=== PATIENT | female | born 1980 | race Caucasian/White ===

== ENCOUNTER → 2018-12-03 | Outpatient (CLI) | payer MEDICARE, MEDICAID ==
[~2018-12-03] MED LIST: ALPR1TAB2 PO; CLCX200C PO; CRS350T PO; DIAZ10TA PO; FERR-57 PO; GLYB5TAB6 PO; HYDR-2890 PO; HYDR50TA76 PO; LURA40TA PO; MORP60CA17 PO; ONDA-42 PO; OXYC-12 PO; OXYC60TA9 PO; PREN1TAB64 PO; PRX20T PO; ZLP10T PO
--- NOTE | 2018-12-03 10:34 | Diagnostic Imaging Report ---
INDICATION: Palpable lump in the right breast. Patient also complains of bilateral nipple discharge. Patient reports discharge is clear to white. TECHNIQUE: 2D and 3D bilateral diagnostic mammography was performed with CAD. COMPARISON: No prior studies are available for comparison. FINDINGS: Scattered fibroglandular densities are identified bilaterally. There is a nodular density in the upper outer right breast approximately 7 cm from the nipple. This may represent an intraparenchymal lymph node. No other masses or malignant appearing microcalcifications are seen. The retroareolar regions are unremarkable. The axillae are unremarkable. IMPRESSION: No mammographic abnormality at the area of palpable abnormality. Even so, directed sonographic interrogation of this region is recommended. Ultrasound evaluation of the upper outer right breast at the area of nodular density is recommended. In addition, ultrasound evaluation of the retroareolar regions bilaterally will be performed due to nipple discharge. ACR BI-RADS Category 0: Incomplete. (Needs additional imaging evaluation). Result letter will be mailed to the patient. Note: At least 10% of breast cancer is not imaged by mammography. Dictated by: Dictated on workstation # [id number]
--- NOTE | 2018-12-03 10:58 | Diagnostic Imaging Report ---
INDICATION: Palpable lump in the right breast. Patient also complains of bilateral nipple discharge. COMPARISON: Correlation is made to the diagnostic mammogram from earlier this same day. FINDINGS: Sonographic interrogation of the retroareolar regions was performed bilaterally. No retroareolar abnormality is identified within either breast. In addition, the area of palpable abnormality was evaluated in the right breast corresponding to the 9 o'clock location 2 cm from the nipple. No sonographic abnormality is seen. Evaluation was also performed of the upper outer right breast 6 cm from the nipple. There is a hypoechoic nodule with an echogenic center at the 9:30 location 6 cm from the nipple measuring 9 mm x 5 mm x 9 mm. This most likely represents a lymph node. This does correspond to the nodule noted mammographically. No suspicious finding is detected. IMPRESSION: No suspicious sonographic abnormality is identified. ACR BI-RADS Category 2: Benign findings. Dictated by: Dictated on workstation # [id number]
== END ==
LOC: RAD 07:44
PROVIDERS: ATTEND Registered Nurse
DX: N63.11 Unspecified lump in the right breast, upper outer quadrant (principal); N64.52 Nipple discharge
CPT/HCPCS: 76642; 77066

== ENCOUNTER 2019-01-05 12:00 | Emergency (ER) | payer MEDICARE, MEDICAID ==
[~2019-01-05] VITALS: Ht 167.6 cm; Wt 99.8 kg
--- NOTE | 2019-01-05 12:59 | ED Lower Extremity ---
General Chief Complaint: Lower Extremity Stated Complaint: R LEG PAIN Source: patient Exam Limitations: no limitations History of Present Illness Date Seen by Provider: Jan 05, 2019 Time Seen by Provider: 12:57 Initial Comments To ER with reports of right lateral leg pain. This began on , 01/01/19 when she fell she twisted her ankle falling onto her right side striking the right lateral aspect of the lower leg. Pain has not improved since onset. No tingling paresthesias or numbness to the foot. She has been able to bear weight. Onset: last week Severity: moderate Pain/Injury Location: right leg Method of Injury: fell Modifying Factors: Worse With Movement Allergies and Home Medications Allergies Coded Allergies: Penicillins (Verified Allergy, 08/05/11) Home Medications Alprazolam 1 Mg Tablet, 1 MG PO TID, (Reported) Carisoprodol 350 Mg Tablet, 1 TAB PO TID, (Reported) Celecoxib 200 Mg Capsule, 200 MG PO TID, (Reported) Diazepam 10 Mg Tablet, 10 MG PO BID, (Reported) Hydrocodone Bit/Acetaminophen 1 Each Tablet, 1 EACH PO PRN, (Reported) Hydrocodone Bit/Acetaminophen 1 Tab Tab, 1 EACH PO Q4-6HR PRN for PAIN-MODERATE Prescribed by: FAIBAN SALAZAR on 01/05/19 1342 Lurasidone Hcl 40 Mg Tablet, 40 MG PO HS, (Reported) Morphine Sulfate 60 Mg Cap.sr.pel, 60 MG PO BID, (Reported) Oxycodone Hcl 60 Mg Tab.sr.12h, 60 MG PO BID, (Reported) Zolpidem Tartrate 10 Mg Tab, 10 MG PO HS, (Reported) Patient Home Medication List Home Medication List Reviewed: Yes Review of Systems Constitutional: see HPI EENTM: see HPI Respiratory: no symptoms reported Cardiovascular: no symptoms reported Genitourinary: no symptoms reported Musculoskeletal: see HPI Skin: no symptoms reported Psychiatric/Neurological: No Symptoms Reported Past Bocconu-Swfwus-Hptjlf Hx Patient Social History Recent Foreign Travel: No Contact w/Someone Who Travel: No Immunizations Up To Date Date of Influenza Vaccine: Apr 19, 2013 Past Medical History Reproductive Disorders: No Kidney Infection Chronic Back Pain Anxiety, Suicide Attempts, Bipolar, Personality Disorder, Depression Physical Exam Vital Signs Vital Signs - First Documented 01/05/19 12:40 Temp 98.9 Pulse 116 Resp 18 B/P (MAP) 132/96 (108) Pulse Ox 98 O2 Delivery Room Air Capillary Refill : Height, Weight, BMI Height: 5'7" Weight: 200lbs. oz. 90.595026kj; BMI Method: General Appearance: WD/WN, no apparent distress HEENT: PERRL/EOMI, normal ENT inspection Respiratory: no respiratory distress, no accessory muscle use Hips: bilateral hip non-tender, bilateral hip normal inspection, bilateral hip normal range of motion Legs: bilateral leg non-tender, bilateral leg normal inspection, bilateral leg normal range of motion Knees: bilateral knee non-tender, bilateral knee normal inspection, bilateral knee normal range of motion Ankles: right ankle pain, right ankle soft tissue tenderness, right ankle swelling, right ankle other (dorsalis pedis pulse +2 normal appearance to the leg, all compartments are soft. Tenderness to palpation over the fibular head but no ecchymosis swelling or deformity.) Feet: bilateral foot non-tender, bilateral foot normal inspection, bilateral foot normal range of motion Neurologic/Psychiatric: alert, normal mood/affect, oriented x 3 Skin: normal color, warm/dry Progress/Results/Core Measures Results/Orders My Orders Orders - FABIAN SALAZAR APRN Tibia/Fibula, Right, 2 Views (01/05/19 12:56) Vital Signs/I&O 01/05/19 12:40 Temp 98.9 Pulse 116 Resp 18 B/P (MAP) 132/96 (108) Pulse Ox 98 O2 Delivery Room Air Departure Communication (Admissions) Normal sensation of the foot, normal dorsiflexion and plantar flexion of the foot. Impression Primary Impression: Right fibular fracture Qualified Codes: S82.831A - Other fracture of upper and lower end of right fibula, initial encounter for closed fracture Disposition: 01 HOME, SELF-CARE Condition: Stable Departure-Patient Inst. Decision time for Depature: 13:39 Referrals: MAYCOL MARIN (PCP) Primary Care Physician AMOS MARES MD,MERCEDEZ POLANCO,ORION KELLY,SHIRLEY HERNANDEZ,MAYCOL Zamora MD Patient Instructions: Fibula Fracture (DC) Add. Discharge Instructions: All discharge instructions reviewed with patient and/or family. Voiced understanding. Scripts Hydrocodone Bit/Acetaminophen (Hydrocodone/Acetaminophen 5/325mg Tablet) 1 Tab Tab 1 EACH PO Q4-6HR PRN for PAIN-MODERATE MDD 10 for 3 Days, #20 TAB Prov: FABIAN SALAZAR APRN 01/05/19 FABIAN SALAZAR APRN Jan 05, 2019 12:59
--- NOTE | 2019-01-05 13:33 | Diagnostic Imaging Report ---
INDICATION: Fall with injury to the right leg. TIME OF EXAM: 01:11 p.m. EXAMINATION: Multiple views of right tibia and fibula were obtained. FINDINGS: The lateral view does appear to demonstrate some cortical interruption involving the proximal fibula near the neck. A longitudinally oriented lucency is also present which extends to the proximal surface. No displacement or angulation is seen. Remaining fibula is intact. The tibia appears to be intact. Alignment at the knee and ankle is normal. IMPRESSION: There are findings suggestive of a nondisplaced fracture of the proximal fibula near the neck and head. Clinical correlation to pain at this location is recommended. Remainder of the study is unremarkable. Dictated by: Dictated on workstation # [id number]
[2019-01-05] MEDS ORDERED: ACHD5005 PO (13:42)
[2019-01-05] MEDS ORDERED: HYDROcodone/APAP 5 MG/325 MG (LORTAB) TAB PO ONE (14:00)
[2019-01-05 14:18] VITALS: BP 132/96
== END 2019-01-05 14:20 | disposition home or self-care (01) ==
LOC: EDUNIT# 12:00 → ER 12:01
DX: S82.831A Other fracture of upper and lower end of right fibula, initial encounter for closed fracture (principal); F41.9 Anxiety disorder, unspecified; F31.9 Bipolar disorder, unspecified; F60.9 Personality disorder, unspecified; Z91.5 Personal history of self-harm; W01.10XA Fall on same level from slipping, tripping and stumbling with subsequent striking against unspecified object, initial encounter
CPT/HCPCS: 73590

== ENCOUNTER 2020-09-29 15:45 | Emergency (ER) | payer MEDICARE, MEDICAID ==
[~2020-09-29] VITALS: Ht 167 cm; Wt 86.0 kg
[~2020-09-29 15:45] MED LIST changes: +ACHD5005 PO
[2020-09-29] MEDS ORDERED: morphine INJ 10 MG/ML 1ML (SYR OR VIAL) IV STA (16:01)
[2020-09-29] MEDS ORDERED: FAMOTIDINE 20MG/2ML IV (PEPCID) IV STA (16:12)
--- NOTE | 2020-09-29 16:12 | ED Chest Pain ---
General Chief Complaint: Chest Pain Stated Complaint: CP/SOB Source: patient Exam Limitations: no limitations (ANTHONY SCHRADER) History of Present Illness Date Seen by Provider: September 29, 2020 Time Seen by Provider: 15:50 Initial Comments Patient presents ER by private conveyance with chief complaint of 1-1/2 weeks of sharp 8 out of 10 substernal midline chest pain. She has no history of coronary disease. She has no significant familial history of coronary disease. She does not smoke drink or use drugs. She has tried ibuprofen 800 mg every 6 hours with no relief of pain. She went to [place] [facility] and had 2 different troponins and labs that revealed no significant disease burden. She was given Toradol which did not help. She was given Norflex which did not help and was sent home to take ibuprofen. She is on medications for her mood Effexor. She has a history of gastric sleeve 2 years ago and 14 months ago she had a gastric bypass secondary to severe gastritis/reflux. No recent surgeries. No recent trauma. Pain is worse when she pushes on her chest or takes deep breaths. She has no cough shortness of breath fever chills nausea. She had some vomiting yesterday with a tremendous amount of pain. Pain is not worse with lying flat or sitting up. (ANTHONY SCHRADER) Allergies and Home Medications Allergies Coded Allergies: Penicillins (Verified Allergy, Unknown, 09/29/20) Home Medications Alprazolam 1 Mg Tablet, 1 MG PO TID, (Reported) Carisoprodol 350 Mg Tablet, 1 TAB PO TID, (Reported) Celecoxib 200 Mg Capsule, 200 MG PO TID, (Reported) Diazepam 10 Mg Tablet, 10 MG PO BID, (Reported) Hydrocodone Bit/Acetaminophen 1 Each Tablet, 1 EACH PO PRN, (Reported) Hydrocodone Bit/Acetaminophen 1 Tab Tab, 1 EACH PO Q4-6HR PRN for PAIN-MODERATE Prescribed by: FABIAN SALAZAR on 01/05/19 1342 Lurasidone Hcl 40 Mg Tablet, 40 MG PO HS, (Reported) Morphine Sulfate 60 Mg Cap.sr.pel, 60 MG PO BID, (Reported) Oxycodone Hcl 60 Mg Tab.sr.12h, 60 MG PO BID, (Reported) Zolpidem Tartrate 10 Mg Tab, 10 MG PO HS, (Reported) Patient Home Medication List Home Medication List Reviewed: Yes (ANTHONY SCHRADER) Review of Systems Review of Systems Constitutional: No chills, No diaphoresis EENTM: No Blurred Vision, No Double Vision Respiratory: Denies Cough, Denies Orthopnea Cardiovascular: See HPI, Chest Pain; Denies Lightheadedness Gastrointestinal: Denies Abdominal Pain, Denies Constipated, Denies Diarrhea Genitourinary: Denies Burning, Denies Discharge Musculoskeletal: No back pain, No joint pain (ANTHONY SCHRADER) All Other Systems Reviewed Negative Unless Noted: Yes (ANTHONY SCHRADER) Past Sizhtbv-Szpqoz-Cdngoy Hx Patient Social History Alcohol Use: Denies Use Smoking Status: Never a Smoker 2nd Hand Smoke Exposure: No Recent Hopitalizations: Yes ( X4) (ANTHONY SCHRADER) Immunizations Up To Date Date of Influenza Vaccine: Apr 19, 2013 (ANTHONY SCHRADER) Past Medical History Surgeries: Yes (D&C) Abdominal Respiratory: No Cardiac: No Neurological: No Reproductive Disorders: No Genitourinary: Yes Kidney Infection Gastrointestinal: No Musculoskeletal: Yes (BACK SX) Chronic Back Pain Endocrine: No Psychosocial: Yes (AGORAPHOBIA) Anxiety, Suicide Attempts, Bipolar, Personality Disorder, Depression Integumentary: No Blood Disorders: No (ANTHONY SCHRADER) Physical Exam Vital Signs Vital Signs - First Documented 09/29/20 16:02 Temp 36.4 Pulse 95 Resp 18 B/P (MAP) 144/108 (120) Pulse Ox 100 O2 Delivery Room Air (FABIAN SALAZAR APRN) Vital Signs Capillary Refill : (ANTHONY SCHRADER) Height, Weight, BMI Height: 5'6.00" Weight: 220lbs. oz. 99.734453gr; BMI Method:Stated General Appearance: Anxious (Tearful), Moderate Distress HEENT: PERRL/EOMI, Pharynx Normal, Moist Mucous Membranes Neck: Full Range of Motion, Normal Inspection, Non Tender Respiratory: No Chest Non Tender (Chest pain exquisitely reproducible to palpation of the sternum); Lungs Clear, Normal Breath Sounds, No Accessory Muscle Use, No Respiratory Distress Cardiovascular: Regular Rate, Rhythm, No Edema, Normal Peripheral Pulses Gastrointestinal: Normal Bowel Sounds, No Organomegaly, No Pulsatile Mass, Non Tender, Soft Extremity: Normal Capillary Refill, Normal Inspection, No Pedal Edema Neurologic/Psychiatric: Alert, Oriented x3 Skin: Normal Color, Warm/Dry (ANTHONY SCHRADER) Progress/Results/Core Measures Results/Orders Lab Results Laboratory Tests Test 09/29/20 16:01 Range/Units White Blood Count 8.4 4.3-11.0 10^3/uL Red Blood Count 4.31 3.80-5.11 10^6/uL Hemoglobin 12.2 11.5-16.0 g/dL Hematocrit 38 35-52 % Mean Corpuscular Volume 87 80-99 fL Mean Corpuscular Hemoglobin 28 25-34 pg Mean Corpuscular Hemoglobin Concent 32 32-36 g/dL Red Cell Distribution Width 12.9 10.0-14.5 % Platelet Count 328 130-400 10^3/uL Mean Platelet Volume 10.7 9.0-12.2 fL Immature Granulocyte % (Auto) 0 % Neutrophils (%) (Auto) 65 42-75 % Lymphocytes (%) (Auto) 29 12-44 % Monocytes (%) (Auto) 5 0-12 % Eosinophils (%) (Auto) 1 0-10 % Basophils (%) (Auto) 0 0-10 % Neutrophils # (Auto) 5.4 1.8-7.8 10^3/uL Lymphocytes # (Auto) 2.4 1.0-4.0 10^3/uL Monocytes # (Auto) 0.4 0.0-1.0 10^3/uL Eosinophils # (Auto) 0.1 0.0-0.3 10^3/uL Basophils # (Auto) 0.0 0.0-0.1 10^3/uL Immature Granulocyte # (Auto) 0.0 0.0-0.1 10^3/uL Prothrombin Time 13.4 12.2-14.7 SEC INR Comment 1.0 0.8-1.4 Activated Partial Thromboplast Time 27 24-35 SEC D-Dimer < 0.27 0.00-0.49 UG/ML Sodium Level 141 135-145 MMOL/L Potassium Level 3.2 L 3.6-5.0 MMOL/L Chloride Level 104 98-107 MMOL/L Carbon Dioxide Level 21 21-32 MMOL/L Anion Gap 16 H 5-14 MMOL/L Blood Urea Nitrogen 6 L 7-18 MG/DL Creatinine 1.03 0.60-1.30 MG/DL Estimat Glomerular Filtration Rate 60 BUN/Creatinine Ratio 6 Glucose Level 122 H 70-105 MG/DL Calcium Level 8.9 8.5-10.1 MG/DL Corrected Calcium 9.0 8.5-10.1 MG/DL Magnesium Level 2.1 1.6-2.4 MG/DL Total Bilirubin 0.3 0.1-1.0 MG/DL Aspartate Amino Transf (AST/SGOT) 20 5-34 U/L Alanine Aminotransferase (ALT/SGPT) 16 0-55 U/L Alkaline Phosphatase 88 40-136 U/L Total Creatine Kinase 92 29-168 U/L Myoglobin 26.6 10.0-92.0 NG/ML Troponin I < 0.028 <0.028 NG/ML Total Protein 7.4 6.4-8.2 GM/DL Albumin 3.9 3.2-4.5 GM/DL (FABIAN SALAZAR APRN) My Orders Orders - FABIAN SALAZAR APRN Iohexol Injection (Omnipaque 350 Mg/Ml 1 (09/29/20 19:00) Received Contrast (Hold Metformin- Contr (09/29/20 19:00) Ns (Ivpb) (Sodium Chloride 0.9% Ivpb Bag (09/29/20 19:00) Diatrizoate Meglum/Sodium 37% (Gastrogra (09/29/20 19:00) (FABIAN SALAZAR APRN) Medications Given in ED Current Medications Medications Dose Ordered Sig/Jerardo Route Start Time Stop Time Status Last Admin Dose Admin Al Hydrox/Mg Hydrox/Simethicone 30 ml ONCE ONCE PO 09/29/20 16:15 09/29/20 16:16 DC 09/29/20 16:41 30 ML Aspirin 324 mg ONCE ONCE PO 09/29/20 16:15 09/29/20 16:16 DC 09/29/20 16:19 324 MG Diatrizoate Meglum/ Diatrizoate Sod 120 ml ONCE ONCE PO 09/29/20 19:00 09/29/20 19:01 DC 09/29/20 18:53 50 ML Iohexol 100 ml ONCE ONCE IV 09/29/20 19:00 09/29/20 19:01 DC 09/29/20 18:53 100 ML Lidocaine HCl 15 ml ONCE ONCE PO 09/29/20 16:15 09/29/20 16:16 DC 09/29/20 16:41 15 ML Nitroglycerin 0.4 mg NEEDED PRN SL 09/29/20 16:15 09/29/20 16:19 0.4 MG Sodium Chloride 100 ml ONCE ONCE IV 09/29/20 19:00 09/29/20 19:01 DC 09/29/20 18:53 80 ML (FABIAN SALAZAR APRN) Vital Signs/I&O 09/29/20 09/29/20 09/29/20 09/29/20 16:02 16:10 16:41 17:26 Temp 36.4 36.4 36.4 Pulse 95 Resp 18 B/P (MAP) 144/108 (120) Pulse Ox 100 O2 Delivery Room Air Room Air (FABIAN SALAZAR APRN) Progress Progress Note : Time: 16:14 Progress Note Differential includes esophageal spasm/GERD/gastritis/ulcer, myocarditis/pericarditis, much less likely coronary, pneumonia, bronchospasm or PE. With her recent work-up and delta troponin coronary seems less likely as she has few risk factors. She is not on control and rules out with a Wells PE score and PERC rule. Her vitals are aseptic and she has no cough, fever or other signs of pneumonia. Her lungs sound clear without bronchospasm. She has normal heart tones and no evidence of tension pneumothorax or cardiac tamponade on examination. We will start with a dose of nitroglycerin which may help if she is having an esophageal spasm followed by GI cocktail of her symptoms or not completely resolved. If this does not work then we can use morphine to get her pain under control continue our work-up with labs and x-ray. (ANTHONY SCHRADER) Initial ECG Impression Date: September 29, 2020 Initial ECG Impression Time: 15:52 Initial ECG Rate: 81 Initial ECG Rhythm: Normal Sinus Initial ECG Intervals: QT (474) Initial ECG Impression: Normal Initial ECG Comparisson: No Previous ECG Available Comment Normal sinus rhythm without clinically relevant ST elevation or depression. (ANTHONY SCHRADER) Diagnostic Imaging Diagonstic Imaging: Xray Plain Films/CT/US/NM/MRI: chest Comments NAME: AUGIE CODY Foreign MED REC#: [id number] PT STATUS: REG ER : 1980 PHYSICIAN: ANTHONY SCHRADER MD ADMIT DATE: 09/29/20/ER Signed Date of Exam:09/29/20 CHEST 1 VIEW, AP/PA ONLY EXAMINATION: Chest 1 view HISTORY: Chest pain COMPARISON: None available. FINDINGS: The lungs are clear without edema or pneumonia. No pleural effusion or pneumothorax. Heart size is normal. IMPRESSION: 1. Clear lungs. Dictated by: Dictated on workstation # [id number] Dict: 09/29/208 Trans: 09/29/201627 [facility] [id number] Interpreted by: MERCEDEZ DILL MD Electronically signed by: MERCEDEZ DILL MD 09/29/208 Reviewed: Reviewed by Me (ANTHONY SCHRADER) Consults : Consulting Physician: DONNELL CARDOSO DO Consults Notes Discussed the case and differential and he suggested a CT with oral contrast to rule out obstruction. He would then put the patient on Carafate, Protonix, appropriate pain medicines and avoid NSAIDs. Follow-up with the surgeon. (ANTHONY SCHRADER) Departure Communication (Admissions) NAME: AUGIE CODY MED REC#: [id number] PT STATUS: REG ER : 1980 PHYSICIAN: ANTHONY SCHRADER MD ADMIT DATE: 09/29/20/ER Draft Date of Exam:09/29/20 CT CHEST/ABDOMEN/PELVIS W PROCEDURE: CT chest, abdomen, and pelvis with contrast. TECHNIQUE: Multiple contiguous axial images were obtained through the chest, abdomen, and pelvis after the administration of intravenous contrast. Auto Exposure Controls were utilized during the CT exam to meet ALARA standards for radiation dose reduction. INDICATION: Chest pain, shortness of breath for 2 weeks, gastric sleeve, lumbar surgery. COMPARISON STUDY: CT lumbar spine from 2013. FINDINGS: CT scan of the chest demonstrates no pulmonary emboli, aortic dissection or aneurysm. There are no pleural or pericardial effusions. Heart size is normal. No abnormal adenopathy is present. The lungs are clear. Oral contrast was also given. Esophagus is mildly distended with some contrast in the esophagus probably due to reflux. No hiatal hernia is present. The stomach is fairly decompressed. The liver, gallbladder, spleen, pancreas, adrenal glands and kidneys are normal. Appendix is not definitely identified. There is no evidence of appendicitis. IUD is present within the uterus. No inflammatory changes present. Adnexal structures appear normal. Urinary bladder is unremarkable but is nearly decompressed. Moderate amount of stool seen throughout the colon, questionable constipation. Small bowel loops are normal. There is no ascites, free air or abnormal adenopathy. Postoperative changes present to the spine. No evidence of hardware loosening is present. IMPRESSION: 1. There is contrast in the esophagus with mild distention of the esophagus. This probably due to reflux. Stomach is nearly decompressed. 2. IUD in the uterus appears unremarkable. 3. Large amount stool seen throughout: Possible constipation. Dictated on workstation # [id number] Dict: 09/29/20 1855 Trans: 09/29/201901 [facility] [id number] Interpreted by: SHEKHAR RAMOS MD Electronically signed by: (FABIAN SALAZAR APRN) Impression Primary Impression: Chest pain Additional Impression: GERD (gastroesophageal reflux disease) Disposition: 01 HOME, SELF-CARE Condition: Stable Departure-Patient Inst. Decision time for Depature: 19:06 (FABIAN SALAZAR APRN) Referrals: [facility] Primary Care Physician MAYCOL MARIN (Family) Primary Care Physician Patient Instructions: Acid Reflux and Gastroesophageal Reflux Disease in Adults Add. Discharge Instructions: 1. Call your surgeon for follow-up. Take the acid reducers and pain medication as directed. Clear liquids for 3 days. Scripts Sucralfate (Carafate) 1 Gm/10 Ml Oral.susp 1 GM PO MARYAM, #400 ML Prov: FABIAN SALAZAR APRN 09/29/20 Pantoprazole Sodium (Protonix) 40 Mg Sharri.dr 40 MG PO DAILY for 30 Days, #30 TAB Prov: FABIAN SALAZAR APRN 09/29/20 ANTHONY SCHRADER September 29, 2020 16:12 FABIAN SALAZAR APRN September 29, 2020 19:08
[2020-09-29 16:15] LABS: BASOPHILS % (AUTO) 0 % (0-10); EOSINOPHILS # (AUTO) 0.1 10^3/uL (0.0-0.3); EOSINOPHILS % (AUTO) 1 % (0-10); HEMATOCRIT 38 % (35-52); HEMOGLOBIN 12.2 g/dL (11.5-16.0); LYMPHOCYTES # (AUTO) 2.4 10^3/uL (1.0-4.0); LYMPHOCYTES % (AUTO) 29 % (12-44); MEAN CORPUSCULAR HEMOGLOBIN 28 pg (25-34); MEAN CORPUSCULAR HGB CONC 32 g/dL (32-36); MEAN CORPUSCULAR VOLUME 87 fL (80-99); MEAN PLATELET VOLUME 10.7 fL (9.0-12.2); MONOCYTES # (AUTO) 0.4 10^3/uL (0.0-1.0); MONOCYTES % (AUTO) 5 % (0-12); NEUTROPHILS # (AUTO) 5.4 10^3/uL (1.8-7.8); NEUTROPHILS % (AUTO) 65 % (42-75); PLATELET COUNT 328 10^3/uL (130-400); WHITE BLOOD COUNT 8.4 10^3/uL (4.3-11.0)
[2020-09-29] MEDS ORDERED: ANTACID SUSP 30 ML UDC (MYLANTA) PO ONE (16:15)
[2020-09-29] MEDS ORDERED: NITROGLYCERIN 0.4 MG SL TABS BTL 25'S SL PRN (16:15)
[2020-09-29] MEDS ORDERED: LIDOCAINE 2% VISCOUS 15 ML UDC PO ONE (16:15)
[2020-09-29] MEDS ORDERED: ASPIRIN 81 MG CHEW (CHILDREN'S ASA) PO ONE (16:15)
--- NOTE | 2020-09-29 16:29 | Diagnostic Imaging Report ---
EXAMINATION: Chest 1 view HISTORY: Chest pain COMPARISON: None available. FINDINGS: The lungs are clear without edema or pneumonia. No pleural effusion or pneumothorax. Heart size is normal. IMPRESSION: 1. Clear lungs. Dictated by: Dictated on workstation # [id number]
[2020-09-29 16:30] LABS: ALBUMIN 3.9 GM/DL (3.2-4.5); POTASSIUM 3.2 MMOL/L (3.6-5.0)
[2020-09-29 16:31] LABS: CALCIUM 8.9 MG/DL (8.5-10.1)
[2020-09-29 16:33] LABS: TOTAL PROTEIN 7.4 GM/DL (6.4-8.2)
[2020-09-29 16:34] LABS: BILIRUBIN,TOTAL 0.3 MG/DL (0.1-1.0)
[2020-09-29 16:36] LABS: CREATININE SERUM 1.03 MG/DL (0.60-1.30)
[2020-09-29 16:39] LABS: MAGNESIUM 2.1 MG/DL (1.6-2.4); PROTHROMBIN TIME PATIENT 13.4 SEC (12.2-14.7)
[2020-09-29] MEDS ORDERED: morphine INJ 10 MG/ML 1ML (SYR OR VIAL) IVP STA (17:11)
[2020-09-29] MEDS ORDERED: IOHEXOL 350 MG/ML 100 ML (OMNIPAQUE 350) VIAL IV ONE (19:00)
[2020-09-29] MEDS ORDERED: NS 100 ML (IVPB) BAG IV ONE (19:00)
[2020-09-29] MEDS ORDERED: HOLD METFORMIN - RECEIVED CONTRAST 20 ML VIAL IV SCH (19:00)
[2020-09-29] MEDS ORDERED: DIATRIZOATE MEGLUM/SODIUM 37% 120 ML (GASTROGRAFIN) PO ONE (19:00)
--- NOTE | 2020-09-29 19:03 | Diagnostic Imaging Report ---
PROCEDURE: CT chest, abdomen, and pelvis with contrast. TECHNIQUE: Multiple contiguous axial images were obtained through the chest, abdomen, and pelvis after the administration of intravenous contrast. Auto Exposure Controls were utilized during the CT exam to meet ALARA standards for radiation dose reduction. INDICATION: Chest pain, shortness of breath for 2 weeks, gastric sleeve, lumbar surgery. COMPARISON STUDY: CT lumbar spine from 2013. FINDINGS: CT scan of the chest demonstrates no pulmonary emboli, aortic dissection or aneurysm. There are no pleural or pericardial effusions. Heart size is normal. No abnormal adenopathy is present. The lungs are clear. Oral contrast was also given. Esophagus is mildly distended with some contrast in the esophagus probably due to reflux. No hiatal hernia is present. The stomach is fairly decompressed. The liver, gallbladder, spleen, pancreas, adrenal glands and kidneys are normal. Appendix is not definitely identified. There is no evidence of appendicitis. IUD is present within the uterus. No inflammatory changes present. Adnexal structures appear normal. Urinary bladder is unremarkable but is nearly decompressed. Moderate amount of stool seen throughout the colon, questionable constipation. Small bowel loops are normal. There is no ascites, free air or abnormal adenopathy. Postoperative changes present to the spine. No evidence of hardware loosening is present. IMPRESSION: 1. There is contrast in the esophagus with mild distention of the esophagus. This probably due to reflux. Stomach is nearly decompressed. 2. IUD in the uterus appears unremarkable. 3. Large amount stool seen throughout: Possible constipation. Dictated by: Dictated on workstation # [id number]
[2020-09-29] MEDS ORDERED: SUCR1ORA5 PO (19:17)
[2020-09-29] MEDS ORDERED: PANT40SU PO (19:17)
[2020-09-29 19:33] VITALS: BP 136/89
[2020-09-30] MEDS ORDERED: SUCR1ORA5 PO (15:06)
[2020-09-30] MEDS ORDERED: PANT40SU PO (15:06)
== END 2020-09-29 19:25 | disposition home or self-care (01) ==
LOC: EDUNIT# 15:45 → ER 15:47
DX: K21.9 Gastro-esophageal reflux disease without esophagitis (principal); G89.29 Other chronic pain; M54.9 Dorsalgia, unspecified; F41.9 Anxiety disorder, unspecified; F31.9 Bipolar disorder, unspecified; F60.9 Personality disorder, unspecified; Z88.0 Allergy status to penicillin; Z79.891 Long term (current) use of opiate analgesic; Z79.899 Other long term (current) drug therapy
CPT/HCPCS: 36415; 71045; 71260; 74177; 80053; 82550; 83735; 83874; 84484; 85025; 85379; 85610; 85730; 93005

== ENCOUNTER 2021-03-19 13:15 | Emergency (ER) | payer MEDICARE, MEDICAID ==
[~2021-03-19] VITALS: Ht 167 cm; Wt 72.5 kg
[~2021-03-19 13:15] MED LIST changes: +PANT40SU PO; +SUCR1ORA5 PO
--- NOTE | 2021-03-19 13:45 | ED General ---
General Chief Complaint: Chest Wall Stated Complaint: FALL/R SIDE RIB PAIN Nursing Triage Note: PT AMBULATORY TO ED C/O RIGHT RIBCAGE PAIN, TENDER ON PALPATION. PT SO IN ROOM ALSO REPORTS PT HAS HAD CONFUSION FOR A FEW WEEKS. PT HAS HX OF SCHIZOPHRENIA, BIPOLAR, AND CHRONIC BACK PAIN. Source of Information: Patient Exam Limitations: No Limitations History of Present Illness Date Seen by Provider: Mar 19, 2021 Time Seen by Provider: 13:42 Initial Comments To ER with reports of right anterior lower rib pain tender to palpation. She is also had a cough. states her lungs sound like she is gurgling at night. He also reports that she is confused for about 2 days. For example she was asking for all the pillows to be on her side of the bed last night when they were already on her side of the bed. No fevers no chills. She is on a fentanyl patch for chronic back pain. She does not recall any fall or injury. Timing/Duration: 1-2 Days Severity: Moderate Associated Systoms: Other Allergies and Home Medications Allergies Coded Allergies: Penicillins (Verified Allergy, Unknown, 09/29/20) Patient Home Medication List Home Medication List Reviewed: Yes Alprazolam (Xanax) 1 Mg Tablet, 1 MG PO TID, (Reported) Entered as Reported by: SENG HO on 08/15/13 1234 Carisoprodol (Soma) 350 Mg Tablet, 1 TAB PO TID, (Reported) Entered as Reported by: SENG HO on 08/15/13 1234 Cefdinir (Cefdinir) 300 Mg Capsule, 300 MG PO BID Prescribed by: FABIAN SALAZAR on 03/19/21 1545 Celecoxib (Celebrex) 200 Mg Capsule, 200 MG PO TID, (Reported) Entered as Reported by: SENG HO on 08/15/13 1234 Diazepam (Valium 10 Mg Tab) 10 Mg Tablet, 10 MG PO BID, (Reported) Entered as Reported by: SENG HO on 08/15/13 1234 Hydrocodone Bit/Acetaminophen (Hydrocodon-Acetaminophn 10-325) 1 Each Tablet, 1 EACH PO PRN, (Reported) Entered as Reported by: SENG HO on 08/15/13 1234 Hydrocodone Bit/Acetaminophen (Lortab 5 Mg Tablet) 1 Tab Tab, 1 EACH PO Q4-6HR PRN for PAIN-MODERATE Prescribed by: FABIAN SALAZAR on 01/05/19 1342 Lurasidone Hcl (Latuda) 40 Mg Tablet, 40 MG PO HS, (Reported) Entered as Reported by: ESNG HO on 08/15/13 1234 Morphine Sulfate (Monica) 60 Mg Cap.sr.pel, 60 MG PO BID, (Reported) Entered as Reported by: SENG HO on 08/15/13 1234 Oxycodone Hcl (Oxycontin) 60 Mg Tab.sr.12h, 60 MG PO BID, (Reported) Entered as Reported by: SENG HO on 08/15/13 1234 Pantoprazole Sodium (Protonix) 40 Mg Granpkt.dr, 40 MG PO DAILY Prescribed by: ANTHONY SCHRADER on 09/30/20 1506 Sucralfate (Carafate) 1 Gm/10 Ml Oral.susp, 1 GM PO QIDACHS Prescribed by: ANTHONY SCHRADER on 09/30/20 1506 Zolpidem Tartrate (Ambien 10 Mg) 10 Mg Tab, 10 MG PO HS, (Reported) Entered as Reported by: LORI JAMA on 08/05/11 0249 Review of Systems Review of Systems Constitutional: see HPI EENTM: see HPI Respiratory: see HPI Cardiovascular: no symptoms reported Genitourinary: no symptoms reported Musculoskeletal: no symptoms reported Skin: no symptoms reported Psychiatric/Neurological: No Symptoms Reported Past Sucdbxw-Nnajva-Ipunsk Hx Patient Social History Tobacco Use?: Yes Substance use?: No Alcohol Use?: No Past Medical History Surgery/Hospitalization HX: SCHIZOPHRENIA, BIPOLAR, CHRONIC PAIN, INSOMNIA Surgeries: Yes (D&C) Abdominal Respiratory: No Cardiac: No Neurological: No Reproductive Disorders: No Genitourinary: Yes Kidney Infection Gastrointestinal: No Musculoskeletal: Yes (BACK SX) Chronic Back Pain Endocrine: No Psychosocial: Yes (AGORAPHOBIA) Anxiety, Suicide Attempts, Bipolar, Personality Disorder, Depression Integumentary: No Blood Disorders: No Physical Exam Vital Signs Vital Signs - First Documented 03/19/21 13:27 Temp 36.5 Pulse 98 Resp 16 B/P (MAP) 122/75 (91) Pulse Ox 100 O2 Delivery Room Air Capillary Refill : Less Than 3 Seconds Height, Weight, BMI Height: 5'6.00" Weight: 220lbs. oz. 99.911832yh; 25.00 BMI Method:Stated General Appearance: No Apparent Distress, WD/WN, Thin, Other (flat affect) Neck: Full Range of Motion, Normal Inspection Respiratory: No Accessory Muscle Use, No Respiratory Distress Cardiovascular: Regular Rate, Rhythm, Normal Peripheral Pulses Gastrointestinal: Normal Bowel Sounds, Non Tender, Soft Extremity: Normal Capillary Refill, Normal Inspection Neurologic/Psychiatric: Alert, Oriented x3 Skin: Normal Color, Warm/Dry Comments The right upper abdomen is nontender to palpation beneath the rib cage. However overlying the ribs is tender to palpation. There is no rash to suggest herpes zoster Progress/Results/Core Measures Suspected Sepsis SIRS Temperature: Pulse: 98 Respiratory Rate: 16 Laboratory Tests 03/19/21 13:37: White Blood Count 8.4 Blood Pressure 122 /75 Mean: 91 Laboratory Tests 03/19/21 13:37: Creatinine 0.75, INR Comment 1.1, Platelet Count 316, Total Bilirubin 0.3 Results/Orders Lab Results Laboratory Tests Test 03/19/21 13:37 03/19/21 15:15 Range/Units White Blood Count 8.4 4.3-11.0 10^3/uL Red Blood Count 3.38 L 3.80-5.11 10^6/uL Hemoglobin 9.7 L 11.5-16.0 g/dL Hematocrit 30 L 35-52 % Mean Corpuscular Volume 89 80-99 fL Mean Corpuscular Hemoglobin 29 25-34 pg Mean Corpuscular Hemoglobin Concent 32 32-36 g/dL Red Cell Distribution Width 13.6 10.0-14.5 % Platelet Count 316 130-400 10^3/uL Mean Platelet Volume 10.9 9.0-12.2 fL Immature Granulocyte % (Auto) 0 % Neutrophils (%) (Auto) 67 42-75 % Lymphocytes (%) (Auto) 24 12-44 % Monocytes (%) (Auto) 9 0-12 % Eosinophils (%) (Auto) 0 0-10 % Basophils (%) (Auto) 0 0-10 % Neutrophils # (Auto) 5.6 1.8-7.8 10^3/uL Lymphocytes # (Auto) 2.0 1.0-4.0 10^3/uL Monocytes # (Auto) 0.7 0.0-1.0 10^3/uL Eosinophils # (Auto) 0.0 0.0-0.3 10^3/uL Basophils # (Auto) 0.0 0.0-0.1 10^3/uL Immature Granulocyte # (Auto) 0.0 0.0-0.1 10^3/uL Prothrombin Time 14.2 12.2-14.7 SEC INR Comment 1.1 0.8-1.4 Sodium Level 139 135-145 MMOL/L Potassium Level 3.6 3.6-5.0 MMOL/L Chloride Level 100 98-107 MMOL/L Carbon Dioxide Level 27 21-32 MMOL/L Anion Gap 12 5-14 MMOL/L Blood Urea Nitrogen 9 7-18 MG/DL Creatinine 0.75 0.60-1.30 MG/DL Estimat Glomerular Filtration Rate 86 BUN/Creatinine Ratio 12 Glucose Level 90 70-105 MG/DL Calcium Level 8.8 8.5-10.1 MG/DL Corrected Calcium 9.1 8.5-10.1 MG/DL Total Bilirubin 0.3 0.1-1.0 MG/DL Aspartate Amino Transf (AST/SGOT) 15 5-34 U/L Alanine Aminotransferase (ALT/SGPT) 14 0-55 U/L Alkaline Phosphatase 50 40-136 U/L Ammonia 15 11-32 UMOL/L B-Type Natriuretic Peptide < 10.0 <100.0 PG/ML Total Protein 6.9 6.4-8.2 GM/DL Albumin 3.6 3.2-4.5 GM/DL Procalcitonin 0.02 <0.10 NG/ML Serum Test, Qualitative NEGATIVE NEGATIVE Serum Alcohol < 10 <10 MG/DL Urine Color YELLOW Urine Clarity SL CLOUDY Urine pH 7.5 5-9 Urine Specific [place] 1.010 L 1.016-1.022 Urine Protein NEGATIVE NEGATIVE Urine Glucose (UA) NEGATIVE NEGATIVE Urine Ketones NEGATIVE NEGATIVE Urine Nitrite NEGATIVE NEGATIVE Urine Bilirubin NEGATIVE NEGATIVE Urine Urobilinogen 1.0 < = 1.0 MG/DL Urine Leukocyte Esterase 2+ H NEGATIVE Urine RBC (Auto) NEGATIVE NEGATIVE Urine RBC 0-2 /HPF Urine WBC 25-50 H /HPF Urine Squamous Epithelial Cells 10-25 H /HPF Urine Renal Epithelial Cells 0-2 /HPF Urine Crystals NONE /LPF Urine Calcium Oxalate Crystals FEW H /LPF Urine Bacteria MODERATE H /HPF Urine Casts NONE /LPF Urine Mucus NEGATIVE /LPF Urine Culture Indicated YES Urine Opiates Screen NEGATIVE NEGATIVE Urine Oxycodone Screen NEGATIVE NEGATIVE Urine Methadone Screen NEGATIVE NEGATIVE Urine Propoxyphene Screen NEGATIVE NEGATIVE Urine Barbiturates Screen NEGATIVE NEGATIVE Ur Tricyclic Antidepressants Screen POSITIVE H NEGATIVE Urine Phencyclidine Screen NEGATIVE NEGATIVE Urine Amphetamines Screen POSITIVE H NEGATIVE Urine Methamphetamines Screen NEGATIVE NEGATIVE Urine Benzodiazepines Screen NEGATIVE NEGATIVE Urine Cocaine Screen NEGATIVE NEGATIVE Urine Cannabinoids Screen NEGATIVE NEGATIVE My Orders Orders - FABIAN SALAZAR APRN Cbc With Automated Diff (03/19/21 13:40) Comprehensive Metabolic Panel (03/19/21 13:40) Protime With Inr (03/19/21 13:40) Ua Culture If Indicated (03/19/21 13:40) Drug Screen Stat (Urine) (03/19/21 13:40) Hcg,Qualitative Serum (03/19/21 13:40) Ed Iv/Invasive Line Start (03/19/21 13:40) Ct Head Wo (03/19/21 13:40) Ribs/Unilateral With Chest (03/19/21 13:40) BNP (03/19/21 13:40) Procalcitonin (Pct) (03/19/21 13:40) Ammonia (03/19/21 13:40) Alcohol (03/19/21 13:40) Fentanyl Patch (Duragesic Patch) (03/19/21 15:00) Ibuprofen Tablet (Motrin Tablet) (03/19/21 15:00) Urine Culture (03/19/21 15:15) Cefdinir Capsule (Omnicef Capsule) (03/19/21 15:45) Medications Given in ED Vital Signs/I&O 03/19/21 03/19/21 13:27 15:50 Temp 36.5 Pulse 98 86 Resp 16 16 B/P (MAP) 122/75 (91) 122/75 Pulse Ox 100 98 O2 Delivery Room Air Room Air Capillary Refill : Less Than 3 Seconds Blood Pressure Mean: 91 Departure Impression Primary Impression: Rib pain Additional Impressions: History of delirium Urinary tract infection Disposition: 01 HOME, SELF-CARE Condition: Stable Departure-Patient Inst. Decision time for Depature: 14:44 Referrals: [facility] (PCP) Primary Care Physician MARIN,MAYCOL R CFNP (Family) Primary Care Physician Patient Instructions: NO INSTRUCTIONS GIVEN Add. Discharge Instructions: 1. Continue with the fentanyl patch. The new one was replaced today. Return to ER for any concerns. Follow-up with your doctor this week for recheck. Be sure to take a deep breath several times per day in order to fully expand the lungs so that you do not develop a pneumonia. You can add ibuprofen to your pain medication regimen. Take the antibiotic as directed for the bladder infection. All discharge instructions reviewed with patient and/or family. Voiced unde rstanding. Scripts Cefdinir (Cefdinir) 300 Mg Capsule 300 MG PO BID, #10 CAP Prov: FABIAN SALAZAR APRN 03/19/21 FABIAN SALAZAR APRN Mar 19, 2021 13:45
[2021-03-19 13:47] LABS: BASOPHILS % (AUTO) 0 % (0-10); EOSINOPHILS % (AUTO) 0 % (0-10); HEMATOCRIT 30 % (35-52); HEMOGLOBIN 9.7 g/dL (11.5-16.0); LYMPHOCYTES % (AUTO) 24 % (12-44); MEAN CORPUSCULAR HEMOGLOBIN 29 pg (25-34); MEAN CORPUSCULAR HGB CONC 32 g/dL (32-36); MEAN CORPUSCULAR VOLUME 89 fL (80-99); MEAN PLATELET VOLUME 10.9 fL (9.0-12.2); MONOCYTES # (AUTO) 0.7 10^3/uL (0.0-1.0); MONOCYTES % (AUTO) 9 % (0-12); NEUTROPHILS # (AUTO) 5.6 10^3/uL (1.8-7.8); NEUTROPHILS % (AUTO) 67 % (42-75); PLATELET COUNT 316 10^3/uL (130-400); WHITE BLOOD COUNT 8.4 10^3/uL (4.3-11.0)
[2021-03-19 13:57] LABS: INR 1.1 (0.8-1.4); PROTHROMBIN TIME PATIENT 14.2 SEC (12.2-14.7)
[2021-03-19 13:58] LABS: ALBUMIN 3.6 GM/DL (3.2-4.5); CHLORIDE 100 MMOL/L (98-107); POTASSIUM 3.6 MMOL/L (3.6-5.0); SODIUM 139 MMOL/L (135-145)
[2021-03-19 13:59] LABS: AMMONIA 15 UMOL/L (11-32); CALCIUM 8.8 MG/DL (8.5-10.1)
[2021-03-19 14:00] LABS: GLUCOSE 90 MG/DL (70-105); TOTAL PROTEIN 6.9 GM/DL (6.4-8.2)
[2021-03-19 14:01] LABS: CARBON DIOXIDE 27 MMOL/L (21-32)
[2021-03-19 14:02] LABS: BILIRUBIN,TOTAL 0.3 MG/DL (0.1-1.0)
[2021-03-19 14:04] LABS: ALKALINE PHOSPHATASE 50 U/L (40-136); CREATININE SERUM 0.75 MG/DL (0.60-1.30); GFR ESTIMATED 86
[2021-03-19 14:05] LABS: BUN/CREATININE RATIO 12
[2021-03-19 14:07] LABS: ALANINE AMINOTRANSFERASE 14 U/L (0-55)
--- NOTE | 2021-03-19 14:30 | Diagnostic Imaging Report ---
Clinical Indication: Patient with history of schizophrenia and bipolar. Patient has been confused for a few weeks. Exam: Axial CT scan of the brain without IV contrast with coronal and sagittal reformatted images. Auto Exposure Controls were utilized during the CT exam to meet ALARA standards for radiation dose reduction. Comparison: None. Findings: There is no evidence of acute cerebral infarct, intracranial hemorrhage, or gross mass effect. The brain parenchymal volume appears appropriate for patient's age. There is normal barnes-white matter distinction. There is no significant midline shift or herniation. There is no evidence of hydrocephalus. The basal cisterns are unremarkable. The skull, extracranial soft tissue, and orbits are unremarkable. The paranasal sinuses are unremarkable. Temporal bones show no significant abnormality. Impression: Unremarkable CT scan of the brain for age. Dictated by: Dictated on workstation # [id number]
--- NOTE | 2021-03-19 14:33 | Diagnostic Imaging Report ---
CLINICAL INDICATIONS: Patient with right rib cage pain. Tender on palpation. Patient fell 3 days ago. EXAMS: Chest x-ray AP and lateral views. X-ray right rib series. COMPARISONS: Chest x-ray dated 09/29/2020. FINDINGS: LUNGS/ PLEURA: Lungs are clear. There is no pneumothorax. There is no pleural effusion. MEDIASTINUM: Unremarkable. PULMONARY VASCULATURE: Unremarkable. HEART: Unremarkable. BONES/ EXTRATHORACIC SOFT TISSUE: Unremarkable. RIB SERIES: There are slightly displaced fractures involving the anterior aspect of the right T6 and T7 ribs. IMPRESSION: 1: There are slightly displaced fractures involving the anterior aspects of the right T6 and T7 ribs 2: Otherwise, there is no radiographic evidence of acute cardiopulmonary process. Dictated by: Dictated on workstation # [id number]
[2021-03-19] MEDS ORDERED: IBUPROFEN 800 MG (MOTRIN) TAB PO ONE (15:00)
[2021-03-19] MEDS ORDERED: fentaNYL PATCH 50 MCG (DURAGESIC) TD SCH (15:00)
[2021-03-19 15:32] LABS: AMPHETAMINE SCREEN, URINE POSITIVE (NEGATIVE); BARBITURATE SCREEN URINE NEGATIVE (NEGATIVE); BENZODIAZEPINES SCREEN URINE NEGATIVE (NEGATIVE); BILIRUBIN,URINE NEGATIVE (NEGATIVE); CANNABINOID SCREEN, URINE NEGATIVE (NEGATIVE); CLARITY,URINE SL CLOUDY; COCAINE SCREEN URINE NEGATIVE (NEGATIVE); COLOR,URINE YELLOW; GLUCOSE, URINE (UA) NEGATIVE (NEGATIVE); KETONES,URINE NEGATIVE (NEGATIVE); LEUKOCYTE ESTERASE ,URINE 2+ (NEGATIVE); METHADONE STAT NEGATIVE (NEGATIVE); METHAMPHETAMINE SCREEN URINE S NEGATIVE (NEGATIVE); NITRITE,URINE NEGATIVE (NEGATIVE); OPIATE SCREEN URINE NEGATIVE (NEGATIVE); OXYCODONE STAT NEGATIVE (NEGATIVE); PH,URINE 7.5 (5-9); PROPOXYPHENE STAT NEGATIVE (NEGATIVE); PROTEIN,URINE NEGATIVE (NEGATIVE); TRICYCLIC ANTIDEPRESSANTS SCRE POSITIVE (NEGATIVE)
[2021-03-19 15:40] LABS: BACTERIA,URINE MODERATE /HPF; CALCIUM OXALATE CRYSTALS,UR FEW /LPF; RBC,URINE 0-2 /HPF; RENAL EPITHELIAL CELLS,URINE 0-2 /HPF; WBC,URINE 25-50 /HPF
[2021-03-19] MEDS ORDERED: CEFD300C3 PO (15:45)
[2021-03-19] MEDS ORDERED: CEFDINIR 300 MG (OMNICEF) CAP PO ONE (15:45)
[2021-03-19 15:50] VITALS: BP 122/75
== END 2021-03-19 15:50 | disposition home or self-care (01) ==
LOC: EDUNIT# 13:15 → ER 13:18
DX: R07.81 Pleurodynia (principal); N39.0 Urinary tract infection, site not specified; F41.9 Anxiety disorder, unspecified; F31.9 Bipolar disorder, unspecified; G89.29 Other chronic pain; M54.9 Dorsalgia, unspecified; Z79.899 Other long term (current) drug therapy; Z79.891 Long term (current) use of opiate analgesic
CPT/HCPCS: 70450; 71101; 80053; 80306; 81000; 82140; 83880; 84145; 84703; 85025; 85610; 87088; 99283; G0480; 36415; 80320

== ENCOUNTER 2021-06-08 13:29 | Observation (INO) | payer MEDICARE, MEDICAID ==
[~2021-06-08] VITALS: Ht 167.7 cm; Wt 65.9 kg
[~2021-06-08 13:29] MED LIST changes: +CEFD300C3 PO
--- NOTE | 2021-06-08 15:06 | ED General ---
General Chief Complaint: Abdominal/GI Problems Stated Complaint: N/V,WEAKNESS Nursing Triage Note: PT AMBULATORY TO ED C/O RIGHT RIBCAGE PAIN, TENDER ON PALPATION. PT SO IN ROOM ALSO REPORTS PT HAS HAD CONFUSION FOR A FEW WEEKS. PT HAS HX OF SCHIZOPHRENIA, BIPOLAR, AND CHRONIC BACK PAIN. Source of Information: Patient, EMS Exam Limitations: No Limitations (FABIAN SALAZAR APRN) History of Present Illness Date Seen by Provider: Jun 08, 2021 Time Seen by Provider: 15:02 Initial Comments to ER by EMS from [facility] from her home with reports of intermittent abdominal cramping for 1 week general malaise. She developed a cough and sore throat today. She had chills but no measured fever. She is unvaccinated against COVID. Her son who lives with her is COVID-positive. She has not eaten anything in about a week, no diarrhea. She has not had any urine output in about a week she states. She did have some water this morning. She typically wears a fentanyl patch for chronic back pain but has not had one on since yesterday because she has felt so poorly. Timing/Duration: 1 Week Severity: Moderate Associated Systoms: Nausea/Vomiting, Weakness (FABIAN SALAZAR APRN) Allergies and Home Medications Allergies Coded Allergies: Penicillins (Verified Allergy, Unknown, 09/29/20) Patient Home Medication List Home Medication List Reviewed: Yes (FABIAN SALAZAR APRN) Amitriptyline HCl (Amitriptyline HCl) 100 Mg Tablet, 200 MG PO HS, (Reported) Entered as Reported by: ANGE SMITH on 06/09/211314 Last Action: Converted Cefdinir (Cefdinir) 300 Mg Capsule, 300 MG PO BID Prescribed by: ESA VILLATORO on 06/10/21 1300 Clonazepam (Clonazepam) 1 Mg Tablet, 1 MG PO BID PRN for PANIC ATTACKS, (Reported) Entered as Reported by: ANGE SMITH on 06/09/211314 Last Action: Continued Dextroamphetamine/Amphetamine (Dextroamp-Amphet ER 20 mg Cap) 20 Mg Cap.er.24h, 20 MG PO DAILY, (Reported) Entered as Reported by: ANGE SMITH on 06/09/211314 Last Action: Converted Divalproex Sodium (Divalproex Sodium ER) 500 Mg Tab.er.24h, 500 MG PO HS, (Reported) Entered as Reported by: ANGE SMITH on 06/09/211314 Last Action: Continued Divalproex Sodium (Divalproex Sodium ER) 250 Mg Tab.er.24h, 250 MG PO HS, (Repo rted) Entered as Reported by: ANGE SMITH on 06/09/211314 Last Action: Continued Fentanyl (Fentanyl Patch 50 MCG) 1 Each Patch.td72, 50 MCG TD Q72H, (Reported) Entered as Reported by: ANGE SMITH on 06/09/211314 Last Action: Edited Ibuprofen (Ibuprofen) 800 Mg Tablet, 800 MG PO Q8H, (Reported) Entered as Reported by: ANGE SMITH on 06/09/211314 Last Action: Continued Lamotrigine (Lamotrigine) 25 Mg Tablet, 50 MG PO DAILY, (Reported) Entered as Reported by: ANGE SMITH on 06/09/211314 Last Action: Continued Metronidazole (Metronidazole) 500 Mg Tablet, 500 MG PO TID Prescribed by: ESA VILLATORO on 06/10/21 1300 Ondansetron (Ondansetron Odt) 4 Mg Tab.rapdis, 4 MG PO Q8H PRN for NAUSEA/VOMITING-1ST LINE, (Reported) Entered as Reported by: ANGE SMITH on 06/09/211314 Last Action: Continued Pantoprazole Sodium (Protonix) 40 Mg Tablet.dr, 40 MG PO DAILY Prescribed by: ESA VILLATORO on 06/10/21 1300 Potassium Chloride (Potassium Chloride) 10 Meq Tab.er.prt, 10 MEQ PO BID Prescribed by: ESA VILLATORO on 06/10/21 1300 Pregabalin (Pregabalin) 75 Mg Capsule, 150 MG PO DAILY, (Reported) Entered as Reported by: ANGE SMITH on 06/09/211314 Last Action: Continued Risperidone (Risperidone) 2 Mg Tablet, 4 MG PO DAILY, (Reported) Entered as Reported by: ANGE SMITH on 06/09/211314 Last Action: Continued Suvorexant (Belsomra) 20 Mg Tablet, 20 MG PO HS PRN for SLEEP, (Reported) Entered as Reported by: ANGE SMITH on 1/21/22 1315 Last Action: Converted Tizanidine HCl (Tizanidine HCl) 4 Mg Tablet, 8 MG PO QID, (Reported) Entered as Reported by: ANGE SMITH on 06/09/21 131 Last Action: Continued Zolpidem Tartrate (Zolpidem Tartrate ER) 12.5 Mg Tab.mphase, 12.5 MG PO HS, (Reported) Entered as Reported by: ANGE SMITH on 06/09/21 1315 Last Action: Converted Discontinued Medications Alprazolam (Xanax) 1 Mg Tablet, 1 MG PO TID, (Reported) Discontinued Reason: No Longer Taking Entered as Reported by: SENG HO on 08/15/13 1234 Last Action: Discontinued Carisoprodol (Soma) 350 Mg Tablet, 1 TAB PO TID, (Reported) Discontinued Reason: No Longer Taking Entered as Reported by: SENG HO on 08/15/13 1234 Last Action: Discontinued Cefdinir (Cefdinir) 300 Mg Capsule, 300 MG PO BID Discontinued Reason: No Longer Taking Prescribed by: FABIAN SALAZAR on 03/19/21 8585 Last Action: Discontinued Celecoxib (Celebrex) 200 Mg Capsule, 200 MG PO TID, (Reported) Discontinued Reason: No Longer Taking Entered as Reported by: SENG HO on 08/15/13 1234 Last Action: Discontinued Diazepam (Valium 10 Mg Tab) 10 Mg Tablet, 10 MG PO BID, (Reported) Discontinued Reason: No Longer Taking Entered as Reported by: SENG HO on 08/15/13 1234 Last Action: Discontinued Hydrocodone Bit/Acetaminophen (Hydrocodon-Acetaminophn 10-325) 1 Each Tablet, 1 EACH PO PRN, (Reported) Discontinued Reason: No Longer Taking Entered as Reported by: SENG HO on 08/15/13 1234 Last Action: Discontinued Hydrocodone Bit/Acetaminophen (Lortab 5 Mg Tablet) 1 Tab Tab, 1 EACH PO Q4-6HR PRN for PAIN-MODERATE Discontinued Reason: No Longer Taking Prescribed by: FABIAN SALAZAR on 01/05/19 1342 Last Action: Discontinued Lurasidone Hcl (Latuda) 40 Mg Tablet, 40 MG PO HS, (Reported) Discontinued Reason: No Longer Taking Entered as Reported by: SENG HO on 08/15/13 1234 Last Action: Discontinued Morphine Sulfate (Monica) 60 Mg Cap.sr.pel, 60 MG PO BID, (Reported) Discontinued Reason: No Longer Taking Entered as Reported by: SENG HO on 08/15/13 1234 Last Action: Discontinued Oxycodone Hcl (Oxycontin) 60 Mg Tab.sr.12h, 60 MG PO BID, (Reported) Discontinued Reason: No Longer Taking Entered as Reported by: SENG HO on 08/15/13 1234 Last Action: Discontinued Pantoprazole Sodium (Protonix) 40 Mg Granpkt.dr, 40 MG PO DAILY Discontinued Reason: No Longer Taking Prescribed by: ANTHONY SCHRADER on 09/30/20 1506 Last Action: Discontinued Sucralfate (Carafate) 1 Gm/10 Ml Oral.susp, 1 GM PO QIDACHS Discontinued Reason: No Longer Taking Prescribed by: ANTHONY SCHRADER on 09/30/20 1506 Last Action: Discontinued Zolpidem Tartrate (Ambien 10 Mg) 10 Mg Tab, 10 MG PO HS, (Reported) Discontinued Reason: No Longer Taking Entered as Reported by: LORI JAMA on 08/05/11 0249 Last Action: Discontinued Review of Systems Review of Systems Constitutional: see HPI, malaise, weakness EENTM: see HPI Respiratory: no symptoms reported Cardiovascular: no symptoms reported Genitourinary: no symptoms reported Musculoskeletal: no symptoms reported Skin: no symptoms reported Psychiatric/Neurological: No Symptoms Reported Hematologic/Lymphatic: No Symptoms Reported (FABIAN SALAZAR APRN) Past Oaarrdx-Liuvui-Baigvn Hx Past Medical History Surgery/Hospitalization HX: SCHIZOPHRENIA, BIPOLAR, CHRONIC PAIN, INSOMNIA Surgeries: Yes (D&C) Abdominal Respiratory: No Cardiac: No Neurological: No Reproductive Disorders: No Genitourinary: Yes Kidney Infection Gastrointestinal: No Musculoskeletal: Yes (BACK SX) Chronic Back Pain Endocrine: No Psychosocial: Yes (AGORAPHOBIA) Anxiety, Suicide Attempts, Bipolar, Personality Disorder, Depression Integumentary: No Blood Disorders: No (FABIAN SALAZAR APRN) Physical Exam Vital Signs Vital Signs - First Documented 06/08/21 14:40 Temp 36.0 Pulse 110 Resp 18 B/P (MAP) 88/53 Pulse Ox 99 O2 Delivery Room Air (FEI JEFFERY MD) Vital Signs Capillary Refill : (FABIAN SALAZAR APRN) Height, Weight, BMI Height: 5'6.00" Weight: 220lbs. oz. 99.326488ih; 25.00 BMI Method:Stated General Appearance: WD/WN, Thin, Other (Thin, frail. Cool extremities with delayed capillary refill. Blood pressure initially 88/50 then 70/25. Heart rate 110. Oxygen 99% on room air. I started a 20-gauge in the right external jugular vein and a 20-gauge in the right antecubital fossa and initiated 2 L crystalloid bolus. She states that she has no abdominal pain at all right now but she occasionally has it and it is very intense.) HEENT: PERRL/EOMI, TMs Normal, Other (Pupils are about 6 mm in diameter consis tent with opiate withdrawal than opiate use. Though she is having no diarrhea that she reports. Currently she has no abdominal cramping or pain.) Neck: Full Range of Motion, Normal Inspection Respiratory: No Accessory Muscle Use, No Respiratory Distress Gastrointestinal: Non Tender, Soft Extremity: Normal Capillary Refill, Normal Inspection Neurologic/Psychiatric: Alert, Oriented x3 Skin: Normal Color, Warm/Dry (FABIAN SALAZAR APRN) Focused Exam Lactate Level 06/08/21 14:57: Lactic Acid Level 1.32 (FEI JEFFERY MD) Lactic Acid Level Laboratory Tests Test 06/08/21 14:57 Lactic Acid Level 1.32 MMOL/L (0.50-2.00) (FEI JEFFERY MD) Progress/Results/Core Measures Suspected Sepsis SIRS Temperature: Pulse: 86 Respiratory Rate: 16 Laboratory Tests 06/08/21 14:48: White Blood Count 13.1H Blood Pressure 122 /75 Mean: 06/08/21 14:57: Lactic Acid Level 1.32 Laboratory Tests 06/08/21 14:48: Creatinine 3.44H, INR Comment 1.2, Platelet Count 450H, Total Bilirubin 0.3 (FABIAN SALAZAR APRN) Results/Orders Lab Results Laboratory Tests Test 06/08/21 07:00 06/08/21 14:48 06/08/21 14:57 06/08/21 18:09 Range/Units Urine Color YELLOW Urine Clarity CLEAR Urine pH 6.0 5-9 Urine Specific [place] >=1.030 1.016-1.022 Urine Protein TRACE H NEGATIVE Urine Glucose (UA) NEGATIVE NEGATIVE Urine Ketones NEGATIVE NEGATIVE Urine Nitrite NEGATIVE NEGATIVE Urine Bilirubin NEGATIVE NEGATIVE Urine Urobilinogen 0.2 < = 1.0 MG/DL Urine Leukocyte Esterase NEGATIVE NEGATIVE Urine RBC (Auto) NEGATIVE NEGATIVE Urine RBC 0-2 /HPF Urine WBC 2-5 /HPF Urine Squamous Epithelial Cells 2-5 /HPF Urine Renal Epithelial Cells RARE /HPF Urine Crystals NONE /LPF Urine Bacteria FEW H /HPF Urine Casts PRESENT /LPF Urine Hyaline Casts 5-10 H /LPF Urine Granular Casts 0-2 H /LPF Urine Mucus SMALL H /LPF Urine Culture Indicated NO Urine Opiates Screen POSITIVE H NEGATIVE Urine Oxycodone Screen NEGATIVE NEGATIVE Urine Methadone Screen NEGATIVE NEGATIVE Urine Propoxyphene Screen NEGATIVE NEGATIVE Urine Barbiturates Screen NEGATIVE NEGATIVE Ur Tricyclic Antidepressants Screen POSITIVE H NEGATIVE Urine Phencyclidine Screen NEGATIVE NEGATIVE Urine Amphetamines Screen POSITIVE H NEGATIVE Urine Methamphetamines Screen NEGATIVE NEGATIVE Urine Benzodiazepines Screen NEGATIVE NEGATIVE Urine Cocaine Screen NEGATIVE NEGATIVE Urine Cannabinoids Screen NEGATIVE NEGATIVE White Blood Count 13.1 H 4.3-11.0 10^3/uL Red Blood Count 4.54 3.80-5.11 10^6/uL Hemoglobin 13.1 11.5-16.0 g/dL Hematocrit 40 35-52 % Mean Corpuscular Volume 87 80-99 fL Mean Corpuscular Hemoglobin 29 25-34 pg Mean Corpuscular Hemoglobin Concent 33 32-36 g/dL Red Cell Distribution Width 12.8 10.0-14.5 % Platelet Count 450 H 130-400 10^3/uL Mean Platelet Volume 11.7 9.0-12.2 fL Immature Granulocyte % (Auto) 2 % Neutrophils (%) (Auto) 78 H 42-75 % Lymphocytes (%) (Auto) 7 L 12-44 % Monocytes (%) (Auto) 12 0-12 % Eosinophils (%) (Auto) 0 0-10 % Basophils (%) (Auto) 0 0-10 % Neutrophils # (Auto) 10.2 H 1.8-7.8 X 10^3 Lymphocytes # (Auto) 1.0 1.0-4.0 X 10^3 Monocytes # (Auto) 1.6 H 0.0-1.0 X 10^3 Eosinophils # (Auto) 0.0 0.0-0.3 10^3/uL Basophils # (Auto) 0.0 0.0-0.1 10^3/uL Immature Granulocyte # (Auto) 0.3 H 0.0-0.1 10^3/uL Neutrophils % (Manual) 68 % Lymphocytes % (Manual) 6 % Monocytes % (Manual) 10 % Band Neutrophils 16 % Blood Morphology Comment NORMAL Prothrombin Time 15.8 H 12.2-14.7 SEC INR Comment 1.2 0.8-1.4 Activated Partial Thromboplast Time 42 H 24-35 SEC Sodium Level 128 L 130 L 135-145 MMOL/L Potassium Level 3.6 3.0 L 3.6-5.0 MMOL/L Chloride Level 93 L 100 98-107 MMOL/L Carbon Dioxide Level 15 L 17 L 21-32 MMOL/L Anion Gap 20 H 13 5-14 MMOL/L Blood Urea Nitrogen 44 H 38 H 7-18 MG/DL Creatinine 3.44 H 2.14 H 0.60-1.30 MG/DL Estimat Glomerular Filtration Rate 17 29 BUN/Creatinine Ratio 13 18 Glucose Level 132 H 91 70-105 MG/DL Calcium Level 9.7 8.1 L 8.5-10.1 MG/DL Corrected Calcium 9.3 8.5-10.1 MG/DL Total Bilirubin 0.3 0.1-1.0 MG/DL Aspartate Amino Transf (AST/SGOT) 16 5-34 U/L Alanine Aminotransferase (ALT/SGPT) 13 0-55 U/L Alkaline Phosphatase 66 40-136 U/L C-Reactive Protein High Sensitivity 15.14 H 0.00-0.50 MG/DL Total Protein 9.5 H 6.4-8.2 GM/DL Albumin 4.5 3.2-4.5 GM/DL Procalcitonin 1.05 H <0.10 NG/ML Serum Test, Qualitative NEGATIVE NEGATIVE SARS-CoV-2 RNA (RT-PCR) Detected H Not Detecte Lactic Acid Level 1.32 0.50-2.00 MMOL/L (FEI JEFFERY MD) Micro Results Microbiology 06/08/21 Blood Culture - Preliminary, Resulted No growth 06/08/21 Blood Culture - Preliminary, Resulted No growth (FEI JEFFERY MD) Vital Signs/I&O 06/08/21 14:40 Temp 36.0 Pulse 110 Resp 18 B/P (MAP) 88/53 Pulse Ox 99 O2 Delivery Room Air (FEI JEFFERY MD) Vital Signs/I&O Capillary Refill : (FABIAN SALAZAR APRN) Departure Communication (Admissions) 180-spoke with Dr. Bonilla, nasogastric tube has been placed. Spoke with Dr. Villatoro as long as her kidney function is improving as her creatinine rises quite alarming then we will proceed with admission. However if it has failed to improve on repeat basic metabolic then she will need transferred for nephrology services. Given that she was still hypotensive on arrival I would suspect this is strictly related to volume depletion but we will recheck a basic metabolic at this time and x-ray for nasogastric tube placement. (FABIAN SALAZAR APRN) Impression Primary Impression: CHAY (acute kidney injury) Additional Impressions: Hypovolemic shock COVID-19 Small bowel obstruction Disposition: ADMITTED INPATIENT Condition: Stable Admissions Decision to Admit Reason: Admit from ER (General) Decision to Admit/Date: Jun 08, 2021 Time/Decision to Admit Time: 15:46 (FABIAN SALAZAR APRN) Departure-Patient Inst. Referrals: [facility] (PCP) Primary Care Physician MAYCOL MARIN (Family) Primary Care Physician Scripts Potassium Chloride (Potassium Chloride) 10 Meq Tab.er.prt 10 MEQ PO BID, #10 EA Prov: ESA VILLATORO DO 06/10/21 Cefdinir (Cefdinir) 300 Mg Capsule 300 MG PO BID, #10 CAP Prov: ESA VILLATORO DO 06/10/21 Metronidazole (Metronidazole) 500 Mg Tablet 500 MG PO TID, #15 TAB Prov: ESA VILLATORO DO 06/10/21 Pantoprazole Sodium (Protonix) 40 Mg Tablet.dr 40 MG PO DAILY, #30 TAB Prov: ESA VILLATORO DO 06/10/21 ATTENDING PHYSICIAN NOTE: I was physically present as attending physician in the emergency department during the care of this patient, but I was not directly involved in the decision making or delivery of care for this patient. (FEI JEFFERY MD) FABIAN SALAZAR APRN Jun 08, 2021 15:06 FEI JEFFERY MD Jun 11, 2021 06:47
[2021-06-08 15:14] LABS: BASOPHILS % (AUTO) 0 % (0-10); EOSINOPHILS % (AUTO) 0 % (0-10); HEMATOCRIT 40 % (35-52); HEMOGLOBIN 13.1 g/dL (11.5-16.0); LYMPHOCYTES % (AUTO) 7 % (12-44); MEAN CORPUSCULAR HEMOGLOBIN 29 pg (25-34); MEAN CORPUSCULAR HGB CONC 33 g/dL (32-36); MEAN CORPUSCULAR VOLUME 87 fL (80-99); MEAN PLATELET VOLUME 11.7 fL (9.0-12.2); MONOCYTES # (AUTO) 1.6 X 10^3 (0.0-1.0); MONOCYTES % (AUTO) 12 % (0-12); NEUTROPHILS # (AUTO) 10.2 X 10^3 (1.8-7.8); NEUTROPHILS % (AUTO) 78 % (42-75); PLATELET COUNT 450 10^3/uL (130-400); WHITE BLOOD COUNT 13.1 10^3/uL (4.3-11.0)
[2021-06-08] MEDS ORDERED: NS IV 1000 ML 1,000 ML IV SCH (15:15)
[2021-06-08] MEDS ORDERED: LACTATED RINGERS 1,000 ML IV SCH ×2 (15:15→19:00)
[2021-06-08 15:20] LABS: ALBUMIN 4.5 GM/DL (3.2-4.5); POTASSIUM 3.6 MMOL/L (3.6-5.0)
[2021-06-08 15:21] LABS: CALCIUM 9.7 MG/DL (8.5-10.1)
[2021-06-08 15:23] LABS: TOTAL PROTEIN 9.5 GM/DL (6.4-8.2)
[2021-06-08 15:25] LABS: BILIRUBIN,TOTAL 0.3 MG/DL (0.1-1.0); INR 1.2 (0.8-1.4); PROTHROMBIN TIME PATIENT 15.8 SEC (12.2-14.7)
[2021-06-08 15:26] LABS: CREATININE SERUM 3.44 MG/DL (0.60-1.30)
[2021-06-08 16:34] LABS: BAND NEUTROPHILS 16 %; LYMPHOCYTES % (MANUAL) 6 %; MONOCYTES % (MANUAL) 10 %; NEUTROPHILS % (MANUAL) 68 %; RBC MORPH NORMAL
[2021-06-08] MEDS ORDERED: HURRICAINE EXT TUBE (BENZOCAINE) ONE (17:19)
--- NOTE | 2021-06-08 17:32 | Diagnostic Imaging Report ---
EXAMINATION: Chest radiograph, portable AP view. DATE: 06/08/2021 5:16 PM INDICATION: 40-year-old female, sepsis. COMPARISON: September 29, 2020. FINDINGS: Heart size and mediastinal contours are unremarkable. There is no identified pneumothorax. There is no large pleural effusion. There is no identified focal airspace consolidation. There are abnormally dilated gas-filled segments of small bowel. IMPRESSION: 1. No identified acute cardiopulmonary abnormality. 2. Abnormally dilated gas-filled segments of small bowel concerning for small bowel obstruction. Dictated by: Dictated on workstation # [id number]
--- NOTE | 2021-06-08 17:33 | Diagnostic Imaging Report ---
PROCEDURE: CT abdomen and pelvis without contrast. TECHNIQUE: Multiple contiguous axial images were obtained through the abdomen and pelvis without the use of intravenous contrast. Auto Exposure Controls were utilized during the CT exam to meet ALARA standards for radiation dose reduction. DATE: June 08, 2021. COMPARISON: CT chest, abdomen and pelvis September 29, 2020. INDICATION: 40-year-old female, nausea, vomiting, abdominal pain. FINDINGS: There are limitations for evaluation of the abdominal organs, neoplastic processes, abscess, and limited evaluation of the vasculature relating to the lack of intravenous contrast. The visualized portions of the lung bases are clear. The heart is not enlarged. There is no pericardial effusion. The liver is unremarkable in size and contour. The gallbladder is not well seen. There is no intrahepatic or extrahepatic bile duct dilation. The main pancreatic duct is not grossly dilated. Limited noncontrast assessment of the pancreatic parenchyma is unremarkable. The spleen is normal in size. The adrenal glands are unremarkable. 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 The urinary collecting systems are not distended. Unremarkable limited noncontrast assessment of the renal parenchyma. The urinary bladder is unremarkable in appearance. There is an intrauterine contraceptive device in the midline uterus. The appendix is unremarkable. There are abnormally dilated fluid-filled segments of small bowel measuring up to approximately 4.7 cm in diameter. The patient is status post gastric bypass. There are collapsed segments of distal small bowel. There is no free intraperitoneal air. There is no drainable fluid collection. There is no free pelvic fluid. There is no identified abnormally enlarged lymph node in the abdomen or pelvis meeting CT size criteria for adenopathy. There are postoperative changes of the lumbar spine. IMPRESSION: CT abdomen and pelvis: 1. Abnormally dilated segments of small bowel concerning for small bowel obstruction. Dictated by: Dictated on workstation # [id number]
[2021-06-08] MEDS ORDERED: fentaNYL INJ 100 MCG/2 ML AMP IVP ONE (18:00)
--- NOTE | 2021-06-08 18:29 | Diagnostic Imaging Report ---
EXAMINATION: Chest radiograph, portable AP view. DATE: 06/08/2021 6:17 PM INDICATION: 40-year-old female, nasogastric tube placement. COMPARISON: June 08, 2021 at 1713 hours. FINDINGS: The nasogastric tube is in the stomach. Heart size and mediastinal contours are unchanged. There is no identified pneumothorax. There is no large pleural effusion. There is no identified focal airspace consolidation. IMPRESSION: 1. The nasogastric tube is in the stomach. 2. No identified acute cardiopulmonary abnormality. Dictated by: Dictated on workstation # [id number]
[2021-06-08] MEDS ORDERED: metroNIDAZOLE 500MG/100ML IVPB 100 ML IV ONE (18:30)
[2021-06-08] MEDS ORDERED: cefTRIAXone 1 GM PRE-MIX 50 ML IV ONE (18:30)
[2021-06-08 18:32] LABS: CALCIUM 8.1 MG/DL (8.5-10.1)
[2021-06-08 18:36] LABS: CREATININE SERUM 2.14 MG/DL (0.60-1.30)
[2021-06-08 20:00] VITALS: BP 110/73
[2021-06-08] MEDS ORDERED: ZIPRASIDONE 20 MG INJ (GEODON) VIAL IM PRN (20:00)
[2021-06-08] MEDS ORDERED: ONDANSETRON 4 MG/2 ML (SDV) Z0FRAN IV PRN (20:00)
[2021-06-08] MEDS ORDERED: ACETAMINOPHEN 325 MG TABLET PO PRN (20:00)
[2021-06-08] MEDS ORDERED: LORazepam INJ 2 MG/ML (ATIVAN) VIAL IVP PRN (20:00)
[2021-06-08] MEDS ORDERED: WATER (STERILE) FOR INJ 10 ML BTL INJ SCH (20:00)
[2021-06-08] MEDS ORDERED: NALOXONE 0.4 MG/ML 1 ML (NARCAN) VIAL IV PRN (20:00)
[2021-06-08] MEDS ORDERED: diphenhydrAMINE 50 MG/ML INJ (BENADRYL) IVP PRN (20:00)
[2021-06-08 20:39] VITALS: BP 88/53
[2021-06-08] MEDS ORDERED: RT-ALBUTEROL HFA 8.5 GM INHALER IH PRN (20:45)
[2021-06-08] MEDS: NS IV 1000 ML 1,000 ML IV SCH (23:09)
[2021-06-09] VITALS (8 sets, daily range): BP systolic 87–106; BP diastolic 55–71
[2021-06-09] MEDS: HYDROmorphone 2 MG/ML VIAL (DILAUDID) IVP PRN ×2 (01:48→16:21)
[2021-06-09 05:57] LABS: BASOPHILS % (AUTO) 0 % (0-10); EOSINOPHILS % (AUTO) 0 % (0-10); HEMATOCRIT 32 % (35-52); HEMOGLOBIN 10.6 g/dL (11.5-16.0); LYMPHOCYTES # (AUTO) 1.9 10^3/uL (1.0-4.0); LYMPHOCYTES % (AUTO) 20 % (12-44); MEAN CORPUSCULAR HEMOGLOBIN 29 pg (25-34); MEAN CORPUSCULAR HGB CONC 33 g/dL (32-36); MEAN CORPUSCULAR VOLUME 86 fL (80-99); MEAN PLATELET VOLUME 11.2 fL (9.0-12.2); MONOCYTES # (AUTO) 1.6 10^3/uL (0.0-1.0); MONOCYTES % (AUTO) 17 % (0-12); NEUTROPHILS # (AUTO) 6.2 10^3/uL (1.8-7.8); NEUTROPHILS % (AUTO) 63 % (42-75); PLATELET COUNT 307 10^3/uL (130-400); WHITE BLOOD COUNT 9.8 10^3/uL (4.3-11.0)
[2021-06-09 06:23] LABS: ALBUMIN 3.4 GM/DL (3.2-4.5); BILIRUBIN,TOTAL 0.2 MG/DL (0.1-1.0); CALCIUM 8.4 MG/DL (8.5-10.1); CREATININE SERUM 1.07 MG/DL (0.60-1.30); POTASSIUM 3.1 MMOL/L (3.6-5.0); TOTAL PROTEIN 6.8 GM/DL (6.4-8.2)
--- NOTE | 2021-06-09 06:48 | History & Physical-Hospitalist ---
History of Present Illness HPI/Chief Complaint Chief Complaint: Shortness of Breath and Abdominal Pain HPI: This is a 40yoWF who presents with abdominal pain and acute kidney injury with a Creatine of 3.3. She wasn't able to eat or drink anything for about a week. She was found to have evidence of a small bowel obstruction so Dr. Bonilla was consulted and will order a small bowel follow-through. IV fluids completely reversed the acute kidney injury. Source: patient Exam Limitations: no limitations Date Seen 06/09/21 Time Seen by a Provider: 10:30 Attending Physician Chari Francisco DO [facility] Referring [facility] Date of Admission Jun 08, 2021 at 18:45 Home Medications & Allergies Home Medications Reviewed patient Home Medication Reconciliation performed by pharmacy medication reconciliations termite technician and/or nursing. Patients Allergies have been reviewed. Allergies Allergies Coded Allergies Penicillins (Verified Allergy, Unknown, 09/29/20) Past Cojhnft-Udczny-Hkhtcl Hx Patient Social History Marrital Status: single Employed/Student: unemployed Smoking Status: Former Smoker Use of E-Cig and/or Vaping dev: Yes Substance use?: No Alcohol Use?: No Immunizations Up To Date Date of Influenza Vaccine: Apr 19, 2013 Tetanus Booster (TDap): Unknown Hepatitis A: Yes Hepatitis B: Yes Current Status Advance Directives: No Communicates: Verbally Primary Language: Mexican Preferred Spoken Language: Mexican Is interpretation needed?: No Implanted or Applied Medical D: None Past Medical History Surgeries: Abdominal Kidney Infection Chronic Back Pain Anxiety, Suicide Attempts, Bipolar, Personality Disorder, Depression Blood Disorders: No Review of Systems Constitutional: see HPI, malaise, weakness EENTM: no symptoms reported Respiratory: no symptoms reported Cardiovascular: no symptoms reported Gastrointestinal: abdominal pain, nausea, vomiting Musculoskeletal: no symptoms reported Skin: no symptoms reported Psychiatric/Neurological: No Symptoms Reported All Other Systems Reviewed Negative Unless Noted: Yes Physical Exam Physical Exam Vital Signs Vital Signs - First Documented 06/08/21 06/08/21 14:40 20:39 Temp 36.0 Pulse 110 Resp 18 B/P (MAP) 88/53 Pulse Ox 99 O2 Delivery Room Air FiO2 21 Capillary Refill : Height, Weight, BMI Height: 5'6.00" Weight: 220lbs. oz. 99.860765gn; 25.00 BMI Method:Estimated General Appearance: Anxious, Chronically ill, Mild Distress, Thin Eyes: Right Eye Normal Inspection, Right Eye PERRL HEENT: PERRL/EOMI, Normal ENT Inspection, Pharynx Normal, Moist Mucous Membra olga Neck: Full Range of Motion, Normal Inspection, Non Tender Respiratory: Chest Non Tender, Lungs Clear, Normal Breath Sounds, No Accessory Muscle Use, No Respiratory Distress Cardiovascular: Regular Rate, Rhythm, No Edema, No Gallop, No JVD, No Murmur, Normal Peripheral Pulses Gastrointestinal: Normal Bowel Sounds, No Organomegaly, No Pulsatile Mass Back: Normal Inspection, No CVA Tenderness, No Vertebral Tenderness Extremity: Normal Capillary Refill, Normal Inspection, Normal Range of Motion, Non Tender, No Calf Tenderness, No Pedal Edema Neurologic/Psychiatric: Alert, Oriented x3, No Motor/Sensory Deficits, Normal Mood/Affect Skin: Normal Color, Warm/Dry Lymphatic: No Adenopathy Results Results/Procedures Labs Laboratory Tests 06/08/21 14:48 06/08/21 18:09 06/09/21 05:37 Patient resulted labs reviewed. Assessment/Plan Admission Diagnosis Assessment: Small bowel obstruction Chronic mental illness Acute kidney injury now resolved with IV fluids Profound dehydration Plan: Appreciate Dr. Bonilla IV fluids Small bowel follow-through Admission Status: Inpatient Order (span 2 midnights) Reason for Inpatient Admission: Acute kidney injury with SBO Diagnosis/Problems Diagnosis/Problems (1) Small bowel obstruction Status: Acute (2) CHAY (acute kidney injury) Status: Acute (3) COVID-19 Status: Acute (4) Hypovolemic shock Status: Acute CHARI FRANCISCO DO Jun 09, 2021 06:48
[2021-06-09] MEDS: NS IV 1000 ML 1,000 ML IV SCH ×4 (07:04→21:55)
[2021-06-09] MEDS: POTASSIUM CL 10MEQ/50ML IVPB 50 ML IV SCH ×3 (07:35→09:59)
[2021-06-09] MEDS: metroNIDAZOLE 500MG/100ML IVPB 100 ML IV SCH ×2 (09:54→21:55)
[2021-06-09] MEDS: PANTOPRAZOLE 40 MG (PROTONIX) VIAL IV SCH (09:54)
[2021-06-09] MEDS: cefTRIAXone 1 GM PRE-MIX 50 ML IV SCH (09:54)
--- NOTE | 2021-06-09 10:05 | Consultation - Surgery ---
HECTOR WILCOX 06/09/21 1005: History of Present Illness History of Present Illness Patient Consulted On(swapnil/time) 06/09/21 09:47 Date Seen by Provider: Jun 09, 2021 Time Seen by Provider: 09:47 History of Present Illness Gabby Guevara is a 40 yo COVID-19 positive female with a history of chronic low back pain, kidney infection, schizophrenia, bipolar, agoraphobia, and D&C procedure, who presented via [facility] to ER for evaluation and management of abdominal cramping and malaise for the past week, during which she had not eaten. Surgical consultation was requested d/t evidence of SBO. NGT was placed last night, and produced 200 ml of contents;however, patient removed NGT and refused to have it put back in place due to pain and discomfort. Swapna denies any BM, nausea, or vomiting. Abdomen is slightly firm, but non-distended. No rebound or gaurding is present. Chest XR demonstrated abnormal dilated and gas-filled segments of small bowel, which was also reflected in CT chest/abd/pelvis. Presently on heparin, metro, and rocephin. Patient has frustrated demeanor regarding NPO status and stated she is "very hungry and thirsty". Allergies and Home Medications Allergies Coded Allergies: Penicillins (Verified Allergy, Unknown, 09/29/20) Patient Home Medication List Amitriptyline HCl (Amitriptyline HCl) 100 Mg Tablet, 200 MG PO HS, (Reported) Entered as Reported by: ANGE SMITH on 06/09/211314 Last Action: Reviewed Clonazepam (Clonazepam) 1 Mg Tablet, 1 MG PO BID PRN for PANIC ATTACKS, (Reported) Entered as Reported by: ANGE SMITH on 06/09/211314 Last Action: Reviewed Dextroamphetamine/Amphetamine (Dextroamp-Amphet ER 20 mg Cap) 20 Mg Cap.er.24h, 20 MG PO DAILY, (Reported) Entered as Reported by: ANGE SMITH on 06/09/211314 Last Action: Reviewed Divalproex Sodium (Divalproex Sodium ER) 500 Mg Tab.er.24h, 500 MG PO HS, (Reported) Entered as Reported by: ANGE SMITH on 06/09/211314 Last Action: Reviewed Divalproex Sodium (Divalproex Sodium ER) 250 Mg Tab.er.24h, 250 MG PO HS, (Reported) Entered as Reported by: ANGE SMITH on 06/09/211314 Last Action: Reviewed Fentanyl (Fentanyl Patch 50 MCG) 1 Each Patch.td72, 50 MCG TD Q72H, (Reported) Entered as Reported by: ANGE SMITH on 06/09/211314 Last Action: Edited Ibuprofen (Ibuprofen) 800 Mg Tablet, 800 MG PO Q8H, (Reported) Entered as Reported by: ANGE SMITH on 06/09/211314 Last Action: Reviewed Lamotrigine (Lamotrigine) 25 Mg Tablet, 50 MG PO DAILY, (Reported) Entered as Reported by: ANGE SMITH on 06/09/211314 Last Action: Reviewed Ondansetron (Ondansetron Odt) 4 Mg Tab.rapdis, 4 MG PO Q8H PRN for NAUSEA/VOMITING-1ST LINE, (Reported) Entered as Reported by: ANGE SMITH on 06/09/211314 Last Action: Reviewed Pregabalin (Pregabalin) 75 Mg Capsule, 150 MG PO DAILY, (Reported) Entered as Reported by: ANGE SMITH on 06/09/211314 Last Action: Reviewed Risperidone (Risperidone) 2 Mg Tablet, 4 MG PO DAILY, (Reported) Entered as Reported by: ANGE SMITH on 06/09/211314 Last Action: Reviewed Suvorexant (Belsomra) 20 Mg Tablet, 20 MG PO HS PRN for SLEEP, (Reported) Entered as Reported by: ANGE SMITH on 06/09/211314 Last Action: Reviewed Tizanidine HCl (Tizanidine HCl) 4 Mg Tablet, 8 MG PO QID, (Reported) Entered as Reported by: ANGE SMITH on 06/09/211314 Last Action: Reviewed Zolpidem Tartrate (Zolpidem Tartrate ER) 12.5 Mg Tab.mphase, 12.5 MG PO HS, (Reported) Entered as Reported by: ANGE SMITH on 06/09/211314 Last Action: Reviewed Discontinued Medications Alprazolam (Xanax) 1 Mg Tablet, 1 MG PO TID, (Reported) Discontinued Reason: No Longer Taking Entered as Reported by: SENG HO on 08/15/13 1234 Last Action: Discontinued Carisoprodol (Soma) 350 Mg Tablet, 1 TAB PO TID, (Reported) Discontinued Reason: No Longer Taking Entered as Reported by: SENG HO on 08/15/13 123 Last Action: Discontinued Cefdinir (Cefdinir) 300 Mg Capsule, 300 MG PO BID Discontinued Reason: No Longer Taking Prescribed by: FABIAN SALAZAR on 03/19/21 1545 Last Action: Discontinued Celecoxib (Celebrex) 200 Mg Capsule, 200 MG PO TID, (Reported) Discontinued Reason: No Longer Taking Entered as Reported by: SENG HO on 08/15/13 123 Last Action: Discontinued Diazepam (Valium 10 Mg Tab) 10 Mg Tablet, 10 MG PO BID, (Reported) Discontinued Reason: No Longer Taking Entered as Reported by: SENG HO on 08/15/131233 Last Action: Discontinued Hydrocodone Bit/Acetaminophen (Hydrocodon-Acetaminophn 10-325) 1 Each Tablet, 1 EACH PO PRN, (Reported) Discontinued Reason: No Longer Taking Entered as Reported by: SENG HO on 08/15/131233 Last Action: Discontinued Hydrocodone Bit/Acetaminophen (Lortab 5 Mg Tablet) 1 Tab Tab, 1 EACH PO Q4-6HR PRN for PAIN-MODERATE Discontinued Reason: No Longer Taking Prescribed by: FABIAN SALAZAR on 01/05/19 1342 Last Action: Discontinued Lurasidone Hcl (Latuda) 40 Mg Tablet, 40 MG PO HS, (Reported) Discontinued Reason: No Longer Taking Entered as Reported by: SENG HO on 08/15/13 1234 Last Action: Discontinued Morphine Sulfate (Monica) 60 Mg Cap.sr.pel, 60 MG PO BID, (Reported) Discontinued Reason: No Longer Taking Entered as Reported by: SENG HO on 08/15/13 123 Last Action: Discontinued Oxycodone Hcl (Oxycontin) 60 Mg Tab.sr.12h, 60 MG PO BID, (Reported) Discontinued Reason: No Longer Taking Entered as Reported by: SENG HO on 08/15/13 1234 Last Action: Discontinued Pantoprazole Sodium (Protonix) 40 Mg Granpkt.dr, 40 MG PO DAILY Discontinued Reason: No Longer Taking Prescribed by: ANTHONY SCHRADER on 09/30/20 1506 Last Action: Discontinued Sucralfate (Carafate) 1 Gm/10 Ml Oral.susp, 1 GM PO QIDACHS Discontinued Reason: No Longer Taking Prescribed by: ANTHONY SCHRADER on 09/30/20 1506 Last Action: Discontinued Zolpidem Tartrate (Ambien 10 Mg) 10 Mg Tab, 10 MG PO HS, (Reported) Discontinued Reason: No Longer Taking Entered as Reported by: LORI JAMA on 08/05/11 0249 Last Action: Discontinued Past Vkgphmh-[id number]-Mshjre Hx Patient Social History 2nd Hand Smoke Exposure: No Recent Hopitalizations: Yes ( X4) Alcohol Use?: No Have you traveled recently?: No Immunizations Up To Date Date of Influenza Vaccine: Apr 19, 2013 Surgeries History of Surgeries: Yes (D&C) Surgeries: Abdominal Respiratory History of Respiratory Disorde: No Cardiovascular History of Cardiac Disorders: No Neurological History of Neurological Disord: No Reproductive System Hx Reproductive Disorders: No Genitourinary History of Genitourinary Disor: Yes Genitourinary Disorders: Kidney Infection Gastrointestinal History of Gastrointestinal Di: No Musculoskeletal History of Musculoskeletal Dis: Yes (BACK SX) Musculoskeletal Disorders: Chronic Back Pain Endocrine History of Endocrine Disorders: No Psychosocial History of Psychiatric Problem: Yes (AGORAPHOBIA) Behavioral Health Disorders: Anxiety, Suicide Attempts, Bipolar, Personality Disorder, Depression Integumentary History of Skin or Integumenta: No Blood Transfusions History of Blood Disorders: No Review of Systems-General Constitutional: malaise; No weakness EENTM: No double vision, No eye pain Respiratory: No cough, No phlegm, No short of breath Cardiovascular: No chest pain, No edema Gastrointestinal: abdominal pain, nausea, vomiting Genitourinary: decreased output (Per patient--states she urinated this AM) : No Musculoskeletal: back pain (Low back, chronic); No joint pain Skin: No change in color, No change in hair/nails Psychiatric/Neurological: See HPI, Anxiety Physical Exam-General Problems Physical Exam Vital Signs Vital Signs - First Documented 06/08/21 06/08/21 14:40 20:39 Temp 36.0 Pulse 110 Resp 18 B/P (MAP) 88/53 Pulse Ox 99 O2 Delivery Room Air FiO2 21 Capillary Refill : General Appearance: WD/WN, no apparent distress Eyes: Bilateral Eye Normal Inspection, Bilateral Eye PERRL, Bilateral Eye EOMI HEENT: PERRL/EOMI, normal ENT inspection Neck: non-tender, supple Respiratory: lungs clear, normal breath sounds, no respiratory distress, no accessory muscle use Cardiovascular: no edema, no gallop, tachycardia Peripheral Pulses: 2+ Radial Pulses (R) Gastrointestinal: non tender, abnormal bowel sounds (mildly hypoactive); No guarding, No rebound, No tenderness Rectal: deferred Neurologic/Psychiatric: no motor/sensory deficits, alert, oriented x 3, other (Slightly agitated) Skin: normal color, warm/dry Data Review Labs Laboratory Tests 06/08/21 14:48: White Blood Count 13.1H, Red Blood Count 4.54, Hemoglobin 13.1, Hematocrit 40, Mean Corpuscular Volume 87, Mean Corpuscular Hemoglobin 29, Mean Corpuscular Hemoglobin Concent 33, Red Cell Distribution Width 12.8, Platelet Count 450H, Mean Platelet Volume 11.7, Immature Granulocyte % (Auto) 2, Neutrophils (%) (Auto) 78H, Lymphocytes (%) (Auto) 7L, Monocytes (%) (Auto) 12, Eosinophils (%) (Auto) 0, Basophils (%) (Auto) 0, Neutrophils # (Auto) 10.2H, Lymphocytes # (Auto) 1.0, Monocytes # (Auto) 1.6H, Eosinophils # (Auto) 0.0, Basophils # (Auto ) 0.0, Immature Granulocyte # (Auto) 0.3H, Neutrophils % (Manual) 68, Lymphocytes % (Manual) 6, Monocytes % (Manual) 10, Band Neutrophils 16, Blood Morphology Comment NORMAL, Prothrombin Time 15.8H, INR Comment 1.2, Activated Partial Thromboplast Time 42H, Sodium Level 128L, Potassium Level 3.6, Chloride Level 93L, Carbon Dioxide Level 15L, Anion Gap 20H, Blood Urea Nitrogen 44H, Creatinine 3.44H, Estimat Glomerular Filtration Rate 17, BUN/Creatinine Ratio 13, Glucose Level 132H, Calcium Level 9.7, Corrected Calcium 9.3, Total Bilirubin 0.3, Aspartate Amino Transf (AST/SGOT) 16, Alanine Aminotransferase (ALT/SGPT) 13, Alkaline Phosphatase 66, C-Reactive Protein High Sensitivity 15.14H, Total Protein 9.5H, Albumin 4.5, Procalcitonin 1.05H, Serum Test, Qualitative NEGATIVE, SARS-CoV-2 RNA (RT-PCR) DetectedH 06/08/21 14:57: Lactic Acid Level 1.32 06/08/21 18:09: Sodium Level 130L, Potassium Level 3.0L, Chloride Level 100, Carbon Dioxide Level 17L, Anion Gap 13, Blood Urea Nitrogen 38H, Creatinine 2.14H, Estimat Glomerular Filtration Rate 29, BUN/Creatinine Ratio 18, Glucose Level 91, Calcium Level 8.1L 06/09/21 05:37: White Blood Count 9.8, Red Blood Count 3.71L, Hemoglobin 10.6L, Hematocrit 32L, Mean Corpuscular Volume 86, Mean Corpuscular Hemoglobin 29, Mean Corpuscular Hemoglobin Concent 33, Red Cell Distribution Width 12.2, Platelet Count 307, Mean Platelet Volume 11.2, Immature Granulocyte % (Auto) 1, Neutrophils (%) (Auto) 63, Lymphocytes (%) (Auto) 20, Monocytes (%) (Auto) 17H, Eosinophils (%) (Auto) 0, Basophils (%) (Auto) 0, Neutrophils # (Auto) 6.2, Lymphocytes # (Auto) 1.9, Monocytes # (Auto) 1.6H, Eosinophils # (Auto) 0.0, Basophils # (Auto) 0.0, Immature Granulocyte # (Auto) 0.1, Sodium Level 133L, Potassium Level 3.1L, Chloride Level 102, Carbon Dioxide Level 18L, Anion Gap 13, Blood Urea Nitrogen 34H, Creatinine 1.07, Estimat Glomerular Filtration Rate 67, BUN/Creatinine Ratio 32, Glucose Level 84, Calcium Level 8.4L, Corrected Calcium 8.9, Total Bilirubin 0.2, Aspartate Amino Transf (AST/SGOT) 15, Alanine Aminotransferase (ALT/SGPT) 13, Alkaline Phosphatase 50, Total Protein 6.8, Albumin 3.4 Assessment/Plan Assessment/Plan Assessment/Plan 1. COVID-19 2. SBO 3. Hypovalemia 4. CHAY NPO Patient refuses NGT d/t discomfort Consider small bowel follow-thru Continue SCD, abx, dvt prophylaxis, fluid replacement, and e-lyte supplementation DANIEL CARDOSO DO 06/09/21 1600: History of Present Illness History of Present Illness History of Present Illness Because requested for small bowel obstruction. Patient is a 40-year-old female who presents with about 1 week of nausea vomiting not feeling well. She has had abdominal cramping pain. Patient states nothing made it better nothing seemed to make it worse. 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 This was approximately 2 years ago. Patient's lost about 120 pounds total she thinks. Patient having more sore throat and COVID symptoms which she was positive for. She currently is not having any abdominal pain. She is passing flatus. She had a CT scan that had some dilated loops of small bowel concerning for small bowel obstruction. Patient currently NPO. Allergies and Home Medications Allergies Coded Allergies: Penicillins (Verified Allergy, Unknown, 09/29/20) Patient Home Medication List Home Medication List Reviewed: Yes Amitriptyline HCl (Amitriptyline HCl) 100 Mg Tablet, 200 MG PO HS, (Reported) Entered as Reported by: ANGE SMITH on 06/09/211314 Last Action: Reviewed Clonazepam (Clonazepam) 1 Mg Tablet, 1 MG PO BID PRN for PANIC ATTACKS, (Reported) Entered as Reported by: ANGE SMITH on 06/09/211314 Last Action: Reviewed Dextroamphetamine/Amphetamine (Dextroamp-Amphet ER 20 mg Cap) 20 Mg Cap.er.24h, 20 MG PO DAILY, (Reported) Entered as Reported by: ANGE SMITH on 06/09/211314 Last Action: Reviewed Divalproex Sodium (Divalproex Sodium ER) 500 Mg Tab.er.24h, 500 MG PO HS, (Reported) Entered as Reported by: ANGE SMITH on 06/09/211314 Last Action: Reviewed Divalproex Sodium (Divalproex Sodium ER) 250 Mg Tab.er.24h, 250 MG PO HS, (Reported) Entered as Reported by: ANGE SMITH on 06/09/211314 Last Action: Reviewed Fentanyl (Fentanyl Patch 50 MCG) 1 Each Patch.td72, 50 MCG TD Q72H, (Reported) Entered as Reported by: ANGE SMITH on 06/09/211314 Last Action: Edited Ibuprofen (Ibuprofen) 800 Mg Tablet, 800 MG PO Q8H, (Reported) Entered as Reported by: ANGE SMITH on 06/09/211314 Last Action: Reviewed Lamotrigine (Lamotrigine) 25 Mg Tablet, 50 MG PO DAILY, (Reported) Entered as Reported by: ANGE SMITH on 06/09/211314 Last Action: Reviewed Ondansetron (Ondansetron Odt) 4 Mg Tab.rapdis, 4 MG PO Q8H PRN for NAUSEA/VOMI TING-1ST LINE, (Reported) Entered as Reported by: ANGE SMITH on 06/09/211314 Last Action: Reviewed Pregabalin (Pregabalin) 75 Mg Capsule, 150 MG PO DAILY, (Reported) Entered as Reported by: ANGE SMITH on 06/09/211314 Last Action: Reviewed Risperidone (Risperidone) 2 Mg Tablet, 4 MG PO DAILY, (Reported) Entered as Reported by: ANGE SMITH on 06/09/211314 Last Action: Reviewed Suvorexant (Belsomra) 20 Mg Tablet, 20 MG PO HS PRN for SLEEP, (Reported) Entered as Reported by: ANGE SMITH on 06/09/211314 Last Action: Reviewed Tizanidine HCl (Tizanidine HCl) 4 Mg Tablet, 8 MG PO QID, (Reported) Entered as Reported by: ANGE SMITH on 06/09/211314 Last Action: Reviewed Zolpidem Tartrate (Zolpidem Tartrate ER) 12.5 Mg Tab.mphase, 12.5 MG PO HS, (Reported) Entered as Reported by: ANGE SMITH on 06/09/211314 Last Action: Reviewed Discontinued Medications Alprazolam (Xanax) 1 Mg Tablet, 1 MG PO TID, (Reported) Discontinued Reason: No Longer Taking Entered as Reported by: SENG HO on 08/15/13 1234 Last Action: Discontinued Carisoprodol (Soma) 350 Mg Tablet, 1 TAB PO TID, (Reported) Discontinued Reason: No Longer Taking Entered as Reported by: SENG HO on 08/15/13 1234 Last Action: Discontinued Cefdinir (Cefdinir) 300 Mg Capsule, 300 MG PO BID Discontinued Reason: No Longer Taking Prescribed by: FABIAN SALAZAR on 03/19/21 1545 Last Action: Discontinued Celecoxib (Celebrex) 200 Mg Capsule, 200 MG PO TID, (Reported) Discontinued Reason: No Longer Taking Entered as Reported by: SENG HO on 08/15/13 1234 Last Action: Discontinued Diazepam (Valium 10 Mg Tab) 10 Mg Tablet, 10 MG PO BID, (Reported) Discontinued Reason: No Longer Taking Entered as Reported by: SENG HO on 08/15/13 1234 Last Action: Discontinued Hydrocodone Bit/Acetaminophen (Hydrocodon-Acetaminophn 10-325) 1 Each Tablet, 1 EACH PO PRN, (Reported) Discontinued Reason: No Longer Taking Entered as Reported by: SENG HO on 08/15/13 1234 Last Action: Discontinued Hydrocodone Bit/Acetaminophen (Lortab 5 Mg Tablet) 1 Tab Tab, 1 EACH PO Q4-6HR PRN for PAIN-MODERATE Discontinued Reason: No Longer Taking Prescribed by: FABIAN SALAZAR on 01/05/19 1342 Last Action: Discontinued Lurasidone Hcl (Latuda) 40 Mg Tablet, 40 MG PO HS, (Reported) Discontinued Reason: No Longer Taking Entered as Reported by: SENG HO on 08/15/13 1234 Last Action: Discontinued Morphine Sulfate (Monica) 60 Mg Cap.sr.pel, 60 MG PO BID, (Reported) Discontinued Reason: No Longer Taking Entered as Reported by: SENG HO on 08/15/13 1234 Last Action: Discontinued Oxycodone Hcl (Oxycontin) 60 Mg Tab.sr.12h, 60 MG PO BID, (Reported) Discontinued Reason: No Longer Taking Entered as Reported by: SENG HO on 08/15/13 1234 Last Action: Discontinued Pantoprazole Sodium (Protonix) 40 Mg Granpkt.dr, 40 MG PO DAILY Discontinued Reason: No Longer Taking Prescribed by: ANTHONY SCHRADER on 09/30/20 1506 Last Action: Discontinued Sucralfate (Carafate) 1 Gm/10 Ml Oral.susp, 1 GM PO QIDACHS Discontinued Reason: No Longer Taking Prescribed by: ANTHONY SCHRADER on 09/30/20 1506 Last Action: Discontinued Zolpidem Tartrate (Ambien 10 Mg) 10 Mg Tab, 10 MG PO HS, (Reported) Discontinued Reason: No Longer Taking Entered as Reported by: LORI JAMA on 08/05/11 0249 Last Action: Discontinued Past Empfozl-[id number]-[id number] Hx Reviewed Nursing Assessment Reviewed/Agree w Nursing PMH: Yes Family Medical History Significant Family History: No Pertinent Family Hx Review of Systems-General Constitutional: malaise; No weakness EENTM: throat pain; No double vision, No eye pain Respiratory: No cough, No phlegm, No short of breath Cardiovascular: No chest pain, No edema Gastrointestinal: abdominal pain, nausea, vomiting Genitourinary: decreased output (Per patient--states she urinated this AM) Musculoskeletal: back pain (Low back, chronic); No joint pain Skin: No change in color, No change in hair/nails Psychiatric/Neurological: Anxiety; Denies Depressed, Denies Emotional Problems All Other Systems Reviewed Negative Unless Noted: Yes (Negative excepted noted.) Physical Exam-General Problems Physical Exam General Appearance: no apparent distress, thin HEENT: PERRL/EOMI, normal ENT inspection Neck: non-tender, supple Respiratory: lungs clear, no respiratory distress, no accessory muscle use Gastrointestinal: non tender, soft Rectal: deferred Back: normal inspection, no vertebral tenderness Extremities: non-tender, normal inspection Neurologic/Psychiatric: no motor/sensory deficits, alert, oriented x 3 Skin: normal color (excess from wt loss), warm/dry Lymphatic: no adenopathy Assessment/Plan Assessment/Plan Assessment/Plan Covid + Partial SBO History of gastric bypass N/V resolved Had ng tube patient pulled nad refused to place again Having flatus Will get small bowel follow through to make sure resolved NPO Iv hydration Supervisory-Addendum Brief Verification & Attestation Participated in pt care: history, MDM, physical Personally performed: exam, history, MDM, supervision of care Care discussed with: Medical Student Procedures: n/a Results interpretation: Verified all documentation Verification and Attestation of Medical Student E/M Service A medical student performed and documented this service in my presence. I reviewed and verified all information documented by the medical student and made modifications to such information, when appropriate. I personally performed the physical exam and medical decision making. Daniel Cardoso, Jun 09, 2021,16:01 HECTOR WILCOX Jun 09, 2021 10:05 DANIEL CARDOSO DO Jun 09, 2021 16:00
[2021-06-09] MEDS ORDERED: PREG75CA75 PO (13:15)
[2021-06-09] MEDS ORDERED: TIZA-186 PO (13:15)
[2021-06-09] MEDS ORDERED: DIVA250T12 PO (13:15)
[2021-06-09] MEDS ORDERED: LAMO25TA8 PO (13:15)
[2021-06-09] MEDS ORDERED: DEXT20CA4 PO (13:15)
[2021-06-09] MEDS ORDERED: RISP2TAB84 PO (13:15)
[2021-06-09] MEDS ORDERED: CLON1TAB13 PO (13:15)
[2021-06-09] MEDS ORDERED: FENT1PAT9 TD (13:15)
[2021-06-09] MEDS ORDERED: NF-ZOL12.5 PO (13:15)
[2021-06-09] MEDS ORDERED: DIVA500T15 PO (13:15)
[2021-06-09] MEDS ORDERED: ONDA4TAB11 PO (13:15)
[2021-06-09] MEDS ORDERED: IBUP-1780 PO (13:15)
[2021-06-09] MEDS ORDERED: AMIT100T2 PO (13:15)
[2021-06-09] MEDS ORDERED: SUVO20TA2 PO (13:15)
[2021-06-09 14:08] LABS: BILIRUBIN,URINE NEGATIVE (NEGATIVE); CLARITY,URINE CLEAR; COLOR,URINE YELLOW; GLUCOSE, URINE (UA) NEGATIVE (NEGATIVE); KETONES,URINE NEGATIVE (NEGATIVE); LEUKOCYTE ESTERASE ,URINE NEGATIVE (NEGATIVE); NITRITE,URINE NEGATIVE (NEGATIVE); PROTEIN,URINE TRACE (NEGATIVE)
[2021-06-09 14:18] LABS: BACTERIA,URINE FEW /HPF; GRANULAR CASTS,URINE 0-2 /LPF; RBC,URINE 0-2 /HPF; RENAL EPITHELIAL CELLS,URINE RARE /HPF
[2021-06-09 14:20] LABS: AMPHETAMINE SCREEN, URINE POSITIVE (NEGATIVE); BARBITURATE SCREEN URINE NEGATIVE (NEGATIVE); BENZODIAZEPINES SCREEN URINE NEGATIVE (NEGATIVE); CANNABINOID SCREEN, URINE NEGATIVE (NEGATIVE); COCAINE SCREEN URINE NEGATIVE (NEGATIVE); METHADONE STAT NEGATIVE (NEGATIVE); METHAMPHETAMINE SCREEN URINE S NEGATIVE (NEGATIVE); OPIATE SCREEN URINE POSITIVE (NEGATIVE); OXYCODONE STAT NEGATIVE (NEGATIVE); PROPOXYPHENE STAT NEGATIVE (NEGATIVE); TRICYCLIC ANTIDEPRESSANTS SCRE POSITIVE (NEGATIVE)
[2021-06-09] MEDS ORDERED: DIATRIZOATE MEGLUM/SODIUM 37% 120 ML (GASTROGRAFIN) PO ONE (15:00)
--- NOTE | 2021-06-09 18:49 | Diagnostic Imaging Report ---
INDICATION: Bowel distention. EXAMINATION: Patient received 120 mL water-soluble Gastrografin and serial radiographs performed in varying obliquities. FINDINGS: Contrast reaches the colon within one hour. Subsequent film showed further colonic advancement. There is dilatation of the proximal small bowel with transition in the right hemiabdomen. This transition was persistent throughout the study with images performed after 3 hours. IMPRESSION: Findings suggest proximal to mid partial small bowel obstruction, no extravasation. Dictated by: Dictated on workstation # [id number]
[2021-06-10 04:50] VITALS: BP 91/54
[2021-06-10 06:39] LABS: BASOPHILS % (AUTO) 0 % (0-10); EOSINOPHILS % (AUTO) 0 % (0-10); HEMATOCRIT 27 % (35-52); LYMPHOCYTES # (AUTO) 1.6 10^3/uL (1.0-4.0); LYMPHOCYTES % (AUTO) 30 % (12-44); MEAN CORPUSCULAR HEMOGLOBIN 28 pg (25-34); MEAN CORPUSCULAR HGB CONC 32 g/dL (32-36); MEAN CORPUSCULAR VOLUME 88 fL (80-99); MONOCYTES # (AUTO) 0.9 10^3/uL (0.0-1.0); MONOCYTES % (AUTO) 18 % (0-12); NEUTROPHILS # (AUTO) 2.6 10^3/uL (1.8-7.8); NEUTROPHILS % (AUTO) 50 % (42-75); PLATELET COUNT 251 10^3/uL (130-400); WHITE BLOOD COUNT 5.2 10^3/uL (4.3-11.0)
--- NOTE | 2021-06-10 06:53 | Progress Note - Hospitalist ---
Subjective HPI/CC On Admission Date Seen by Provider: Jun 10, 2021 Chief Complaint: Shortness of Breath and Abdominal Pain HPI: This is a 40yoWF who presents with abdominal pain and acute kidney injury with a Creatine of 3.3. She wasn't able to eat or drink anything for about a week. She was found to have evidence of a small bowel obstruction so Dr. Bonilla was consulted and will order a small bowel follow-through. IV fluids completely reversed the acute kidney injury. Focused Exam Lactate Level 06/08/21 14:57: Lactic Acid Level 1.32 Objective Exam Vital Signs Vital Signs Date Time Temp Pulse Resp B/P (MAP) Pulse Ox O2 Delivery O2 Flow Rate FiO2 06/10/21 11:43 36.0 81 18 106/69 (81) 99 Room Air 06/08/21 20:39 21 Capillary Refill : Results/Procedures Lab Laboratory Tests 06/10/21 06:24 Patient resulted labs reviewed. Diagnosis/Problems Diagnosis/Problems (1) Small bowel obstruction Status: Acute (2) CHAY (acute kidney injury) Status: Acute (3) COVID-19 Status: Acute (4) Hypovolemic shock Status: Acute ESA VILLATORO DO Jun 10, 2021 06:53
[2021-06-10 06:54] LABS: ALBUMIN 2.9 GM/DL (3.2-4.5); POTASSIUM 2.9 MMOL/L (3.6-5.0)
[2021-06-10 06:56] LABS: CALCIUM 7.9 MG/DL (8.5-10.1)
[2021-06-10 06:57] LABS: HEMOGLOBIN 8.6 g/dL (11.5-16.0); TOTAL PROTEIN 5.7 GM/DL (6.4-8.2)
[2021-06-10 06:59] LABS: BILIRUBIN,TOTAL 0.2 MG/DL (0.1-1.0)
[2021-06-10 07:00] LABS: CREATININE SERUM 0.69 MG/DL (0.60-1.30)
[2021-06-10 07:58] VITALS: BP 110/67
[2021-06-10] MEDS: NS IV 1000 ML 1,000 ML IV SCH ×2 (08:29→12:19)
[2021-06-10] MEDS: metroNIDAZOLE 500MG/100ML IVPB 100 ML IV SCH (08:30)
[2021-06-10] MEDS: PANTOPRAZOLE 40 MG (PROTONIX) VIAL IV SCH (08:32)
[2021-06-10] MEDS: cefTRIAXone 1 GM PRE-MIX 50 ML IV SCH (08:32)
[2021-06-10] MEDS: POTASSIUM CL 10MEQ/50ML IVPB 50 ML IV SCH ×3 (10:37→12:18)
--- NOTE | 2021-06-10 11:29 | Progress Note ---
Subjective Date Seen by a Provider: Jun 10, 2021 Time Seen by a Provider: 10:50 Subjective/Events-last exam Patient seen with Dr. Prado. Patient reports doing well. Reports having several bowel movements. Tolerating clear liquid. No nausea or vomiting. Focused Exam Lactate Level 06/08/21 14:57: Lactic Acid Level 1.32 Objective Exam Vital Signs Date Time Temp Pulse Resp B/P (MAP) Pulse Ox O2 Delivery O2 Flow Rate FiO2 06/10/21 07:58 36.2 81 18 110/67 (81) 99 Room Air 06/10/21 04:50 37.2 80 18 91/54 (66) 98 Room Air 06/09/21 23:53 37.0 83 20 104/69 (81) 100 Room Air 06/09/21 20:48 36.5 91 18 89/57 (68) 98 Room Air 06/09/21 20:44 96 Room Air 06/09/21 15:57 36.8 89 18 96/57 (70) 98 Room Air 06/09/21 11:59 36.7 87 18 98/61 (73) 100 Room Air I & O 06/10/21 07:00 Intake Total 575 ml Output Total 740 ml Balance -165 ml Capillary Refill : General Appearance: No Apparent Distress, WD/WN Neck: Normal Inspection, Supple Respiratory: No Accessory Muscle Use, No Respiratory Distress Cardiovascular: Regular Rate, Rhythm, No Edema Gastrointestinal: normal bowel sounds, non tender, soft Extremity: Normal Inspection, Normal Range of Motion Neurologic/Psychiatric: Alert, Oriented x3 Skin: Normal Color, Warm/Dry Results Lab Laboratory Tests 06/10/21 06:24: White Blood Count 5.2, Red Blood Count 3.04L, Hemoglobin 8.6L, Hematocrit 27L, Mean Corpuscular Volume 88, Mean Corpuscular Hemoglobin 28, Mean Corpuscular Hemoglobin Concent 32, Red Cell Distribution Width 12.7, Platelet Count 251, Mean Platelet Volume 11.0, Immature Granulocyte % (Auto) 2, Neutrophils (%) (Auto) 50, Lymphocytes (%) (Auto) 30, Monocytes (%) (Auto) 18H, Eosinophils (%) (Auto) 0, Basophils (%) (Auto) 0, Neutrophils # (Auto) 2.6, Lymphocytes # (Auto) 1.6, Monocytes # (Auto) 0.9, Eosinophils # (Auto) 0.0, Basophils # (Auto) 0.0, Immature Granulocyte # (Auto) 0.1, Sodium Level 132L, Potassium Level 2.9L, Chloride Level 102, Carbon Dioxide Level 18L, Anion Gap 12, Blood Urea Nitrogen 24H, Creatinine 0.69, Estimat Glomerular Filtration Rate 112, BUN/Creatinine Ratio 35, Glucose Level 65L, Calcium Level 7.9L, Corrected Calcium 8.8, Total Bilirubin 0.2, Aspartate Amino Transf (AST/SGOT) 14, Alanine Aminotransferase (ALT/SGPT) 8, Alkaline Phosphatase 39L, Total Protein 5.7L, Albumin 2.9L Microbiology 06/08/21 Blood Culture - Preliminary, Resulted No growth Assessment/Plan Assessment/Plan Assess & Plan/Chief Complaint Covid + Partial SBO History of gastric bypass N/V resolved Having BMs Small Bowel follow through yesterday showed proximal to mid partial small bowel obstruction, no extravasation Tolerating clear liquids - will advance as tolerated. RENZO [employer] Jun 10, 2021 11:29
[2021-06-10 11:43] VITALS: BP 106/69
[2021-06-10] MEDS ORDERED: KCL 20 MEQ TAB (K-DUR) PO ONE (12:45)
[2021-06-10] MEDS ORDERED: IBUPROFEN 800 MG (MOTRIN) TAB PO SCH (13:00)
[2021-06-10] MEDS ORDERED: ONDANSETRON 4 MG (ZOFRAN) ORAL DISSOLVE TAB PO PRN (13:00)
[2021-06-10] MEDS ORDERED: CEFD300C3 PO (13:00)
[2021-06-10] MEDS ORDERED: METR-145 PO (13:00)
[2021-06-10] MEDS ORDERED: clonazePAM 1 MG (KlonoPIN) TAB PO PRN (13:00)
[2021-06-10] MEDS ORDERED: PANT40TA2 PO (13:00)
[2021-06-10] MEDS ORDERED: SUVOREXANT 20 MG PO PRN (13:00)
[2021-06-10] MEDS ORDERED: POTA10TA37 PO (13:00)
--- NOTE | 2021-06-10 13:01 | Discharge Summary ---
Discharge Summary Hospital Course Was the Problem List Reviewed?: Yes Problems/Dx: (1) Small bowel obstruction Status: Acute (2) CHAY (acute kidney injury) Status: Acute (3) COVID-19 Status: Acute (4) Hypovolemic shock Status: Acute Hospital Course Date of Admission: Jun 08, 2021 at 18:45 Admission Diagnosis : Family Physician/Provider: Rajiv Bryant Date of Discharge: 06/10/21 Discharge Diagnosis: Small bowel obstruction, COVID-19 Hospital Course: Patient had a brief hospital course after admitted for small bowel obstruction and COVID-19. No hypoxia noted. General surgery evaluated her with a small bowel follow-through and obstruction resolved. Mental health medication was restarted and she was discharged. Labs and Pending Lab Test: Laboratory Tests 06/10/21 06:24: White Blood Count 5.2, Red Blood Count 3.04L, Hemoglobin 8.6L, Hematocrit 27L, Mean Corpuscular Volume 88, Mean Corpuscular Hemoglobin 28, Mean Corpuscular Hemoglobin Concent 32, Red Cell Distribution Width 12.7, Platelet Count 251, Me an Platelet Volume 11.0, Immature Granulocyte % (Auto) 2, Neutrophils (%) (Auto) 50, Lymphocytes (%) (Auto) 30, Monocytes (%) (Auto) 18H, Eosinophils (%) (Auto) 0, Basophils (%) (Auto) 0, Neutrophils # (Auto) 2.6, Lymphocytes # (Auto) 1.6, Monocytes # (Auto) 0.9, Eosinophils # (Auto) 0.0, Basophils # (Auto) 0.0, Immature Granulocyte # (Auto) 0.1, Sodium Level 132L, Potassium Level 2.9L, Chloride Level 102, Carbon Dioxide Level 18L, Anion Gap 12, Blood Urea Nitrogen 24H, Creatinine 0.69, Estimat Glomerular Filtration Rate 112, BUN/Creatinine Ratio 35, Glucose Level 65L, Calcium Level 7.9L, Corrected Calcium 8.8, Total Bilirubin 0.2, Aspartate Amino Transf (AST/SGOT) 14, Alanine Aminotransferase (ALT/SGPT) 8, Alkaline Phosphatase 39L, Total Protein 5.7L, Albumin 2.9L Microbiology 06/08/21 Blood Culture - Preliminary, Resulted No growth Home Meds Active Potassium Chloride 10 Meq Tab.er.prt 10 Meq PO BID Cefdinir 300 Mg Capsule 300 Mg PO BID Metronidazole 500 Mg Tablet 500 Mg PO TID Protonix (Pantoprazole Sodium) 40 Mg Tablet.dr 40 Mg PO DAILY Reported Tizanidine HCl 4 Mg Tablet 8 Mg PO QID TAKES 2 (4MG) TABS Divalproex Sodium ER (Divalproex Sodium) 250 Mg Tab.er.24h 250 Mg PO HS TAKES 500MG +250MG TOGETHER TO EQUAL 750MG Amitriptyline HCl 100 Mg Tablet 200 Mg PO HS TAKES 2 (100MG) TABS Risperidone 2 Mg Tablet 4 Mg PO DAILY TAKES 2 (2MG) TABS Lamotrigine 25 Mg Tablet 50 Mg PO DAILY TAKES 2 (25MG) TABS Ibuprofen 800 Mg Tablet 800 Mg PO Q8H Belsomra (Suvorexant) 20 Mg Tablet 20 Mg PO HS PRN Zolpidem Tartrate ER (Zolpidem Tartrate) 12.5 Mg Tab.mphase 12.5 Mg PO HS Dextroamp-Amphet ER 20 mg Cap (Dextroamphetamine/Amphetamine) 20 Mg Cap.er.24h 20 Mg PO DAILY Clonazepam 1 Mg Tablet 1 Mg PO BID PRN Pregabalin 75 Mg Capsule 150 Mg PO DAILY TAKES 2 (75MG) CAPS Divalproex Sodium ER (Divalproex Sodium) 500 Mg Tab.er.24h 500 Mg PO HS TAKES 500MG +250MG TOGETHER TO EQUAL 750MG Fentanyl Patch 50 MCG (Fentanyl) 1 Each Patch.td72 50 Mcg TD Q72H DOES NOT CURRENTLY HAVE A PATCH APPLIED, LAST PATCH WAS REMOVED 06-06-2021 Ondansetron Odt (Ondansetron) 4 Mg Tab.rapdis 4 Mg PO Q8H PRN Assessment/Pt Instructions PCP in 1 week Discharge Planning: <30 minutes discharge planning Discharge Instructions Discharge Diet: No Restrictions Discharge Physical Examination Vital Signs Vital Signs Date Time Temp Pulse Resp B/P (MAP) Pulse Ox O2 Delivery O2 Flow Rate FiO2 06/10/21 11:43 36.0 81 18 106/69 (81) 99 Room Air 06/08/21 20:39 21 General Appearance: No Apparent Distress, WD/WN Allergies: Coded Allergies: Penicillins (Verified Allergy, Unknown, 09/29/20) Discharge Summary Date of Admission Jun 08, 2021 at 18:45 Date of Discharge Discharge Date: Jun 10, 2021 Admission Diagnosis Assessment: Small bowel obstruction Chronic mental illness Acute kidney injury now resolved with IV fluids Profound dehydration Plan: Appreciate Dr. Bonilla IV fluids Small bowel follow-through Discharge Diagnosis (1) Small bowel obstruction Status: Acute (2) CHAY (acute kidney injury) Status: Acute (3) COVID-19 Status: Acute (4) Hypovolemic shock Status: Acute ESA VILLATORO DO Jun 10, 2021 13:01
[2021-06-10 18:48] VITALS: BP 106/69
[2021-06-10] MEDS ORDERED: DIVALPROEX EXT RELEASE 500 MG (DEPAKOTE ER) TAB PO SCH (21:00)
[2021-06-10] MEDS ORDERED: AMITRIPTYLINE 50 MG (ELAVIL) TAB PO SCH (21:00)
[2021-06-10] MEDS ORDERED: DIVALPROEX EXT RELEASE 250 MG (DEPAKOTE ER) TAB PO SCH (21:00)
[2021-06-10] MEDS ORDERED: ZOLPIDEM 5 MG (AMBIEN) TAB PO SCH (21:00)
[2021-06-11] MEDS ORDERED: risperiDONE 2 MG (RisperDAL) TAB PO SCH (09:00)
[2021-06-11] MEDS ORDERED: AMPHETAMINE PO SCH (09:00)
[2021-06-11] MEDS ORDERED: DEXTROAMPHETAMINE PO SCH (09:00)
[2021-06-11] MEDS ORDERED: lamoTRIgine 25 MG (LaMICtal) TAB PO SCH (09:00)
[2021-06-11] MEDS ORDERED: [UNRECOGNIZED DRUG - OTHER] PO SCH (09:00)
[2021-06-11] MEDS ORDERED: PREGABALIN 75 MG (LYRICA) CAP PO SCH (09:00)
== END 2021-06-10 12:58 | disposition home or self-care (01) ==
LOC: EDUNIT# 13:29 → ER 13:31 → UNDOADMIN 18:45 → 4TH 18:45 → UNDODISOB 06-10 12:58 → UNDODISIN 06-10 18:49
PROVIDERS: ADMIT Internal Medicine; ATTEND Internal Medicine
DX: U07.1 COVID-19 (principal); R57.1 Hypovolemic shock; N17.9 Acute kidney failure, unspecified; K56.600 Partial intestinal obstruction, unspecified as to cause; E86.0 Dehydration; Z98.84 Bariatric surgery status; F20.9 Schizophrenia, unspecified; F31.9 Bipolar disorder, unspecified; F41.9 Anxiety disorder, unspecified; F60.9 Personality disorder, unspecified; F40.00 Agoraphobia, unspecified; Z87.891 Personal history of nicotine dependence; Z88.0 Allergy status to penicillin
CPT/HCPCS: 71045; 74176; 74250; 80048; 80053 ×3; 80306; 81000; 83605; 84145; 84703; 85007; 85025 ×2; 85027; 85610; 85730; 86141; 87040; 87636; 96361; 96374; 96375; 99284; G0378; 36415

== ENCOUNTER 2021-06-14 12:56 | Inpatient (IN) | payer MEDICARE, MEDICAID ==
[~2021-06-14] VITALS: Ht 167.7 cm; Wt 78.1 kg
[~2021-06-14 12:56] MED LIST changes: +AMIT100T2 PO; +CLON1TAB13 PO; +DEXT20CA4 PO; +DIVA250T12 PO; +DIVA500T15 PO; +FENT1PAT9 TD; +IBUP-1780 PO; +LAMO25TA8 PO; +METR-145 PO; +NF-ZOL12.5 PO; +ONDA4TAB11 PO; +PANT40TA2 PO; +POTA10TA37 PO; +PREG75CA75 PO; +RISP2TAB84 PO; +SUVO20TA2 PO; +TIZA-186 PO
[2021-06-14] MEDS ORDERED: NOREPINEPHRINE 8 MG/250 ML 250 ML IV ONE (13:39)
[2021-06-14] MEDS ORDERED: NOREPINEPHRINE 8 MG/250 ML 250 ML IV SCH (14:00)
--- NOTE | 2021-06-14 14:04 | ED General ---
General Chief Complaint: Altered Mental Status Stated Complaint: COVID Source of Information: Patient Exam Limitations: No Limitations History of Present Illness Date Seen by Provider: Jun 14, 2021 Time Seen by Provider: 14:03 Initial Comments To ER by [facility] EMS from [facility] emergency room where she presented with altered mental status and undifferentiated shock. She was just released from here on the following acute kidney injury, hypovolemic shock, small bowel obstruction Covid positive. It was thought this morning that she might have overdosed though that cannot be confirmed. She has a prescription for fentanyl patch for chronic pain, clonazepam, sleeping medication and several other sedating medications. She was given Narcan with some temporary improvement in mentation, she was also given Romazicon without change in mentation. She was given 1 L of IV fluids and then dopamine was started at 10 mcg/kg/min through peripheral IV in the right antecubital fossa. She was then transported here for further evaluation. EMS on a second liter of crystalloids in route to the hospital. On arrival here with dopamine going her pressure is 78 over 50s.' HISTORY PER (Wally Fan): He tried to get her to go to the hospital last night because of ongoing puking. He states that since discharge on 05/21 she has been drinking water constantly but she has also been vomiting constantly. She has not had a bowel movement since discharge. She has not mentioned any abdominal pain this time though just prior to her last admission she did complain of a lot of abdominal pain. She was unresponsive this morning with a pale face and cold hands prior to him calling the ambulance. Timing/Duration: 1-2 Days Severity: Moderate Associated Systoms: Nausea/Vomiting Allergies and Home Medications Allergies Coded Allergies: Penicillins (Verified Allergy, Unknown, 09/29/20) Patient Home Medication List Home Medication List Reviewed: Yes Amitriptyline HCl (Amitriptyline HCl) 100 Mg Tablet, 200 MG PO HS, (Reported) Entered as Reported by: ANGE SMITH on 06/09/21 1315 Cefdinir (Cefdinir) 300 Mg Capsule, 300 MG PO BID Prescribed by: ESA VILLATORO on 06/10/21 1300 Clonazepam (Clonazepam) 1 Mg Tablet, 1 MG PO BID PRN for PANIC ATTACKS, (Reported) Entered as Reported by: ANGE SMITH on 06/09/21 1315 Dextroamphetamine/Amphetamine (Dextroamp-Amphet ER 20 mg Cap) 20 Mg Cap.er.24h, 20 MG PO DAILY, (Reported) Entered as Reported by: ANGE SMITH on 06/09/21 131 Divalproex Sodium (Divalproex Sodium ER) 500 Mg Tab.er.24h, 500 MG PO HS, (Reported) Entered as Reported by: ANGE SMITH on 06/09/21 131 Divalproex Sodium (Divalproex Sodium ER) 250 Mg Tab.er.24h, 250 MG PO HS, (Reported) Entered as Reported by: ANGE SMITH on 06/09/21 1315 Fentanyl (Fentanyl Patch 50 MCG) 1 Each Patch.td72, 50 MCG TD Q72H, (Reported) Entered as Reported by: ANGE SMITH on 06/09/21 131 Ibuprofen (Ibuprofen) 800 Mg Tablet, 800 MG PO Q8H, (Reported) Entered as Reported by: ANGE SMITH on 06/09/21 131 Lamotrigine (Lamotrigine) 25 Mg Tablet, 50 MG PO DAILY, (Reported) Entered as Reported by: ANGE SMITH on 06/09/21 131 Metronidazole (Metronidazole) 500 Mg Tablet, 500 MG PO TID Prescribed by: ESA VILLATORO on 06/10/21 1300 Ondansetron (Ondansetron Odt) 4 Mg Tab.rapdis, 4 MG PO Q8H PRN for NAUSEA/VOMITING-1ST LINE, (Reported) Entered as Reported by: ANGE SMITH on 06/09/21 131 Pantoprazole Sodium (Protonix) 40 Mg Tablet.dr, 40 MG PO DAILY Prescribed by: ESA VILLATORO on 06/10/21 1300 Potassium Chloride (Potassium Chloride) 10 Meq Tab.er.prt, 10 MEQ PO BID Prescribed by: ESA VILLATORO on 06/10/21 1300 Pregabalin (Pregabalin) 75 Mg Capsule, 150 MG PO DAILY, (Reported) Entered as Reported by: ANGE SMITH on 06/09/21 1315 Risperidone (Risperidone) 2 Mg Tablet, 4 MG PO DAILY, (Reported) Entered as Reported by: ANGE SMITH on 06/09/21 1315 Suvorexant (Belsomra) 20 Mg Tablet, 20 MG PO HS PRN for SLEEP, (Reported) Entered as Reported by: ANGE SMITH on 06/09/21 1315 Tizanidine HCl (Tizanidine HCl) 4 Mg Tablet, 8 MG PO QID, (Reported) Entered as Reported by: ANGE SMITH on 06/09/21 1315 Zolpidem Tartrate (Zolpidem Tartrate ER) 12.5 Mg Tab.mphase, 12.5 MG PO HS, (Reported) Entered as Reported by: ANGE SMITH on 06/09/21 1315 Discontinued Medications Alprazolam (Xanax) 1 Mg Tablet, 1 MG PO TID, (Reported) Discontinued Reason: No Longer Taking Entered as Reported by: SENG HO on 08/15/13 1234 Carisoprodol (Soma) 350 Mg Tablet, 1 TAB PO TID, (Reported) Discontinued Reason: No Longer Taking Entered as Reported by: SENG HO on 08/15/13 1234 Cefdinir (Cefdinir) 300 Mg Capsule, 300 MG PO BID Discontinued Reason: No Longer Taking Prescribed by: FABIAN SALAZAR on 03/19/21 1545 Celecoxib (Celebrex) 200 Mg Capsule, 200 MG PO TID, (Reported) Discontinued Reason: No Longer Taking Entered as Reported by: SENG HO on 08/15/13 1234 Diazepam (Valium 10 Mg Tab) 10 Mg Tablet, 10 MG PO BID, (Reported) Discontinued Reason: No Longer Taking Entered as Reported by: SENG HO on 08/15/13 1234 Hydrocodone Bit/Acetaminophen (Hydrocodon-Acetaminophn 10-325) 1 Each Tablet, 1 EACH PO PRN, (Reported) Discontinued Reason: No Longer Taking Entered as Reported by: SENG HO on 08/15/13 1234 Hydrocodone Bit/Acetaminophen (Lortab 5 Mg Tablet) 1 Tab Tab, 1 EACH PO Q4-6HR PRN for PAIN-MODERATE Discontinued Reason: No Longer Taking Prescribed by: FABIAN SALAZAR on 01/05/19 1342 Lurasidone Hcl (Latuda) 40 Mg Tablet, 40 MG PO HS, (Reported) Discontinued Reason: No Longer Taking Entered as Reported by: SENG HO on 08/15/13 1234 Morphine Sulfate (Monica) 60 Mg Cap.sr.pel, 60 MG PO BID, (Reported) Discontinued Reason: No Longer Taking Entered as Reported by: SENG HO on 08/15/13 1234 Oxycodone Hcl (Oxycontin) 60 Mg Tab.sr.12h, 60 MG PO BID, (Reported) Discontinued Reason: No Longer Taking Entered as Reported by: SENG HO on 08/15/13 1234 Pantoprazole Sodium (Protonix) 40 Mg Granpkt.dr, 40 MG PO DAILY Discontinued Reason: No Longer Taking Prescribed by: ANTHONY SCHRADER on 09/30/20 1506 Sucralfate (Carafate) 1 Gm/10 Ml Oral.susp, 1 GM PO QIDACHS Discontinued Reason: No Longer Taking Prescribed by: ANTHONY SCHRADER on 09/30/20 1506 Zolpidem Tartrate (Ambien 10 Mg) 10 Mg Tab, 10 MG PO HS, (Reported) Discontinued Reason: No Longer Taking Entered as Reported by: LORI JAMA on 08/05/11 0249 Review of Systems Review of Systems Constitutional: see HPI, other (Unable to obtain) EENTM: see HPI Past Ijiksml-Cizlrv-Vhqrrv Hx Past Medical History Surgery/Hospitalization HX: SCHIZOPHRENIA, BIPOLAR, CHRONIC PAIN, INSOMNIA Surgeries: Yes (D&C) Abdominal Respiratory: No Cardiac: No Neurological: No Reproductive Disorders: No Genitourinary: Yes Kidney Infection Gastrointestinal: No Musculoskeletal: Yes (BACK SX) Chronic Back Pain Endocrine: No Psychosocial: Yes (AGORAPHOBIA) Anxiety, Suicide Attempts, Bipolar, Personality Disorder, Depression Integumentary: No Blood Disorders: No Family Medical History No Pertinent Family Hx Physical Exam Vital Signs Vital Signs - First Documented 06/14/21 06/14/21 13:57 14:51 Pulse 100 Resp 16 B/P (MAP) 78/51 (60) Pulse Ox 98 O2 Delivery Nasal Cannula O2 Flow Rate 6.00 Capillary Refill : Height, Weight, BMI Height: 5'6.00" Weight: 220lbs. oz. 99.656434in; 23.43 BMI Method:Estimated General Appearance: Thin, Other (Lethargic. Fingerstick glucose on arrival 134. On the GCS she gets 3 points for eye movement, 4 points for verbal response, 5 points for motor for a total GCS of 12. As mentioned she is hypotensive on arrival.) Eyes: Bilateral Eye Normal Inspection, Bilateral Eye PERRL, Bilateral Eye EOMI Neck: Full Range of Motion, Normal Inspection Respiratory: No Accessory Muscle Use, No Respiratory Distress Cardiovascular: Regular Rate, Rhythm, Normal Peripheral Pulses Gastrointestinal: Normal Bowel Sounds, Non Tender, Soft; No Distended Extremity: Normal Capillary Refill, Normal Inspection Neurologic/Psychiatric: Alert, Oriented x3 Skin: Normal Color, Warm/Dry Focused Exam Lactate Level 06/14/21 14:25: Lactic Acid Level 2.76*H Lactic Acid Level Laboratory Tests Test 06/14/21 14:25 Lactic Acid Level 2.76 MMOL/L (0.50-2.00) *H Procedures/Interventions Lumen: triple Central Line Procedure: betadine prep, sterile drapes applied, sterile dressing applied Position: internal jugular (R) Anesthesia: local Volume Anesthetic (ccs): 5 Complications: none Post Position: sutured, good blood return, position confirmed w/ CXR Progress/Results/Core Measures Suspected Sepsis SIRS Temperature: Pulse: Respiratory Rate: Laboratory Tests 06/14/21 14:33: White Blood Count 12.3H Blood Pressure / Mean: 06/14/21 14:25: Lactic Acid Level 2.76*H Laboratory Tests 06/14/21 13:56: Creatinine 2.37H 06/14/21 14:33: INR Comment 1.2, Platelet Count 254 Results/Orders Lab Results Laboratory Tests Test 06/14/21 13:35 06/14/21 13:56 06/14/21 14:10 06/14/21 14:25 Range/Units Glucometer 134 H 70-110 MG/DL Sodium Level 134 L 135-145 MMOL/L Potassium Level 2.3 *L 3.6-5.0 MMOL/L Chloride Level 110 H 98-107 MMOL/L Carbon Dioxide Level 13 L 21-32 MMOL/L Anion Gap 11 5-14 MMOL/L Blood Urea Nitrogen 16 7-18 MG/DL Creatinine 2.37 H 0.60-1.30 MG/DL Estimat Glomerular Filtration Rate 26 BUN/Creatinine Ratio 7 Glucose Level 131 H 70-105 MG/DL Calcium Level 7.8 L 8.5-10.1 MG/DL Magnesium Level 1.7 1.6-2.4 MG/DL Procalcitonin 1.13 H <0.10 NG/ML Urine Color LJ H Urine Clarity CLEAR Urine pH 5.5 5-9 Urine Specific [place] 1.025 H 1.016-1.022 Urine Protein 2+ H NEGATIVE Urine Glucose (UA) NEGATIVE NEGATIVE Urine Ketones 1+ H NEGATIVE Urine Nitrite POSITIVE H NEGATIVE Urine Bilirubin 2+ H NEGATIVE Urine Urobilinogen 0.2 < = 1.0 MG/DL Urine Leukocyte Esterase NEGATIVE NEGATIVE Urine RBC (Auto) TRACE-I H NEGATIVE Urine RBC 0-2 /HPF Urine WBC 2-5 /HPF Urine Crystals PRESENT H /LPF Urine Calcium Oxalate Crystals FEW H /LPF Urine Amorphous Sediment FEW ELIANA URATES H /LPF Urine Bacteria FEW H /HPF Urine Casts PRESENT /LPF Urine Hyaline Casts 10-25 H /LPF Urine Mucus NEGATIVE /LPF Urine Culture Indicated YES Urine Opiates Screen NEGATIVE NEGATIVE Urine Oxycodone Screen POSITIVE H NEGATIVE Urine Methadone Screen NEGATIVE NEGATIVE Urine Propoxyphene Screen NEGATIVE NEGATIVE Urine Barbiturates Screen NEGATIVE NEGATIVE Ur Tricyclic Antidepressants Screen POSITIVE H NEGATIVE Urine Phencyclidine Screen NEGATIVE NEGATIVE Urine Amphetamines Screen NEGATIVE NEGATIVE Urine Methamphetamines Screen NEGATIVE NEGATIVE Urine Benzodiazepines Screen POSITIVE H NEGATIVE Urine Cocaine Screen NEGATIVE NEGATIVE Urine Cannabinoids Screen NEGATIVE NEGATIVE Lactic Acid Level 2.76 *H 0.50-2.00 MMOL/L Test 06/14/21 14:33 06/14/21 14:40 Range/Units White Blood Count 12.3 H 4.3-11.0 10^3/uL Red Blood Count 3.82 3.80-5.11 10^6/uL Hemoglobin 10.9 #L 11.5-16.0 g/dL Hematocrit 34 L 35-52 % Mean Corpuscular Volume 90 80-99 fL Mean Corpuscular Hemoglobin 29 25-34 pg Mean Corpuscular Hemoglobin Concent 32 32-36 g/dL Red Cell Distribution Width 13.1 10.0-14.5 % Platelet Count 254 130-400 10^3/uL Mean Platelet Volume 10.7 9.0-12.2 fL Immature Granulocyte % (Auto) 2 % Neutrophils (%) (Auto) 87 H 42-75 % Lymphocytes (%) (Auto) 6 L 12-44 % Monocytes (%) (Auto) 5 0-12 % Eosinophils (%) (Auto) 0 0-10 % Basophils (%) (Auto) 0 0-10 % Neutrophils # (Auto) 9.7 H 1.8-7.8 10^3/uL Lymphocytes # (Auto) 0.6 L 1.0-4.0 10^3/uL Monocytes # (Auto) 0.6 0.0-1.0 10^3/uL Eosinophils # (Auto) 0.0 0.0-0.3 10^3/uL Basophils # (Auto) 0.0 0.0-0.1 10^3/uL Immature Granulocyte # (Auto) 0.2 H 0.0-0.1 10^3/uL Neutrophils % (Manual) 85 % Lymphocytes % (Manual) 6 % Monocytes % (Manual) 6 % Band Neutrophils 3 % Blood Morphology Comment NORMAL Prothrombin Time 16.1 H 12.2-14.7 SEC INR Comment 1.2 0.8-1.4 Blood Gas Puncture Site R WRIST Blood Gas Patient Temperature 36.4 Arterial Blood pH 7.28 *L 7.37-7.43 Arterial Blood Partial Pressure CO2 26 L 35-45 MMHG Arterial Blood Partial Pressure O2 127 H 79-93 MMHG Arterial Blood HCO3 12 *L 23-27 MMOL/L Arterial Blood Total CO2 12.5 L 21.0-31.0 MMOL/L Arterial Blood Oxygen Saturation 99 94-100 % Arterial Blood Base Excess -13.8 L -2.5-2.5 MMOL/L Ry Test NA Blood Gas Ventilator Setting NO Blood Gas Inspired Oxygen NA My Orders Orders - FABIAN SALAZAR [employer] Norepinephrine 8 Mg/250 Ml (Norepinephri (06/14/21 13:39) Norepinephrine 8 Mg/250 Ml (Norepinephri (06/14/21 14:00) Basic Metabolic Panel (06/14/21 13:49) Chest 1 View, Ap/Pa Only (06/14/21 13:49) Catheter(Urinary) Insert & Ass 03,15 (06/14/21 13:49) Urinalysis (06/14/21 13:49) Drug Screen Stat (Urine) (06/14/21 13:49) Lactated Ringers (Lr 1000 Ml Iv Solution (06/14/21 14:15) Blood Culture (06/14/21 14:09) Lactic Acid Analyzer (06/14/21 14:09) Procalcitonin (Pct) (06/14/21 14:09) Abdomen/Kub 1view (06/14/21 14:09) Magnesium (06/14/21 14:24) Potassium Cl 10meq/50ml Ivpb (Kcl 10 Meq (06/14/21 14:30) Arterial Blood Gas (06/14/21 14:24) Cbc With Automated Diff (06/14/21 14:27) Protime With Inr (06/14/21 14:27) Manual Differential (06/14/21 14:33) Ct Abdomen/Pelvis Wo (06/14/21 14:47) Cefepime Injection (Maxipime Injection) (06/14/21 16:00) Metronidazole 500mg/100ml Ivpb (Flagyl 5 (06/14/21 16:00) Ed Admission (Communication) (06/14/21 16:19) Medications Given in ED Current Medications Medications Dose Ordered Sig/Jerardo Route Start Time Stop Time Status Last Admin Dose Admin Metronidazole 100 ml @ 100 mls/hr ONCE ONCE IV 06/14/21 16:00 06/14/21 16:59 DC 06/14/21 16:27 100 MLS/HR Potassium Chloride 50 ml @ 50 mls/hr ONCE ONCE IV 06/14/21 14:30 06/14/21 15:29 DC 06/14/21 15:01 50 MLS/HR Vital Signs/I&O 06/14/21 06/14/21 06/14/21 06/14/21 13:57 14:13 14:51 15:21 Pulse 100 100 83 Resp 16 16 B/P (MAP) 78/51 (60) 78/51 114/82 Pulse Ox 98 O2 Delivery Nasal Cannula Nasal Cannula Nasal Cannula O2 Flow Rate 6.00 6.00 Capillary Refill : Departure Communication (Admissions) NAME: AUGIE CODY [facility] REC#: [id number] PT STATUS: REG ER : 1980 PHYSICIAN: FABIAN SALAZAR APRN ADMIT DATE: 06/14/21/ER Draft Date of Exam:06/14/21 CT ABDOMEN/PELVIS WO PROCEDURE: CT abdomen and pelvis without contrast. TECHNIQUE: Multiple contiguous axial images were obtained through the abdomen and pelvis without the use of intravenous contrast. Auto Exposure Controls were utilized during the CT exam to meet ALARA standards for radiation dose reduction. INDICATION: Abdominal pain and sepsis. COMPARISON: Correlation is made with recent CT from 06/08/2021. Imaging through the lung bases demonstrates patchy airspace infiltrates in the right middle lobe and right lower lobe consistent with pneumonia. Postoperative changes from gastric bypass surgery are again noted. There continue to be dilated and fluid-filled small bowel loops. A small bowel loop in the right abdomen measures up to 5.6 cm in transverse diameter. There are some normal caliber distal small bowel loops and features remain consistent with small bowel obstruction. There is contrast that has reached the colon from a recent small bowel study, therefore no complete obstruction was visible at that time. There is no free air. There is no free fluid or fluid collection identified. Uterus again contains an IUD. The pancreas, liver, gallbladder, spleen, adrenal glands and kidneys appear stable. Aorta is nonaneurysmal. Bladder contains a Gagnon catheter. Bony structures show postop changes of posterior instrumented fusion of L4-S1. IMPRESSION: 1. Features remain suggestive of a small bowel obstruction. No free air or abscess formation is seen. 2. Airspace infiltrates have developed in the right middle lobe and right lower lobe consistent with pneumonia. Dictated on workstation # [id number] Dict: 06/14/21 1550 Trans: 06/14/21 1557 [facility] [id number] Interpreted by: MARGARETTE ALCALA MD Electronically signed by: Family Brown NAME: AUGIE CODY MED REC#: [id number] PT STATUS: REG ER : 1980 PHYSICIAN: FABIAN SALAZAR [employer] ADMIT DATE: 06/14/21/ER Draft Date of Exam:06/14/21 ABDOMEN/KUB 1VIEW INDICATION: Abdominal pain, small bowel obstruction COMPARISON: 06/09/2021 FINDINGS: Single view the abdomen demonstrates mild to moderately distended loops of small bowel primarily in the upper abdomen. There is some residual contrast within the colon. Postoperative changes seen involving lumbar spine. There is an IUD in the uterus. IMPRESSION: Dilated loops of small bowel similar to the prior examination. Dictated on workstation # [id number] Dict: 06/14/21 1433 Trans: 06/14/21 1437 [facility] [id number] Interpreted by: BAIRON STEVENS Electronically signed by: NAME: AUGIE CODY MED REC#: [id number] PT STATUS: REG ER : 1980 PHYSICIAN: FABIAN SALAZAR APRN ADMIT DATE: 06/14/21/ER Signed Date of Exam:06/14/21 CHEST 1 VIEW, AP/PA ONLY INDICATION: 40-year-old female, sepsis. TECHNIQUE: Single-view chest at 02:25 p.m. CORRELATION STUDY: 06/08/2021. FINDINGS: Gastric tube is present with tip at the fundal aspect of the stomach. Right IJ central line has been placed with tip over the SVC. Heart size and mediastinum are generally stable. Asymmetric opacity has developed within the right lung, particularly in the mid and inferior aspect, with the left lung remaining relatively clear and is slightly hyperinflated. No pneumothorax or significant effusion. There are prominent gas-filled loops of bowel noted in the upper abdomen, nonspecific on this study. IMPRESSION: 1. Placement of right IJ central line without evidence for pneumothorax. 2. Development of asymmetric pulmonary opacities within the right lung with slight right lung volume loss, could be reflective of asymmetric edema versus infiltrate or potential aspiration. Follow-up imaging is recommended. Dictated by: Dictated on workstation # [id number] Dict: 06/14/21 1431 Trans: 06/14/21 1439 [id number] [id number] Interpreted by: JUDI MARTE DO Electronically signed by: JUDI MARTE DO 06/14/21 1439 1408-while in Trendelenburg position her right internal jugular on ultrasound at the bedside is very collapsible. I have ordered 1/3 L of crystalloid as a bolus. We will stop the dopamine and transition to Levophed at 0.1 mics per kilo per minute. She is maintaining her own airway. 1620-Levophed drip at 0.1 tino per kilo per minute after a total of 3.5 L of crystalloids has a blood pressure 117/88 heart rate 79 oxygen 97% on room air respiratory rate is 10-12. GCS remains 12. She is arousable to loud verbal stimuli. Spoke with Dr. Villatoro, will admit and consult surgery. I notified Dr. Prado of consult. She has a nasogastric tube in place that was placed by [facility] emergency room. Will use cefepime and Flagyl to cover both pulmonary a nd GI pathogens. Looks like she still has oral contrast in the rectum on CT from her small bowel follow-through last week. Impression Primary Impression: Hypovolemic shock Additional Impressions: COVID-19 SBO (small bowel obstruction) Pneumonia Disposition: ADMITTED INPATIENT Condition: Stable Admissions Decision to Admit Reason: Admit from ER (General) Decision to Admit/Date: Jun 14, 2021 Time/Decision to Admit Time: 16:22 Departure-Patient Inst. Referrals: [place] [facility] (PCP) Primary Care Physician MAYCOL MARIN (Family) Primary Care Physician FABIAN SALAZAR APRN Jun 14, 2021 14:04
[2021-06-14 14:12] LABS: CALCIUM 7.8 MG/DL (8.5-10.1)
[2021-06-14 14:16] LABS: CREATININE SERUM 2.37 MG/DL (0.60-1.30)
[2021-06-14] MEDS: LACTATED RINGERS 1,000 ML IV SCH ×2 (14:21→16:11)
[2021-06-14 14:24] LABS: POTASSIUM 2.3 MMOL/L (3.6-5.0)
[2021-06-14] MEDS ORDERED: POTASSIUM CL 10MEQ/50ML IVPB 50 ML IV ONE (14:30)
[2021-06-14 14:36] LABS: AMPHETAMINE SCREEN, URINE NEGATIVE (NEGATIVE); BENZODIAZEPINES SCREEN URINE POSITIVE (NEGATIVE); CANNABINOID SCREEN, URINE NEGATIVE (NEGATIVE); COCAINE SCREEN URINE NEGATIVE (NEGATIVE); METHAMPHETAMINE SCREEN URINE S NEGATIVE (NEGATIVE); OPIATE SCREEN URINE NEGATIVE (NEGATIVE)
[2021-06-14 14:37] LABS: BARBITURATE SCREEN URINE NEGATIVE (NEGATIVE); METHADONE STAT NEGATIVE (NEGATIVE); OXYCODONE STAT POSITIVE (NEGATIVE); PROPOXYPHENE STAT NEGATIVE (NEGATIVE); TRICYCLIC ANTIDEPRESSANTS SCRE POSITIVE (NEGATIVE)
--- NOTE | 2021-06-14 14:37 | Diagnostic Imaging Report ---
INDICATION: Abdominal pain, small bowel obstruction COMPARISON: 06/09/2021 FINDINGS: Single view the abdomen demonstrates mild to moderately distended loops of small bowel primarily in the upper abdomen. There is some residual contrast within the colon. Postoperative changes seen involving lumbar spine. There is an IUD in the uterus. IMPRESSION: Dilated loops of small bowel similar to the prior examination. Dictated by: Dictated on workstation # [id number]
--- NOTE | 2021-06-14 14:37 | Diagnostic Imaging Report ---
INDICATION: 40-year-old female, sepsis. TECHNIQUE: Single-view chest at 02:25 p.m. CORRELATION STUDY: 06/08/2021. FINDINGS: Gastric tube is present with tip at the fundal aspect of the stomach. Right IJ central line has been placed with tip over the SVC. Heart size and mediastinum are generally stable. Asymmetric opacity has developed within the right lung, particularly in the mid and inferior aspect, with the left lung remaining relatively clear and is slightly hyperinflated. No pneumothorax or significant effusion. There are prominent gas-filled loops of bowel noted in the upper abdomen, nonspecific on this study. IMPRESSION: 1. Placement of right IJ central line without evidence for pneumothorax. 2. Development of asymmetric pulmonary opacities within the right lung with slight right lung volume loss, could be reflective of asymmetric edema versus infiltrate or potential aspiration. Follow-up imaging is recommended. Dictated by: Dictated on workstation # [id number]
[2021-06-14 14:40] LABS: BASOPHILS % (AUTO) 0 % (0-10); EOSINOPHILS % (AUTO) 0 % (0-10); LYMPHOCYTES # (AUTO) 0.6 10^3/uL (1.0-4.0); LYMPHOCYTES % (AUTO) 6 % (12-44); MEAN CORPUSCULAR HGB CONC 32 g/dL (32-36); MEAN CORPUSCULAR VOLUME 90 fL (80-99); MEAN PLATELET VOLUME 10.7 fL (9.0-12.2); MONOCYTES # (AUTO) 0.6 10^3/uL (0.0-1.0); MONOCYTES % (AUTO) 5 % (0-12); NEUTROPHILS # (AUTO) 9.7 10^3/uL (1.8-7.8); NEUTROPHILS % (AUTO) 87 % (42-75)
[2021-06-14 14:41] LABS: WHITE BLOOD COUNT 12.3 10^3/uL (4.3-11.0)
[2021-06-14 14:42] LABS: HEMOGLOBIN 10.9 g/dL (11.5-16.0); MEAN CORPUSCULAR HEMOGLOBIN 29 pg (25-34)
[2021-06-14 14:43] LABS: HEMATOCRIT 34 % (35-52); PLATELET COUNT 254 10^3/uL (130-400)
[2021-06-14 14:49] LABS: ABG BASE EXCESS -13.8 MMOL/L (-2.5-2.5); ABG OXYGEN SATURATION 99 % (94-100); ABG PCO2 26 MMHG (35-45); ABG PO2 127 MMHG (79-93); ABG TCO2 12.5 MMOL/L (21.0-31.0)
[2021-06-14 14:52] LABS: ABG PH 7.28 (7.37-7.43)
[2021-06-14 14:53] LABS: PATIENT TEMP 36.4; VENTILATOR NO
[2021-06-14 15:08] LABS: INR 1.2 (0.8-1.4); PROTHROMBIN TIME PATIENT 16.1 SEC (12.2-14.7)
[2021-06-14 15:11] LABS: BAND NEUTROPHILS 3 %; LYMPHOCYTES % (MANUAL) 6 %; MONOCYTES % (MANUAL) 6 %; NEUTROPHILS % (MANUAL) 85 %; RBC MORPH NORMAL
--- NOTE | 2021-06-14 15:58 | Diagnostic Imaging Report ---
PROCEDURE: CT abdomen and pelvis without contrast. TECHNIQUE: Multiple contiguous axial images were obtained through the abdomen and pelvis without the use of intravenous contrast. Auto Exposure Controls were utilized during the CT exam to meet ALARA standards for radiation dose reduction. INDICATION: Abdominal pain and sepsis. COMPARISON: Correlation is made with recent CT from 06/08/2021. Imaging through the lung bases demonstrates patchy airspace infiltrates in the right middle lobe and right lower lobe consistent with pneumonia. Postoperative changes from gastric bypass surgery are again noted. There continue to be dilated and fluid-filled small bowel loops. A small bowel loop in the right abdomen measures up to 5.6 cm in transverse diameter. There are some normal caliber distal small bowel loops and features remain consistent with small bowel obstruction. There is contrast that has reached the colon from a recent small bowel study, therefore no complete obstruction was visible at that time. There is no free air. There is no free fluid or fluid collection identified. Uterus again contains an IUD. The pancreas, liver, gallbladder, spleen, adrenal glands and kidneys appear stable. Aorta is nonaneurysmal. Bladder contains a Gagnon catheter. Bony structures show postop changes of posterior instrumented fusion of L4-S1. IMPRESSION: 1. Features remain suggestive of a small bowel obstruction. No free air or abscess formation is seen. 2. Airspace infiltrates have developed in the right middle lobe and right lower lobe consistent with pneumonia. Dictated by: Dictated on workstation # [id number]
[2021-06-14] MEDS ORDERED: metroNIDAZOLE 500MG/100ML IVPB 100 ML IV ONE (16:00)
[2021-06-14] MEDS ORDERED: CEFEPIME INJECTION 500 MG in NS (IVPB) 50 ML IV SCH (16:00)
[2021-06-14 16:08] LABS: CLARITY,URINE CLEAR; COLOR,URINE AMBER; GLUCOSE, URINE (UA) NEGATIVE (NEGATIVE); KETONES,URINE 1+ (NEGATIVE); LEUKOCYTE ESTERASE ,URINE NEGATIVE (NEGATIVE); NITRITE,URINE POSITIVE (NEGATIVE); PH,URINE 5.5 (5-9); PROTEIN,URINE 2+ (NEGATIVE)
[2021-06-14 16:23] LABS: BILIRUBIN,URINE 2+ (NEGATIVE)
[2021-06-14 16:28] LABS: RBC,URINE 0-2 /HPF
[2021-06-14 16:29] LABS: BACTERIA,URINE FEW /HPF
[2021-06-14 16:30] LABS: AMORPHOUS SEDIMENT,UR FEW AMOR URATES /LPF; CALCIUM OXALATE CRYSTALS,UR FEW /LPF
[2021-06-14] MEDS ORDERED: CEFEPIME INJECTION 1,000 MG in NS (IVPB) 50 ML IV ONE (17:00)
[2021-06-14] MEDS ORDERED: ONDANSETRON 4 MG/2 ML (SDV) Z0FRAN IVP PRN (17:15)
[2021-06-14] MEDS ORDERED: PROMETHAZINE INJ 25 MG/ML (PHENERGAN) AMP IVP PRN (17:15)
[2021-06-14] MEDS ORDERED: NALOXONE 0.4 MG/ML 1 ML (NARCAN) VIAL IV PRN (17:30)
[2021-06-14] MEDS ORDERED: ACETAMINOPHEN 650 MG SUPP (TYLENOL) PR PRN (17:30)
[2021-06-14] MEDS ORDERED: diphenhydrAMINE 50 MG/ML INJ (BENADRYL) IVP PRN (17:30)
[2021-06-14] MEDS ORDERED: NS IV 1000 ML 1,000 ML ONE (17:30)
[2021-06-14] MEDS ORDERED: ENOXAPARIN 40 MG/0.4 ML (LOVENOX) SYR SC SCH (17:30)
[2021-06-14] MEDS: NOREPINEPHRINE 8 MG/250 ML 250 ML IV SCH ×2 (17:38→19:58)
[2021-06-14] MEDS: NS IV 1000 ML 1,000 ML IV SCH (17:39)
[2021-06-14] MEDS ORDERED: ENOXAPARIN 30 MG/0.3 ML (LOVENOX) SYR SC SCH (18:00)
--- NOTE | 2021-06-14 18:04 | CONSULTATION REPORT ---
DATE OF SERVICE: ATTENDING DIGESTER: [facility]. ADMITTING PHYSICIAN: Dr. Francisco. HISTORY OF PRESENT ILLNESS: The patient is a 40-year-old female who we have seen recently. She presented to [facility] emergency room and was brought by EMS with altered mental status as well as some form of undifferentiated shock. She was admitted here just recently and she was found to have acute kidney injury as well as hypovolemic shock and small-bowel obstruction as well as COVID positivity. She was managed conservatively and she did improve. She underwent a Gastrografin small bowel follow through, which went through and she was able to have significant bowel movements and was able to tolerate the diet. She did have a prescription for fentanyl patch as well as clonazepam and due to her altered mentation, she was given Narcan with some temporary relief. Romazicon was also given. She was also given 3.5 liters of crystalloid and her blood pressure improved. Her reports that she did develop nausea and vomiting last night. No hematemesis, no coffee ground emesis. PAST MEDICAL HISTORY: Schizophrenia, bipolar disorder, insomnia, degenerative joint disease, previous suicidal attempts, depression, chronic kidney failure. PAST SURGICAL HISTORY: Dilatation and curettage, lumbar open reduction and internal fixation. ALLERGIES: PENICILLIN. MEDICATIONS: Amitriptyline 100 mg daily, cefdinir 300 mg b.i.d., clonazepam 1 mg b.i.d. p.r.n., dextroamphetamine 20 mg daily, divalproex 750 mg daily, fentanyl patch 50 mcg q.72 hours, lamotrigine 25 mg daily, metronidazole 500 mg t.i.d., Zofran p.r.n., Protonix 40 mg daily, potassium 10 mEq b.i.d., pregabalin 75 mg daily, risperidone 2 mg daily, suvorexant 20 mg daily, tizanidine 4 mg q.i.d., zolpidem 12.5 mg each day at bedtime, alprazolam 1 mg t.i.d., carisoprodol 1 mg t.i.d., cefdinir 300 mg t.i.d., celecoxib 200 mg t.i.d., diazepam 10 mg b.i.d., hydrocodone p.r.n., lurasidone 40 mg daily, morphine 60 mg b.i.d., oxycodone mg b.i.d., Protonix 40 mg daily, Carafate p.r.n. SOCIAL HISTORY: Positive smoke, negative alcohol. FAMILY HISTORY: Noncontributory. VITAL SIGNS: Blood pressure 115/83, pulse 80, respirations 18, pulse ox 98% on 6 liters nasal cannula. REVIEW OF SYSTEMS: A well-nourished female, currently somewhat obtunded due to a shock-like symptoms; however, I did respond to fluid challenge. She has become more responsive. No shortness of breath or difficulty breathing. No chest pain, palpitations, diaphoresis. She did have nausea and vomiting last night. No hematemesis, no coffee ground emesis. It is unsure when she had her last bowel movement; however, she did last admission. No red blood per rectum, no dark tarry stools. No fever, chills, no recent inadvertent weight loss. All other review of systems negative. PHYSICAL EXAMINATION: CHEST: Distant breath sounds and scattered wheezes bilaterally. HEART: Regular, no murmurs. EXTREMITIES: No lower extremity edema, negative Homans sign. HEENT: No scleral icterus. NECK: No cervical lymphadenopathy. ABDOMEN: Soft, slightly distended, mild discomfort on deep palpation. No peritoneal signs. No hernias. SKIN: Warm, dry. LABORATORY DATA: WBC 12.3, hemoglobin 10.9, hematocrit 34, platelets 254. BUN 16, creatinine 2.37, lactic acid 2.76. Urinalysis positive for nitrite and bacteria. ASSESSMENT AND PLAN: A 40-year-old female with shock, likely secondary to hypovolemic shock. A CT scan of the abdomen was performed, which did show dilated loops of small bowel consistent with either a partial or full small-bowel obstruction. We will continue with resuscitation for now and continue to monitor her physical examination as well as laboratory work. This is her second admission for similar type of symptoms and she may need a diagnostic laparoscopy as well as possible lysis of adhesions. Job ID: [id number] DocumentID: [id number] Dictated Date: 06/14/2021 17:06:04 Steel Die Press Set Up Operator Date: 06/14/2021 18:04:07 Dictated By: KHURRAM LEON MD
--- NOTE | 2021-06-14 18:04 | Tele-ICU Consult ---
History of Present Illness History of Present Illness Date Seen by Provider: Jun 14, 2021 Time Seen by Provider: 18:03 Date of Admission Allergies and Home Medications Allergies Coded Allergies: Penicillins (Verified Allergy, Unknown, 09/29/20) Home Medications Amitriptyline HCl 100 Mg Tablet, 200 MG PO HS, (Reported) TAKES 2 (100MG) TABS Cefdinir 300 Mg Capsule, 300 MG PO BID Prescribed by: ESA VILLATORO on 06/10/21 1300 Clonazepam 1 Mg Tablet, 1 MG PO BID PRN for PANIC ATTACKS, (Reported) Dextroamphetamine/Amphetamine 20 Mg Cap.er.24h, 20 MG PO DAILY, (Reported) Divalproex Sodium 500 Mg Tab.er.24h, 500 MG PO HS, (Reported) TAKES 500MG +250MG TOGETHER TO EQUAL 750MG Divalproex Sodium 250 Mg Tab.er.24h, 250 MG PO HS, (Reported) TAKES 500MG +250MG TOGETHER TO EQUAL 750MG Fentanyl 1 Each Patch.td72, 50 MCG TD Q72H, (Reported) DOES NOT CURRENTLY HAVE A PATCH APPLIED, LAST PATCH WAS REMOVED 06-06-2021 Ibuprofen 800 Mg Tablet, 800 MG PO Q8H, (Reported) Lamotrigine 25 Mg Tablet, 50 MG PO DAILY, (Reported) TAKES 2 (25MG) TABS Metronidazole 500 Mg Tablet, 500 MG PO TID Prescribed by: ESA VILLATORO on 06/10/21 1300 Ondansetron 4 Mg Tab.rapdis, 4 MG PO Q8H PRN for NAUSEA/VOMITING-1ST LINE, (Reported) Pantoprazole Sodium 40 Mg Tablet.dr, 40 MG PO DAILY Prescribed by: ESA VILLATORO on 06/10/21 1300 Potassium Chloride 10 Meq Tab.er.prt, 10 MEQ PO BID Prescribed by: ESA VILLATORO on 06/10/21 1300 Pregabalin 75 Mg Capsule, 150 MG PO DAILY, (Reported) TAKES 2 (75MG) CAPS Risperidone 2 Mg Tablet, 4 MG PO DAILY, (Reported) TAKES 2 (2MG) TABS Suvorexant 20 Mg Tablet, 20 MG PO HS PRN for SLEEP, (Reported) Tizanidine HCl 4 Mg Tablet, 8 MG PO QID, (Reported) TAKES 2 (4MG) TABS Zolpidem Tartrate 12.5 Mg Tab.mphase, 12.5 MG PO HS, (Reported) Past Medical/Social/Family Hx Immunizations Up To Date Influenza Vaccine Up-to-Date: No; Not Current Tetanus Booster (TDap): Unknown Hepatitis A: Yes Hepatitis B: Yes TB Skin Test: None Current Status status: No Advance Directives: No Communicates: Verbally Primary Language: Argentine Preferred Spoken Language: Argentine Is interpretation needed?: No Review of Systems Constitutional: see HPI Focused Exam Lactate Level 06/14/21 14:25: Lactic Acid Level 2.76*H 06/14/21 17:04: Lactic Acid Level 0.84 Height, Weight, BMI Height: 5'6.00" Weight: 220lbs. oz. 99.771408kc; 23.43 BMI Method:Estimated Lactic Acid Level Laboratory Tests Test 06/14/21 14:25 06/14/21 17:04 Lactic Acid Level 2.76 MMOL/L (0.50-2.00) *H 0.84 MMOL/L (0.50-2.00) Exam Exam Patient acknowledged, consented, and participated in this virtual visit which was conducted using real time audio/video Vital Signs Date Time Temp Pulse Resp B/P (MAP) Pulse Ox O2 Delivery O2 Flow Rate FiO2 06/14/21 18:01 82 22 98 Nasal Cannula 06/14/21 17:38 87 115/83 06/14/21 17:36 87 06/14/21 17:15 Nasal Cannula 06/14/21 16:40 80 18 115/83 98 Nasal Cannula 6.00 06/14/21 15:21 83 16 114/82 Nasal Cannula 6.00 06/14/21 14:51 Nasal Cannula 6.00 06/14/21 14:13 100 78/51 06/14/21 13:57 100 16 78/51 (60) 98 Nasal Cannula Height & Weight Height: 5'6.00" Weight: 220lbs. oz. 99.966675hl; 23.43 BMI Method:Estimated General Appearance: No Apparent Distress, Thin, Other (Lethargic. Fingerstick glucose on arrival 134. On the GCS she gets 3 points for eye movement, 4 points for verbal response, 5 points for motor for a total GCS of 12. As mentioned she is hypotensive on arrival.) Neck: Full Range of Motion, Normal Inspection Respiratory: No Accessory Muscle Use, No Respiratory Distress Cardiovascular: Regular Rate, Rhythm, Normal Peripheral Pulses Capillary Refill: Less Than 3 Seconds Extremity: Normal Capillary Refill, Normal Inspection Neurologic/Psychiatric: Alert, Oriented x3 Skin: Normal Color, Warm/Dry Results Lab Laboratory Tests 06/14/21 13:56 06/14/21 14:33 Assessment/Plan Assessment/Plan (Tele-ICU Physician , consultation) Available chart/ vitals / labs / Images reviewed H&P is from ER notes Patient's information available about PMH, Shx, Fhx allergy reviewed in EMR. ROS as per chart and RN report Now in ICU, hemodynamically stable , on 2l o2 , levo 0.1 Video assessment done using teleICU camera, rest of exam as per RN Discussed with RN. Consultants: sx Hospital course: 06/10 - d/c from hospital after SBO and CHAY tx, COVID + 06/14- readmitted N/V ->SCO , AMS , CHAY A/P Shock - hypovolumic /distribution - received 3L NS , on LEVO 0,1 SBO - presented 06/08 - followd bySx with conservative management - d/c 06/10-> cont N/V - readmitted 06/14 , CT done ,Sx consulted - NG in place -06/14- Flagyl and Cefepime RLL +RML PNA- - avx started on 06/14- Flagyl and Cefepime CHAY - dehydration -? NSAIDs - cont IVF , no hydro on CT Met acidodis - CHAY with lactate - follow Recent dx of COVID 06/08 - was not on steroids or RMDSV Encephalopathy, most likely TME - [facility] [employer] [facility] was on prescription for fentanyl patch for chronic pain, clonazepam, sleeping medication and other sedating medications- mild improvement with narcan in field - arowsable now , follow commands , lethargic Lines : 06/14 (Central Line Necessity Reviewed) Gagnon: + O/26 Nutrition: Analgesia: Anxiety/ delirium VTE Prophylaxis: tico 40 Stress Ulcer Prophylaxis: ppi Glycemic Control: Plans in collaboration with bedside consultants and IM MDs. Discussed with RN to reach out if any questions or concerns A total of 33 minutes of critical care time was devoted to this patient today, required to treat and/or prevent further deterioration of critical care condition ( as above ) EVAN BISHOP MD Jun 14, 2021 18:04
[2021-06-14] MEDS ORDERED: RT-ALBUTEROL HFA 8.5 GM INHALER IH PRN (19:30)
[2021-06-14] MEDS ORDERED: CEFEPIME INJECTION 2,000 MG in NS (IVPB) 50 ML IV SCH (21:00)
[2021-06-14] MEDS: metroNIDAZOLE 500MG/100ML IVPB 100 ML IV SCH (21:42)
[2021-06-15] MEDS: NS IV 1000 ML 1,000 ML IV SCH ×3 (01:15→17:49)
[2021-06-15 04:00] LABS: BASOPHILS % (AUTO) 0 % (0-10); EOSINOPHILS % (AUTO) 0 % (0-10); HEMATOCRIT 30 % (35-52); HEMOGLOBIN 9.7 g/dL (11.5-16.0); LYMPHOCYTES # (AUTO) 2.1 10^3/uL (1.0-4.0); LYMPHOCYTES % (AUTO) 11 % (12-44); MEAN CORPUSCULAR HEMOGLOBIN 29 pg (25-34); MEAN CORPUSCULAR HGB CONC 32 g/dL (32-36); MEAN CORPUSCULAR VOLUME 89 fL (80-99); MEAN PLATELET VOLUME 10.9 fL (9.0-12.2); MONOCYTES # (AUTO) 0.9 10^3/uL (0.0-1.0); MONOCYTES % (AUTO) 5 % (0-12); NEUTROPHILS # (AUTO) 14.9 10^3/uL (1.8-7.8); NEUTROPHILS % (AUTO) 83 % (42-75); PLATELET COUNT 238 10^3/uL (130-400)
[2021-06-15 04:38] LABS: BAND NEUTROPHILS 9 %; BASOPHILS % (MANUAL) 0 %; EOSINOPHILS % (MANUAL) 0 %; LYMPHOCYTES % (MANUAL) 11 %; MONOCYTES % (MANUAL) 6 %; NEUTROPHILS % (MANUAL) 70 %; POIKILOCYTOSIS SLIGHT; REACTIVE LYMPHOCYTES 4 %; ROULEAUX SLIGHT
[2021-06-15 04:57] LABS: ALBUMIN 2.8 GM/DL (3.2-4.5)
[2021-06-15 04:58] LABS: POTASSIUM 3.3 MMOL/L (3.6-5.0)
[2021-06-15 04:59] LABS: CALCIUM 7.7 MG/DL (8.5-10.1)
[2021-06-15 05:00] LABS: TOTAL PROTEIN 5.3 GM/DL (6.4-8.2)
[2021-06-15 05:02] LABS: BILIRUBIN,TOTAL 0.3 MG/DL (0.1-1.0)
[2021-06-15 05:04] LABS: CREATININE SERUM 0.98 MG/DL (0.60-1.30)
[2021-06-15] MEDS: POTASSIUM CL 10MEQ/50ML IVPB 50 ML IV SCH ×4 (05:25→06:39)
[2021-06-15] MEDS: metroNIDAZOLE 500MG/100ML IVPB 100 ML IV SCH ×3 (05:27→21:31)
[2021-06-15] MEDS: CEFEPIME 1,000 MG/NS 50 ML IVPB IV SCH ×4 (05:27→17:49)
[2021-06-15] MEDS: KCL 20 MEQ TAB (K-DUR) PO SCH (05:32)
[2021-06-15] MEDS: MAGNESIUM 1 GM/100 ML IVPB 100 ML IV SCH ×2 (05:32→06:04)
[2021-06-15] MEDS ORDERED: PANTOPRAZOLE 40 MG (PROTONIX) VIAL IV SCH (09:00)
[2021-06-15] MEDS: PANTOPRAZOLE 40 MG (PROTONIX) VIAL IV SCH (09:07)
[2021-06-15] MEDS: ONDANSETRON 4 MG/2 ML (SDV) Z0FRAN IV PRN (09:08)
[2021-06-15] MEDS: HYDROmorphone 2 MG/ML VIAL (DILAUDID) IVP PRN ×4 (09:08→19:53)
--- NOTE | 2021-06-15 10:06 | Tele-ICU Progress Note ---
Subjective Date Seen by a Provider: Jun 15, 2021 Time Seen by a Provider: 10:06 Sepsis Event Evaluation Height, Weight, BMI Height: 5'6.00" Weight: 220lbs. oz. 99.073541sr; 23.43 BMI Method:Estimated Focused Exam Lactate Level 06/14/21 14:25: Lactic Acid Level 2.76*H 06/14/21 17:04: Lactic Acid Level 0.84 Exam Exam Patient acknowledged, consented, and participated in this virtual visit which was conducted using real time audio/video Vital Signs Date Time Temp Pulse Resp B/P (MAP) Pulse Ox O2 Delivery O2 Flow Rate FiO2 06/15/21 09:00 95 23 91/55 94 Room Air 06/15/21 08:00 95 23 79/48 96 Room Air 06/15/21 07:53 36.7 06/15/21 07:50 95 Room Air 06/15/21 07:00 95 06/15/21 07:00 95 19 94/63 89 Room Air 06/15/21 06:00 98 20 96/62 93 Room Air 06/15/21 05:00 95 19 100/63 94 Room Air 06/15/21 04:00 93 16 100/64 94 Room Air 06/15/21 03:40 94 Room Air 06/15/21 03:40 36.7 Room Air 06/15/21 03:00 95 15 100/65 94 Room Air 06/15/21 02:00 94 16 102/64 95 Room Air 06/15/21 01:00 97 28 109/71 94 Room Air 06/15/21 01:00 100 06/15/21 00:00 97 Room Air 06/15/21 00:00 96 28 103/66 94 Room Air 06/15/21 00:00 37.3 Room Air 06/14/21 23:00 93 28 108/72 95 Room Air 06/14/21 22:00 96 26 104/69 96 Room Air 06/14/21 21:00 87 15 107/66 98 Room Air 06/14/21 20:00 86 12 106/68 98 Room Air 06/14/21 19:58 88 110/78 06/14/21 19:45 36.6 88 17 110/78 98 Room Air 06/14/21 19:45 98 Room Air 06/14/21 19:12 82 98 21 06/14/21 19:00 Room Air 06/14/21 19:00 80 06/14/21 18:01 82 22 98 Nasal Cannula 06/14/21 17:38 87 115/83 06/14/21 17:36 87 06/14/21 17:30 100 Room Air 06/14/21 17:15 Nasal Cannula 06/14/21 16:40 80 18 115/83 98 Nasal Cannula 6.00 06/14/21 15:21 83 16 114/82 Nasal Cannula 6.00 06/14/21 14:51 Nasal Cannula 6.00 06/14/21 14:13 100 78/51 06/14/21 13:57 100 16 78/51 (60) 98 Nasal Cannula I & O 06/15/21 07:00 Intake Total 6200 ml Output Total 1015 ml Balance 5185 ml Height & Weight Height: 5'6.00" Weight: 220lbs. oz. 99.370743sa; 23.43 BMI Method:Estimated General Appearance: No Apparent Distress, Thin, Other (Lethargic. Fingerstick glucose on arrival 134. On the GCS she gets 3 points for eye movement, 4 points for verbal response, 5 points for motor for a total GCS of 12. As mentioned she is hypotensive on arrival.) Neck: Full Range of Motion, Normal Inspection Respiratory: No Accessory Muscle Use, No Respiratory Distress Cardiovascular: Regular Rate, Rhythm, Normal Peripheral Pulses Capillary Refill: Less Than 3 Seconds Extremity: Normal Capillary Refill, Normal Inspection Neurologic/Psychiatric: Alert, Oriented x3 Skin: Normal Color, Warm/Dry Results Lab Laboratory Tests 06/14/21 13:56 06/14/21 14:33 06/15/21 03:45 Assessment/Plan Assessment/Plan (Tele-ICU Physician , Progress Note ) Available chart/ vitals / labs / Images reviewed Video assessment done using teleICU camera, rest of exam as per RN Discussed with RN , EXAM PER RN Events overnight : Afebrile FiO2 - I/O = Drips: Pressors: , hemodynamically stable Consultants: sx Hospital course: 06/10 - d/c from hospital after SBO and CHAY tx, COVID + 06/14- readmitted N/V ->SCO , AMS , CHAY 06/15 - Cr improved , LEVO A/P Shock - hypovolumic /distribution - received 5 L crystalloids -still on LEVO 0,03 SBO - presented 06/08 - followd bySx with conservative management - d/c 06/10-> cont N/V - readmitted 06/14 , CT done ,Sx consulted - NG in place -06/14- Flagyl and Cefepime RLL +RML PNA- - avx started on 06/14- Flagyl and Cefepime CAHY - dehydration -? NSAIDs - cont IVF , no hydro on CT - Cr normalised after 5L NS Met acidodis - CHAY with lactate - follow Recent dx of COVID 06/08 - was not on steroids or RMDSV Encephalopathy, most likely TME - [employer] was on prescription for fentanyl patch for chronic pain, clonazepam, sleeping medication and other sedating medications- mild improvement with narcan in field - [id number] , follow commands Lines : 06/14 (Central Line Necessity Reviewed) Gagnon: + O/26 Nutrition: NPO Analgesia: Anxiety/ delirium VTE Prophylaxis: tico 40 Stress Ulcer Prophylaxis: ppi Plans in collaboration with bedside consultants and IM MDs. Discussed with RN to reach out if any questions or concerns A total of 33 minutes of critical care time was devoted to this patient today, required to treat and/or prevent further deterioration of critical care condition ( as above ) EVAN BISHOP MD Jun 15, 2021 10:06
[2021-06-15] MEDS ORDERED: CYANOCOBALAMIN INJ 1000 MCG/ML IM ONE (10:15)
[2021-06-15] MEDS ORDERED: THIAMINE 100 MG/ML 2 ML (VITAMIN B-1) VIAL IV ONE (10:15)
--- NOTE | 2021-06-15 11:50 | History & Physical-Hospitalist ---
MARIO BRAR [facility] 06/15/21 1150: History of Present Illness HPI/Chief Complaint CC: AMS, and Vomiting 40 yo female with recent history of SBO and a naman-en-y bypass 2+ years ago by Dr. Jordan. Patient was discharged on 06/10 as her SBO was relieved with a UGI follow through. Patient presented to the ED yesterday evening for AMS, hypotension, and vomiting. Patient denies having a BM since discharge. Patient received CBC, CMP, ABG, Lactic acid, and Abdominal/Pelvis CT. On presentation, BP was 78/51, ABG was 7.28/26/127/12. Lactic acid was 2.76. WBC at ED presentation was approximately 14475, but is now 51860. Hgb is currently at 9.7 (from 10.9). CT revealed: 1. Features remain suggestive of a small bowel obstruction. No free air or abscess formation is seen. 2. Airspace infiltrates have developed in the right middle lobe and right lower lobe consistent with pneumonia. Patient was admitted to medicine on the ICU for hypotension and con sulted General surgery for SBO. Patient is receiving Cefepime and Flagyl, and a pressor (levophed) for support. Today, Patient is complaining of body pain and abdominal pain that comes and goes. States that the pain is the same as yesterday and continues to feel nauseous. Denies fevers, chills Source: patient Exam Limitations: no limitations Date Seen 06/15/21 Time Seen by a Provider: 07:45 Attending Physician Chari Francisco DO PCP [facility] Referring Physician Date of Admission Jun 14, 2021 at 16:20 Home Medications & Allergies Home Medications Reviewed patient Home Medication Reconciliation performed by pharmacy medication reconciliations chief technician x ray and/or nursing. Patients Allergies have been reviewed. Allergies Allergies Coded Allergies Penicillins (Verified Allergy, Unknown, 09/29/20) Past Xbhuegs-Ipmxvx-Scqxhm Hx Patient Social History Marrital Status: Tobacco Use?: No Substance use?: No Alcohol Use?: No Immunizations Up To Date Date of Influenza Vaccine: Apr 19, 2013 Tetanus Booster (TDap): Unknown Hepatitis A: Yes Hepatitis B: Yes Current Status status: No Advance Directives: No Communicates: Verbally Primary Language: Mohawk Preferred Spoken Language: Mohawk Is interpretation needed?: No Past Medical History Surgeries: Abdominal Kidney Infection Chronic Back Pain Anxiety, Suicide Attempts, Bipolar, Personality Disorder, Depression Blood Disorders: No Family Medical History No Pertinent Family Hx Review of Systems Constitutional: No chills, No fever EENTM: No ear pain, No eye pain Respiratory: cough Cardiovascular: No chest pain, No palpitations Gastrointestinal: abdominal pain, vomiting Psychiatric/Neurological: Anxiety, Depressed Other No history of bruising or bleeding Physical Exam Physical Exam Vital Signs Vital Signs - First Documented 06/14/21 06/14/21 06/14/21 06/14/21 13:57 14:51 19:12 19:45 Temp 36.6 Pulse 100 Resp 16 B/P (MAP) 78/51 (60) Pulse Ox 98 O2 Delivery Nasal Cannula O2 Flow Rate 6.00 FiO2 21 Capillary Refill : Less Than 3 Seconds Height, Weight, BMI Height: 5'6.00" Weight: 220lbs. oz. 99.768558cu; 23.43 BMI Method:Estimated General Appearance: No Apparent Distress, WD/WN HEENT: PERRL/EOMI, Normal ENT Inspection (No gross deformities, NG tube in place) Neck: Supple, Other (Minimal tenderness) Respiratory: Normal Breath Sounds, No Accessory Muscle Use, No Respiratory Distress Cardiovascular: Regular Rate, Rhythm, No Murmur, Normal Peripheral Pulses (2+ radial pulses bilaterally) Gastrointestinal: Distended (Minimally), Tenderness (Most tender in the RUQ) Back: Other (Chronic back pain, s/P lumbar fusion) Extremity: Non Tender (LE bilaterally), No Calf Tenderness Neurologic/Psychiatric: Alert, Oriented x3 Results Results/Procedures Labs Laboratory Tests 06/14/21 13:56 06/14/21 14:33 06/15/21 03:45 Patient resulted labs reviewed. Assessment/Plan Admission Diagnosis Hypovolemic Hypotension Admission Status: Inpatient Order (span 2 midnights) Reason for Inpatient Admission: Hypovolemic Hypotension requiring Vasopressor support Assessment and Plan Hypovolemic hypotension HAP Pneumonia Metabolic Acidosis Hypokalemia Leukocytosis Lactic Acidosis CHAY SBO S/P Naman-En-Y Gastric Bypass History of Anxiety and Depression Plan Has received 5+ liters of fluids Receiving Cefepime and Flagyl Thiamine for S/P gastric bypass Will check a cortisol levles Continue to monitor electrolytes Consult General Surgery Continue pressor support as needed Monitor I&Os CHARI FRANCISCO DO 06/16/21 0520: History of Present Illness HPI/Chief Complaint Chief complaint: Hypertension with SBO History of present illness: This is a 40-year-old white female with history of mental illness and Naman-en-Y bypass by Dr. Jordan at [place] who presented to the ER ER 6 days after admission and discharge for small bowel obstruction with acute kidney injury. Apparently her ports that she did not have a bowel movement since time she came home and has not been eating or drinking anything. She was started on aggressive IV fluid resuscitation along with pressor therapy. Currently she has an NG tube and constantly asking for something to drink. Source: patient Exam Limitations: no limitations Past Lvyfswa-Bweylu-Bvedpa Hx Patient Social History Marrital Status: Employed/Student: unemployed Smoking Status: Former Smoker Past Medical History Surgeries: Abdominal Anxiety, Depression Review of Systems Constitutional: see HPI, malaise, weakness EENTM: no symptoms reported Respiratory: no symptoms reported Cardiovascular: no symptoms reported Gastrointestinal: abdominal pain, loss of appetite, nausea, vomiting Musculoskeletal: no symptoms reported Skin: no symptoms reported Psychiatric/Neurological: Anxiety, Depressed All Other Systems Reviewed Negative Unless Noted: Yes Physical Exam Physical Exam General Appearance: Anxious, Chronically ill, Moderate Distress, Thin Respiratory: Lungs Clear, Normal Breath Sounds Cardiovascular: Regular Rate, Rhythm Gastrointestinal: Distended (Minimally), Tenderness (Most tender in the RUQ) Neurologic/Psychiatric: Alert, Oriented x3 Assessment/Plan Admission Diagnosis Assessment: Hypertension Small bowel obstruction Mental illness Acute kidney injury History of Naman-en-Y bypass Plan: General surgery consult Aggressive IV fluid resuscitation Colitis coverage with antibiotics Admission Status: Inpatient Order (span 2 midnights) Reason for Inpatient Admission: Hypovolemic shock Diagnosis/Problems Diagnosis/Problems (1) Hypovolemic shock Status: Acute (2) Pneumonia Status: Acute (3) COVID-19 Status: Acute (4) SBO (small bowel obstruction) Status: Acute (5) CHAY (acute kidney injury) Status: Acute Supervisory-Addendum Brief Verification & Attestation Participated in pt care: history, MDM, physical Personally performed: exam, history, MDM, supervision of care Care discussed with: Medical Student Procedures: n/a Results interpretation: Verified all documentation Verification and Attestation of Medical Student E/M Service A medical student performed and documented this service in my presence. I reviewed and verified all information documented by the medical student and made modifications to such information, when appropriate. I personally performed the physical exam and medical decision making. Chari Francisco, Jun 16, 2021,05:16 MARIO BRAR Jun 15, 2021 11:50 CHARI FRANCISCO DO Jun 16, 2021 05:20
--- NOTE | 2021-06-15 12:25 | Progress Note ---
Subjective Date Seen by a Provider: Jun 15, 2021 Time Seen by a Provider: 12:00 Subjective/Events-last exam patient clinically slightly improved however still requires vasopressor. has covid pneumonia and UTI. Focused Exam Lactate Level 06/14/21 14:25: Lactic Acid Level 2.76*H 06/14/21 17:04: Lactic Acid Level 0.84 Objective Exam Vital Signs Date Time Temp Pulse Resp B/P (MAP) Pulse Ox O2 Delivery O2 Flow Rate FiO2 06/15/21 11:44 37.1 06/15/21 11:00 93 20 88/65 96 Room Air 06/15/21 10:45 93 31 101/59 95 Room Air 06/15/21 10:30 89 19 103/67 94 Room Air 06/15/21 10:15 103/56 Room Air 06/15/21 10:00 96 20 103/67 93 Room Air 06/15/21 10:00 96 7 99/61 93 Room Air 06/15/21 09:45 94 11 107/56 94 Room Air 06/15/21 09:30 92 13 96/54 94 Room Air 06/15/21 09:15 93 25 91/55 94 Room Air 06/15/21 09:02 38 86/53 93 Room Air 06/15/21 09:00 96 21 82/45 93 Room Air 06/15/21 09:00 95 23 91/55 94 Room Air 06/15/21 08:45 93 105 79/48 94 Room Air 06/15/21 08:30 92 9 97/66 93 Room Air 06/15/21 08:15 92 28 93/55 92 Room Air 06/15/21 08:00 95 31 102/85 95 06/15/21 08:00 95 23 79/48 96 Room Air 06/15/21 07:53 36.7 06/15/21 07:50 95 Room Air 06/15/21 07:45 89 16 94/63 95 Room Air 06/15/21 07:30 91 14 99/61 95 Room Air 06/15/21 07:15 93 15 97/62 95 Room Air 06/15/21 07:00 95 06/15/21 07:00 95 12 100/61 94 Room Air 06/15/21 07:00 95 19 94/63 89 Room Air 06/15/21 06:00 98 20 96/62 93 Room Air 06/15/21 05:00 95 19 100/63 94 Room Air 06/15/21 04:00 93 16 100/64 94 Room Air 06/15/21 03:40 94 Room Air 06/15/21 03:40 36.7 Room Air 06/15/21 03:00 95 15 100/65 94 Room Air 06/15/21 02:00 94 16 102/64 95 Room Air 06/15/21 01:00 97 28 109/71 94 Room Air 06/15/21 01:00 100 06/15/21 00:00 97 Room Air 06/15/21 00:00 96 28 103/66 94 Room Air 06/15/21 00:00 37.3 Room Air 06/14/21 23:00 93 28 108/72 95 Room Air 06/14/21 22:00 96 26 104/69 96 Room Air 06/14/21 21:00 87 15 107/66 98 Room Air 06/14/21 20:00 86 12 106/68 98 Room Air 06/14/21 19:58 88 110/78 06/14/21 19:45 36.6 88 17 110/78 98 Room Air 06/14/21 19:45 98 Room Air 06/14/21 19:12 82 98 21 06/14/21 19:00 Room Air 06/14/21 19:00 80 06/14/21 18:01 82 22 98 Nasal Cannula 06/14/21 17:38 87 115/83 06/14/21 17:36 87 06/14/21 17:30 100 Room Air 06/14/21 17:15 Nasal Cannula 06/14/21 16:40 80 18 115/83 98 Nasal Cannula 6.00 06/14/21 15:21 83 16 114/82 Nasal Cannula 6.00 06/14/21 14:51 Nasal Cannula 6.00 06/14/21 14:13 100 78/51 06/14/21 13:57 100 16 78/51 (60) 98 Nasal Cannula I & O 06/15/21 07:00 Intake Total 6200 ml Output Total 1015 ml Balance 5185 ml Capillary Refill : Less Than 3 Seconds General Appearance: No Apparent Distress HEENT: PERRL/EOMI Neck: Full Range of Motion Respiratory: Decreased Breath Sounds, Wheezing Cardiovascular: Regular Rate, Rhythm Gastrointestinal: soft, tenderness Extremity: Normal Capillary Refill Neurologic/Psychiatric: Alert, Oriented x3 Skin: Normal Color Lymphatic: No Adenopathy Results Lab Laboratory Tests 06/14/21 13:35: Glucometer 134H 06/14/21 13:56: Sodium Level 134L, Potassium Level 2.3*L, Chloride Level 110H, Carbon Dioxide Level 13L, Anion Gap 11, Blood Urea Nitrogen 16, Creatinine 2.37H, Estimat Glomerular Filtration Rate 26, BUN/Creatinine Ratio 7, Glucose Level 131H, Calcium Level 7.8L, Magnesium Level 1.7, Procalcitonin 1.13H 06/14/21 14:10: Urine Color AMBERH, Urine Clarity CLEAR, Urine pH 5.5, Urine Specific [place] 1.025H, Urine Protein 2+H, Urine Glucose (UA) NEGATIVE, Urine Ketones 1+H, Urine Nitrite POSITIVEH, Urine Bilirubin 2+H, Urine Urobilinogen 0.2, Urine Leukocyte Esterase NEGATIVE, Urine RBC (Auto) TRACE-IH, Urine RBC 0-2, Urine WBC 2-5, Urine Crystals PRESENTH, Urine Calcium Oxalate Crystals FEWH, Urine Amorphous Sediment FEW [place] URATESH, Urine Bacteria FEWH, Urine Casts PRESENT, Urine Hyaline Casts 10-25H, Urine Mucus NEGATIVE, Urine Culture Indicated YES, Urine Opiates Screen NEGATIVE, Urine Oxycodone Screen POSITIVEH, Urine Methadone Screen NEGATIVE, Urine Propoxyphene Screen NEGATIVE, Urine Barbiturates Screen NEGATIVE, Ur Tricyclic Antidepressants Screen POSITIVEH, Urine Phencyclidine Screen NEGATIVE, Urine Amphetamines Screen NEGATIVE, Urine Methamphetamines Screen NEGATIVE, Urine Benzodiazepines Screen POSITIVEH, Urine Cocaine Screen NEGATIVE, Urine Cannabinoids Screen NEGATIVE 06/14/21 14:25: Lactic Acid Level 2.76*H 06/14/21 14:33: White Blood Count 12.3H, Red Blood Count 3.82, Hemoglobin 10.9#L, Hematocrit 34L , Mean Corpuscular Volume 90, Mean Corpuscular Hemoglobin 29, Mean Corpuscular Hemoglobin Concent 32, Red Cell Distribution Width 13.1, Platelet Count 254, Mean Platelet Volume 10.7, Immature Granulocyte % (Auto) 2, Neutrophils (%) (Auto) 87H, Lymphocytes (%) (Auto) 6L, Monocytes (%) (Auto) 5, Eosinophils (%) (Auto) 0, Basophils (%) (Auto) 0, Neutrophils # (Auto) 9.7H, Lymphocytes # (Auto) 0.6L, Monocytes # (Auto) 0.6, Eosinophils # (Auto) 0.0, Basophils # (Auto) 0.0, Immature Granulocyte # (Auto) 0.2H, Neutrophils % (Manual) 85, Lymphocytes % (Manual) 6, Monocytes % (Manual) 6, Band Neutrophils 3, Blood Morphology Comment NORMAL, Prothrombin Time 16.1H, INR Comment 1.2 06/14/21 14:40: Blood Gas Puncture Site R WRIST, Blood Gas Patient Temperature 36.4, Arterial Blood pH 7.28*L, Arterial Blood Partial Pressure CO2 26L, Arterial Blood Partial Pressure O2 127H, Arterial Blood HCO3 12*L, Arterial Blood Total CO2 12.5L, Arterial Blood Oxygen Saturation 99, Arterial Blood Base Excess -13.8L, Ry Test NA, Blood Gas Ventilator Setting NO, Blood Gas Inspired Oxygen NA 06/14/21 17:04: Lactic Acid Level 0.84 06/15/21 03:45: White Blood Count 18.0H, Red Blood Count 3.36L, Hemoglobin 9.7L, Hematocrit 30L, Mean Corpuscular Volume 89, Mean Corpuscular Hemoglobin 29, Mean Corpuscular Hemoglobin Concent 32, Red Cell Distribution Width 13.0, Platelet Count 238, Mean Platelet Volume 10.9, Immature Granulocyte % (Auto) 1, Neutrophils (%) (Auto) 83H, Lymphocytes (%) (Auto) 11L, Monocytes (%) (Auto) 5, Eosinophils (%) (Auto) 0, Basophils (%) (Auto) 0, Neutrophils # (Auto) 14.9H, Lymphocytes # (Auto) 2.1, Monocytes # (Auto) 0.9, Eosinophils # (Auto) 0.0, Basophils # (Auto) 0.0, Immature Granulocyte # (Auto) 0.2H, Neutrophils % (Manual) 70, Lymphocytes % (Manual) 11, Monocytes % (Manual) 6, Band Neutrophils 9, Eosinophils % (Manual) 0, Basophils % (Manual) 0, Reactive Lymphocytes 4, Poikilocytosis SLIGHT, Rouleau SLIGHT, Sodium Level 136, Potassium Level 3.3L, Chloride Level 109H, Carbon Dioxide Level 16L, Anion Gap 11, Blood Urea Nitrogen 15, Creatinine 0.98, Estimat Glomerular Filtration Rate 75, BUN/Creatinine Ratio 15, Glucose [place] 83, Calcium Level 7.7L, Corrected Calcium 8.7, Magnesium Level 1.5L, Total Bilirubin 0.3, Aspartate Amino Transf (AST/SGOT) 17, Alanine Aminotransferase (ALT/SGPT) 12, Alkaline Phosphatase 36L, Total Protein 5.3L, Albumin 2.8L 06/15/21 06:57: Phosphorus Level 3.6 06/15/21 11:20: Assessment/Plan Assessment/Plan Assess & Plan/Chief Complaint PSBO vs. ileus with covid pneumonia and UTI. cont IV abx. bowel rest and decompression. once medically stable, likely re-image. KHURRAM LEON MD Jun 15, 2021 12:25
[2021-06-15] MEDS: LORazepam INJ 2 MG/ML (ATIVAN) VIAL IVP PRN ×2 (16:13→22:41)
[2021-06-15] MEDS: ENOXAPARIN 30 MG/0.3 ML (LOVENOX) SYR SC SCH (17:50)
[2021-06-15] MEDS ORDERED: DEXTROSE 50% 50 ML (IMS) SYR ONE ×2 (19:51→23:57)
[2021-06-15] MEDS ORDERED: DEXTROSE 50% 50 ML (IMS) SYR IV ONE (20:00)
[2021-06-16] MEDS ORDERED: DEXTROSE 50% 50 ML (IMS) SYR IV ONE
[2021-06-16] MEDS ORDERED: D5 NS 1000 ML IV SOLUTION 1,000 ML IV ONE (00:15)
[2021-06-16] MEDS: D5 NS 1000 ML IV SOLUTION 1,000 ML IV SCH ×3 (00:22→15:46)
[2021-06-16] MEDS: HYDROmorphone 2 MG/ML VIAL (DILAUDID) IVP PRN ×7 (00:22→22:24)
[2021-06-16] MEDS: LORazepam INJ 2 MG/ML (ATIVAN) VIAL IVP PRN ×3 (01:53→17:49)
[2021-06-16 04:52] LABS: BASOPHILS % (AUTO) 0 % (0-10); EOSINOPHILS % (AUTO) 0 % (0-10); HEMATOCRIT 24 % (35-52); HEMOGLOBIN 7.6 g/dL (11.5-16.0); LYMPHOCYTES # (AUTO) 1.8 10^3/uL (1.0-4.0); LYMPHOCYTES % (AUTO) 22 % (12-44); MEAN CORPUSCULAR HGB CONC 32 g/dL (32-36); MEAN CORPUSCULAR VOLUME 89 fL (80-99); MEAN PLATELET VOLUME 11.1 fL (9.0-12.2); MONOCYTES # (AUTO) 0.6 10^3/uL (0.0-1.0); MONOCYTES % (AUTO) 7 % (0-12); NEUTROPHILS % (AUTO) 71 % (42-75); PLATELET COUNT 176 10^3/uL (130-400); WHITE BLOOD COUNT 8.4 10^3/uL (4.3-11.0)
[2021-06-16 05:01] LABS: MEAN CORPUSCULAR HEMOGLOBIN 28 pg (25-34)
[2021-06-16 05:28] LABS: ALBUMIN 2.4 GM/DL (3.2-4.5)
[2021-06-16 05:29] LABS: CALCIUM 7.2 MG/DL (8.5-10.1)
[2021-06-16 05:31] LABS: TOTAL PROTEIN 4.7 GM/DL (6.4-8.2)
[2021-06-16 05:32] LABS: BILIRUBIN,TOTAL 0.2 MG/DL (0.1-1.0)
[2021-06-16 05:34] LABS: CREATININE SERUM 0.6 MG/DL (0.60-1.30); PHOSPHORUS 1.6 MG/DL (2.3-4.7)
[2021-06-16 05:37] LABS: MAGNESIUM 1.6 MG/DL (1.6-2.4)
--- NOTE | 2021-06-16 05:37 | Progress Note - Hospitalist ---
Subjective HPI/CC On Admission Date Seen by Provider: Jun 16, 2021 Time Seen by Provider: 11:00 Chief complaint: Hypertension with SBO History of present illness: This is a 40-year-old white female with history of mental illness and Sylvain-en-Y bypass by Dr. Jordan at [place] who presented to the ER ER 6 days after admission and discharge for small bowel obstruction with acute kidney injury. Apparently her ports that she did not have a bowel movement since time she came home and has not been eating or drinking anything. She was started on aggressive IV fluid resuscitation along with pressor therapy. Currently she has an NG tube and constantly asking for something to drink. Subjective/Events-last exam Pt much improved Pt still on Levophed, can't wean or her bp will go to 80 NG tube maintained Anemia iron deficiency type noted so will start iron infusions Overall tolerate clear liquids Review of Systems Gastrointestinal: Abdominal Pain, Constipation Focused Exam Lactate Level 06/14/21 14:25: Lactic Acid Level 2.76*H 06/14/21 17:04: Lactic Acid Level 0.84 Objective Exam Vital Signs Vital Signs Date Time Temp Pulse Resp B/P (MAP) Pulse Ox O2 Delivery O2 Flow Rate FiO2 06/17/21 04:00 98 Room Air 06/17/21 01:00 73 06/17/21 00:00 36.1 06/17/21 00:00 19 82/48 06/14/21 19:12 21 06/14/21 16:40 6.00 Capillary Refill : Less Than 3 Seconds General Appearance: WD/WN, Anxious, Chronically ill Respiratory: No Accessory Muscle Use, No Respiratory Distress, Decreased Breath Sounds Cardiovascular: Regular Rate, Rhythm Gastrointestinal: Soft Neurologic/Psychiatric: Alert, Oriented x3 Results/Procedures Lab Laboratory Tests 06/16/21 13:45 06/17/21 03:55 Patient resulted labs reviewed. Assessment/Plan Assessment and Plan Assess & Plan/Chief Complaint Assessment: Hypovolemic shock HAP Pneumonia Post COVID Metabolic Acidosis Hypokalemia Leukocytosis Lactic Acidosis CHAY SBO S/P Sylvain-En-Y Gastric Bypass History of Anxiety and Depression Severe iron def Plan Has received 7+ liters of fluids Receiving Cefepime and Flagyl Thiamine for S/P gastric bypass Will check a cortisol level IV iron infusions Continue to monitor electrolytes Consult General Surgery Continue pressor support as needed Monitor I&Os Diagnosis/Problems Diagnosis/Problems (1) Hypovolemic shock Status: Acute (2) Pneumonia Status: Acute (3) COVID-19 Status: Acute (4) SBO (small bowel obstruction) Status: Acute (5) CHAY (acute kidney injury) Status: Acute ESA VILLATORO DO Jun 16, 2021 05:37
[2021-06-16] MEDS ORDERED: POTASSIUM CL 10MEQ/50ML IVPB 250 ML IV ONE (06:24)
[2021-06-16] MEDS ORDERED: MAGNESIUM 1 GM/100 ML IVPB 200 ML IV ONE (06:24)
[2021-06-16] MEDS: metroNIDAZOLE 500MG/100ML IVPB 100 ML IV SCH ×3 (06:29→21:32)
[2021-06-16] MEDS: CEFEPIME 1,000 MG/NS 50 ML IVPB IV SCH ×4 (06:30→17:49)
[2021-06-16] MEDS: MAGNESIUM 1 GM/100 ML IVPB 100 ML IV SCH ×3 (06:30→09:05)
[2021-06-16] MEDS: POTASSIUM CL 10MEQ/50ML IVPB 50 ML IV SCH ×7 (06:30→15:47)
[2021-06-16] MEDS: KCL 20 MEQ TAB (K-DUR) PO SCH (06:38)
[2021-06-16] MEDS: PANTOPRAZOLE 40 MG (PROTONIX) VIAL IV SCH (09:06)
[2021-06-16] MEDS: IRON SUCROSE 200 MG/10 ML (VENOFER) VIAL IV SCH (09:09)
--- NOTE | 2021-06-16 10:20 | Progress Note ---
Subjective Date Seen by a Provider: Jun 16, 2021 Time Seen by a Provider: 09:30 Subjective/Events-last exam doing better, no nausea/vomiting, no abd distention. still on a small amount of vasopressor. Focused Exam Lactate Level 06/14/21 14:25: Lactic Acid Level 2.76*H 06/14/21 17:04: Lactic Acid Level 0.84 Objective Exam Vital Signs Date Time Temp Pulse Resp B/P (MAP) Pulse Ox O2 Delivery O2 Flow Rate FiO2 06/16/21 10:00 92 20 106/62 94 Room Air 06/16/21 09:00 101 17 123/65 Room Air 06/16/21 08:00 93 17 118/76 97 Room Air 06/16/21 08:00 98 Room Air 06/16/21 07:00 95 28 111/64 94 Room Air 06/16/21 07:00 98 06/16/21 06:00 87 18 114/60 94 Room Air 06/16/21 05:00 88 16 111/63 94 Room Air 06/16/21 04:20 37.9 Room Air 06/16/21 04:20 95 Room Air 06/16/21 04:00 93 20 119/68 94 Room Air 06/16/21 03:00 85 20 114/69 93 Room Air 06/16/21 02:00 89 16 108/61 92 Room Air 06/16/21 01:00 90 16 106/60 93 Room Air 06/16/21 00:59 90 06/16/21 00:00 98 18 116/70 92 Room Air 06/15/21 23:50 37.2 Room Air 06/15/21 23:50 96 Room Air 06/15/21 23:00 89 21 118/67 93 Room Air 06/15/21 22:00 80 16 116/73 94 Room Air 06/15/21 21:00 86 14 109/66 94 Room Air 06/15/21 20:00 81 29 114/68 93 Room Air 06/15/21 19:45 95 Room Air 06/15/21 19:40 36.9 Room Air 06/15/21 19:00 82 15 101/60 94 Room Air 06/15/21 19:00 81 06/15/21 18:45 94 Room Air 06/15/21 18:30 84 14 96/57 83 06/15/21 18:15 85 16 94/56 Room Air 06/15/21 18:00 84 16 100/59 Room Air 06/15/21 17:45 89 30 104/62 Room Air 06/15/21 17:30 85 28 111/72 Room Air 06/15/21 17:15 79 24 111/69 Room Air 06/15/21 17:00 81 25 112/63 97 Room Air 06/15/21 16:45 84 25 104/61 96 Room Air 06/15/21 16:30 82 19 99/63 95 Room Air 06/15/21 16:15 83 14 96/57 95 Room Air 06/15/21 16:00 89 17 119/69 95 Room Air 06/15/21 16:00 96 Room Air 06/15/21 16:00 35.3 06/15/21 15:45 87 16 115/75 96 Room Air 06/15/21 15:30 85 16 110/69 95 Room Air 06/15/21 15:15 85 8 109/60 98 Room Air 06/15/21 15:00 84 32 95/61 96 Room Air 06/15/21 14:45 87 13 110/67 96 Room Air 06/15/21 14:30 83 12 103/66 96 Room Air 06/15/21 14:15 87 26 101/66 93 Room Air 06/15/21 14:00 87 12 101/70 95 Room Air 06/15/21 13:45 89 13 95/81 95 Room Air 06/15/21 13:30 87 12 102/64 96 Room Air 06/15/21 13:15 96 27 121/103 94 Room Air 06/15/21 13:00 61 06/15/21 13:00 92 15 97/54 92 Room Air 06/15/21 12:45 98 33 104/68 91 06/15/21 12:30 92 13 99/68 95 06/15/21 12:15 89 27 102/61 94 Room Air 06/15/21 12:00 96 Room Air 06/15/21 12:00 92 28 94/58 94 Room Air 06/15/21 11:45 90 35 104/65 95 Room Air 06/15/21 11:44 37.1 06/15/21 11:30 98 22 103/65 06/15/21 11:15 95 28 85/59 89 Room Air 06/15/21 11:00 93 20 88/65 96 Room Air 06/15/21 10:45 93 31 101/59 95 Room Air 06/15/21 10:30 89 19 103/67 94 Room Air I & O 06/16/21 06:59 Intake Total 425 ml Output Total 1195 ml Balance -770 ml Capillary Refill : Less Than 3 Seconds General Appearance: No Apparent Distress HEENT: PERRL/EOMI Neck: Full Range of Motion Respiratory: Chest Non Tender, Decreased Breath Sounds Cardiovascular: Regular Rate, Rhythm Gastrointestinal: normal bowel sounds, non tender, soft Extremity: Normal Capillary Refill Neurologic/Psychiatric: Alert, Oriented x3 Skin: Normal Color Lymphatic: No Adenopathy Results Lab Laboratory Tests 06/15/21 11:20: Iron Level 8L, Vitamin B12 Level 642, Folate 7.5, Total Cortisol 10.2 06/15/21 17:56: Glucometer 60*L 06/15/21 19:44: Glucometer 64L 06/15/21 20:55: Glucometer 104 06/15/21 23:56: Glucometer 30*L 06/16/21 01:50: Glucometer 95 06/16/21 04:25: White Blood Count 8.4, Red Blood Count 2.67L, Hemoglobin 7.6#L, Hematocrit 24L, Mean Corpuscular Volume 89, Mean Corpuscular Hemoglobin 28, Mean Corpuscular Hemoglobin Concent 32, Red Cell Distribution Width 13.2, Platelet Count 176, M dyana Platelet Volume 11.1, Immature Granulocyte % (Auto) 1, Neutrophils (%) (Auto) 71, Lymphocytes (%) (Auto) 22, Monocytes (%) (Auto) 7, Eosinophils (%) (Auto) 0, Basophils (%) (Auto) 0, Neutrophils # (Auto) 6.0, Lymphocytes # (Auto) 1.8, Monocytes # (Auto) 0.6, Eosinophils # (Auto) 0.0, Basophils # (Auto) 0.0, Immature Granulocyte # (Auto) 0.1, Sodium Level 134L, Potassium Level 3.0L, Chloride Level 109H, Carbon Dioxide Level 19L, Anion Gap 6, Blood Urea Nitrogen 14, Creatinine 0.60, Estimat Glomerular Filtration Rate 116, BUN/Creatinine Ratio 23, Glucose Level 84, Calcium Level 7.2L, Corrected Calcium 8.5, Phosphorus Level 1.6L, Magnesium Level 1.6, Total Bilirubin 0.2, Aspartate Amino Transf (AST/SGOT) 12, Alanine Aminotransferase (ALT/SGPT) 9, Alkaline Phosphatase 31L, Total Protein 4.7L, Albumin 2.4L Microbiology 06/14/21 MRSA Screen - Final, Complete 06/14/21 Blood Culture - Preliminary, Resulted No growth 06/14/21 Urine Culture - Final, Complete NO GROWTH Assessment/Plan Assessment/Plan Assess & Plan/Chief Complaint PSBO vs. ileus with covid pneumonia and UTI. cont IV abx. d/c NGT and start clears. needs to ambulate. once medically stable, likely re-image. KHURRAM LEON MD Jun 16, 2021 10:20
[2021-06-16] MEDS: NOREPINEPHRINE 8 MG/250 ML 250 ML IV SCH (10:26)
--- NOTE | 2021-06-16 12:13 | Tele-ICU Progress Note ---
Subjective Date Seen by a Provider: Jun 16, 2021 Time Seen by a Provider: 12:12 Sepsis Event Evaluation Height, Weight, BMI Height: 5'6.00" Weight: 220lbs. oz. 99.278995ib; 23.43 BMI Method:Estimated Focused Exam Lactate Level 06/14/21 14:25: Lactic Acid Level 2.76*H 06/14/21 17:04: Lactic Acid Level 0.84 Exam Exam Patient acknowledged, consented, and participated in this virtual visit which was conducted using real time audio/video Vital Signs Date Time Temp Pulse Resp B/P (MAP) Pulse Ox O2 Delivery O2 Flow Rate FiO2 06/16/21 12:00 98 Room Air 06/16/21 12:00 91 38 106/65 94 Room Air 06/16/21 11:00 93 36 105/61 90 Room Air 06/16/21 10:26 90 113/66 06/16/21 10:00 92 20 106/62 94 Room Air 06/16/21 09:00 101 17 123/65 Room Air 06/16/21 08:00 93 17 118/76 97 Room Air 06/16/21 08:00 98 Room Air 06/16/21 08:00 37.0 06/16/21 07:00 95 28 111/64 94 Room Air 06/16/21 07:00 98 06/16/21 06:00 87 18 114/60 94 Room Air 06/16/21 05:00 88 16 111/63 94 Room Air 06/16/21 04:20 37.9 Room Air 06/16/21 04:20 95 Room Air 06/16/21 04:00 93 20 119/68 94 Room Air 06/16/21 03:00 85 20 114/69 93 Room Air 06/16/21 02:00 89 16 108/61 92 Room Air 06/16/21 01:00 90 16 106/60 93 Room Air 06/16/21 00:59 90 06/16/21 00:00 98 18 116/70 92 Room Air 06/15/21 23:50 37.2 Room Air 06/15/21 23:50 96 Room Air 06/15/21 23:00 89 21 118/67 93 Room Air 06/15/21 22:00 80 16 116/73 94 Room Air 06/15/21 21:00 86 14 109/66 94 Room Air 06/15/21 20:00 81 29 114/68 93 Room Air 06/15/21 19:45 95 Room Air 06/15/21 19:40 36.9 Room Air 06/15/21 19:00 82 15 101/60 94 Room Air 06/15/21 19:00 81 06/15/21 18:45 94 Room Air 06/15/21 18:30 84 14 96/57 83 06/15/21 18:15 85 16 94/56 Room Air 06/15/21 18:00 84 16 100/59 Room Air 06/15/21 17:45 89 30 104/62 Room Air 06/15/21 17:30 85 28 111/72 Room Air 06/15/21 17:15 79 24 111/69 Room Air 06/15/21 17:00 81 25 112/63 97 Room Air 06/15/21 16:45 84 25 104/61 96 Room Air 06/15/21 16:30 82 19 99/63 95 Room Air 06/15/21 16:15 83 14 96/57 95 Room Air 06/15/21 16:00 89 17 119/69 95 Room Air 06/15/21 16:00 96 Room Air 06/15/21 16:00 35.3 06/15/21 15:45 87 16 115/75 96 Room Air 06/15/21 15:30 85 16 110/69 95 Room Air 06/15/21 15:15 85 8 109/60 98 Room Air 06/15/21 15:00 84 32 95/61 96 Room Air 06/15/21 14:45 87 13 110/67 96 Room Air 06/15/21 14:30 83 12 103/66 96 Room Air 06/15/21 14:15 87 26 101/66 93 Room Air 06/15/21 14:00 87 12 101/70 95 Room Air 06/15/21 13:45 89 13 95/81 95 Room Air 06/15/21 13:30 87 12 102/64 96 Room Air 06/15/21 13:15 96 27 121/103 94 Room Air 06/15/21 13:00 61 06/15/21 13:00 92 15 97/54 92 Room Air 06/15/21 12:45 98 33 104/68 91 06/15/21 12:30 92 13 99/68 95 06/15/21 12:15 89 27 102/61 94 Room Air I & O 06/16/21 07:00 Intake Total 425 ml Output Total 1195 ml Balance -770 ml Height & Weight Height: 5'6.00" Weight: 220lbs. oz. 99.782135aw; 23.43 BMI Method:Estimated General Appearance: No Apparent Distress HEENT: PERRL/EOMI Neck: Full Range of Motion Respiratory: Chest Non Tender, Decreased Breath Sounds Cardiovascular: Regular Rate, Rhythm Capillary Refill: Less Than 3 Seconds Gastrointestinal: normal bowel sounds, non tender, soft Extremity: Normal Capillary Refill Neurologic/Psychiatric: Alert, Oriented x3 Skin: Normal Color Lymphatic: No Adenopathy Results Lab Laboratory Tests 06/14/21 13:56 06/14/21 14:33 06/15/21 03:45 06/16/21 04:25 Assessment/Plan Assessment/Plan (Tele-ICU Physician , Progress Note ) Available chart/ vitals / labs / Images reviewed Video assessment done using teleICU camera, rest of exam as per RN Discussed with RN , EXAM PER RN Events overnight : Afebrile FiO2 - I/O = Drips: Pressors: , hemodynamically stable Consultants: sx Hospital course: 06/10 - d/c from hospital after SBO and CHAY tx, COVID + 06/14- readmitted N/V ->SCO , AMS , CHAY 06/15 - Cr improved , LEVO 06/16 - NG out , still on levo A/P Shock - hypovolumic /distribution - received 5 L crystalloids -still on LEVO 0,03 - cortisol 10 SBO - presented 06/08 - followd bySx with conservative management - d/c 06/10-> cont N/V - readmitted 06/14 , CT done ,Sx consulted - NG in place -06/14- Flagyl and Cefepime RLL +RML PNA- - avx started on 06/14- Flagyl and Cefepime CHAY - dehydration -? 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 Discussed with RN to reach out if any questions or concerns A total of 33 minutes of critical care time was devoted to this patient today, required to treat and/or prevent further deterioration of critical care condition ( as above ) EVAN BISHOP MD Jun 16, 2021 12:12
[2021-06-16] MEDS: ONDANSETRON 4 MG/2 ML (SDV) Z0FRAN IV PRN ×2 (13:35→20:00)
[2021-06-16] MEDS ORDERED: VASOPRESSIN INJECTION 20 UNIT in NS (IVPB) 100 ML IV SCH (14:15)
[2021-06-16] MEDS ORDERED: METR-145 PO (15:41)
[2021-06-16] MEDS ORDERED: CEFD300C3 PO (15:41)
[2021-06-16] MEDS ORDERED: PANT40TA52 PO (15:41)
[2021-06-16] MEDS ORDERED: POTA10TA37 PO (15:41)
[2021-06-16] MEDS: ENOXAPARIN 30 MG/0.3 ML (LOVENOX) SYR SC SCH (17:50)
[2021-06-17] MEDS: D5 NS 1000 ML IV SOLUTION 1,000 ML IV SCH ×3 (01:29→21:32)
[2021-06-17] MEDS: LORazepam INJ 2 MG/ML (ATIVAN) VIAL IVP PRN ×2 (01:31→09:09)
[2021-06-17] MEDS: ONDANSETRON 4 MG/2 ML (SDV) Z0FRAN IV PRN (04:00)
[2021-06-17] MEDS: HYDROmorphone 2 MG/ML VIAL (DILAUDID) IVP PRN ×5 (04:00→21:31)
[2021-06-17 04:19] LABS: BASOPHILS % (AUTO) 0 % (0-10); EOSINOPHILS % (AUTO) 1 % (0-10); HEMATOCRIT 23 % (35-52); HEMOGLOBIN 7.3 g/dL (11.5-16.0); LYMPHOCYTES # (AUTO) 1.9 10^3/uL (1.0-4.0); LYMPHOCYTES % (AUTO) 31 % (12-44); MEAN CORPUSCULAR HEMOGLOBIN 28 pg (25-34); MEAN CORPUSCULAR HGB CONC 32 g/dL (32-36); MEAN CORPUSCULAR VOLUME 89 fL (80-99); MEAN PLATELET VOLUME 11.1 fL (9.0-12.2); MONOCYTES # (AUTO) 0.7 10^3/uL (0.0-1.0); MONOCYTES % (AUTO) 10 % (0-12); NEUTROPHILS # (AUTO) 3.7 10^3/uL (1.8-7.8); NEUTROPHILS % (AUTO) 58 % (42-75); PLATELET COUNT 160 10^3/uL (130-400); WHITE BLOOD COUNT 6.4 10^3/uL (4.3-11.0)
[2021-06-17 04:44] LABS: ALBUMIN 2.2 GM/DL (3.2-4.5); BILIRUBIN,TOTAL 0.2 MG/DL (0.1-1.0); CREATININE SERUM 0.55 MG/DL (0.60-1.30); MAGNESIUM 1.6 MG/DL (1.6-2.4); PHOSPHORUS 1.7 MG/DL (2.3-4.7); POTASSIUM 3.1 MMOL/L (3.6-5.0); TOTAL PROTEIN 4.5 GM/DL (6.4-8.2)
[2021-06-17] MEDS: metroNIDAZOLE 500MG/100ML IVPB 100 ML IV SCH ×3 (05:17→21:36)
[2021-06-17] MEDS: KCL 20 MEQ TAB (K-DUR) PO SCH (05:20)
[2021-06-17] MEDS: CEFEPIME 1,000 MG/NS 50 ML IVPB IV SCH ×8 (05:20→23:48)
[2021-06-17] MEDS: MAGNESIUM 1 GM/100 ML IVPB 100 ML IV SCH ×3 (05:20→06:15)
[2021-06-17] MEDS: POTASSIUM CL 10MEQ/50ML IVPB 50 ML IV SCH ×5 (05:20→11:11)
--- NOTE | 2021-06-17 05:39 | Progress Note - Hospitalist ---
Subjective HPI/CC On Admission Date Seen by Provider: Jun 17, 2021 Time Seen by Provider: 11:30 Chief complaint: Hypertension with SBO History of present illness: This is a 40-year-old white female with history of mental illness and Sylvain-en-Y bypass by Dr. Jordan at [place] who presented to the ER ER 6 days after admission and discharge for small bowel obstruction with acute kidney injury. Apparently her ports that she did not have a bowel movement since time she came home and has not been eating or drinking anything. She was started on aggressive IV fluid resuscitation along with pressor therapy. Currently she has an NG tube and constantly asking for something to drink. Subjective/Events-last exam Patient doing well Transferring to 4th floor Off pressors No pain reported except abdomen Meds reviewed Review of Systems General: Fatigue, Malaise Pulmonary: Dyspnea Gastrointestinal: Abdominal Pain Focused Exam Lactate Level Objective Exam Vital Signs Vital Signs Date Time Temp Pulse Resp B/P (MAP) Pulse Ox O2 Delivery O2 Flow Rate FiO2 06/17/21 20:11 36.8 83 18 111/71 100 Room Air 06/14/21 19:12 21 06/14/21 16:40 6.00 Capillary Refill : Less Than 3 Seconds General Appearance: No Apparent Distress, WD/WN, Chronically ill, Thin Respiratory: Lungs Clear, Normal Breath Sounds Cardiovascular: Regular Rate, Rhythm Neurologic/Psychiatric: Alert, Oriented x3, No Motor/Sensory Deficits, Normal Mood/Affect Results/Procedures Lab Laboratory Tests 06/17/21 03:55 Patient resulted labs reviewed. Assessment/Plan Assessment and Plan Assess & Plan/Chief Complaint Assessment: Hypovolemic shock HAP Pneumonia Post COVID Metabolic Acidosis Hypokalemia Leukocytosis Lactic Acidosis CHAY SBO S/P Sylvain-En-Y Gastric Bypass History of Anxiety and Depression Severe iron def Plan Has received 7+ liters of fluids Receiving Cefepime and Flagyl Thiamine for S/P gastric bypass Will check a cortisol level IV iron infusions Continue to monitor electrolytes Consult General Surgery Continue pressor support as needed Monitor I&Os Plan: Advanced diet Move to 4th Diagnosis/Problems Diagnosis/Problems (1) Hypovolemic shock Status: Acute (2) Pneumonia Status: Acute (3) COVID-19 Status: Acute (4) SBO (small bowel obstruction) Status: Acute (5) CHAY (acute kidney injury) Status: Acute ESA VILLATORO DO Jun 17, 2021 05:39
--- NOTE | 2021-06-17 06:52 | Progress Note - Surgery ---
DENTONJanakHECTOR VALLE 06/17/21 0652: Subjective Date Seen by a Provider: Jun 17, 2021 Time Seen by a Provider: 06:46 Subjective/Events-last exam Upon follow-up for hypotension and vomiting, Gabby is resting lateral recumbent in bed, and is difficult to rouse. She presently denies any nausea, vomiting. Abdomen is mildly distended tender to deep palpation. Gabby has been hypotensive, requiring vasopressin. CT on 06/14/21 is suggestive of SBO and a developing PNA. Gabby states that she has not had a bowel movement since presenting to the ER on 06/14/21. Review of Systems General: Fatigue, Malaise HEENT: Eye Pain, Ear Pain Pulmonary: No Dyspnea, No Cough Cardiovascular: No: Chest Pain Gastrointestinal: Nausea, Vomiting, Abdominal Pain Musculoskeletal: No: arm pain, back pain Neurological: Weakness; No: Numbness Focused Exam Lactate Level 06/14/21 14:25: Lactic Acid Level 2.76*H 06/14/21 17:04: Lactic Acid Level 0.84 Respiratory: Chest Non Tender, No Accessory Muscle Use, No Respiratory Distress, Rales (mild) Cardiovascular: Regular Rate, Rhythm, No Edema, Normal Peripheral Pulses Capillary Refill: Less Than 3 Seconds Peripheral Pulses: 2+ Radial Pulses (R), 2+ Radial Pulses (L) Skin: normal color, warm/dry Objective Exam Vital Signs Date Time Temp Pulse Resp B/P (MAP) Pulse Ox O2 Delivery O2 Flow Rate FiO2 06/17/21 06:00 77 16 91/54 97 Room Air 06/17/21 05:00 80 16 104/60 96 Room Air 06/17/21 04:00 98 Room Air 06/17/21 04:00 36.5 06/17/21 04:00 82 16 100/63 99 Room Air 06/17/21 03:00 87 14 95/57 97 Room Air 06/17/21 02:00 80 19 100/54 98 Room Air 06/17/21 01:00 73 17 78/59 94 Room Air 06/17/21 01:00 73 06/17/21 00:00 36.1 100 Room Air 06/17/21 00:00 82 19 82/48 97 Room Air 06/16/21 23:03 98 Room Air 06/16/21 23:00 84 18 79/46 96 Room Air 06/16/21 22:58 98 Room Air 06/16/21 22:00 96 18 115/70 96 Room Air 06/16/21 21:36 93 Room Air 06/16/21 21:00 37.6 Room Air 06/16/21 21:00 93 18 103/67 94 Room Air 06/16/21 20:00 98 Room Air 06/16/21 20:00 37.9 06/16/21 20:00 95 22 111/70 93 Room Air 06/16/21 19:00 95 06/16/21 19:00 95 12 109/63 93 Room Air 06/16/21 18:00 85 21 103/76 95 Room Air 06/16/21 17:00 94 24 96/66 Room Air 06/16/21 16:00 98 Room Air 06/16/21 16:00 97 23 130/87 94 Room Air 06/16/21 16:00 37.9 06/16/21 15:00 92 18 113/65 93 Room Air 06/16/21 14:00 93 29 102/65 92 Room Air 06/16/21 13:00 91 38 106/65 94 Room Air 06/16/21 13:00 104 06/16/21 12:00 37.7 06/16/21 12:00 98 Room Air 06/16/21 12:00 91 38 106/65 94 Room Air 06/16/21 11:00 93 36 105/61 90 Room Air 06/16/21 10:26 90 113/66 06/16/21 10:00 92 20 106/62 94 Room Air 06/16/21 09:00 101 17 123/65 Room Air 06/16/21 08:00 93 17 118/76 97 Room Air 06/16/21 08:00 98 Room Air 06/16/21 08:00 37.0 06/16/21 07:00 95 28 111/64 94 Room Air 06/16/21 07:00 98 I & O 06/17/21 07:00 Intake Total 3450 ml Output Total 2975 ml Balance 475 ml Capillary Refill : Less Than 3 Seconds General Appearance: WD/WN, Anxious, Chronically ill HEENT: PERRL/EOMI Neck: Full Range of Motion Respiratory: No Accessory Muscle Use, No Respiratory Distress, Decreased Breath Sounds Cardiovascular: Regular Rate, Rhythm Peripheral Pulses: 2+ Radial Pulses (R), 2+ Radial Pulses (L) Gastrointestinal: normal bowel sounds, non tender, soft Extremity: Normal Capillary Refill, No Pedal Edema Neurologic/Psychiatric: Alert, Oriented x3 Skin: Normal Color, Warm/Dry Lymphatic: No Adenopathy Results Lab Laboratory Tests 06/16/21 11:49: Glucometer 96 06/16/21 13:45: Potassium Level 3.4L 06/16/21 17:14: Glucometer 96 06/16/21 22:22: Glucometer 87 06/17/21 03:55: White Blood Count 6.4, Red Blood Count 2.60L, Hemoglobin 7.3L, Hematocrit 23L, Mean Corpuscular Volume 89, Mean Corpuscular Hemoglobin 28, Mean Corpuscular Hemoglobin Concent 32, Red Cell Distribution Width 13.1, Platelet Count 160, Mean Platelet Volume 11.1, Immature Granulocyte % (Auto) 1, Neutrophils (%) (Auto) 58, Lymphocytes (%) (Auto) 31, Monocytes (%) (Auto) 10, Eosinophils (%) (Auto) 1, Basophils (%) (Auto) 0, Neutrophils # (Auto) 3.7, Lymphocytes # (Auto) 1.9, Monocytes # (Auto) 0.7, Eosinophils # (Auto) 0.0, Basophils # (Auto) 0.0, Immature Granulocyte # (Auto) 0.0, Sodium Level 138, Potassium Level 3.1L, Chloride Level 112H, Carbon Dioxide Level 18L, Anion Gap 8, Blood Urea Nitrogen 6L, Creatinine 0.55L, Estimat Glomerular Filtration Rate 119, BUN/Creatinine Ratio 11, Glucose Level 84, Calcium Level 7.0L, Corrected Calcium 8.4L, Phosphorus Level 1.7L, Magnesium Level 1.6, Total Bilirubin 0.2, Aspartate Amino Transf (AST/SGOT) 10, Alanine Aminotransferase (ALT/SGPT) 6, Alkaline Phosphatase 32L, Total Protein 4.5L, Albumin 2.2L Microbiology 06/14/21 MRSA Screen - Final, Complete 06/14/21 Blood Culture - Preliminary, Resulted No growth 06/14/21 Urine Culture - Final, Complete NO GROWTH Meds Item Value Date Time Magnesium Sulfate/ 100 ml @ 100 mls/hr 06/17/21 0530 Dextrose Q1H/IV 06/17/21 0615 Potassium Chloride 50 ml @ 50 mls/hr 06/17/21 0530 Vasopressin 20 101 ml @ 9.09 mls/hr 06/16/21 1415 unit/Sodium UD/IV Chloride Iron Sucrose 200 mg 06/16/21 0900 (Venofer Q48H@09/IV 06/16/21 0909 Injection) Dextrose/Sodium 1,000 ml @ 125 mls/hr 06/16/21 0015 Chloride Q8H/IV 06/17/21 0129 Enoxaparin Sodium 30 mg 06/15/21 1800 (Lovenox Q24H/SC 06/16/21 1750 Injection) Lorazepam 0.5 mg 06/15/21 1515 (Ativan Q3HR PRN/IVP 06/17/21 0131 Injection) Pantoprazole 40 mg 06/15/21 0900 (Protonix DAILY/IV 06/16/21 0906 Injection) Potassium Chloride 50 ml @ 0 mls/hr 06/15/21 0600 Magnesium Sulfate/ 100 ml @ 0 mls/hr 06/15/21 0600 Dextrose DAILY@0600/IV Potassium Chloride 40 meq 06/15/21 0600 (K Dur Tablet) DAILY@0600/PO Cefepime HCl 1000 50 ml @ 100 mls/hr 06/15/21 0600 mg/Sodium Chloride Q12H/IV 06/17/21 0520 Metronidazole 100 ml @ 100 mls/hr 06/14/21 2200 Albuterol Sulfate 4 PUFFS 06/14/21 1930 (Albuterol) RTQ4HR PRN/IH Norepinephrine 250 ml @ 11.25 mls/hr 06/14/21 1730 Bitartrate [id number]/IV 06/16/21 1026 Acetaminophen 650 mg 06/14/21 1730 (Tylenol Q4H PRN/SC Suppository) Hydromorphone HCl 0.25 mg 06/14/21 1730 (Dilaudid Q2HR PRN/IVP 06/17/21 0400 Injection) Naloxone HCl 0.1 mg 06/14/21 1730 (Narcan PRN PRN/IV Injection) Diphenhydramine 25 mg 06/14/21 1730 HCl Q6HR PRN/IVP (Benadryl Injection) Ondansetron HCl 4 mg 06/14/21 1730 (Zofran Q6H PRN/IV 06/17/21 0400 Injection (Sdv)) Promethazine HCl 12.5 mg 06/14/21 1715 (Phenergan Q3HR PRN/IVP Injection) Ondansetron HCl 4 mg 06/14/21 1715 (Zofran Q4H PRN/IVP Injection (Sdv)) Lactated Ringer's 1,000 ml @ 0 mls/hr 06/14/21 1415 Assessment/Plan Assessment/Plan Assessment/Plan PSBO vs. ileus with covid pneumonia and UTI. Hypotension--requiring vasopressin, norepi Continue antibiotics, DVT prophylaxis, pain management, and fluids On clear liquid diet Encouraged ambulation Consider repeat abd CT DONNELL BONILLA DO 06/17/21 0933: Subjective Subjective/Events-last exam Patient pulled central line. No longer on pressors. Feeling a little better. No flatus or bm. Patient states minimal abdominal pain in upper abdomen. No nausea or emesis. Denies fever sweats chills or chest pain. Objective Exam General Appearance: No Apparent Distress, WD/WN, Thin HEENT: PERRL/EOMI, Normal ENT Inspection Neck: Normal Inspection, Non Tender Respiratory: Chest Non Tender, No Accessory Muscle Use, No Respiratory Distress Cardiovascular: Regular Rate, Rhythm, No JVD Gastrointestinal: soft, tenderness (very minimal upper abdomen) Extremity: Normal Capillary Refill, Normal Inspection Neurologic/Psychiatric: Alert, Oriented x3 Skin: Normal Color, Warm/Dry Lymphatic: No Adenopathy Assessment/Plan Assessment/Plan Assessment/Plan PSBO vs. ileus with covid pneumonia and UTI. Hypotension--off pressors- improved history of gastric sleeve and bypass Continue antibiotics, DVT prophylaxis, pain management, and fluids On clear liquid diet Encouraged ambulation Supervisory-Addendum Brief Verification & Attestation Participated in pt care: history, MDM, physical Personally performed: exam, history, MDM, supervision of care Care discussed with: Medical Student Procedures: n/a Results interpretation: Verified all documentation Verification and Attestation of Medical Student E/M Service A medical student performed and documented this service in my presence. I reviewed and verified all information documented by the medical student and made modifications to such information, when appropriate. I personally performed the physical exam and medical decision making. Donnell Bonilla, Jun 17, 2021,09:33 HECTOR WILCOX Jun 17, 2021 06:52 DONNELL BONILLA DO Jun 17, 2021 09:33
--- NOTE | 2021-06-17 08:18 | Tele-ICU Progress Note ---
Progress Note video rounds completed 40 y/o female with Covid admitted with CHAY. s/p gastric bypass many yrs ago and questionable SBO although oral contrast has reached the colon PE: appear comfortable lying in bed All VSS Surgery following PLAN: as per surgical recommendations and being treated for covid Focused Exam Lactate Level 06/14/21 14:25: Lactic Acid Level 2.76*H 06/14/21 17:04: Lactic Acid Level 0.84 Height, Weight, BMI Height: 5'6.00" Weight: 220lbs. oz. 99.696456rt; 23.43 BMI Method:Estimated Laboratory Tests 06/16/21 13:45 06/17/21 03:55 Labs Labs Laboratory Tests 06/16/21 11:49: Glucometer 96 06/16/21 13:45: Potassium Level 3.4L 06/16/21 17:14: Glucometer 96 06/16/21 22:22: Glucometer 87 06/17/21 03:55: White Blood Count 6.4, Red Blood Count 2.60L, Hemoglobin 7.3L, Hematocrit 23L, Mean Corpuscular Volume 89, Mean Corpuscular Hemoglobin 28, Mean Corpuscular Hemoglobin Concent 32, Red Cell Distribution Width 13.1, Platelet Count 160, Mean Platelet Volume 11.1, Immature Granulocyte % (Auto) 1, Neutrophils (%) (Auto) 58, Lymphocytes (%) (Auto) 31, Monocytes (%) (Auto) 10, Eosinophils (%) (Auto) 1, Basophils (%) (Auto) 0, Neutrophils # (Auto) 3.7, Lymphocytes # (Auto) 1.9, Monocytes # (Auto) 0.7, Eosinophils # (Auto) 0.0, Basophils # (Auto) 0.0, Immature Granulocyte # (Auto) 0.0, Sodium Level 138, Potassium Level 3.1L, Chloride Level 112H, Carbon Dioxide Level 18L, Anion Gap 8, Blood Urea Nitrogen 6L, Creatinine 0.55L, Estimat Glomerular Filtration Rate 119, BUN/Creatinine Ratio 11, Glucose Level 84, Calcium Level 7.0L, Corrected Calcium 8.4L, Phosphorus Level 1.7L, Magnesium Level 1.6, Total Bilirubin 0.2, Aspartate Amino Transf (AST/SGOT) 10, Alanine Aminotransferase (ALT/SGPT) 6, Alkaline Phosphatase 32L, Total Protein 4.5L, Albumin 2.2L Microbiology 06/14/21 MRSA Screen - Final, Complete 06/14/21 Blood Culture - Preliminary, Resulted No growth 06/14/21 Urine Culture - Final, Complete NO GROWTH ELIJAH ALLAN MD Jun 17, 2021 08:18
[2021-06-17] MEDS: PANTOPRAZOLE 40 MG (PROTONIX) VIAL IV SCH (08:54)
[2021-06-17] MEDS: NOREPINEPHRINE 8 MG/250 ML 250 ML IV SCH (11:12)
[2021-06-17] MEDS ORDERED: SUVOREXANT 20 MG PO PRN (11:30)
[2021-06-17] MEDS ORDERED: FENTANYL PATCH REMOVAL TP SCH (11:59)
[2021-06-17] MEDS ORDERED: fentaNYL PATCH 50 MCG (DURAGESIC) TD SCH (12:00)
[2021-06-17] MEDS: ENOXAPARIN 40 MG/0.4 ML (LOVENOX) SYR SC SCH (18:17)
[2021-06-17] MEDS ORDERED: NON-FORMULARY MEDICATION 1 EA EA (Potassium Chloride 10 MEQ) PO SCH (21:00)
[2021-06-17] MEDS ORDERED: NON-FORMULARY MEDICATION 1 EA EA (Zolpidem Tartrate (Zolpidem Tartrate ER) 12.5 MG) PO SCH (21:00)
[2021-06-17] MEDS ORDERED: AMITRIPTYLINE HCL 200 MG PO SCH (21:00)
[2021-06-17] MEDS: DIVALPROEX EXT RELEASE 500 MG (DEPAKOTE ER) TAB PO SCH (21:32)
[2021-06-17] MEDS: AMITRIPTYLINE 50 MG (ELAVIL) TAB PO SCH (21:32)
[2021-06-17] MEDS: POTASSIUM BICARB 20 MEQ (EFFER-K) TABLET PO SCH (21:32)
[2021-06-17] MEDS: DIVALPROEX EXT RELEASE 250 MG (DEPAKOTE ER) TAB PO SCH (21:33)
[2021-06-17] MEDS: ZOLPIDEM 5 MG (AMBIEN) TAB PO SCH (21:33)
[2021-06-18] MEDS: D5 NS 1000 ML IV SOLUTION 1,000 ML IV SCH ×3 (01:52→14:55)
[2021-06-18] MEDS: metroNIDAZOLE 500MG/100ML IVPB 100 ML IV SCH ×3 (05:27→20:51)
--- NOTE | 2021-06-18 06:39 | Progress Note - Hospitalist ---
Subjective HPI/CC On Admission Date Seen by Provider: Jun 18, 2021 Time Seen by Provider: 12:30 Chief complaint: Hypertension with SBO History of present illness: This is a 40-year-old white female with history of mental illness and Sylvain-en-Y bypass by Dr. Jordan at [place] who presented to the ER ER 6 days after admission and discharge for small bowel obstruction with acute kidney injury. Apparently her ports that she did not have a bowel movement since time she came home and has not been eating or drinking anything. She was started on aggressive IV fluid resuscitation along with pressor therapy. Currently she has an NG tube and constantly asking for something to drink. Subjective/Events-last exam Patient doing better Tolerating advanced diet to soft No BM yet that nurse has witnessed but she reports she has had one Hemoccult ordered so a hat will be placed in toilet to capture and visualize any stool Pain improved Review of Systems General: Fatigue, Malaise Gastrointestinal: Abdominal Pain Objective Exam Vital Signs Vital Signs Date Time Temp Pulse Resp B/P (MAP) Pulse Ox O2 Delivery O2 Flow Rate FiO2 06/18/21 19:42 37.3 92 20 105/55 99 Room Air 06/14/21 19:12 21 06/14/21 16:40 6.00 Capillary Refill : Less Than 3 Seconds General Appearance: No Apparent Distress, WD/WN, Chronically ill, Thin Respiratory: Lungs Clear, Normal Breath Sounds Cardiovascular: Regular Rate, Rhythm Neurologic/Psychiatric: Alert, Oriented x3, No Motor/Sensory Deficits, Normal Mood/Affect Results/Procedures Lab Laboratory Tests 06/18/21 05:55 06/18/21 05:58 Patient resulted labs reviewed. Assessment/Plan Assessment and Plan Assess & Plan/Chief Complaint Assessment: Hypovolemic shock HAP Pneumonia Post COVID Metabolic Acidosis Hypokalemia Leukocytosis Lactic Acidosis CHAY SBO S/P Sylvain-En-Y Gastric Bypass History of Anxiety and Depression Severe iron def Plan Has received 7+ liters of fluids Receiving Cefepime and Flagyl Thiamine for S/P gastric bypass Will check a cortisol level IV iron infusions Continue to monitor electrolytes Consult General Surgery Continue pressor support as needed Monitor I&Os Plan: Advanced diet Move to 4th 06/18/21: Monitor hgb Hemoccult stools Pain control Diagnosis/Problems Diagnosis/Problems (1) Hypovolemic shock Status: Acute (2) Pneumonia Status: Acute (3) COVID-19 Status: Acute (4) SBO (small bowel obstruction) Status: Acute (5) CHAY (acute kidney injury) Status: Acute ESA VILLATORO DO Jun 18, 2021 06:39
[2021-06-18] MEDS: CEFEPIME 1,000 MG/NS 50 ML IVPB IV SCH ×8 (06:40→23:23)
[2021-06-18 07:05] LABS: ALANINE AMINOTRANSFERASE < 6 U/L (0-55); ALBUMIN 2.2 GM/DL (3.2-4.5); ALKALINE PHOSPHATASE 34 U/L (40-136); BILIRUBIN,TOTAL 0.2 MG/DL (0.1-1.0); BUN/CREATININE RATIO 4; CALCIUM 7.1 MG/DL (8.5-10.1); CARBON DIOXIDE 23 MMOL/L (21-32); CHLORIDE 106 MMOL/L (98-107); CREATININE SERUM 0.52 MG/DL (0.60-1.30); GFR ESTIMATED 120; GLUCOSE 73 MG/DL (70-105); MAGNESIUM 1.4 MG/DL (1.6-2.4); SODIUM 139 MMOL/L (135-145); TOTAL PROTEIN 4.4 GM/DL (6.4-8.2)
[2021-06-18 07:17] LABS: BASOPHILS % (AUTO) 0 % (0-10); EOSINOPHILS # (AUTO) 0.1 10^3/uL (0.0-0.3); EOSINOPHILS % (AUTO) 2 % (0-10); HEMATOCRIT 24 % (35-52); HEMOGLOBIN 7.6 g/dL (11.5-16.0); LYMPHOCYTES # (AUTO) 2.4 10^3/uL (1.0-4.0); LYMPHOCYTES % (AUTO) 38 % (12-44); MEAN CORPUSCULAR HEMOGLOBIN 29 pg (25-34); MEAN CORPUSCULAR HGB CONC 32 g/dL (32-36); MEAN CORPUSCULAR VOLUME 89 fL (80-99); MEAN PLATELET VOLUME 11.2 fL (9.0-12.2); MONOCYTES # (AUTO) 0.7 10^3/uL (0.0-1.0); MONOCYTES % (AUTO) 11 % (0-12); NEUTROPHILS % (AUTO) 49 % (42-75); PLATELET COUNT 232 10^3/uL (130-400); WHITE BLOOD COUNT 6.2 10^3/uL (4.3-11.0)
--- NOTE | 2021-06-18 09:12 | Progress Note - Surgery ---
HECTOR WILCOX 06/18/21 0912: Subjective Date Seen by a Provider: Jun 18, 2021 Time Seen by a Provider: 09:02 Subjective/Events-last exam Upon follow-up for hypotension and SBO, Gabby is sleeping in later recumbent position; she states her abdominal pain is sharp, achey, and a 9-10/10. She s tates that she had a bowel movement yesterday, and has been passing flatus. She denies any nausea or vomiting. Patient is quite somnolent, but more conversational than yesterday (06/17). Review of Systems General: Fatigue, Malaise HEENT: No Eye Pain, No Ear Pain Pulmonary: No Dyspnea, No Cough Cardiovascular: No: Chest Pain, Palpitations Gastrointestinal: Abdominal Pain, Diarrhea; No: Nausea, Vomiting Genitourinary: No Dysuria, No Frequency Musculoskeletal: No: shoulder pain, arm pain Neurological: Weakness; No: Numbness Focused Exam Respiratory: Chest Non Tender, No Accessory Muscle Use, No Respiratory Distress Cardiovascular: Regular Rate, Rhythm, No Gallop Capillary Refill: Less Than 3 Seconds Peripheral Pulses: 2+ Radial Pulses (L) Skin: normal color, warm/dry Objective Exam Vital Signs Date Time Temp Pulse Resp B/P (MAP) Pulse Ox O2 Delivery O2 Flow Rate FiO2 06/18/21 08:12 36.8 84 20 103/57 95 Room Air 06/17/21 23:52 87 18 101/59 95 Room Air 06/17/21 22:01 36.8 06/17/21 21:31 36.8 06/17/21 21:00 Room Air 06/17/21 20:11 36.8 83 18 111/71 100 Room Air 06/17/21 16:12 38.0 101 18 123/72 98 Room Air 06/17/21 13:01 37.4 95 18 115/72 98 Room Air 06/17/21 12:00 36.3 06/17/21 12:00 93 18 97/53 99 Room Air 06/17/21 10:00 81 11 101/65 97 Room Air I & O 06/18/21 07:00 Intake Total 5790 ml Output Total 1700 ml Balance 4090 ml Capillary Refill : Less Than 3 Seconds General Appearance: No Apparent Distress, WD/WN, Chronically ill, Thin Neck: Normal Inspection, Non Tender Respiratory: Lungs Clear, No Accessory Muscle Use, No Respiratory Distress Cardiovascular: Regular Rate, Rhythm, No Gallop, No Murmur Peripheral Pulses: 2+ Radial Pulses (R), 2+ Radial Pulses (L) Gastrointestinal: soft, tenderness (very minimal upper abdomen) Extremity: Normal Capillary Refill, Normal Inspection Neurologic/Psychiatric: Alert, Oriented x3, No Motor/Sensory Deficits, Normal Mood/Affect Skin: Normal Color, Warm/Dry Lymphatic: No Adenopathy Results Lab Laboratory Tests 06/17/21 12:03: Acetaminophen Level < 10L 06/17/21 12:07: Glucometer 84 06/17/21 17:47: Glucometer 80 06/17/21 20:09: Glucometer 81 06/18/21 05:55: Sodium Level 139, Potassium Level 3.0L, Chloride Level 106, Carbon Dioxide Level 23, Anion Gap 10, Blood Urea Nitrogen < 2L, Creatinine 0.52L, Estimat Glomerular Filtration Rate 120, BUN/Creatinine Ratio 4, Glucose Level 73, Calcium Level 7.1L, Corrected Calcium 8.5, Magnesium Level 1.4L, Total Bilirubin 0.2, Aspartate Amino Transf (AST/SGOT) 13, Alanine Aminotransferase (ALT/SGPT) < 6, Alkaline Phosphatase 34L, Total Protein 4.4L, Albumin 2.2L 06/18/21 05:58: White Blood Count 6.2, Red Blood Count 2.66L, Hemoglobin 7.6L, Hematocrit 24L, Mean Corpuscular Volume 89, Mean Corpuscular Hemoglobin 29, Mean Corpuscular Hemoglobin Concent 32, Red Cell Distribution Width 12.9, Platelet Count 232, Mean Platelet Volume 11.2, Immature Granulocyte % (Auto) 1, Neutrophils (%) (Auto) 49, Lymphocytes (%) (Auto) 38, Monocytes (%) (Auto) 11, Eosinophils (%) (Auto) 2, Basophils (%) (Auto) 0, Neutrophils # (Auto) 3.0, Lymphocytes # (Auto) 2.4, Monocytes # (Auto) 0.7, Eosinophils # (Auto) 0.1, Basophils # (Auto) 0.0, Immature Granulocyte # (Auto) 0.1 Microbiology 06/14/21 MRSA Screen - Final, Complete 06/14/21 Blood Culture - Preliminary, Resulted No growth 06/14/21 Urine Culture - Final, Complete NO GROWTH Meds Item Value Date Time Risperidone 4 mg 06/18/21 0900 (RisperDAL DAILY/PO TABLET) Pregabalin 150 mg 06/18/21 0900 (Lyrica Capsule) DAILY/PO Pantoprazole 40 mg 06/18/21 0900 Sodium DAILY/PO (Protonix Tablet) Potassium 10 meq 06/17/21 2100 Bicarbonate/ BID/PO 06/17/212131 Citric Acid (Effer-K 20 Meq Tablet) Lamotrigine 50 mg 06/18/21 0900 (LaMICtal TABLET) DAILY/PO Amitriptyline HCl 200 mg 06/17/21 2100 (Elavil Tablet) HS/PO 06/17/212131 Zolpidem Tartrate 5 mg 06/17/21 2100 (Ambien Tablet) HS/PO 06/17/212132 Divalproex Sodium 500 mg 06/17/21 2100 (Depakote Er 24 HS/PO 06/17/21 2132 Hr Tablet) Divalproex Sodium 250 mg 06/17/21 2100 (Depakote Er 24 HS/PO 06/17/21 2133 Hr Tablet) Enoxaparin Sodium 40 mg 06/17/21 1800 (Lovenox Q24H/SC 06/17/21 1817 Injection) Tizanidine HCl 8 mg 06/17/21 1300 (Zanaflex Tablet) QID PRN/PO Cefepime HCl 1000 50 ml @ 100 mls/hr 06/17/21 1200 mg/Sodium Chloride Q6H/IV 06/18/21 0640 Ondansetron HCl 4 mg 06/17/21 1130 (Zofran Oral Q8H PRN/PO Dissolve Tablet) Clonazepam 1 mg 06/17/21 1130 (KlonoPIN TABLET) BID PRN/PO Oxycodone HCl 5 mg 06/17/21 1115 (Oxyir Tablet) Q4H PRN/PO 06/17/21 1818 Vasopressin 20 101 ml @ 9.09 mls/hr 06/16/21 1415 unit/Sodium UD/IV Chloride Iron Sucrose 200 mg 06/16/21 0900 (Venofer Q48H@09/IV 06/16/21 0909 Injection) Dextrose/Sodium 1,000 ml @ 125 mls/hr 06/16/21 0015 Chloride Q8H/IV Enoxaparin Sodium 30 mg 06/15/21 1800 (Lovenox Q24H/SC 06/16/21 1750 Injection) Lorazepam 0.5 mg 06/15/21 1515 (Ativan Q3HR PRN/IVP 06/17/21 0909 Injection) Metronidazole 100 ml @ 100 mls/hr 06/14/21 2200 Acetaminophen 650 mg 06/14/21 1730 (Tylenol Q4H PRN/OK Suppository) Hydromorphone HCl 0.25 mg 06/14/21 1730 (Dilaudid Q2HR PRN/IVP 06/17/21 2131 Injection) Naloxone HCl 0.1 mg 06/14/21 1730 (Narcan PRN PRN/IV Injection) Diphenhydramine 25 mg 06/14/21 1730 HCl Q6HR PRN/IVP (Benadryl Injection) Ondansetron HCl 4 mg 06/14/21 1730 (Zofran Q6H PRN/IV 06/17/21 0400 Injection (Sdv)) Promethazine HCl 12.5 mg 06/14/21 1715 (Phenergan Q3HR PRN/IVP Injection) Assessment/Plan Assessment/Plan Assessment/Plan PSBO vs. ileus with covid pneumonia and UTI. Hypotension--off pressors- improved history of gastric sleeve and bypass Continue antibiotics, DVT prophylaxis, pain management, and fluids On clear liquid diet Encouraged ambulation JEFF BEDOLLA DO 06/18/21 1351: Subjective Time Seen by a Provider: 11:54 Subjective/Events-last exam Pt seen and examined, still having some abdominal pain but wants to eat more. Did not appear tired when I saw her. Review of Systems General: Fatigue, Malaise Pulmonary: No Dyspnea, No Cough Cardiovascular: No: Chest Pain, Palpitations Gastrointestinal: Abdominal Pain; No: Nausea, Vomiting Genitourinary: No Dysuria, No Frequency Objective Exam General Appearance: No Apparent Distress HEENT: PERRL/EOMI, Moist Mucous Membranes Respiratory: Lungs Clear, No Accessory Muscle Use, No Respiratory Distress, Wheezing (??at right base) Cardiovascular: Regular Rate, Rhythm, No Murmur Gastrointestinal: soft, tenderness (very minimal upper abdomen) Neurologic/Psychiatric: Alert, Oriented x3 Skin: Normal Color, Warm/Dry Assessment/Plan Assessment/Plan Assessment/Plan PSBO vs. ileus Covid pneumonia UTI. Hypotension--off pressors- improved history of gastric sleeve and bypass Continue antibiotics, DVT prophylaxis, pain management, and fluids, would switch to oral meds and start soft diet Encouraged ambulation and IS use. I reviewed the CT myself and looked at old SBFT as well as CT from 10/07. Her small bowel is definitely more distended now, but unsure of the significance of this. Contine non-surgical management. Supervisory-Addendum Brief Verification & Attestation Participated in pt care: history, MDM, physical Personally performed: exam, history, MDM, supervision of care Care discussed with: Medical Student Procedures: n/a Verification and Attestation of Medical Student E/M Service A medical student performed and documented this service. I then reviewed and verified all information documented by the medical student and made modifications to such information, when appropriate. I personally performed a physical exam, medical decision making and then discussed any differences between the notes and made revisions as necessary to create one note. Jeff Bedolla , 06/18/21 , 13:51 HECTOR WILCOX Jun 18, 2021 09:12 JEFF BEDOLLA DO Jun 18, 2021 13:51
[2021-06-18] MEDS: risperiDONE 2 MG (RisperDAL) TAB PO SCH (09:15)
[2021-06-18] MEDS: PREGABALIN 75 MG (LYRICA) CAP PO SCH (09:15)
[2021-06-18] MEDS: IRON SUCROSE 200 MG/10 ML (VENOFER) VIAL IV SCH (09:15)
[2021-06-18] MEDS: POTASSIUM BICARB 20 MEQ (EFFER-K) TABLET PO SCH ×2 (09:16→20:52)
[2021-06-18] MEDS: lamoTRIgine 25 MG (LaMICtal) TAB PO SCH (09:16)
[2021-06-18] MEDS: PANTOPRAZOLE 40 MG (PROTONIX) TAB PO SCH (09:16)
[2021-06-18] MEDS: ONDANSETRON 4 MG (ZOFRAN) ORAL DISSOLVE TAB PO PRN (09:52)
[2021-06-18] MEDS: HYDROmorphone 2 MG/ML VIAL (DILAUDID) IVP PRN (11:36)
[2021-06-18] MEDS: LORazepam INJ 2 MG/ML (ATIVAN) VIAL IVP PRN (14:55)
[2021-06-18] MEDS: ENOXAPARIN 40 MG/0.4 ML (LOVENOX) SYR SC SCH (18:30)
[2021-06-18] MEDS: DIVALPROEX EXT RELEASE 250 MG (DEPAKOTE ER) TAB PO SCH (20:51)
[2021-06-18] MEDS: ZOLPIDEM 5 MG (AMBIEN) TAB PO SCH (20:51)
[2021-06-18] MEDS: DIVALPROEX EXT RELEASE 500 MG (DEPAKOTE ER) TAB PO SCH (20:52)
[2021-06-18] MEDS: AMITRIPTYLINE 50 MG (ELAVIL) TAB PO SCH (20:52)
[2021-06-19] MEDS: D5 NS 1000 ML IV SOLUTION 1,000 ML IV SCH ×3 (00:03→16:44)
[2021-06-19] MEDS: metroNIDAZOLE 500MG/100ML IVPB 100 ML IV SCH ×3 (04:22→18:01)
[2021-06-19] MEDS: CEFEPIME 1,000 MG/NS 50 ML IVPB IV SCH ×2 (05:36)
[2021-06-19 06:29] LABS: BASOPHILS % (AUTO) 0 % (0-10); EOSINOPHILS # (AUTO) 0.1 10^3/uL (0.0-0.3); EOSINOPHILS % (AUTO) 2 % (0-10); HEMATOCRIT 24 % (35-52); HEMOGLOBIN 7.5 g/dL (11.5-16.0); LYMPHOCYTES # (AUTO) 2.6 10^3/uL (1.0-4.0); LYMPHOCYTES % (AUTO) 34 % (12-44); MEAN CORPUSCULAR HEMOGLOBIN 29 pg (25-34); MEAN CORPUSCULAR HGB CONC 32 g/dL (32-36); MEAN CORPUSCULAR VOLUME 90 fL (80-99); MEAN PLATELET VOLUME 10.9 fL (9.0-12.2); MONOCYTES % (AUTO) 12 % (0-12); NEUTROPHILS # (AUTO) 3.9 10^3/uL (1.8-7.8); NEUTROPHILS % (AUTO) 51 % (42-75); PLATELET COUNT 271 10^3/uL (130-400); WHITE BLOOD COUNT 7.7 10^3/uL (4.3-11.0)
[2021-06-19 06:49] LABS: ALANINE AMINOTRANSFERASE < 6 U/L (0-55); ALBUMIN 2.2 GM/DL (3.2-4.5); ALKALINE PHOSPHATASE 30 U/L (40-136); BILIRUBIN,TOTAL 0.2 MG/DL (0.1-1.0); BUN/CREATININE RATIO 4; CALCIUM 7.2 MG/DL (8.5-10.1); CARBON DIOXIDE 25 MMOL/L (21-32); CHLORIDE 104 MMOL/L (98-107); CREATININE SERUM 0.54 MG/DL (0.60-1.30); GFR ESTIMATED 119; GLUCOSE 73 MG/DL (70-105); SODIUM 139 MMOL/L (135-145); TOTAL PROTEIN 4.7 GM/DL (6.4-8.2)
[2021-06-19] MEDS ORDERED: KCL 20 MEQ TAB (K-DUR) PO ONE (07:30)
[2021-06-19] MEDS: risperiDONE 2 MG (RisperDAL) TAB PO SCH (09:08)
[2021-06-19] MEDS: PANTOPRAZOLE 40 MG (PROTONIX) TAB PO SCH (09:08)
[2021-06-19] MEDS: POTASSIUM BICARB 20 MEQ (EFFER-K) TABLET PO SCH ×2 (09:08→19:51)
[2021-06-19] MEDS: PREGABALIN 75 MG (LYRICA) CAP PO SCH (09:08)
[2021-06-19] MEDS: lamoTRIgine 25 MG (LaMICtal) TAB PO SCH (09:08)
[2021-06-19] MEDS: POTASSIUM CL 10MEQ/50ML IVPB 50 ML IV SCH ×3 (09:09→14:44)
--- NOTE | 2021-06-19 10:04 | Progress Note ---
Subjective Subjective/Events-last exam Not feeling well, belly is hurting a lot, the diet she has she doesn't like and can't eat well. She is feeling very anxious and like she won't ever get home. Pain is getting to be way too much. Last BM the day she moved to fourth floor, last flatus yesterday or day before. Denies vomiting. Objective Exam Last Set of Vital Signs Vital Signs Date Time Temp Pulse Resp B/P (MAP) Pulse Ox O2 Delivery O2 Flow Rate FiO2 06/19/21 04:00 37.0 91 18 102/57 96 Room Air 06/14/21 19:12 21 06/14/21 16:40 6.00 Capillary Refill : Less Than 3 Seconds I&O Intake and Output 06/19/21 00:00 Intake Total 64624 ml Balance 43064 ml Intake Oral 3000 ml IV Total 75606 ml # Voids 10 General: Alert, No Acute Distress Lungs: Clear to Auscultation, Normal Air Movement Heart: Regular Rate, No Murmurs Abdomen: Normal Bowel Sounds, Soft, Other (mild diffuse ttp) Neuro: Normal Speech Results/Procedures Lab Laboratory Tests 06/18/21 16:31: Glucometer 111H 06/19/21 04:22: Glucometer 84 06/19/21 05:22: White Blood Count 7.7, Red Blood Count 2.63L, Hemoglobin 7.5L, Hematocrit 24L, Mean Corpuscular Volume 90, Mean Corpuscular Hemoglobin 29, Mean Corpuscular Hemoglobin Concent 32, Red Cell Distribution Width 12.9, Platelet Count 271, M dyana Platelet Volume 10.9, Immature Granulocyte % (Auto) 1, Neutrophils (%) (Auto) 51, Lymphocytes (%) (Auto) 34, Monocytes (%) (Auto) 12, Eosinophils (%) (Auto) 2, Basophils (%) (Auto) 0, Neutrophils # (Auto) 3.9, Lymphocytes # (Auto) 2.6, Monocytes # (Auto) 1.0, Eosinophils # (Auto) 0.1, Basophils # (Auto) 0.0, Immature Granulocyte # (Auto) 0.1, Sodium Level 139, Potassium Level 3.0L, Chloride Level 104, Carbon Dioxide Level 25, Anion Gap 10, Blood Urea Nitrogen 2L, Creatinine 0.54L, Estimat Glomerular Filtration Rate 119, BUN/Creatinine Ratio 4, Glucose Level 73, Calcium Level 7.2L, Corrected Calcium 8.6, Total Bilirubin 0.2, Aspartate Amino Transf (AST/SGOT) 14, Alanine Aminotransferase (ALT/SGPT) < 6, Alkaline Phosphatase 30L, Total Protein 4.7L, Albumin 2.2L Microbiology 06/14/21 MRSA Screen - Final, Complete 06/14/21 Blood Culture - Preliminary, Resulted No growth 06/14/21 Urine Culture - Final, Complete NO GROWTH Assessment/Plan Assessment/Plan Assessment & Plan Hypovolemic shock- resolved HAP Pneumonia- on cefepime, not requiring any supplemental oxygen Post COVID Metabolic Acidosis- resolved Hypokalemia- replace potassium and follow Leukocytosis- resolved Lactic Acidosis- resolved CHAY- resolved SBO- waiting on further bowel movements, complaining of worsening pain today, appreciate Surgery recommendations S/P Sylvain-En-Y Gastric Bypass History of Anxiety and Depression Severe iron def- s/p IV iron YING CISSE MD Jun 19, 2021 10:04
[2021-06-19] MEDS: LORazepam INJ 2 MG/ML (ATIVAN) VIAL IVP PRN ×2 (10:16→18:00)
[2021-06-19] MEDS: ENOXAPARIN 40 MG/0.4 ML (LOVENOX) SYR SC SCH (16:44)
[2021-06-19] MEDS: DIVALPROEX EXT RELEASE 250 MG (DEPAKOTE ER) TAB PO SCH (19:50)
[2021-06-19] MEDS: AMITRIPTYLINE 50 MG (ELAVIL) TAB PO SCH (19:50)
[2021-06-19] MEDS: DIVALPROEX EXT RELEASE 500 MG (DEPAKOTE ER) TAB PO SCH (19:50)
[2021-06-19] MEDS: ZOLPIDEM 5 MG (AMBIEN) TAB PO SCH (19:51)
[2021-06-20] MEDS: D5 NS 1000 ML IV SOLUTION 1,000 ML IV SCH ×2 (00:58→03:57)
[2021-06-20 04:18] LABS: BASOPHILS % (AUTO) 0 % (0-10); EOSINOPHILS # (AUTO) 0.2 10^3/uL (0.0-0.3); EOSINOPHILS % (AUTO) 2 % (0-10); HEMATOCRIT 26 % (35-52); HEMOGLOBIN 8.2 g/dL (11.5-16.0); LYMPHOCYTES # (AUTO) 2.4 10^3/uL (1.0-4.0); LYMPHOCYTES % (AUTO) 35 % (12-44); MEAN CORPUSCULAR HEMOGLOBIN 28 pg (25-34); MEAN CORPUSCULAR HGB CONC 31 g/dL (32-36); MEAN CORPUSCULAR VOLUME 90 fL (80-99); MONOCYTES # (AUTO) 0.8 10^3/uL (0.0-1.0); MONOCYTES % (AUTO) 11 % (0-12); NEUTROPHILS # (AUTO) 3.6 10^3/uL (1.8-7.8); NEUTROPHILS % (AUTO) 51 % (42-75); PLATELET COUNT 313 10^3/uL (130-400); WHITE BLOOD COUNT 6.9 10^3/uL (4.3-11.0)
[2021-06-20 04:33] LABS: ALBUMIN 2.3 GM/DL (3.2-4.5); CHLORIDE 102 MMOL/L (98-107); POTASSIUM 3.6 MMOL/L (3.6-5.0); SODIUM 141 MMOL/L (135-145)
[2021-06-20 04:34] LABS: CALCIUM 7.9 MG/DL (8.5-10.1)
[2021-06-20 04:35] LABS: GLUCOSE 82 MG/DL (70-105); TOTAL PROTEIN 4.9 GM/DL (6.4-8.2)
[2021-06-20 04:36] LABS: CARBON DIOXIDE 30 MMOL/L (21-32)
[2021-06-20 04:37] LABS: BILIRUBIN,TOTAL 0.2 MG/DL (0.1-1.0)
[2021-06-20 04:39] LABS: ALKALINE PHOSPHATASE 29 U/L (40-136); CREATININE SERUM 0.55 MG/DL (0.60-1.30); GFR ESTIMATED 119
[2021-06-20 04:40] LABS: BUN/CREATININE RATIO 4
[2021-06-20 04:42] LABS: ALANINE AMINOTRANSFERASE 8 U/L (0-55)
[2021-06-20] MEDS: ONDANSETRON 4 MG/2 ML (SDV) Z0FRAN IV PRN (06:07)
[2021-06-20] MEDS: POTASSIUM BICARB 20 MEQ (EFFER-K) TABLET PO SCH ×2 (08:44→20:34)
[2021-06-20] MEDS: IRON SUCROSE 200 MG/10 ML (VENOFER) VIAL IV SCH (08:44)
[2021-06-20] MEDS: PREGABALIN 75 MG (LYRICA) CAP PO SCH (08:45)
[2021-06-20] MEDS: lamoTRIgine 25 MG (LaMICtal) TAB PO SCH (08:45)
[2021-06-20] MEDS: PANTOPRAZOLE 40 MG (PROTONIX) TAB PO SCH (08:45)
[2021-06-20] MEDS: risperiDONE 2 MG (RisperDAL) TAB PO SCH (08:45)
--- NOTE | 2021-06-20 14:53 | Progress Note ---
Subjective Subjective/Events-last exam Pt states she has still not had a bowel movement and reports vomiting, but nursing has not observed. She doesn't like her diet. She is still having abdominal pain. Objective Exam Last Set of Vital Signs Vital Signs Date Time Temp Pulse Resp B/P (MAP) Pulse Ox O2 Delivery O2 Flow Rate FiO2 06/20/21 11:15 36.3 79 18 100/57 98 Room Air 06/14/21 19:12 21 06/14/21 16:40 6.00 Capillary Refill : Less Than 3 Seconds I&O Intake and Output 06/20/21 00:00 Intake Total 8900 ml Balance 8900 ml Intake Oral 2500 ml IV Total 6400 ml # Voids 8 General: Alert, No Acute Distress Abdomen: Soft, Other (mild diffuse ttp) Psych/Mental Status: Mood NL Results/Procedures Lab Laboratory Tests 06/19/21 15:57: Glucometer 85 06/19/21 20:12: Glucometer 83 06/20/21 04:00: White Blood Count 6.9, Red Blood Count 2.91L, Hemoglobin 8.2L, Hematocrit 26L, Mean Corpuscular Volume 90, Mean Corpuscular Hemoglobin 28, Mean Corpuscular Hemoglobin Concent 31L, Red Cell Distribution Width 12.8, Platelet Count 313, Mean Platelet Volume 10.0, Immature Granulocyte % (Auto) 1, Neutrophils (%) (Auto) 51, Lymphocytes (%) (Auto) 35, Monocytes (%) (Auto) 11, Eosinophils (%) (Auto) 2, Basophils (%) (Auto) 0, Neutrophils # (Auto) 3.6, Lymphocytes # (Auto) 2.4, Monocytes # (Auto) 0.8, Eosinophils # (Auto) 0.2, Basophils # (Auto) 0.0, Immature Granulocyte # (Auto) 0.1, Sodium Level 141, Potassium Level 3.6, Chloride Level 102, Carbon Dioxide Level 30, Anion Gap 9, Blood Urea Nitrogen < 2L, Creatinine 0.55L, Estimat Glomerular Filtration Rate 119, BUN/Creatinine Ratio 4, Glucose Level 82, Calcium Level 7.9L, Corrected Calcium 9.3, Total Bilirubin 0.2, Aspartate Amino Transf (AST/SGOT) 15, Alanine Aminotransferase (ALT/SGPT) 8, Alkaline Phosphatase 29L, Total Protein 4.9L, Albumin 2.3L 06/20/21 10:28: Glucometer 83 Microbiology 06/14/21 MRSA Screen - Final, Complete 06/14/21 Blood Culture - Final, Complete No growth 06/14/21 Urine Culture - Final, Complete NO GROWTH Assessment/Plan Assessment/Plan Assessment & Plan Hypovolemic shock- resolved HAP Pneumonia- completed cefepime, not requiring any supplemental oxygen Post COVID Metabolic Acidosis- resolved Hypokalemia- replace potassium and follow Leukocytosis- resolved Lactic Acidosis- resolved CHAY- resolved SBO- waiting on further bowel movements, complaining of worsening pain today, appreciate Surgery recommendations S/P Sylvain-En-Y Gastric Bypass History of Anxiety and Depression Severe iron def- s/p IV iron YING CISSE MD Jun 20, 2021 14:53
[2021-06-20] MEDS: ENOXAPARIN 40 MG/0.4 ML (LOVENOX) SYR SC SCH (17:25)
[2021-06-20] MEDS: DIVALPROEX EXT RELEASE 250 MG (DEPAKOTE ER) TAB PO SCH (20:34)
[2021-06-20] MEDS: ZOLPIDEM 5 MG (AMBIEN) TAB PO SCH (20:34)
[2021-06-20] MEDS: DIVALPROEX EXT RELEASE 500 MG (DEPAKOTE ER) TAB PO SCH (20:34)
[2021-06-20] MEDS: AMITRIPTYLINE 50 MG (ELAVIL) TAB PO SCH (20:34)
[2021-06-21 04:48] LABS: BASOPHILS % (AUTO) 0 % (0-10); EOSINOPHILS # (AUTO) 0.2 10^3/uL (0.0-0.3); EOSINOPHILS % (AUTO) 2 % (0-10); HEMATOCRIT 25 % (35-52); HEMOGLOBIN 7.7 g/dL (11.5-16.0); LYMPHOCYTES # (AUTO) 2.5 10^3/uL (1.0-4.0); LYMPHOCYTES % (AUTO) 31 % (12-44); MEAN CORPUSCULAR HEMOGLOBIN 28 pg (25-34); MEAN CORPUSCULAR HGB CONC 31 g/dL (32-36); MEAN CORPUSCULAR VOLUME 91 fL (80-99); MEAN PLATELET VOLUME 10.1 fL (9.0-12.2); MONOCYTES # (AUTO) 0.7 10^3/uL (0.0-1.0); MONOCYTES % (AUTO) 9 % (0-12); NEUTROPHILS # (AUTO) 4.6 10^3/uL (1.8-7.8); NEUTROPHILS % (AUTO) 57 % (42-75); PLATELET COUNT 327 10^3/uL (130-400); WHITE BLOOD COUNT 8.1 10^3/uL (4.3-11.0)
[2021-06-21 05:00] LABS: ALBUMIN 2.2 GM/DL (3.2-4.5); CHLORIDE 102 MMOL/L (98-107); POTASSIUM 3.7 MMOL/L (3.6-5.0); SODIUM 141 MMOL/L (135-145)
[2021-06-21 05:01] LABS: CALCIUM 7.8 MG/DL (8.5-10.1)
[2021-06-21 05:02] LABS: GLUCOSE 77 MG/DL (70-105); TOTAL PROTEIN 4.7 GM/DL (6.4-8.2)
[2021-06-21 05:04] LABS: BILIRUBIN,TOTAL 0.2 MG/DL (0.1-1.0); CARBON DIOXIDE 31 MMOL/L (21-32)
[2021-06-21 05:06] LABS: ALKALINE PHOSPHATASE 29 U/L (40-136); CREATININE SERUM 0.58 MG/DL (0.60-1.30); GFR ESTIMATED 117
[2021-06-21 05:07] LABS: BUN/CREATININE RATIO 3
[2021-06-21 05:09] LABS: ALANINE AMINOTRANSFERASE 12 U/L (0-55)
[2021-06-21] MEDS: risperiDONE 2 MG (RisperDAL) TAB PO SCH (08:09)
[2021-06-21] MEDS: POTASSIUM BICARB 20 MEQ (EFFER-K) TABLET PO SCH ×2 (08:10→21:22)
[2021-06-21] MEDS: PREGABALIN 75 MG (LYRICA) CAP PO SCH (08:10)
[2021-06-21] MEDS: lamoTRIgine 25 MG (LaMICtal) TAB PO SCH (08:10)
[2021-06-21] MEDS: PANTOPRAZOLE 40 MG (PROTONIX) TAB PO SCH (08:10)
--- NOTE | 2021-06-21 08:37 | Diagnostic Imaging Report ---
INDICATION: Abdominal pain. TECHNIQUE/COMPARISON: An abdominal film was obtained at 8:24 AM and compared to 06/14/2021. FINDINGS: Distended small bowel loops on the left side of the abdomen are again noted, similar in caliber to the prior study. There is gas throughout the colon. There are postop changes with surgical sutures in the left upper quadrant and right lower quadrant. There are postop changes in the lumbar spine. An IUD is in place over the mid pelvis. IMPRESSION: Persistent dilatation of small bowel loops on the left side of the abdomen. These findings may represent an ileus or partial obstruction. There is gas throughout the nondistended colon. There are postop changes as above. Dictated by: Dictated on workstation # [id number]
--- NOTE | 2021-06-21 09:33 | Progress Note ---
Subjective Subjective/Events-last exam Pt states she continues to have abdominal pain, passing gas, no bowel movement. Objective Exam Last Set of Vital Signs Vital Signs Date Time Temp Pulse Resp B/P (MAP) Pulse Ox O2 Delivery O2 Flow Rate FiO2 06/21/21 08:16 93 Room Air 6.00 06/21/21 03:58 36.8 85 20 102/62 Capillary Refill : Less Than 3 Seconds I&O Intake and Output 06/21/21 00:00 Intake Total 37870 ml Balance 30255 ml Intake Oral 1660 ml IV Total 9000 ml # Voids 7 # Bowel Movements 2 General: Alert, No Acute Distress Lungs: Clear to Auscultation, Normal Air Movement Heart: Regular Rate, No Murmurs Abdomen: Normal Bowel Sounds, Soft, No Tenderness Neuro: Normal Speech Psych/Mental Status: Mood NL Results/Procedures Lab Laboratory Tests 06/20/21 10:28: Glucometer 83 06/20/21 16:26: Glucometer 86 06/20/21 19:56: Glucometer 85 06/21/21 04:30: White Blood Count 8.1, Red Blood Count 2.76L, Hemoglobin 7.7L, Hematocrit 25L, Mean Corpuscular Volume 91, Mean Corpuscular Hemoglobin 28, Mean Corpuscular Hemoglobin Concent 31L, Red Cell Distribution Width 13.2, Platelet Count 327, Mean Platelet Volume 10.1, Immature Granulocyte % (Auto) 1, Neutrophils (%) (Auto) 57, Lymphocytes (%) (Auto) 31, Monocytes (%) (Auto) 9, Eosinophils (%) (Auto) 2, Basophils (%) (Auto) 0, Neutrophils # (Auto) 4.6, Lymphocytes # (Auto) 2.5, Monocytes # (Auto) 0.7, Eosinophils # (Auto) 0.2, Basophils # (Auto) 0.0, Immature Granulocyte # (Auto) 0.1, Sodium Level 141, Potassium Level 3.7, Chloride Level 102, Carbon Dioxide Level 31, Anion Gap 8, Blood Urea Nitrogen < 2L, Creatinine 0.58L, Estimat Glomerular Filtration Rate 117, BUN/Creatinine Ratio 3, Glucose Level 77, Calcium Level 7.8L, Corrected Calcium 9.2, Total Bilirubin 0.2, Aspartate Amino Transf (AST/SGOT) 22, Alanine Aminotransferase (ALT/SGPT) 12, Alkaline Phosphatase 29L, Total Protein 4.7L, Albumin 2.2L 06/21/21 07:39: Glucometer 75 Microbiology 06/14/21 MRSA Screen - Final, Complete 06/14/21 Blood Culture - Final, Complete No growth 06/14/21 Urine Culture - Final, Complete NO GROWTH Assessment/Plan Assessment/Plan Assessment & Plan Hypovolemic shock- resolved HAP Pneumonia- completed cefepime, not requiring any supplemental oxygen Post COVID, has to remain in isolation until 06/28 per infection control Metabolic Acidosis- resolved Hypokalemia- replace potassium and follow Leukocytosis- resolved Lactic Acidosis- resolved CHAY- resolved SBO- waiting on further bowel movements, complaining of worsening pain today, appreciate Surgery recommendations 06/21- KUB today with persistent dilated bowel loops, although exam is benign, appreciate Surgery recommendations. S/P Sylvain-En-Y Gastric Bypass History of Anxiety and Depression Severe iron def- s/p IV iron YING CISSE MD Jun 21, 2021 09:33
--- NOTE | 2021-06-21 10:35 | Progress Note ---
Subjective Date Seen by a Provider: Jun 21, 2021 Time Seen by a Provider: 10:00 Subjective/Events-last exam still reports having crampy abd pain on intermittent basis. axr from today reviewed. no abd distention. Objective Exam Vital Signs Date Time Temp Pulse Resp B/P (MAP) Pulse Ox O2 Delivery O2 Flow Rate FiO2 06/21/21 08:30 36.9 78 20 94/56 95 Room Air 06/21/21 08:16 93 Room Air 6.00 06/21/21 03:58 36.8 85 20 102/62 93 Room Air 06/21/21 00:48 36.6 95 20 86/51 94 Room Air 06/20/21 21:11 Room Air 06/20/21 19:30 35.3 106 18 92/51 97 Room Air 06/20/21 15:30 36.0 91 18 84/53 98 Room Air 06/20/21 11:15 36.3 79 18 100/57 98 Room Air I & O 06/21/21 07:00 Intake Total 09179 ml Balance 25389 ml Capillary Refill : Less Than 3 Seconds General Appearance: No Apparent Distress HEENT: PERRL/EOMI Neck: Full Range of Motion Respiratory: Chest Non Tender, Lungs Clear Cardiovascular: Regular Rate, Rhythm Gastrointestinal: soft, tenderness Extremity: Normal Capillary Refill Neurologic/Psychiatric: Alert, Oriented x3 Skin: Normal Color Lymphatic: No Adenopathy Results Lab Laboratory Tests 06/20/21 10:28: Glucometer 83 06/20/21 16:26: Glucometer 86 06/20/21 19:56: Glucometer 85 06/21/21 04:30: White Blood Count 8.1, Red Blood Count 2.76L, Hemoglobin 7.7L, Hematocrit 25L, Mean Corpuscular Volume 91, Mean Corpuscular Hemoglobin 28, Mean Corpuscular Hemoglobin Concent 31L, Red Cell Distribution Width 13.2, Platelet Count 327, Mean Platelet Volume 10.1, Immature Granulocyte % (Auto) 1, Neutrophils (%) (Auto) 57, Lymphocytes (%) (Auto) 31, Monocytes (%) (Auto) 9, Eosinophils (%) (Auto) 2, Basophils (%) (Auto) 0, Neutrophils # (Auto) 4.6, Lymphocytes # (Auto) 2.5, Monocytes # (Auto) 0.7, Eosinophils # (Auto) 0.2, Basophils # (Auto) 0.0, Immature Granulocyte # (Auto) 0.1, Sodium Level 141, Potassium Level 3.7, Chloride Level 102, Carbon Dioxide Level 31, Anion Gap 8, Blood Urea Nitrogen < 2L, Creatinine 0.58L, Estimat Glomerular Filtration Rate 117, BUN/Creatinine Ratio 3, Glucose Level 77, Calcium Level 7.8L, Corrected Calcium 9.2, Total Bilirubin 0.2, Aspartate Amino Transf (AST/SGOT) 22, Alanine Aminotransferase (ALT/SGPT) 12, Alkaline Phosphatase 29L, Total Protein 4.7L, Albumin 2.2L 06/21/21 07:39: Glucometer 75 Microbiology 06/14/21 MRSA Screen - Final, Complete 06/14/21 Blood Culture - Final, Complete No growth 06/14/21 Urine Culture - Final, Complete NO GROWTH Assessment/Plan Assessment/Plan Assess & Plan/Chief Complaint PSBO vs. ileus with covid pneumonia and UTI. still having intermittent crampy abd pain and paucity of bowel fxn. surgical hx included laparoscopic gastric sleeve resection and then converted to naman-en-y bypass. 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 also could be related to jejuno-jejunal anastomotic sticture or internal hernia. in this scenario I would normally refer patient back to her original bariatric surgeon however bed likely unavailable. if sx persist and she understands risks and benefits of surgery done at this institution, will then proceed with dx laparoscopy. KHURRAM LEON MD Jun 21, 2021 10:35
--- NOTE | 2021-06-21 11:06 | Progress Note-Pre Operative ---
Pre-Operative Progress Note H&P Reviewed The H&P was reviewed, patient examined and no changes noted. Date Seen by Provider: Jun 21, 2021 Time Seen by Provider: 13:00 Date H&P Reviewed: Jun 21, 2021 Time H&P Reviewed: 13:00 Pre-Operative Diagnosis: post-prandial crampy abd pain s/p naman-KHURRAM Baugh MD Jun 21, 2021 11:06
[2021-06-21] MEDS: ONDANSETRON 4 MG/2 ML (SDV) Z0FRAN IV PRN ×2 (11:38→22:52)
[2021-06-21] MEDS ORDERED: FENTANYL PATCH REMOVAL TP SCH (14:59)
[2021-06-21] MEDS ORDERED: fentaNYL PATCH 50 MCG (DURAGESIC) TD SCH (15:00)
[2021-06-21] MEDS: LORazepam INJ 2 MG/ML (ATIVAN) VIAL IVP PRN (16:02)
[2021-06-21] MEDS: ENOXAPARIN 40 MG/0.4 ML (LOVENOX) SYR SC SCH (16:02)
[2021-06-21] MEDS: ONDANSETRON 4 MG (ZOFRAN) ORAL DISSOLVE TAB PO PRN (17:16)
[2021-06-21] MEDS: AMITRIPTYLINE 50 MG (ELAVIL) TAB PO SCH (21:22)
[2021-06-21] MEDS: ZOLPIDEM 5 MG (AMBIEN) TAB PO SCH (21:22)
[2021-06-21] MEDS: DIVALPROEX EXT RELEASE 500 MG (DEPAKOTE ER) TAB PO SCH (21:22)
[2021-06-21] MEDS: DIVALPROEX EXT RELEASE 250 MG (DEPAKOTE ER) TAB PO SCH (21:22)
[2021-06-22 04:48] LABS: BASOPHILS % (AUTO) 0 % (0-10); EOSINOPHILS # (AUTO) 0.1 10^3/uL (0.0-0.3); EOSINOPHILS % (AUTO) 1 % (0-10); HEMATOCRIT 25 % (35-52); HEMOGLOBIN 7.5 g/dL (11.5-16.0); LYMPHOCYTES # (AUTO) 2.1 10^3/uL (1.0-4.0); LYMPHOCYTES % (AUTO) 25 % (12-44); MEAN CORPUSCULAR HEMOGLOBIN 28 pg (25-34); MEAN CORPUSCULAR HGB CONC 31 g/dL (32-36); MEAN CORPUSCULAR VOLUME 93 fL (80-99); MONOCYTES # (AUTO) 0.6 10^3/uL (0.0-1.0); MONOCYTES % (AUTO) 7 % (0-12); NEUTROPHILS # (AUTO) 5.6 10^3/uL (1.8-7.8); NEUTROPHILS % (AUTO) 66 % (42-75); PLATELET COUNT 335 10^3/uL (130-400); WHITE BLOOD COUNT 8.5 10^3/uL (4.3-11.0)
[2021-06-22 04:58] LABS: ALBUMIN 2.2 GM/DL (3.2-4.5); POTASSIUM 4.1 MMOL/L (3.6-5.0)
[2021-06-22 04:59] LABS: CALCIUM 7.6 MG/DL (8.5-10.1)
[2021-06-22 05:00] LABS: TOTAL PROTEIN 4.7 GM/DL (6.4-8.2)
[2021-06-22 05:02] LABS: BILIRUBIN,TOTAL 0.2 MG/DL (0.1-1.0)
[2021-06-22 05:04] LABS: CREATININE SERUM 0.61 MG/DL (0.60-1.30)
[2021-06-22] MEDS: IRON SUCROSE 200 MG/10 ML (VENOFER) VIAL IV SCH (09:19)
[2021-06-22] MEDS: LORazepam INJ 2 MG/ML (ATIVAN) VIAL IVP PRN (13:22)
[2021-06-22] MEDS ORDERED: LACTATED RINGERS 1,000 ML IV ONE (13:52)
[2021-06-22] MEDS ORDERED: HURRICAINE EXT TUBE (BENZOCAINE) ONE (14:20)
[2021-06-22] MEDS ORDERED: LIDOCAINE JELLY 2% 6 ML SYRINGE ONE (14:20)
[2021-06-22] MEDS ORDERED: LACTATED RINGERS 1,000 ML IV STA (14:25)
[2021-06-22] MEDS ORDERED: HURRICAINE EXT TUBE (BENZOCAINE) XX PRN (14:30)
[2021-06-22] MEDS ORDERED: LIDOCAINE JELLY 2% 6 ML SYRINGE MM PRN (14:30)
[2021-06-22] MEDS ORDERED: proPOfol 200 MG/20 ML (DIPRIVAN) VIAL IV ONE (14:54)
[2021-06-22] MEDS ORDERED: MIDAZOLAM 2 MG/2 ML (VERSED) VIAL ONE (14:54)
[2021-06-22 15:20] VITALS: BP 105/61
--- NOTE | 2021-06-22 15:22 | Progress Note ---
Subjective Subjective/Events-last exam Afebrile, denies concerns, still now bowel movement. Objective Exam Last Set of Vital Signs Vital Signs Date Time Temp Pulse Resp B/P (MAP) Pulse Ox O2 Delivery O2 Flow Rate FiO2 06/22/21 09:29 Room Air 06/22/21 07:18 36.5 83 18 105/62 96 06/21/21 08:16 6.00 Capillary Refill : Less Than 3 Seconds I&O Intake and Output 06/22/21 00:00 Intake Total 60829 ml Balance 02850 ml Intake Oral 1660 ml IV Total 9000 ml # Voids 5 General: Alert, No Acute Distress Lungs: Clear to Auscultation, Normal Air Movement Heart: Regular Rate, No Murmurs Extremities: No Edema Psych/Mental Status: Mood NL Results/Procedures Lab Laboratory Tests 06/21/21 20:53: Glucometer 70 06/22/21 04:30: White Blood Count 8.5, Red Blood Count 2.65L, Hemoglobin 7.5L, Hematocrit 25L, Mean Corpuscular Volume 93, Mean Corpuscular Hemoglobin 28, Mean Corpuscular Hemoglobin Concent 31L, Red Cell Distribution Width 13.4, Platelet Count 335, Mean Platelet Volume 10.0, Immature Granulocyte % (Auto) 1, Neutrophils (%) (Auto) 66, Lymphocytes (%) (Auto) 25, Monocytes (%) (Auto) 7, Eosinophils (%) (Auto) 1, Basophils (%) (Auto) 0, Neutrophils # (Auto) 5.6, Lymphocytes # (Auto) 2.1, Monocytes # (Auto) 0.6, Eosinophils # (Auto) 0.1, Basophils # (Auto) 0.0, Immature Granulocyte # (Auto) 0.1, Sodium Level 138, Potassium Level 4.1, Chloride Level 98, Carbon Dioxide Level 32, Anion Gap 8, Blood Urea Nitrogen 5L, Creatinine 0.61, Estimat Glomerular Filtration Rate 116, BUN/Creatinine Ratio 8, Glucose Level 77, Calcium Level 7.6L, Corrected Calcium 9.0, Total Bilirubin 0.2, Aspartate Amino Transf (AST/SGOT) 24, Alanine Aminotransferase (ALT/SGPT) 13, Alkaline Phosphatase 35L, Total Protein 4.7L, Albumin 2.2L Microbiology 06/14/21 MRSA Screen - Final, Complete 06/14/21 Blood Culture - Final, Complete No growth 06/14/21 Urine Culture - Final, Complete NO GROWTH Assessment/Plan Assessment/Plan Assessment & Plan Hypovolemic shock- resolved HAP Pneumonia- completed cefepime, not requiring any supplemental oxygen Post COVID, has to remain in isolation until 06/28 per infection control Metabolic Acidosis- resolved Hypokalemia- replace potassium and follow Leukocytosis- resolved Lactic Acidosis- resolved CHAY- resolved SBO- waiting on further bowel movements, complaining of worsening pain today, appreciate Surgery recommendations 06/21- KUB today with persistent dilated bowel loops, although exam is benign, appreciate Surgery recommendations. 06/22- plan for ex lap per Dr. Prado. S/P Sylvain-En-Y Gastric Bypass History of Anxiety and Depression Severe iron def- s/p IV iron YING CISSE MD Jun 22, 2021 15:22
--- NOTE | 2021-06-22 15:23 | Progress Note-Post Operative ---
Post-Operative Progess Note Surgeon (s)/Partridge Farmer (s) Surgeon KHURRAM LEON MD Partridge Farmer: none Pre-Operative Diagnosis post-prandial crampy abd pain s/p naman-en-y Post-Operative Diagnosis reflux esophagitis(grade B), small HH(1cm), moderate gastritis, gastro-jejunal anastomotic stricture, retained food naman limb. Procedure & Operative Findings Date of Procedure 06/22/21 Procedure Performed/Findings EGD with bx and balloon dilatation. Anesthesia Type mac Estimated Blood Loss Estimated blood loss (mL): minimal Specimens/Packing Specimens Removed gastric pouch, ge jxn KHURRAM LEON MD Jun 22, 2021 15:23
[2021-06-22 15:25] VITALS: BP 82/50
--- NOTE | 2021-06-22 16:21 | OPERATIVE REPORT ---
DATE OF SERVICE: 06/22/2021 ATTENDING IV TECHNICIAN: [facility]. ADMITTING PHYSICIAN: Dr. Francisco. PREOPERATIVE DIAGNOSES: Postprandial crampy abdominal pain, nausea, vomiting with a past history of gastric sleeve resection and eventual conversion to Sylvain-en-Y gastric bypass. POSTOPERATIVE DIAGNOSES: Reflux esophagitis [place] grade B, small hiatal hernia 1 to 1.5 cm in size, moderate pouch gastritis, gastrojejunal anastomotic stricture, patent Sylvain limb; however, food substance within the Sylvain limb which may be indicate a distal stricture. PROCEDURE PERFORMED: EGD with biopsy and balloon dilatation. SURGEON: Rachell Prado MD ANESTHESIA: Monitored anesthesia care. ESTIMATED BLOOD LOSS: Minimal. FINDINGS: Same as postoperative diagnoses. DISPOSITION: The patient tolerated the procedure well. INDICATIONS: The patient is a 40-year-old female who was seen recently on a different admission for crampy abdominal pain and nausea, vomiting. She was medically managed and did improve and was able to tolerate a diet. She presented to [facility] with altered mental status as well as some form of undifferentiated shock and hypotension. She was found to be COVID positive; however, this saw a few weeks ago. On her initial admission, she underwent a Gastrografin small bowel follow through, which eventually went through and she was able to have multiple bowel movements. Since admission, she was medically managed in the ICU until her blood pressure was stable and since that time, she has been transferred to the regular general medical floor and continues to improve; however, has these intermittent episodes of crampy abdominal pain usually after eating a meal. She reports that the onset of symptoms is usually 15-30 minutes after eating a meal and a crampy pain is more mid abdominal to right lateral portion of the abdomen. She does report occasional episodes of regurgitation and does have episodes of reflux as well. DESCRIPTION OF PROCEDURE: The patient was brought to the endoscopy suite, laid in the left lateral decubitus position. After adequate IV pain and sedative medications and monitored anesthesia care, the mouthpiece was applied. The endoscope was placed in the mouth, visualizing the pharynx and hypopharyngeal region. Vocal cords, epiglottis and vallecula identified and appeared to be normal. The endoscope was then gently intubated, esophageal opening and esophagus insufflated. The endoscope was then advanced to the first, second and third portion of esophagus at the level of GE junction, a reflux esophagitis, [place] grade B identified. There were no ulcers or strictures identified and biopsy was taken with forceps with visualization of good hemostasis. The endoscope was then advanced into the gastric pouch, which was of normal size. There was a pouch gastritis and exposed abdi from the previous what appears to be gastrojejunal staple anastomosis. The endoscope was retroflexed and there was a small hiatal hernia approximately 1.5 cm in size. There was a gastrojejunal anastomotic stricture. The endoscope was able to go through the stricture into the Sylvain limb, which was widely patent; however, there was retained food substance within the Sylvain limb. It was then decided to proceed with balloon dilatation of gastrojejunal stricture and the balloon was placed into the Sylvain limb and pulled back to the area of stricture. We then proceeded in a graded stepwise fashion from 2, 4 and then eventually 4.5 atmospheres of pressure with moderate resistance or approximately 19 mm in luminal diameter and left this in place for 60 seconds. The balloon was then desufflated and removed with visualization of good hemostasis as well as no mucosal tears. The endoscope was then slowly withdrawn while taking a second look and suctioning of residual air with no additional findings. The patient tolerated the procedure well. We will have her continue with Protonix 40 mg daily and resume a regular diet and see if she continues to be symptomatic. If she does, we feel that there is likely some form of jejunojejunal stricture versus an internal hernia within the mesentery or in Wright's defect in the retrocolic region. Again, normally we would refer patients that have had previous multiple bariatric procedures done by a different surgeon, we will refer the patient back to that surgeon; however, due to the circumstances with COVID-19 and bed shortage that may not be an option and she is in full understanding of the risks and benefits of this and we will see how she does and if she continues to have symptoms, she may opt for a diagnostic laparoscopy as well as possible revision of the gastrojejunal anastomosis or reduction and repair of internal herniation. Job ID: [id number] DocumentID: [id number] Dictated Date: 06/22/2021 15:39:43 Global Human Resources Director Date: 06/22/2021 16:20:47 Dictated By: MD FRANK JAIME
[2021-06-22] MEDS: PANTOPRAZOLE 40 MG (PROTONIX) TAB PO SCH (17:06)
[2021-06-22] MEDS: lamoTRIgine 25 MG (LaMICtal) TAB PO SCH (17:07)
[2021-06-22] MEDS: PREGABALIN 75 MG (LYRICA) CAP PO SCH (17:07)
[2021-06-22] MEDS: ENOXAPARIN 40 MG/0.4 ML (LOVENOX) SYR SC SCH (17:08)
[2021-06-22] MEDS: risperiDONE 2 MG (RisperDAL) TAB PO SCH (17:08)
[2021-06-22] MEDS: DIVALPROEX EXT RELEASE 250 MG (DEPAKOTE ER) TAB PO SCH (21:02)
[2021-06-22] MEDS: DIVALPROEX EXT RELEASE 500 MG (DEPAKOTE ER) TAB PO SCH (21:02)
[2021-06-22] MEDS: ONDANSETRON 4 MG/2 ML (SDV) Z0FRAN IV PRN (21:02)
[2021-06-22] MEDS: POTASSIUM BICARB 20 MEQ (EFFER-K) TABLET PO SCH (21:03)
[2021-06-22] MEDS: AMITRIPTYLINE 50 MG (ELAVIL) TAB PO SCH (21:03)
[2021-06-22] MEDS: ZOLPIDEM 5 MG (AMBIEN) TAB PO SCH (21:52)
[2021-06-23 08:29] LABS: BASOPHILS % (AUTO) 0 % (0-10); EOSINOPHILS # (AUTO) 0.1 10^3/uL (0.0-0.3); EOSINOPHILS % (AUTO) 1 % (0-10); HEMATOCRIT 27 % (35-52); HEMOGLOBIN 8.1 g/dL (11.5-16.0); LYMPHOCYTES # (AUTO) 2.7 10^3/uL (1.0-4.0); LYMPHOCYTES % (AUTO) 37 % (12-44); MEAN CORPUSCULAR HEMOGLOBIN 28 pg (25-34); MEAN CORPUSCULAR HGB CONC 30 g/dL (32-36); MEAN CORPUSCULAR VOLUME 94 fL (80-99); MEAN PLATELET VOLUME 9.9 fL (9.0-12.2); MONOCYTES # (AUTO) 0.6 10^3/uL (0.0-1.0); MONOCYTES % (AUTO) 8 % (0-12); NEUTROPHILS # (AUTO) 3.7 10^3/uL (1.8-7.8); NEUTROPHILS % (AUTO) 52 % (42-75); PLATELET COUNT 378 10^3/uL (130-400); WHITE BLOOD COUNT 7.1 10^3/uL (4.3-11.0)
[2021-06-23 08:48] LABS: ALBUMIN 2.5 GM/DL (3.2-4.5); BILIRUBIN,TOTAL 0.2 MG/DL (0.1-1.0); CALCIUM 8.1 MG/DL (8.5-10.1); CREATININE SERUM 0.65 MG/DL (0.60-1.30); POTASSIUM 4.1 MMOL/L (3.6-5.0); TOTAL PROTEIN 5.7 GM/DL (6.4-8.2)
[2021-06-23] MEDS: risperiDONE 2 MG (RisperDAL) TAB PO SCH (09:48)
[2021-06-23] MEDS: POTASSIUM BICARB 20 MEQ (EFFER-K) TABLET PO SCH ×2 (09:48→21:12)
[2021-06-23] MEDS: lamoTRIgine 25 MG (LaMICtal) TAB PO SCH (09:48)
[2021-06-23] MEDS: PANTOPRAZOLE 40 MG (PROTONIX) TAB PO SCH (09:49)
[2021-06-23] MEDS: PREGABALIN 75 MG (LYRICA) CAP PO SCH (09:49)
--- NOTE | 2021-06-23 11:25 | Progress Note ---
Subjective Date Seen by a Provider: Jun 23, 2021 Time Seen by a Provider: 11:00 Subjective/Events-last exam doing ok. still has significant crampy abd pain usually at night. tolerating liquids/solids however extremely delayed. Objective Exam Vital Signs Date Time Temp Pulse Resp B/P (MAP) Pulse Ox O2 Delivery O2 Flow Rate FiO2 06/23/21 07:58 35.8 91 20 92/55 97 Nasal Cannula 2.00 06/23/21 06:35 99/60 06/23/21 00:23 36.8 90 18 90/51 91 Nasal Cannula 2.00 06/22/21 21:00 Room Air 06/22/21 16:33 36.4 85 18 88/51 98 Room Air 06/22/21 16:10 Room Air 0.00 06/22/21 15:25 98 16 98 Room Air 06/22/21 15:20 83 16 100 OxyMask 10 I & O 06/23/21 07:00 Intake Total 5460 ml Balance 5460 ml Capillary Refill : Less Than 3 Seconds General Appearance: No Apparent Distress HEENT: PERRL/EOMI Neck: Full Range of Motion Respiratory: Chest Non Tender, Lungs Clear Cardiovascular: Regular Rate, Rhythm Gastrointestinal: soft, tenderness Extremity: Normal Capillary Refill Neurologic/Psychiatric: Alert, Oriented x3 Skin: Normal Color Lymphatic: No Adenopathy Results Lab Laboratory Tests 06/23/21 08:20: White Blood Count 7.1, Red Blood Count 2.85L, Hemoglobin 8.1L, Hematocrit 27L, Mean Corpuscular Volume 94, Mean Corpuscular Hemoglobin 28, Mean Corpuscular Hem oglobin Concent 30L, Red Cell Distribution Width 13.8, Platelet Count 378, Mean Platelet Volume 9.9, Immature Granulocyte % (Auto) 1, Neutrophils (%) (Auto) 52, Lymphocytes (%) (Auto) 37, Monocytes (%) (Auto) 8, Eosinophils (%) (Auto) 1, Basophils (%) (Auto) 0, Neutrophils # (Auto) 3.7, Lymphocytes # (Auto) 2.7, Monocytes # (Auto) 0.6, Eosinophils # (Auto) 0.1, Basophils # (Auto) 0.0, Immature Granulocyte # (Auto) 0.1, Sodium Level 140, Potassium Level 4.1, Chloride Level 98, Carbon Dioxide Level 35H, Anion Gap 7, Blood Urea Nitrogen 8, Creatinine 0.65, Estimat Glomerular Filtration Rate 114, BUN/Creatinine Ratio 12, Glucose Level 77, Calcium Level 8.1L, Corrected Calcium 9.3, Total Bilirubin 0.2, Aspartate Amino Transf (AST/SGOT) 29, Alanine Aminotransferase (ALT/SGPT) 15, Alkaline Phosphatase 35L, Total Protein 5.7L, Albumin 2.5L Microbiology 06/14/21 MRSA Screen - Final, Complete 06/14/21 Blood Culture - Final, Complete No growth 06/14/21 Urine Culture - Final, Complete NO GROWTH Assessment/Plan Assessment/Plan Assess & Plan/Chief Complaint PSBO vs. ileus with covid pneumonia and UTI. still having intermittent crampy abd pain and paucity of bowel fxn. surgical hx included laparoscopic gastric sleeve resection and then converted to naman-en-y bypass. 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 also could be related to jejuno-jejunal anastomotic sticture or internal hernia. in this scenario I would normally refer patient back to her original bariatric surgeon however bed likely unavailable. if sx persist and she understands risks and benefits of surgery done at this institution, will then proceed with dx laparoscopy. s/p EGD on (06/22) with finding of gastro-jejunal stricture however retained food within naman limb s/p g-j balloon dilatation. patient continues to have sx and in [place] of EGD findings likely has jejuno- jejunal stricture. with these findings as well as continued sx and previous hx of covid positivity, will proceed with current management for now and schedule diagnostic laparosocopy with possible bowel resection and possible internal hernia reduction and repair on (06/27), once completely covid cleared. KHURRAM LEON MD Jun 23, 2021 11:25
[2021-06-23] MEDS: ONDANSETRON 4 MG/2 ML (SDV) Z0FRAN IV PRN ×2 (14:12→22:53)
--- NOTE | 2021-06-23 15:07 | Progress Note ---
Subjective Subjective/Events-last exam Afebrile, had EGD and there is concern for some strictures, plan for surgery on Saturday she reports. She is still having a lot of pain that makes her vomit at times. Objective Exam Last Set of Vital Signs Vital Signs Date Time Temp Pulse Resp B/P (MAP) Pulse Ox O2 Delivery O2 Flow Rate FiO2 06/23/21 12:10 97 Nasal Cannula 2.00 06/23/21 07:58 35.8 91 20 92/55 Capillary Refill : Less Than 3 Seconds I&O Intake and Output 06/23/21 00:00 Intake Total 8560 ml Balance 8560 ml Intake Oral 760 ml IV Total 7800 ml # Voids 5 General: Alert, No Acute Distress Lungs: Clear to Auscultation, Normal Air Movement Heart: Regular Rate, No Murmurs Abdomen: Normal Bowel Sounds, Soft, Other (diffuse ttp) Extremities: No Edema Neuro: Normal Speech Results/Procedures Lab Laboratory Tests 06/23/21 08:20: White Blood Count 7.1, Red Blood Count 2.85L, Hemoglobin 8.1L, Hematocrit 27L, Mean Corpuscular Volume 94, Mean Corpuscular Hemoglobin 28, Mean Corpuscular Hemoglobin Concent 30L, Red Cell Distribution Width 13.8, Platelet Count 378, Mean Platelet Volume 9.9, Immature Granulocyte % (Auto) 1, Neutrophils (%) (Auto) 52, Lymphocytes (%) (Auto) 37, Monocytes (%) (Auto) 8, Eosinophils (%) (Auto) 1, Basophils (%) (Auto) 0, Neutrophils # (Auto) 3.7, Lymphocytes # (Auto) 2.7, Monocytes # (Auto) 0.6, Eosinophils # (Auto) 0.1, Basophils # (Auto) 0.0, Immature Granulocyte # (Auto) 0.1, Sodium Level 140, Potassium Level 4.1, Chloride Level 98, Carbon Dioxide Level 35H, Anion Gap 7, Blood Urea Nitrogen 8, Creatinine 0.65, Estimat Glomerular Filtration Rate 114, BUN/Creatinine Ratio 12, Glucose Level 77, Calcium Level 8.1L, Corrected Calcium 9.3, Total Bilirubin 0.2, Aspartate Amino Transf (AST/SGOT) 29, Alanine Aminotransferase (ALT/SGPT) 15, Alkaline Phosphatase 35L, Total Protein 5.7L, Albumin 2.5L Microbiology 06/14/21 MRSA Screen - Final, Complete 06/14/21 Blood Culture - Final, Complete No growth 06/14/21 Urine Culture - Final, Complete NO GROWTH Assessment/Plan Assessment/Plan Assessment & Plan Hypovolemic shock- resolved HAP Pneumonia- completed cefepime, not requiring any supplemental oxygen Post COVID, has to remain in isolation until 06/28 per infection control Metabolic Acidosis- resolved Hypokalemia- replace potassium and follow Leukocytosis- resolved Lactic Acidosis- resolved CHAY- resolved SBO- waiting on further bowel movements, complaining of worsening pain today, appreciate Surgery recommendations 06/21- KUB today with persistent dilated bowel loops, although exam is benign, appreciate Surgery recommendations. 06/22- plan for ex lap per Dr. Prado. 06/23- EGD done and findings suggested need for further procedure related to her prior naman en y, plan for Saturday S/P Naman-En-Y Gastric Bypass History of Anxiety and Depression Severe iron def- s/p IV iron YING CISSE MD Jun 23, 2021 15:07
[2021-06-23] MEDS: ENOXAPARIN 40 MG/0.4 ML (LOVENOX) SYR SC SCH (18:04)
[2021-06-23] MEDS: DIVALPROEX EXT RELEASE 250 MG (DEPAKOTE ER) TAB PO SCH (21:12)
[2021-06-23] MEDS: ZOLPIDEM 5 MG (AMBIEN) TAB PO SCH (21:12)
[2021-06-23] MEDS: DIVALPROEX EXT RELEASE 500 MG (DEPAKOTE ER) TAB PO SCH (21:12)
[2021-06-23] MEDS: AMITRIPTYLINE 50 MG (ELAVIL) TAB PO SCH (21:13)
[2021-06-24] MEDS: ONDANSETRON 4 MG/2 ML (SDV) Z0FRAN IV PRN ×2 (06:40→20:17)
[2021-06-24 06:46] LABS: BASOPHILS % (AUTO) 0 % (0-10); EOSINOPHILS # (AUTO) 0.1 10^3/uL (0.0-0.3); EOSINOPHILS % (AUTO) 1 % (0-10); HEMATOCRIT 26 % (35-52); LYMPHOCYTES # (AUTO) 1.9 10^3/uL (1.0-4.0); LYMPHOCYTES % (AUTO) 22 % (12-44); MEAN CORPUSCULAR HEMOGLOBIN 29 pg (25-34); MEAN CORPUSCULAR HGB CONC 31 g/dL (32-36); MEAN CORPUSCULAR VOLUME 93 fL (80-99); MEAN PLATELET VOLUME 10.3 fL (9.0-12.2); MONOCYTES # (AUTO) 0.8 10^3/uL (0.0-1.0); MONOCYTES % (AUTO) 9 % (0-12); NEUTROPHILS # (AUTO) 5.7 10^3/uL (1.8-7.8); NEUTROPHILS % (AUTO) 67 % (42-75); PLATELET COUNT 352 10^3/uL (130-400); WHITE BLOOD COUNT 8.6 10^3/uL (4.3-11.0)
[2021-06-24 06:58] LABS: ALBUMIN 2.4 GM/DL (3.2-4.5)
[2021-06-24 07:00] LABS: CALCIUM 7.8 MG/DL (8.5-10.1)
[2021-06-24 07:01] LABS: TOTAL PROTEIN 5.3 GM/DL (6.4-8.2)
[2021-06-24 07:03] LABS: BILIRUBIN,TOTAL 0.2 MG/DL (0.1-1.0)
[2021-06-24 07:05] LABS: CREATININE SERUM 0.63 MG/DL (0.60-1.30)
[2021-06-24] MEDS: IRON SUCROSE 200 MG/10 ML (VENOFER) VIAL IV SCH (08:06)
[2021-06-24] MEDS: risperiDONE 2 MG (RisperDAL) TAB PO SCH (08:06)
[2021-06-24] MEDS: PANTOPRAZOLE 40 MG (PROTONIX) TAB PO SCH (08:06)
[2021-06-24] MEDS: PREGABALIN 75 MG (LYRICA) CAP PO SCH (08:06)
[2021-06-24] MEDS: lamoTRIgine 25 MG (LaMICtal) TAB PO SCH (08:07)
[2021-06-24] MEDS: POTASSIUM BICARB 20 MEQ (EFFER-K) TABLET PO SCH ×2 (08:07→20:15)
[2021-06-24] MEDS: clonazePAM 1 MG (KlonoPIN) TAB PO PRN (10:09)
[2021-06-24] MEDS: ONDANSETRON 4 MG (ZOFRAN) ORAL DISSOLVE TAB PO PRN ×2 (10:09→22:55)
[2021-06-24] MEDS ORDERED: fentaNYL INJ 100 MCG/2 ML AMP IVP PRN (10:30)
[2021-06-24] MEDS: NS IV 1000 ML 1,000 ML IV SCH ×2 (10:51→22:56)
--- NOTE | 2021-06-24 11:14 | Progress Note ---
Subjective Date Seen by a Provider: Jun 24, 2021 Time Seen by a Provider: 10:00 Subjective/Events-last exam doing well. still has post prandial crampy abd pain and nausea. tolerating clears and some foods. Objective Exam Vital Signs Date Time Temp Pulse Resp B/P (MAP) Pulse Ox O2 Delivery O2 Flow Rate FiO2 06/24/21 10:12 84 18 98/57 06/24/21 08:00 36.2 97 20 99/51 95 Room Air 06/23/21 23:01 37.2 94 16 100/59 95 Room Air 06/23/21 21:12 95 Room Air 06/23/21 21:06 89 94/52 06/23/21 16:20 36.4 95 16 86/52 98 Room Air 06/23/21 12:10 97 Nasal Cannula 2.00 I & O 06/24/21 07:00 Intake Total 3000 ml Balance 3000 ml Capillary Refill : Less Than 3 Seconds General Appearance: No Apparent Distress HEENT: PERRL/EOMI Neck: Full Range of Motion Respiratory: Chest Non Tender, Lungs Clear, Normal Breath Sounds Cardiovascular: Regular Rate, Rhythm Gastrointestinal: normal bowel sounds, soft Extremity: Normal Capillary Refill Neurologic/Psychiatric: Alert, Oriented x3 Skin: Normal Color Lymphatic: No Adenopathy Results Lab Laboratory Tests 06/24/21 05:20: White Blood Count 8.6, Red Blood Count 2.77L, Hemoglobin 8.0L, Hematocrit 26L, Mean Corpuscular Volume 93, Mean Corpuscular Hemoglobin 29, Mean Corpuscular Hemoglobin Concent 31L, Red Cell Distribution Width 13.7, Platelet Count 352, Mean Platelet Volume 10.3, Immature Granulocyte % (Auto) 1, Neutrophils (%) (Auto) 67, Lymphocytes (%) (Auto) 22, Monocytes (%) (Auto) 9, Eosinophils (%) (Auto) 1, Basophils (%) (Auto) 0, Neutrophils # (Auto) 5.7, Lymphocytes # (Auto) 1.9, Monocytes # (Auto) 0.8, Eosinophils # (Auto) 0.1, Basophils # (Auto) 0.0, Immature Granulocyte # (Auto) 0.1, Sodium Level 138, Potassium Level 4.0, Chloride Level 100, Carbon Dioxide Level 30, Anion Gap 8, Blood Urea Nitrogen 8, Creatinine 0.63, Estimat Glomerular Filtration Rate 115, BUN/Creatinine Ratio 13, Glucose Level 78, Calcium Level 7.8L, Corrected Calcium 9.1, Total Bilirubin 0.2, Aspartate Amino Transf (AST/SGOT) 24, Alanine Aminotransferase (ALT/SGPT) 15, Alkaline Phosphatase 37L, Total Protein 5.3L, Albumin 2.4L Microbiology 06/14/21 MRSA Screen - Final, Complete 06/14/21 Blood Culture - Final, Complete No growth 06/14/21 Urine Culture - Final, Complete NO GROWTH Assessment/Plan Assessment/Plan Assess & Plan/Chief Complaint PSBO secondary to jejuno-jejunal stricture vs. internal hernia with covid pneumonia and UTI. still having intermittent crampy abd pain and paucity of bowel fxn. surgical hx included laparoscopic gastric sleeve resection and then converted to naman-en-y bypass. 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 also could be related to jejuno-jejunal anastomotic sticture or internal hernia. in this scenario I would normally refer patient back to her original bariatric surgeon however bed likely unavailable. if sx persist and she understands risks and benefits of surgery done at this institution, will then proceed with dx laparoscopy. s/p EGD on (06/22) with finding of gastro-jejunal stricture however retained food within naman limb s/p g-j balloon dilatation. patient continues to have sx and in [place] of EGD findings likely has jejuno- jejunal stricture or an internal small bowel hernia. with these findings as well as continued sx and previous hx of covid positivity, will proceed with current management for now and schedule diagnostic laparosocopy with possible bowel resection and possible internal hernia reduction and repair on (06/27), once completely covid cleared. KHURRAM LEON MD Jun 24, 2021 11:14
--- NOTE | 2021-06-24 12:21 | Progress Note - Hospitalist ---
Subjective HPI/CC On Admission Date Seen by Provider: Jun 24, 2021 Time Seen by Provider: 12:17 Chief complaint: Hypertension with SBO History of present illness: This is a 40-year-old white female with history of mental illness and Sylvain-en-Y bypass by Dr. Jordan at [place] who presented to the ER ER 6 days after admission and discharge for small bowel obstruction with acute kidney injury. Apparently her ports that she did not have a bowel movement since time she came home and has not been eating or drinking anything. She was started on aggressive IV fluid resuscitation along with pressor therapy. Currently she has an NG tube and constantly asking for something to drink. Subjective/Events-last exam Patient reports continued crampy generalized abdominal pain. She has been passing some gas however and she is keeping liquids down without vomiting. She denies chest pain or shortness of breath. Objective Exam Vital Signs Vital Signs Date Time Temp Pulse Resp B/P (MAP) Pulse Ox O2 Delivery O2 Flow Rate FiO2 06/24/21 10:12 84 18 98/57 06/24/21 08:00 36.2 95 Room Air 06/23/21 12:10 2.00 Capillary Refill : Less Than 3 Seconds General Appearance: No Apparent Distress, Other (Pale) Respiratory: Chest Non Tender, Lungs Clear, Normal Breath Sounds, No Accessory Muscle Use, No Respiratory Distress Cardiovascular: Regular Rate, Rhythm, No Edema, No Gallop, No JVD, No Murmur, Normal Peripheral Pulses Gastrointestinal: Other (Minimal if any distention bowel sounds are positive with periumbilical pain to palpation no rebound. No mass organomegaly.) Results/Procedures Lab Laboratory Tests 06/24/21 05:20 Patient resulted labs reviewed. Assessment/Plan Assessment and Plan Assess & Plan/Chief Complaint Assessment & Plan Hypovolemic shock- resolved HAP Pneumonia- completed cefepime, not requiring any supplemental oxygen Post COVID, has to remain in isolation until 06/28 per infection control Metabolic Acidosis- resolved Hypokalemia- replace potassium and follow Leukocytosis- resolved Lactic Acidosis- resolved CHAY- resolved SBO- waiting on further bowel movements, complaining of worsening pain today, appreciate Surgery recommendations 06/21- KUB today with persistent dilated bowel loops, although exam is benign, appreciate Surgery recommendations. 06/22- plan for ex lap per Dr. Prado. 06/23- EGD done and findings suggested need for further procedure related to her prior sylvain en y, plan for Saturday 06/24: Patient still symptomatic but keeping liquids down passing gas no stool as of yet indicative of some improvement. Defer to Dr. Prado in regards to possible diagnostic laparoscopy. S/P Sylvain-En-Y Gastric Bypass History of Anxiety and Depression Severe iron def- s/p IV RICARDO Beckford MD Jun 24, 2021 12:21
[2021-06-24] MEDS: ENOXAPARIN 40 MG/0.4 ML (LOVENOX) SYR SC SCH (16:23)
[2021-06-24] MEDS: HYDROmorphone 2 MG/ML VIAL (DILAUDID) IV PRN ×2 (16:23→20:18)
[2021-06-24] MEDS: ZOLPIDEM 5 MG (AMBIEN) TAB PO SCH (20:14)
[2021-06-24] MEDS: AMITRIPTYLINE 50 MG (ELAVIL) TAB PO SCH (20:14)
[2021-06-24] MEDS: DIVALPROEX EXT RELEASE 250 MG (DEPAKOTE ER) TAB PO SCH (20:16)
[2021-06-24] MEDS: DIVALPROEX EXT RELEASE 500 MG (DEPAKOTE ER) TAB PO SCH (20:16)
[2021-06-25] MEDS: ONDANSETRON 4 MG/2 ML (SDV) Z0FRAN IV PRN (01:42)
[2021-06-25] MEDS: HYDROmorphone 2 MG/ML VIAL (DILAUDID) IV PRN ×7 (01:45→23:48)
[2021-06-25 06:14] LABS: BASOPHILS % (AUTO) 0 % (0-10); EOSINOPHILS # (AUTO) 0.1 10^3/uL (0.0-0.3); EOSINOPHILS % (AUTO) 1 % (0-10); HEMATOCRIT 27 % (35-52); HEMOGLOBIN 7.9 g/dL (11.5-16.0); LYMPHOCYTES # (AUTO) 2.5 10^3/uL (1.0-4.0); LYMPHOCYTES % (AUTO) 36 % (12-44); MEAN CORPUSCULAR HEMOGLOBIN 28 pg (25-34); MEAN CORPUSCULAR HGB CONC 30 g/dL (32-36); MEAN CORPUSCULAR VOLUME 94 fL (80-99); MEAN PLATELET VOLUME 10.6 fL (9.0-12.2); MONOCYTES # (AUTO) 0.6 10^3/uL (0.0-1.0); MONOCYTES % (AUTO) 8 % (0-12); NEUTROPHILS # (AUTO) 3.7 10^3/uL (1.8-7.8); NEUTROPHILS % (AUTO) 54 % (42-75); PLATELET COUNT 363 10^3/uL (130-400); WHITE BLOOD COUNT 6.9 10^3/uL (4.3-11.0)
[2021-06-25 06:21] LABS: ALBUMIN 2.6 GM/DL (3.2-4.5); POTASSIUM 4.2 MMOL/L (3.6-5.0)
[2021-06-25 06:22] LABS: CALCIUM 8.2 MG/DL (8.5-10.1)
[2021-06-25 06:23] LABS: TOTAL PROTEIN 5.6 GM/DL (6.4-8.2)
[2021-06-25 06:25] LABS: BILIRUBIN,TOTAL 0.2 MG/DL (0.1-1.0)
[2021-06-25 06:27] LABS: CREATININE SERUM 0.64 MG/DL (0.60-1.30)
[2021-06-25] MEDS: POTASSIUM BICARB 20 MEQ (EFFER-K) TABLET PO SCH ×2 (08:55→20:39)
[2021-06-25] MEDS: PANTOPRAZOLE 40 MG (PROTONIX) TAB PO SCH (08:55)
[2021-06-25] MEDS: lamoTRIgine 25 MG (LaMICtal) TAB PO SCH (08:55)
[2021-06-25] MEDS: PREGABALIN 75 MG (LYRICA) CAP PO SCH (08:56)
[2021-06-25] MEDS: risperiDONE 2 MG (RisperDAL) TAB PO SCH (08:56)
--- NOTE | 2021-06-25 09:12 | Progress Note ---
Subjective Date Seen by a Provider: Jun 25, 2021 Time Seen by a Provider: 09:00 Subjective/Events-last exam still has crampy abd pain and intermittent nausea/vomiting. no fever/chills. likely has jejuo-jejunal stricture s/p naman-en-y gastric bypass. Objective Exam Vital Signs Date Time Temp Pulse Resp B/P (MAP) Pulse Ox O2 Delivery O2 Flow Rate FiO2 06/25/21 07:53 36.2 87 20 92/54 96 Room Air 06/24/21 23:03 37.0 91 18 91/53 95 Room Air 06/24/21 20:21 95 Room Air 06/24/21 20:13 87 101/59 06/24/21 16:15 37.0 94 20 110/62 97 Room Air 06/24/21 16:04 Room Air 0.00 06/24/21 10:12 84 18 98/57 I & O 06/25/21 07:00 Intake Total 4180 ml Output Total 2750 ml Balance 1430 ml Capillary Refill : Less Than 3 Seconds General Appearance: No Apparent Distress HEENT: PERRL/EOMI Neck: Full Range of Motion Respiratory: Chest Non Tender, Lungs Clear, Normal Breath Sounds Cardiovascular: Regular Rate, Rhythm Gastrointestinal: normal bowel sounds, soft Extremity: Normal Capillary Refill Neurologic/Psychiatric: Alert, Oriented x3 Skin: Normal Color Lymphatic: No Adenopathy Results Lab Laboratory Tests 06/25/21 05:15: White Blood Count 6.9, Red Blood Count 2.82L, Hemoglobin 7.9L, Hematocrit 27L, Mean Corpuscular Volume 94, Mean Corpuscular Hemoglobin 28, Mean Corpuscular Hemoglobin Concent 30L, Red Cell Distribution Width 14.0, Platelet Count 363, Mean Platelet Volume 10.6, Immature Granulocyte % (Auto) 0, Neutrophils (%) (Auto) 54, Lymphocytes (%) (Auto) 36, Monocytes (%) (Auto) 8, Eosinophils (%) (Auto) 1, Basophils (%) (Auto) 0, Neutrophils # (Auto) 3.7, Lymphocytes # (Auto) 2.5, Monocytes # (Auto) 0.6, Eosinophils # (Auto) 0.1, Basophils # (Auto) 0.0, Immature Granulocyte # (Auto) 0.0, Sodium Level 139, Potassium Level 4.2, Chloride Level 102, Carbon Dioxide Level 30, Anion Gap 7, Blood Urea Nitrogen 7, Creatinine 0.64, Estimat Glomerular Filtration Rate 115, BUN/Creatinine Ratio 11, Glucose Level 70, Calcium Level 8.2L, Corrected Calcium 9.3, Total Bilirubin 0.2, Aspartate Amino Transf (AST/SGOT) 26, Alanine Aminotransferase (ALT/SGPT) 18, Alkaline Phosphatase 41, Total Protein 5.6L, Albumin 2.6L Microbiology 06/14/21 MRSA Screen - Final, Complete 06/14/21 Blood Culture - Final, Complete No growth 06/14/21 Urine Culture - Final, Complete NO GROWTH Assessment/Plan Assessment/Plan Assess & Plan/Chief Complaint PSBO secondary to jejuno-jejunal stricture vs. internal hernia with covid pneumonia and UTI. still having intermittent crampy abd pain and paucity of bowel fxn. surgical hx included laparoscopic gastric sleeve resection and then converted to naman-en-y bypass. 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 also could be related to jejuno-jejunal anastomotic sticture or internal hernia. in this scenario I would normally refer patient back to her original bariatric surgeon however bed likely unavailable. if sx persist and she understands risks and benefits of surgery done at this institution, will then proceed with dx laparoscopy. s/p EGD on (06/22) with finding of gastro-jejunal stricture however retained food within naman limb s/p g-j balloon dilatation. patient continues to have sx and in [place] of EGD findings likely has jejuno- jejunal stricture or an internal small bowel hernia. with these findings as well as continued sx and previous hx of covid positivity, will proceed with current management for now and schedule diagnostic laparosocopy with possible bowel resection and possible internal hernia reduction and repair on (06/27), once completely covid cleared. KHURRAM LEON MD Jun 25, 2021 09:12
[2021-06-25] MEDS: LORazepam INJ 2 MG/ML (ATIVAN) VIAL IVP PRN (12:57)
--- NOTE | 2021-06-25 13:35 | Progress Note - Hospitalist ---
Subjective HPI/CC On Admission Date Seen by Provider: Jun 25, 2021 Time Seen by Provider: 13:31 Chief complaint: Hypertension with SBO History of present illness: This is a 40-year-old white female with history of mental illness and Sylvain-en-Y bypass by Dr. Jordan at [place] who presented to the ER ER 6 days after admission and discharge for small bowel obstruction with acute kidney injury. Apparently her ports that she did not have a bowel movement since time she came home and has not been eating or drinking anything. She was started on aggressive IV fluid resuscitation along with pressor therapy. Currently she has an NG tube and constantly asking for something to drink. Subjective/Events-last exam Patient still reporting emesis however when I walked in she was finishing a solid meal and had an entire sandwich. She did not appear to be in acute distress. She reports she still having abdominal pain after eating and feels like her stomach balls up. Passing some gas no stool output yet. Objective Exam Vital Signs Vital Signs Date Time Temp Pulse Resp B/P (MAP) Pulse Ox O2 Delivery O2 Flow Rate FiO2 06/25/21 07:53 36.2 87 20 92/54 96 Room Air 06/24/21 16:04 0.00 Capillary Refill : Less Than 3 Seconds General Appearance: No Apparent Distress Respiratory: Chest Non Tender, Lungs Clear, Normal Breath Sounds, No Accessory Muscle Use, No Respiratory Distress Cardiovascular: Regular Rate, Rhythm, No Edema, No Gallop, No JVD, No Murmur, Normal Peripheral Pulses Gastrointestinal: Tenderness (Epigastric and periumbilical tenderness to palpation abdomen is soft there is no evidence for distention no mass or organ omegaly noted. Bowel sounds noted.) Extremity: Normal Inspection, Normal Range of Motion, Non Tender, No Calf Tenderness, No Pedal Edema Results/Procedures Lab Laboratory Tests 06/25/21 05:15 Patient resulted labs reviewed. Assessment/Plan Assessment and Plan Assess & Plan/Chief Complaint Assessment & Plan Hypovolemic shock- resolved HAP Pneumonia- completed cefepime, not requiring any supplemental oxygen Post COVID, has to remain in isolation until 06/28 per infection control Metabolic Acidosis- resolved Hypokalemia- replace potassium and follow Leukocytosis- resolved Lactic Acidosis- resolved CHAY- resolved SBO- waiting on further bowel movements, complaining of worsening pain today, appreciate Surgery recommendations 06/21- KUB today with persistent dilated bowel loops, although exam is benign, appreciate Surgery recommendations. 06/22- plan for ex lap per Dr. Prado. 06/23- EGD done and findings suggested need for further procedure related to her prior sylvain en y, plan for Saturday 06/24: Patient still symptomatic but keeping liquids down passing gas no stool as of yet indicative of some improvement. Defer to Dr. Prado in regards to possible diagnostic laparoscopy. S/P Sylvain-En-Y Gastric Bypass 06/25: Small bowel obstruction appears to be improving patient appears to be tolerating solids. Plan is for consideration pending how the patient is doing undergoing exploratory laparotomy per Dr. Prado Saturday. No evidence for underlying Covid infection unlikely the patient is contagious at this point. History of Anxiety and Depression Severe iron def- s/p IV iron RICARDO LAZO MD Jun 25, 2021 13:35
[2021-06-25] MEDS: ENOXAPARIN 40 MG/0.4 ML (LOVENOX) SYR SC SCH (17:02)
[2021-06-25] MEDS ORDERED: LACTATED RINGERS 1,000 ML IV ONE (18:52)
[2021-06-25] MEDS: NS IV 1000 ML 1,000 ML IV SCH (20:39)
[2021-06-25] MEDS: DIVALPROEX EXT RELEASE 500 MG (DEPAKOTE ER) TAB PO SCH (20:40)
[2021-06-25] MEDS: DIVALPROEX EXT RELEASE 250 MG (DEPAKOTE ER) TAB PO SCH (20:40)
[2021-06-25] MEDS: ONDANSETRON 4 MG (ZOFRAN) ORAL DISSOLVE TAB PO PRN (20:40)
[2021-06-25] MEDS: AMITRIPTYLINE 50 MG (ELAVIL) TAB PO SCH (20:40)
[2021-06-25] MEDS: ZOLPIDEM 5 MG (AMBIEN) TAB PO SCH (20:40)
[2021-06-26] MEDS: HYDROmorphone 2 MG/ML VIAL (DILAUDID) IV PRN ×5 (02:43→21:42)
[2021-06-26 07:13] LABS: POTASSIUM 3.9 MMOL/L (3.6-5.0)
[2021-06-26 07:15] LABS: CALCIUM 7.6 MG/DL (8.5-10.1)
[2021-06-26 07:19] LABS: CREATININE SERUM 0.54 MG/DL (0.60-1.30)
[2021-06-26] MEDS: risperiDONE 2 MG (RisperDAL) TAB PO SCH (09:40)
[2021-06-26] MEDS: PANTOPRAZOLE 40 MG (PROTONIX) TAB PO SCH (09:40)
[2021-06-26] MEDS: POTASSIUM BICARB 20 MEQ (EFFER-K) TABLET PO SCH ×2 (09:40→21:35)
[2021-06-26] MEDS: PREGABALIN 75 MG (LYRICA) CAP PO SCH (09:40)
[2021-06-26] MEDS: lamoTRIgine 25 MG (LaMICtal) TAB PO SCH (09:40)
[2021-06-26] MEDS: ONDANSETRON 4 MG (ZOFRAN) ORAL DISSOLVE TAB PO PRN (10:51)
[2021-06-26] MEDS: NS IV 1000 ML 1,000 ML IV SCH (16:11)
[2021-06-26] MEDS: ENOXAPARIN 40 MG/0.4 ML (LOVENOX) SYR SC SCH ×2 (16:12→16:13)
--- NOTE | 2021-06-26 17:00 | Progress Note-Pre Operative ---
Pre-Operative Progress Note H&P Reviewed The H&P was reviewed, patient examined and no changes noted. Date Seen by Provider: Jun 26, 2021 Time Seen by Provider: 17:00 Date H&P Reviewed: Jun 21, 2021 Time H&P Reviewed: 17:00 Pre-Operative Diagnosis: small bowel obstruction s/p naman- en-Y bypass KHURRAM LEON MD Jun 26, 2021 17:00
--- NOTE | 2021-06-26 19:36 | Progress Note ---
Subjective Subjective/Events-last exam Patient states that she is feeling some better but still not having regular BMs. Pain has improved. She is tolerating some PO diet. Review of Systems General: No Fatigue, No Malaise Pulmonary: No Dyspnea, No Cough Cardiovascular: No: Chest Pain, Palpitations, Edema Gastrointestinal: Nausea, Abdominal Pain, Constipation; No: Vomiting Neurological: Weakness Objective Exam Last Set of Vital Signs Vital Signs Date Time Temp Pulse Resp B/P (MAP) Pulse Ox O2 Delivery O2 Flow Rate FiO2 06/26/21 16:00 36.5 90 16 94/52 97 Room Air 06/26/21 09:00 0.00 Capillary Refill : Less Than 3 Seconds I&O Intake and Output 06/26/21 00:00 Intake Total 7520 ml Balance 7520 ml Intake Oral 2020 ml IV Total 5500 ml # Voids 9 # Emeses 3 General: Alert, Oriented X3, Cooperative, No Acute Distress Lungs: Clear to Auscultation, Normal Air Movement Heart: Regular Rate, No Murmurs Abdomen: Soft, Other (mild diffuse abdominal pain) Extremities: No Edema, No Tenderness/Swelling Skin: No Rashes Neuro: Strength at 5/5 X4 Ext, Sensation Intact, Cranial Nerves 3-12 NL Results/Procedures Lab Laboratory Tests 06/26/21 06:34: Sodium Level 137, Potassium Level 3.9, Chloride Level 102, Carbon Dioxide Level 26, Anion Gap 9, Blood Urea Nitrogen 8, Creatinine 0.54L, Estimat Glomerular Filtration Rate 119, BUN/Creatinine Ratio 15, Glucose Level 81, Calcium Level 7.6L 06/26/21 15:24: Stool Occult Blood Immunoassay NEGATIVE Microbiology 06/14/21 MRSA Screen - Final, Complete 06/14/21 Blood Culture - Final, Complete No growth 06/14/21 Urine Culture - Final, Complete NO GROWTH Assessment/Plan Assessment/Plan Assessment & Plan Hypovolemic shock- resolved HAP Pneumonia- completed cefepime, not requiring any supplemental oxygen Post COVID, has to remain in isolation until 06/28 per infection control Metabolic Acidosis- resolved Hypokalemia- replace potassium and follow Leukocytosis- resolved Lactic Acidosis- resolved CHAY- resolved SBO- waiting on further bowel movements, complaining of worsening pain today, appreciate Surgery recommendations 2/2- KUB today with persistent dilated bowel loops, although exam is benign, appreciate Surgery recommendations. 23- plan for ex lap per Dr. Prado. 06/23- EGD done and findings suggested need for further procedure related to her prior naman en y, plan for Saturday S/P Naman-En-Y Gastric Bypass History of Anxiety and Depression Severe iron def- s/p IV iron (1) SBO (small bowel obstruction) Status: Acute Assessment & Plan: 06/26: Plan to go to OR tomorrow for Ex-lap with BRUNA Pardo at midnight (2) Iron deficiency anemia Status: Chronic Assessment & Plan: 06/26: S/p 3 doses of venofer, Hgb stable Qualifiers: Qualified Codes: D50.9 - Iron deficiency anemia, unspecified (3) COVID-19 Status: Acute Assessment & Plan: 06/26: Over the acute phase, patient on RA and doing well from covid standpoint NADIYA JAMISON MD Jun 26, 2021 19:36
[2021-06-26] MEDS: DIVALPROEX EXT RELEASE 250 MG (DEPAKOTE ER) TAB PO SCH (21:34)
[2021-06-26] MEDS: DIVALPROEX EXT RELEASE 500 MG (DEPAKOTE ER) TAB PO SCH (21:34)
[2021-06-26] MEDS: ZOLPIDEM 5 MG (AMBIEN) TAB PO SCH (21:35)
[2021-06-26] MEDS: AMITRIPTYLINE 50 MG (ELAVIL) TAB PO SCH (21:35)
[2021-06-26] MEDS ORDERED: HYDROmorphone 2 MG/ML VIAL (DILAUDID) IV ONE (22:30)
[2021-06-27] VITALS (9 sets, daily range): BP systolic 79–93; BP diastolic 37–53
[2021-06-27] MEDS: HYDROmorphone 2 MG/ML VIAL (DILAUDID) IV PRN ×4 (01:54→17:20)
[2021-06-27 06:51] LABS: POTASSIUM 3.9 MMOL/L (3.6-5.0)
[2021-06-27 06:52] LABS: CALCIUM 7.5 MG/DL (8.5-10.1)
[2021-06-27 06:56] LABS: CREATININE SERUM 0.53 MG/DL (0.60-1.30)
[2021-06-27 07:48] LABS: BASOPHILS % (AUTO) 0 % (0-10); EOSINOPHILS # (AUTO) 0.1 10^3/uL (0.0-0.3); EOSINOPHILS % (AUTO) 1 % (0-10); HEMATOCRIT 28 % (35-52); HEMOGLOBIN 8.7 g/dL (11.5-16.0); LYMPHOCYTES # (AUTO) 2.8 10^3/uL (1.0-4.0); LYMPHOCYTES % (AUTO) 36 % (12-44); MEAN CORPUSCULAR HEMOGLOBIN 29 pg (25-34); MEAN CORPUSCULAR HGB CONC 31 g/dL (32-36); MEAN CORPUSCULAR VOLUME 94 fL (80-99); MEAN PLATELET VOLUME 10.7 fL (9.0-12.2); MONOCYTES # (AUTO) 0.7 10^3/uL (0.0-1.0); MONOCYTES % (AUTO) 9 % (0-12); NEUTROPHILS # (AUTO) 4.1 10^3/uL (1.8-7.8); NEUTROPHILS % (AUTO) 53 % (42-75); PLATELET COUNT 359 10^3/uL (130-400); WHITE BLOOD COUNT 7.7 10^3/uL (4.3-11.0)
[2021-06-27] MEDS ORDERED: PANTOPRAZOLE 40 MG (PROTONIX) VIAL IV ONE (08:00)
[2021-06-27] MEDS: risperiDONE 2 MG (RisperDAL) TAB PO SCH (08:08)
[2021-06-27] MEDS: lamoTRIgine 25 MG (LaMICtal) TAB PO SCH (08:08)
[2021-06-27] MEDS: PREGABALIN 75 MG (LYRICA) CAP PO SCH (08:08)
[2021-06-27] MEDS: POTASSIUM BICARB 20 MEQ (EFFER-K) TABLET PO SCH ×2 (08:08→21:00)
[2021-06-27] MEDS: PANTOPRAZOLE 40 MG (PROTONIX) TAB PO SCH (08:08)
[2021-06-27] MEDS ORDERED: LIDOCAINE/EPI 1%-1:200,000 (XYLOCAINE) 30 ML VIAL ONE (11:44)
[2021-06-27] MEDS: ENOXAPARIN 40 MG/0.4 ML (LOVENOX) SYR SC SCH (11:47)
[2021-06-27] MEDS: NS IV 1000 ML 1,000 ML IV SCH (11:47)
[2021-06-27] MEDS: LACTATED RINGERS 1,000 ML IV PRN ×5 (11:50→17:20)
[2021-06-27] MEDS ORDERED: fentaNYL INJ 100 MCG/2 ML AMP ONE ×2 (11:53→14:33)
[2021-06-27] MEDS ORDERED: LIDOCAINE PF 2% 5 ML (XYLOCAINE) VIAL ONE (11:53)
[2021-06-27] MEDS ORDERED: proPOfol 200 MG/20 ML (DIPRIVAN) VIAL IV ONE (11:53)
[2021-06-27] MEDS ORDERED: SEVOFLURANE (ULTANE) 15 ML INHAL SOLN ONE ×2 (11:53→14:48)
[2021-06-27] MEDS ORDERED: ONDANSETRON 4 MG/2 ML (SDV) Z0FRAN ONE (11:53)
[2021-06-27] MEDS ORDERED: MIDAZOLAM 2 MG/2 ML (VERSED) VIAL ONE (11:53)
[2021-06-27] MEDS ORDERED: CLINDAMYCIN 600 MG/50 ML IVPB 50 ML IV ONE ×2 (12:03→12:30)
[2021-06-27] MEDS ORDERED: PHENYLEPHRINE 100 MCG/ML 10 ML (ANESTHESIA) SYR ONE (12:17)
[2021-06-27] MEDS ORDERED: ROCURONIUM 50 MG/5 ML (ZEMURON) VIAL IV ONE (13:16)
[2021-06-27] MEDS ORDERED: PHENYLEPHRINE INJ 10 MG/ML (FOR DRIP KITS ONLY) ONE (13:26)
[2021-06-27] MEDS ORDERED: GLYCOPYRROLATE 0.2 MG/ML (ROBINUL) 2 ML VIAL ONE (14:23)
--- NOTE | 2021-06-27 14:42 | Progress Note-Post Operative ---
Post-Operative Progess Note Surgeon (s)/Senior Linux Engineer (s) Surgeon KHURRAM LENO MD Senior Linux Engineer: none Pre-Operative Diagnosis small bowel obstruction s/p naman- en-Y bypass Post-Operative Diagnosis jejeno-jenhermesl strictrue. Procedure & Operative Findings Date of Procedure 06/27/21 Procedure Performed/Findings diagnostic laparoscopy, segmental bowel resection x2. Anesthesia Type get Estimated Blood Loss Estimated blood loss (mL): 200ml Specimens/Packing Specimens Removed small bowl stricture s/p naman-en-y KHURRAM LEON MD Jun 27, 2021 14:42
[2021-06-27] MEDS ORDERED: ONDANSETRON 4 MG/2 ML (SDV) Z0FRAN IVP PRN (14:45)
[2021-06-27] MEDS ORDERED: morphine INJ 10 MG/ML 1ML (SYR OR VIAL) IVP ONE (14:45)
[2021-06-27] MEDS: LACTATED RINGERS 1,000 ML IV SCH (17:20)
[2021-06-27] MEDS ORDERED: LACTATED RINGERS 1,000 ML IV SCH (20:15)
[2021-06-27 20:39] LABS: HEMOGLOBIN 7.1 g/dL (11.5-16.0)
[2021-06-27] MEDS ORDERED: NS IV 500 ML 500 ML ONE (20:59)
[2021-06-27] MEDS: DIVALPROEX EXT RELEASE 250 MG (DEPAKOTE ER) TAB PO SCH (21:00)
[2021-06-27] MEDS: DIVALPROEX EXT RELEASE 500 MG (DEPAKOTE ER) TAB PO SCH (21:00)
[2021-06-27] MEDS ORDERED: NS IV 500 ML 500 ML IV SCH (21:00)
[2021-06-27] MEDS: AMITRIPTYLINE 50 MG (ELAVIL) TAB PO SCH (21:00)
[2021-06-27] MEDS: ZOLPIDEM 5 MG (AMBIEN) TAB PO SCH (21:00)
--- NOTE | 2021-06-27 22:18 | Progress Note ---
Subjective Subjective/Events-last exam Patient nervous about surgery today. NPO. Pain well controlled. States that she has a small BM overnight but still feeling moderate pain in her abdomen Review of Systems Pulmonary: No Dyspnea, No Cough Cardiovascular: No: Chest Pain, Palpitations, Edema Gastrointestinal: Abdominal Pain, Constipation; No: Nausea, Vomiting Objective Exam Last Set of Vital Signs Vital Signs Date Time Temp Pulse Resp B/P (MAP) Pulse Ox O2 Delivery O2 Flow Rate FiO2 06/27/21 22:00 37.0 109 14 87/53 97 Nasal Cannula 2.00 Capillary Refill : Less Than 3 SecondsLess Than 3 Seconds I&O Intake and Output 06/27/21 00:00 Intake Total 2540 ml Balance 2540 ml Intake Oral 2540 ml # Voids 14 # Bowel Movements 3 General: Alert, Oriented X3, Cooperative, No Acute Distress HEENT: Mucous Memb Moist/Ridgely Lungs: Clear to Auscultation, Normal Air Movement Heart: Regular Rate, No Murmurs Abdomen: Soft, Other (mild distention, normal bowel sounds) Extremities: No Edema, No Tenderness/Swelling Results/Procedures Lab Laboratory Tests 06/27/21 06:15: Sodium Level 139, Potassium Level 3.9, Chloride Level 104, Carbon Dioxide Level 26, Anion Gap 9, Blood Urea Nitrogen 7, Creatinine 0.53L, Estimat Glomerular Filtration Rate 120, BUN/Creatinine Ratio 13, Glucose Level 69L, Calcium Level 7.5L 06/27/21 07:25: White Blood Count 7.7, Red Blood Count 3.00L, Hemoglobin 8.7L, Hematocrit 28L, Mean Corpuscular Volume 94, Mean Corpuscular Hemoglobin 29, Mean Corpuscular Hemoglobin Concent 31L, Red Cell Distribution Width 14.4, Platelet Count 359, Mean Platelet Volume 10.7, Immature Granulocyte % (Auto) 1, Neutrophils (%) (Auto) 53, Lymphocytes (%) (Auto) 36, Monocytes (%) (Auto) 9, Eosinophils (%) (Auto) 1, Basophils (%) (Auto) 0, Neutrophils # (Auto) 4.1, Lymphocytes # (Auto) 2.8, Monocytes # (Auto) 0.7, Eosinophils # (Auto) 0.1, Basophils # (Auto) 0.0, Immature Granulocyte # (Auto) 0.1 06/27/21 20:32: Hemoglobin 7.1L, Hematocrit 24L Microbiology 06/14/21 MRSA Screen - Final, Complete 06/14/21 Blood Culture - Final, Complete No growth 06/14/21 Urine Culture - Final, Complete NO GROWTH Assessment/Plan Assessment/Plan Assessment & Plan Hypovolemic shock- resolved HAP Pneumonia- completed cefepime, not requiring any supplemental oxygen Post COVID, has to remain in isolation until 06/28 per infection control Metabolic Acidosis- resolved Hypokalemia- replace potassium and follow Leukocytosis- resolved Lactic Acidosis- resolved CHAY- resolved SBO- waiting on further bowel movements, complaining of worsening pain today, appreciate Surgery recommendations 06/21- KUB today with persistent dilated bowel loops, although exam is benign, appreciate Surgery recommendations. 06/22- plan for ex lap per Dr. Prado. 06/23- EGD done and findings suggested need for further procedure related to her prior naman en y, plan for Saturday S/P Naman-En-Y Gastric Bypass History of Anxiety and Depression Severe iron def- s/p IV iron (1) SBO (small bowel obstruction) Status: Acute Assessment & Plan: 06/26: Plan to go to OR tomorrow for Ex-lap with PRAMOD PradoO at midnight 06/27: Ex Lap today (2) Iron deficiency anemia Status: Chronic Assessment & Plan: 06/26: S/p 3 doses of venofer, Hgb stable Qualifiers: Qualified Codes: D50.9 - Iron deficiency anemia, unspecified (3) COVID-19 Status: Acute Assessment & Plan: 06/26: Over the acute phase, patient on RA and doing well from covid standpoint NADIYA JAMISON MD Jun 27, 2021 22:18
--- NOTE | 2021-06-27 23:47 | OPERATIVE REPORT ---
DATE OF SERVICE: 06/27/2021 ATTENDING CHAIN OFFBEARER: [facility]. PREOPERATIVE DIAGNOSES: Symptomatic partial small-bowel obstruction, status post Sylvain-en-Y gastric bypass. POSTOPERATIVE DIAGNOSIS: Jejuno-jejunal stricture, status post Sylvain-en-Y gastric bypass. PROCEDURES: Diagnostic laparoscopy, small bowel resection x2 with anastomosis x2, revision jejuno-jejunostomy SURGEON: Rachell Leon MD PRINTER SLOTTER HELPER: Maximus Hagan APRN. ANESTHESIA: General endotracheal. ESTIMATED BLOOD LOSS: 200 mL. FINDINGS: Jejuno-jejunal stricture, status post Sylvain-en-Y gastric bypass. DISPOSITION: The patient tolerated the procedure well. INDICATIONS: The patient is a 40-year-old female, who presented in early June or mid May to [place] [facility] due to altered mental status as well as some form of undifferentiated shock. She was found to have acute kidney injury and hypovolemic. She was found to have a small-bowel obstruction and she underwent medical therapy with IV fluids and bowel rest and underwent a Gastrografin small bowel follow through and was able to have bowel function and was discharged home; however, she returned approximately one week later with similar symptoms. She would have persistent symptoms of pain, crampy abdominal pain usually after eating meals and will also have episodes of nausea and vomiting. An EGD was performed, which did show a gastrojejunal stricture, which was mild and this was dilated to 19.5 mm in luminal diameter. The Sylvain limb appeared to be distended and there was retained food substance within the Sylvain limb, likely consistent with a jejuno-jejunal stricture. The patient was also COVID positive and she was able to tolerate some fluids as well as food; however, would continue to have the crampy abdominal pain as well as signs of chronic hypotension with hypokalemia, scant bowel movements as well as a low urine output. A CT scan was performed, which again did show a mid-jejunal obstruction likely consistent with a stricture. The patient was brought to the operating room, laid supine on the table. After adequate IV pain and sedative medications and general endotracheal intubation, the abdomen was prepped and draped in standard surgical fashion. A 0.5% Marcaine with epinephrine was then used to anesthetize overlying skin in the left upper abdominal quadrant and a transverse skin incision made using 15 blade. An 0 silk suture was applied to the medial aspect incision for retraction and a Veress needle inserted with low opening pressure of 0 mmHg. The abdomen was insufflated to 15 mmHg pressure. The Veress needle removed and a 5 mm XL trocar placed followed by a 5 mm 45-degree angle laparoscope visualizing the peritoneal cavity. A 4-quadrant abdominal exploration was performed. The Sylvain limb appeared to be antecolic and was distended. The small bowel was ran after a midabdominal left to midline 5 mm port was placed followed by a right upper abdominal quadrant 5 mm port after the skin and peritoneal lining were anesthetized using 0.5% Marcaine with epinephrine and skin incision was made using a 15 blade. There was a transition zone of the Sylvain limb at the connection with the common channel likely consistent with a stricture. This was adhered to the mesentery and dissected out as well as possible. The skin incision along the mid abdominal incision was then extended laterally using a 15 blade and the area of anastomosis was brought out the incision. We then proceeded with a resection of the Sylvain limb followed by the common channel and these limbs were marked with sutures. We then proceeded with a nhkn-rn-anmz anastomosis of the common channel, which appeared well perfused using ROBBIE-75 mm stapler with a blue load. The open end was then approximated using 3-0 silk sutures and this was closed using the same stapler. We then proceeded with a effc-iw-annx anastomosis of the Sylvain limb distal to the common channel approximately 15 cm distal to our anastomosis. This was done using a ROBBIE-75 mm stapler; however, the anastomosis was measured to be at 45 mm. The open end was then reapproximated using 3-0 Vicryl interrupted sutures and this was stapled using the same stapler. The mesentery to both of the limbs of small bowel were then reapproximated using 3-0 silk interrupted running sutures. Good hemostasis was observed. The small bowel was then pulled back into the peritoneal cavity and a 19-Sing[place]an Lorenzo-Zaldivar drain was placed into the pelvis and brought out the left upper abdominal quadrant port site and sutured to the skin using 3-0 nylon interrupted suture. The fascia was then closed using #1 looped PDS suture. Skin was then loosely approximated using skin abdi. Good hemostasis was observed. Before closing, the abdomen was irrigated with 2 liters of warm saline. The patient tolerated the procedure well. We will continue with IV fluids as well as IV normal pain medication and she may have ice chips; however, we will wait for more bowel function before advancing her diet. Job ID: [id number] DocumentID: [id number] Dictated Date: 06/27/2021 14:52:21 Manager Service Desk Date: 06/27/2021 23:46:59 Dictated By: RACHELL LEON MD MTDD
[2021-06-28 00:47] VITALS: BP 94/59
[2021-06-28] MEDS: LACTATED RINGERS 1,000 ML IV SCH ×5 (00:48→21:53)
[2021-06-28] MEDS: CLINDAMYCIN 600 MG/50 ML IVPB 50 ML IV SCH ×4 (00:49→21:48)
[2021-06-28] MEDS: HYDROmorphone 2 MG/ML VIAL (DILAUDID) IV PRN ×5 (01:01→17:47)
[2021-06-28] MEDS: LORazepam INJ 2 MG/ML (ATIVAN) VIAL IVP PRN (05:06)
[2021-06-28 06:20] LABS: BASOPHILS % (AUTO) 0 % (0-10); EOSINOPHILS % (AUTO) 0 % (0-10); HEMATOCRIT 25 % (35-52); HEMOGLOBIN 8.2 g/dL (11.5-16.0); LYMPHOCYTES # (AUTO) 1.6 10^3/uL (1.0-4.0); LYMPHOCYTES % (AUTO) 11 % (12-44); MEAN CORPUSCULAR HEMOGLOBIN 30 pg (25-34); MEAN CORPUSCULAR HGB CONC 33 g/dL (32-36); MEAN CORPUSCULAR VOLUME 92 fL (80-99); MONOCYTES # (AUTO) 1.5 10^3/uL (0.0-1.0); MONOCYTES % (AUTO) 11 % (0-12); NEUTROPHILS # (AUTO) 10.8 10^3/uL (1.8-7.8); NEUTROPHILS % (AUTO) 78 % (42-75); PLATELET COUNT 312 10^3/uL (130-400); WHITE BLOOD COUNT 13.9 10^3/uL (4.3-11.0)
[2021-06-28 06:31] LABS: POTASSIUM 3.8 MMOL/L (3.6-5.0)
[2021-06-28 06:32] LABS: CALCIUM 7.4 MG/DL (8.5-10.1)
[2021-06-28 06:36] LABS: CREATININE SERUM 0.54 MG/DL (0.60-1.30)
[2021-06-28] MEDS: PANTOPRAZOLE 40 MG (PROTONIX) TAB PO SCH ×2 (08:56→09:04)
[2021-06-28] MEDS: PREGABALIN 75 MG (LYRICA) CAP PO SCH (08:56)
[2021-06-28] MEDS: POTASSIUM BICARB 20 MEQ (EFFER-K) TABLET PO SCH ×2 (08:56→21:33)
[2021-06-28] MEDS: risperiDONE 2 MG (RisperDAL) TAB PO SCH (08:56)
[2021-06-28] MEDS: lamoTRIgine 25 MG (LaMICtal) TAB PO SCH ×2 (08:56→09:04)
--- NOTE | 2021-06-28 14:15 | Anesthesia-General Post-Op ---
General Patient Condition Mental Status/LOC: Same as Preop Cardiovascular: Satisfactory Nausea/Vomiting: Absent Respiratory: Satisfactory Pain: Controlled Complications: Absent Post Op Complications Complications None Follow Up Care/Instructions Patient Instructions None needed. Anesthesia/Patient Condition Patient Condition Patient is doing well, no complaints, stable vital signs, no apparent adverse anesthesia problems. No complications reported per nursing. HOOD CARBAJAL CRNA Jun 28, 2021 14:15
[2021-06-28] MEDS: clonazePAM 1 MG (KlonoPIN) TAB PO PRN (14:56)
--- NOTE | 2021-06-28 16:14 | Progress Note ---
Subjective Date Seen by a Provider: Jun 28, 2021 Time Seen by a Provider: 16:00 Subjective/Events-last exam doing well. has some incisional pain issues. no nausea/vomiting. no bowel fxn yet. no fever/chills. Objective Exam Vital Signs Date Time Temp Pulse Resp B/P (MAP) Pulse Ox O2 Delivery O2 Flow Rate FiO2 06/28/21 15:04 83/50 06/28/21 12:00 36.3 104 20 81/46 95 Room Air 06/28/21 09:00 Room Air 06/28/21 07:50 36.6 114 20 102/59 96 Nasal Cannula 2.00 06/28/21 00:47 37.0 121 16 94/59 98 Room Air 06/28/21 00:37 36.7 116 20 92/62 100 Nasal Cannula 2.00 06/27/21 22:32 37.0 120 18 90/52 97 Room Air 06/27/21 22:00 37.0 109 14 87/53 97 Nasal Cannula 2.00 06/27/21 21:18 109 18 94/54 94 Nasal Cannula 2.00 06/27/21 21:10 110 18 97/61 94 Nasal Cannula 2.00 06/27/21 21:00 101 16 90/50 94 Nasal Cannula 2.00 06/27/21 21:00 Nasal Cannula 2.00 06/27/21 20:57 108 18 92/55 95 Nasal Cannula 2.00 06/27/21 20:46 111 18 89/51 95 Nasal Cannula 2.00 06/27/21 20:17 35.3 113 22 96/42 90 Room Air 06/27/21 20:00 113 18 78/46 95 Nasal Cannula 2.00 06/27/21 16:44 35.0 98 20 91/52 90 Room Air I & O 06/28/21 07:00 Intake Total 4550 ml Output Total 1150 ml Balance 3400 ml Capillary Refill : Less Than 3 SecondsLess Than 3 Seconds General Appearance: No Apparent Distress HEENT: PERRL/EOMI Neck: Full Range of Motion Respiratory: Chest Non Tender, Lungs Clear, Normal Breath Sounds Cardiovascular: Regular Rate, Rhythm Gastrointestinal: soft, tenderness, other (wound clean/dry) Extremity: Normal Capillary Refill Neurologic/Psychiatric: Alert, Oriented x3 Skin: Normal Color Lymphatic: No Adenopathy Results Lab Laboratory Tests 06/27/21 20:32: Hemoglobin 7.1L, Hematocrit 24L 06/28/21 06:13: Hemoglobin 8.2L, Hematocrit 25L, White Blood Count 13.9H, Red Blood Count 2.73L, Mean Corpuscular Volume 92, Mean Corpuscular Hemoglobin 30, Mean Corpuscular Hemoglobin Concent 33, Red Cell Distribution Width 14.4, Platelet Count 312, Mean Platelet Volume 11.0, Immature Granulocyte % (Auto) 0, Neutrophils (%) (Auto) 78H, Lymphocytes (%) (Auto) 11L, Monocytes (%) (Auto) 11, Eosinophils (%) (Auto) 0, Basophils (%) (Auto) 0, Neutrophils # (Auto) 10.8H, Lymphocytes # (Auto) 1.6, Monocytes # (Auto) 1.5H, Eosinophils # (Auto) 0.0, Basophils # (Auto) 0.0, Immature Granulocyte # (Auto) 0.1, Sodium Level 134L, Potassium Level 3.8, Chloride Level 101, Carbon Dioxide Level 23, Anion Gap 10, Blood Urea Nitrogen 16, Creatinine 0.54L, Estimat Glomerular Filtration Rate 119, BUN/Creatinine Ratio 30, Glucose Level 118H, Calcium Level 7.4L Microbiology 06/14/21 MRSA Screen - Final, Complete 06/14/21 Blood Culture - Final, Complete No growth 06/14/21 Urine Culture - Final, Complete NO GROWTH Assessment/Plan Assessment/Plan Assess & Plan/Chief Complaint PSBO secondary to jejuno-jejunal stricture vs. internal hernia with covid pneumonia and UTI. still having intermittent crampy abd pain and paucity of bowel fxn. surgical hx included laparoscopic gastric sleeve resection and then converted to naman-en-y bypass. 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 also could be related to jejuno-jejunal anastomotic sticture or internal hernia. in this scenario I would normally refer patient back to her original bariatric surgeon however bed likely unavailable. if sx persist and she understands risks and benefits of surgery done at this institution, will then proceed with dx laparoscopy. s/p EGD on (06/22) with finding of gastro-jejunal stricture however retained food within naman limb s/p g-j balloon dilatation. patient continues to have sx and in [place] of EGD findings likely has jejuno- jejunal stricture or an internal small bowel hernia. with these findings as well as continued sx and previous hx of covid positivity, will proceed with current management for now and schedule diagnostic laparosocopy with possible bowel resection and possible internal hernia reduction and repair on (06/27), once completely covid cleared. s/p diagnostic laparoscopy and laparoscopy revision jejeno-jejunal stricture POD#1. ambulate. cont ice chips for now. KHURRAM LEON MD Jun 28, 2021 16:14
[2021-06-28] MEDS: ENOXAPARIN 40 MG/0.4 ML (LOVENOX) SYR SC SCH (17:42)
[2021-06-28] MEDS: oxyCODONE/APAP 7.5-325 MG (PERCOCET 7.5) TABLET PO PRN ×2 (17:42→21:54)
[2021-06-28] MEDS: DIVALPROEX EXT RELEASE 500 MG (DEPAKOTE ER) TAB PO SCH (21:47)
[2021-06-28] MEDS: DIVALPROEX EXT RELEASE 250 MG (DEPAKOTE ER) TAB PO SCH (21:47)
[2021-06-28] MEDS: ZOLPIDEM 5 MG (AMBIEN) TAB PO SCH (21:47)
[2021-06-28] MEDS: AMITRIPTYLINE 50 MG (ELAVIL) TAB PO SCH (21:48)
--- NOTE | 2021-06-28 21:56 | Progress Note ---
Subjective Subjective/Events-last exam Patient states that she is having quite a bit of pain. NPO. Up in chair this AM. Review of Systems Pulmonary: No Dyspnea; Cough Cardiovascular: No: Chest Pain, Palpitations, Edema Gastrointestinal: Abdominal Pain; No: Nausea, Vomiting, Diarrhea, Constipation Neurological: Weakness, Incoordination Objective Exam Last Set of Vital Signs Vital Signs Date Time Temp Pulse Resp B/P (MAP) Pulse Ox O2 Delivery O2 Flow Rate FiO2 06/28/21 19:55 37.6 103 18 88/52 95 Room Air 06/28/21 07:50 2.00 Capillary Refill : Less Than 3 SecondsLess Than 3 Seconds I&O Intake and Output 06/28/21 00:00 Intake Total 4050 ml Output Total 890 ml Balance 3160 ml Intake Oral 0 ml IV Total 4050 ml Output Urine Total 300 ml Drainage Total 590 ml # Voids 2 General: Alert, Oriented X3, Cooperative, Mild Distress Lungs: Clear to Auscultation, Normal Air Movement Heart: Regular Rate, No Murmurs Abdomen: Normal Bowel Sounds, Soft, Other (moderate abdominal pain, no rebound or gaurding) Extremities: No Edema, No Tenderness/Swelling Neuro: Normal Speech Results/Procedures Lab Laboratory Tests 06/28/21 06:13: White Blood Count 13.9H, Red Blood Count 2.73L, Hemoglobin 8.2L, Hematocrit 25L, Mean Corpuscular Volume 92, Mean Corpuscular Hemoglobin 30, Mean Corpuscular He moglobin Concent 33, Red Cell Distribution Width 14.4, Platelet Count 312, Mean Platelet Volume 11.0, Immature Granulocyte % (Auto) 0, Neutrophils (%) (Auto) 78H, Lymphocytes (%) (Auto) 11L, Monocytes (%) (Auto) 11, Eosinophils (%) (Auto) 0, Basophils (%) (Auto) 0, Neutrophils # (Auto) 10.8H, Lymphocytes # (Auto) 1.6, Monocytes # (Auto) 1.5H, Eosinophils # (Auto) 0.0, Basophils # (Auto) 0.0, Immature Granulocyte # (Auto) 0.1, Sodium Level 134L, Potassium Level 3.8, Chloride Level 101, Carbon Dioxide Level 23, Anion Gap 10, Blood Urea Nitrogen 16, Creatinine 0.54L, Estimat Glomerular Filtration Rate 119, BUN/Creatinine Ratio 30, Glucose Level 118H, Calcium Level 7.4L Microbiology 06/14/21 MRSA Screen - Final, Complete 06/14/21 Blood Culture - Final, Complete No growth 06/14/21 Urine Culture - Final, Complete NO GROWTH Assessment/Plan Assessment/Plan Assessment & Plan Hypovolemic shock- resolved HAP Pneumonia- completed cefepime, not requiring any supplemental oxygen Post COVID, has to remain in isolation until 06/28 per infection control Metabolic Acidosis- resolved Hypokalemia- replace potassium and follow Leukocytosis- resolved Lactic Acidosis- resolved CHAY- resolved SBO- waiting on further bowel movements, complaining of worsening pain today, ap preciate Surgery recommendations 06/21- KUB today with persistent dilated bowel loops, although exam is benign, appreciate Surgery recommendations. 06/22- plan for ex lap per Dr. Prado. 06/23- EGD done and findings suggested need for further procedure related to her prior naman en y, plan for Saturday S/P Naman-En-Y Gastric Bypass History of Anxiety and Depression Severe iron def- s/p IV iron (1) SBO (small bowel obstruction) Status: Acute Assessment & Plan: 06/26: Plan to go to OR tomorrow for Ex-lap with PRAMOD PradoO at midnight 06/27: Ex Lap today 06/28: POD #1, pain not well controlled, will add PO meds when able to take PO, encouraged patient to ambulate (2) Iron deficiency anemia Status: Chronic Assessment & Plan: 06/26: S/p 3 doses of venofer, Hgb stable Qualifiers: Qualified Codes: D50.9 - Iron deficiency anemia, unspecified (3) COVID-19 Status: Acute Assessment & Plan: 06/26: Over the acute phase, patient on RA and doing well from covid standpoint NADIYA JAMISON MD Jun 28, 2021 21:56
[2021-06-29] MEDS: oxyCODONE/APAP 7.5-325 MG (PERCOCET 7.5) TABLET PO PRN ×5 (03:10→22:07)
[2021-06-29] MEDS: CLINDAMYCIN 600 MG/50 ML IVPB 50 ML IV SCH ×3 (05:19→22:00)
[2021-06-29] MEDS: LACTATED RINGERS 1,000 ML IV SCH ×3 (05:19→22:00)
[2021-06-29 06:03] LABS: BASOPHILS % (AUTO) 0 % (0-10); EOSINOPHILS % (AUTO) 0 % (0-10); HEMATOCRIT 21 % (35-52); LYMPHOCYTES # (AUTO) 2.2 10^3/uL (1.0-4.0); LYMPHOCYTES % (AUTO) 18 % (12-44); MEAN CORPUSCULAR HEMOGLOBIN 30 pg (25-34); MEAN CORPUSCULAR HGB CONC 32 g/dL (32-36); MEAN CORPUSCULAR VOLUME 93 fL (80-99); MEAN PLATELET VOLUME 11.7 fL (9.0-12.2); MONOCYTES # (AUTO) 1.6 10^3/uL (0.0-1.0); MONOCYTES % (AUTO) 12 % (0-12); NEUTROPHILS # (AUTO) 8.6 10^3/uL (1.8-7.8); NEUTROPHILS % (AUTO) 69 % (42-75); PLATELET COUNT 244 10^3/uL (130-400); WHITE BLOOD COUNT 12.5 10^3/uL (4.3-11.0)
[2021-06-29 06:19] LABS: CALCIUM 7.2 MG/DL (8.5-10.1); CREATININE SERUM 0.53 MG/DL (0.60-1.30); POTASSIUM 3.4 MMOL/L (3.6-5.0)
[2021-06-29 06:21] LABS: HEMOGLOBIN 6.9 g/dL (11.5-16.0)
[2021-06-29] MEDS: POTASSIUM BICARB 20 MEQ (EFFER-K) TABLET PO SCH ×2 (09:12→22:00)
[2021-06-29] MEDS: risperiDONE 2 MG (RisperDAL) TAB PO SCH (09:12)
[2021-06-29] MEDS: PANTOPRAZOLE 40 MG (PROTONIX) TAB PO SCH (09:12)
[2021-06-29] MEDS: PREGABALIN 75 MG (LYRICA) CAP PO SCH (09:12)
[2021-06-29] MEDS: lamoTRIgine 25 MG (LaMICtal) TAB PO SCH (09:12)
--- NOTE | 2021-06-29 10:18 | Physical Therapy Evaluation ---
PT Evaluation-General Medical Diagnosis Admission Date Jun 14, 2021 at 16:20 Medical Diagnosis: SBO, ex lap Onset Date: Jun 14, 2021 Therapy Diagnosis Therapy Diagnosis: impaired mobility, endurance Height/Weight Height (Feet): 5 Height (Inches): 6.00 Weight (Pounds): 220 Precautions Precautions/Isolations: Fall Prevention Referral Physician: Lor Reason for Referral: Evaluation/Treatment Medical History Additional Medical History Past Medical History Surgeries: Abdominal Kidney Infection Chronic Back Pain Anxiety, Suicide Attempts, Bipolar, Personality Disorder, Depression Reviewed History: Yes Social History Home: Single Level Current Living Status: Spouse Entry Into Home: Stairs With Railing PT Steps Into Home: 5 Prior Prior Level of Function SCALE: Activities may be completed with or without assistive devices. 1-Dtmxudnkdp-jpfgirb completes the activity by him/herself with no assistance from a helper. 5-Set-up or Clean-up Assistance-helper sets up or cleans up; patient completes activity. [place] assists only prior to or following the activity. 4-Supervision or Touching Assistance-helper provides verbal cues and/or touchin g/steadying and/or contact guard assistance as patient completes activity. Assistance may be provided throughout the activity or intermittently. 3-Partial/Moderate Assistance-helper does LESS THAN HALF the effort. [place] lifts, holds or supports trunk or limbs, but provides less than half the effort. 2-Substantial/Maximal Assistance-helper does MORE THAN HALF the effort. [place] lifts or holds trunk or limbs and provides more than half the effort. 2-Vxyjfihce-fdyxcr does ALL the effort. Patient does none of the effort to complete the activity. Or, the assistance of 2 or more helpers is required for the patient to complete the activity. If activity was not attempted, code reason: 7-Patient Refused. 9-Not Applicable-not attempted and the patient did not perform the activity before the current illness, exacerbation or injury. 10-Not Attempted due to Environmental Limitations-(lack of equipment, weather restraints, etc.). 88-Not Attempted due to Medical Conditions or Safety Concerns. Bed Mobility: 6 Transfers (B,C,W/C): 6 Gait: 6 Stairs: 6 Indoor Mobility (Ambulation): Independent Stairs: Independent PT Evaluation-Current Subjective Patient in bed pre tx, agrees to PT, has unrated abdominal pain. Patient is not very vocal, drowsy Pt/Family Goals none stated Objective Patient Orientation: Person, Place, Situation Attachments: Drains, IV ROM/Strength ROM Lower Extremities WNL Strength Lower Extremities grossly 4+/5 BLE Sensory Hearing: Functional Sensation Right Lower Extremit: Intact Sensation Left Lower Extremity: Intact Transfers Roll Left to Right (QC): 4 Lying to Sitting/Side of Bed(Q: 3 Sit to Stand (QC): 4 Chair/Qib-ip-Upamt Xfer(QC): 4 min assist for supine to sit Gait Does the Patient Walk?: Yes Mode of Locomotion: Walk Anticipated Mode of Locomotion: Walk Walk 10 feet (QC): 4 Gait Assistive Device: None Comments/Gait Description Patient ambulated about 10' in her room and then sat in her recliner. Gait was slow but steady, slumped posture, holding her belly. Balance Sitting Static: Normal Sitting Dynamic: Normal Standing Static: Good Standing Dynamic: Good Treatment BLE seated ex x20 (AP, LAQ) Assessment/Needs Patient in recliner post tx with nurse call, phone, tray, all needs met. Patient has impaired mobility, endurance. She has a lot of pain with movement but doesn't need assist with anything except for getting into and out of bed. Rehab Potential: Fair PT Intermediate Goals Intermediate Goals PT Supervisor Paper Coating Goals Time Frame: Jul 06, 2021 Roll Left & Right (QC): 6 Sit to Lying (QC): 6 Lying-Sitting on Side/Bed(QC): 6 Sit to Stand (QC): 6 Chair/Emh-kq-Bxvfi Xfer(QC): 6 Walk 10 feet (QC): 6 Walk 50ft with 2 Turns (QC): 6 Walk 150 ft (QC): 6 PT Plan Problem List Problem List: Activity Tolerance, Functional Strength, Safety, Balance, Gait, Transfer, Bed Mobility, ROM Treatment/Plan Treatment Plan: Continue Plan of Care Treatment Plan: Bed Mobility, Education, Functional Activity Alisha, Functional Strength, Gait, Safety, Therapeutic Exercise, Transfers Treatment Duration: Jul 06, 2021 Frequency: 6 times per week Estimated Hrs Per Day: .25 hour per day Patient and/or Family Agrees t: Yes Safety Risks/Education Patient Education: Gait Training, Transfer Techniques, Correct Positioning, Safety Issues Teaching Recipient: Patient Teaching Methods: Demonstration, Discussion Response to Teaching: Reinforcement Needed Discharge Recommendations Plan Patient will perform bed mobility and transfer training, balance and endurance training, functional strengthening, stair training, gait training, and education, to improve functional mobility and independence at home. Therapy Discharge Recommendati: Home & Family, Post Acute PT Time/GCodes Time In: 948 Time Out: 1000 Total Billed Treatment Time: 11 Total Billed Treatment 1 visit EVL 11' GULSHAN GUERRERO PT Jun 29, 2021 10:17
[2021-06-29] MEDS: LORazepam INJ 2 MG/ML (ATIVAN) VIAL IVP PRN (11:11)
--- NOTE | 2021-06-29 12:30 | Progress Note ---
Subjective Date Seen by a Provider: Jun 29, 2021 Time Seen by a Provider: 11:00 Subjective/Events-last exam doing better today. tolerating ice chips, no nausea/vomiting. passing flatus. no fever/chills. Objective Exam Vital Signs Date Time Temp Pulse Resp B/P (MAP) Pulse Ox O2 Delivery O2 Flow Rate FiO2 06/29/21 11:41 37.0 84 18 88/48 100 Room Air 06/29/21 09:00 Room Air 06/29/21 07:56 37.1 107 18 96/58 92 Room Air 06/29/21 04:34 37.2 113 20 94/52 92 Room Air 06/29/21 00:34 37.4 110 18 96/52 93 Room Air 06/28/21 21:00 Room Air 06/28/21 19:55 37.6 103 18 88/52 95 Room Air 06/28/21 16:00 37.2 103 20 114/65 95 Room Air 06/28/21 15:04 83/50 I & O 06/29/21 07:00 Intake Total 300 ml Output Total 945 ml Balance -645 ml Capillary Refill : Less Than 3 SecondsLess Than 3 Seconds General Appearance: No Apparent Distress HEENT: PERRL/EOMI Neck: Full Range of Motion Respiratory: Chest Non Tender, Lungs Clear, Normal Breath Sounds Cardiovascular: Regular Rate, Rhythm Gastrointestinal: soft, tenderness, other (wound clean/dry) Extremity: Normal Capillary Refill Neurologic/Psychiatric: Alert, Oriented x3 Skin: Normal Color Lymphatic: No Adenopathy Results Lab Laboratory Tests 06/29/21 05:46: White Blood Count 12.5H, Red Blood Count 2.30L, Hemoglobin 6.9*L, Hematocrit 21L , Mean Corpuscular Volume 93, Mean Corpuscular Hemoglobin 30, Mean Corpuscular Hemoglobin Concent 32, Red Cell Distribution Width 15.4H, Platelet Count 244, Mean Platelet Volume 11.7, Immature Granulocyte % (Auto) 1, Neutrophils (%) (Auto) 69, Lymphocytes (%) (Auto) 18, Monocytes (%) (Auto) 12, Eosinophils (%) (Auto) 0, Basophils (%) (Auto) 0, Neutrophils # (Auto) 8.6H, Lymphocytes # (Auto) 2.2, Monocytes # (Auto) 1.6H, Eosinophils # (Auto) 0.0, Basophils # (Auto) 0.0, Immature Granulocyte # (Auto) 0.1, Sodium Level 133L, Potassium Level 3.4L, Chloride Level 101, Carbon Dioxide Level 23, Anion Gap 9, Blood Urea Nitrogen 18, Creatinine 0.53L, Estimat Glomerular Filtration Rate 120, BUN/Creatinine Ratio 34, Glucose Level 94, Calcium Level 7.2L 06/29/21 09:31: Microbiology 06/14/21 MRSA Screen - Final, Complete 06/14/21 Blood Culture - Final, Complete No growth 06/14/21 Urine Culture - Final, Complete NO GROWTH Assessment/Plan Assessment/Plan Assess & Plan/Chief Complaint 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 still having intermittent crampy abd pain and paucity of bowel fxn. surgical hx included laparoscopic gastric sleeve resection and then converted to naman-en-y bypass. 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 also could be related to jejuno-jejunal anastomotic sticture or internal hernia. in this scenario I would normally refer patient back to her original bariatric surgeon however bed likely unavailable. if sx persist and she understands risks and benefits of surgery done at this institution, will then proceed with dx laparoscopy. s/p EGD on (06/22) with finding of gastro-jejunal stricture however retained food within naman limb s/p g-j balloon dilatation. patient continues to have sx and in [place] of EGD findings likely has jejuno- jejunal stricture or an internal small bowel hernia. with these findings as well as continued sx and previous hx of covid positivity, will proceed with current management for now and schedule diagnostic laparosocopy with possible bowel resection and possible internal hernia reduction and repair on (06/27), once completely covid cleared. s/p diagnostic laparoscopy and laparoscopic revision jejeno-jejunal stricture POD2.. increase ambulate. clear liquids sparingly. KHURRAM ELON MD Jun 29, 2021 12:30
[2021-06-29] MEDS: ENOXAPARIN 40 MG/0.4 ML (LOVENOX) SYR SC SCH (18:13)
--- NOTE | 2021-06-29 21:30 | Progress Note ---
Subjective Subjective/Events-last exam Patient states that she is still having moderate pain. Advanced to CLD. Passing some flatus Review of Systems General: Malaise Pulmonary: No Dyspnea, No Cough Cardiovascular: No: Chest Pain, Palpitations, Edema Gastrointestinal: Abdominal Pain; No: Nausea, Vomiting, Diarrhea, Constipation Neurological: Weakness, Incoordination Objective Exam Last Set of Vital Signs Vital Signs Date Time Temp Pulse Resp B/P (MAP) Pulse Ox O2 Delivery O2 Flow Rate FiO2 06/29/21 20:04 37.1 98 24 97/53 95 Room Air 06/28/21 07:50 2.00 Capillary Refill : Less Than 3 SecondsLess Than 3 Seconds I&O Intake and Output 06/28/21 23:59 Intake Total 800 ml Output Total 885 ml Balance -85 ml Intake Oral 300 ml IV Total 500 ml Output Urine Total 500 ml Drainage Total 385 ml # Voids 2 General: Alert, Oriented X3, Cooperative HEENT: Mucous Memb Moist/Keyes Lungs: Clear to Auscultation, Normal Air Movement Heart: Regular Rate, No Murmurs Abdomen: Soft, Other (diffuse ttp, no rebound or guarding) Extremities: No Edema, No Tenderness/Swelling Skin: Other (incisions C/D/I) Neuro: Normal Speech Results/Procedures Lab Laboratory Tests 06/29/21 05:46: White Blood Count 12.5H, Red Blood Count 2.30L, Hemoglobin 6.9*L, Hematocrit 21L , Mean Corpuscular Volume 93, Mean Corpuscular Hemoglobin 30, Mean Corpuscular Hemoglobin Concent 32, Red Cell Distribution Width 15.4H, Platelet Count 244, Mean Platelet Volume 11.7, Immature Granulocyte % (Auto) 1, Neutrophils (%) (Auto) 69, Lymphocytes (%) (Auto) 18, Monocytes (%) (Auto) 12, Eosinophils (%) (Auto) 0, Basophils (%) (Auto) 0, Neutrophils # (Auto) 8.6H, Lymphocytes # (Auto) 2.2, Monocytes # (Auto) 1.6H, Eosinophils # (Auto) 0.0, Basophils # (Auto) 0.0, Immature Granulocyte # (Auto) 0.1, Sodium Level 133L, Potassium Level 3.4L, Chloride Level 101, Carbon Dioxide Level 23, Anion Gap 9, Blood Urea Nitrogen 18, Creatinine 0.53L, Estimat Glomerular Filtration Rate 120, BUN/Creatinine Ratio 34, Glucose Level 94, Calcium Level 7.2L 06/29/21 09:31: Iron Level 5L, Total Iron Binding Capacity 67L, Unsaturated Iron Binding Capacity 62, Transferrin % Saturation 7L, Ferritin 366.3H Microbiology 06/14/21 MRSA Screen - Final, Complete 06/14/21 Blood Culture - Final, Complete No growth 06/14/21 Urine Culture - Final, Complete NO GROWTH Assessment/Plan Assessment/Plan Assessment & Plan Hypovolemic shock- resolved HAP Pneumonia- completed cefepime, not requiring any supplemental oxygen Post COVID, has to remain in isolation until 06/28 per infection control Metabolic Acidosis- resolved Hypokalemia- replace potassium and follow Leukocytosis- resolved Lactic Acidosis- resolved CHAY- resolved SBO- waiting on further bowel movements, complaining of worsening pain today, appreciate Surgery recommendations 06/21- KUB today with persistent dilated bowel loops, although exam is benign, appreciate Surgery recommendations. 06/22- plan for ex lap per Dr. Prado. 06/23- EGD done and findings suggested need for further procedure related to her prior naman en y, plan for Saturday S/P Naman-En-Y Gastric Bypass History of Anxiety and Depression Severe iron def- s/p IV iron (1) SBO (small bowel obstruction) Status: Acute Assessment & Plan: 06/26: Plan to go to OR tomorrow for Ex-lap with BRUNA Prado at midnight 06/27: Ex Lap today 06/28: POD #1, pain not well controlled, will add PO meds when able to take PO, encouraged patient to ambulate 06/29: POD #2, encouraged ambulation (2) Iron deficiency anemia Status: Chronic Assessment & Plan: 06/26: S/p 3 doses of venofer, Hgb stable 06/29: Hgb continues to trend down, will continue to monitor, may need to repeat iron replacement Qualifiers: Qualified Codes: D50.9 - Iron deficiency anemia, unspecified (3) COVID-19 Status: Acute Assessment & Plan: 06/26: Over the acute phase, patient on RA and doing well from covid standpoint NADIYA JAMISON MD Jun 29, 2021 21:30
[2021-06-29] MEDS: DIVALPROEX EXT RELEASE 250 MG (DEPAKOTE ER) TAB PO SCH (21:59)
[2021-06-29] MEDS: DIVALPROEX EXT RELEASE 500 MG (DEPAKOTE ER) TAB PO SCH (21:59)
[2021-06-29] MEDS: AMITRIPTYLINE 50 MG (ELAVIL) TAB PO SCH (22:00)
[2021-06-29] MEDS: ZOLPIDEM 5 MG (AMBIEN) TAB PO SCH (22:00)
[2021-06-30] MEDS: oxyCODONE/APAP 7.5-325 MG (PERCOCET 7.5) TABLET PO PRN ×5 (04:24→23:59)
[2021-06-30] MEDS: CLINDAMYCIN 600 MG/50 ML IVPB 50 ML IV SCH ×3 (05:24→21:40)
[2021-06-30] MEDS: LACTATED RINGERS 1,000 ML IV SCH ×3 (05:24→19:58)
[2021-06-30 06:19] LABS: BASOPHILS % (AUTO) 0 % (0-10); EOSINOPHILS # (AUTO) 0.1 10^3/uL (0.0-0.3); EOSINOPHILS % (AUTO) 1 % (0-10); HEMATOCRIT 21 % (35-52); LYMPHOCYTES # (AUTO) 1.8 10^3/uL (1.0-4.0); LYMPHOCYTES % (AUTO) 16 % (12-44); MEAN CORPUSCULAR HEMOGLOBIN 30 pg (25-34); MEAN CORPUSCULAR HGB CONC 32 g/dL (32-36); MEAN CORPUSCULAR VOLUME 92 fL (80-99); MEAN PLATELET VOLUME 11.8 fL (9.0-12.2); MONOCYTES # (AUTO) 1.7 10^3/uL (0.0-1.0); MONOCYTES % (AUTO) 14 % (0-12); NEUTROPHILS # (AUTO) 7.9 10^3/uL (1.8-7.8); NEUTROPHILS % (AUTO) 68 % (42-75); PLATELET COUNT 241 10^3/uL (130-400); WHITE BLOOD COUNT 11.7 10^3/uL (4.3-11.0)
[2021-06-30 06:28] LABS: HEMOGLOBIN 6.6 g/dL (11.5-16.0)
[2021-06-30 06:29] LABS: POTASSIUM 3.2 MMOL/L (3.6-5.0)
[2021-06-30 06:34] LABS: CREATININE SERUM 0.56 MG/DL (0.60-1.30)
[2021-06-30] MEDS: POTASSIUM BICARB 20 MEQ (EFFER-K) TABLET PO SCH ×2 (08:58→19:57)
[2021-06-30] MEDS: PREGABALIN 75 MG (LYRICA) CAP PO SCH (08:58)
[2021-06-30] MEDS: PANTOPRAZOLE 40 MG (PROTONIX) TAB PO SCH (08:58)
[2021-06-30] MEDS: risperiDONE 2 MG (RisperDAL) TAB PO SCH (08:58)
[2021-06-30] MEDS: lamoTRIgine 25 MG (LaMICtal) TAB PO SCH (08:58)
[2021-06-30] MEDS: IRON SUCROSE 200 MG/10 ML (VENOFER) VIAL IV SCH (09:43)
--- NOTE | 2021-06-30 10:35 | Progress Note ---
Subjective Date Seen by a Provider: Jun 30, 2021 Time Seen by a Provider: 10:00 Subjective/Events-last exam doing better. up in chair. tolerating clears well with no nausea/vomiting. states some crampy abd pain however less in duration. passing flatus. Objective Exam Vital Signs Date Time Temp Pulse Resp B/P (MAP) Pulse Ox O2 Delivery O2 Flow Rate FiO2 06/30/21 09:01 Room Air 06/30/21 08:27 37.0 87 20 95/60 92 Room Air 06/30/21 04:24 37.1 06/30/21 04:00 37.0 112 22 104/57 94 Room Air 06/30/21 00:00 37.1 104 23 96/62 93 Room Air 06/29/21 22:07 37.1 06/29/21 21:58 Room Air 06/29/21 20:04 37.1 98 24 97/53 95 Room Air 06/29/21 16:00 37.0 92 22 98/48 96 Room Air 06/29/21 11:41 37.0 84 18 88/48 100 Room Air I & O 06/30/21 07:00 Intake Total 1372 ml Output Total 910 ml Balance 462 ml Capillary Refill : Less Than 3 SecondsLess Than 3 Seconds General Appearance: No Apparent Distress HEENT: PERRL/EOMI Neck: Full Range of Motion Respiratory: Chest Non Tender, Lungs Clear, Normal Breath Sounds Cardiovascular: Regular Rate, Rhythm Gastrointestinal: normal bowel sounds, soft, tenderness Extremity: Normal Capillary Refill Neurologic/Psychiatric: Alert, Oriented x3 Skin: Normal Color Lymphatic: No Adenopathy Results Lab Laboratory Tests 06/30/21 06:10: White Blood Count 11.7H, Red Blood Count 2.22L, Hemoglobin 6.6*L, Hematocrit 21L , Mean Corpuscular Volume 92, Mean Corpuscular Hemoglobin 30, Mean Corpuscular Hemoglobin Concent 32, Red Cell Distribution Width 15.2H, Platelet Count 241, Mean Platelet Volume 11.8, Immature Granulocyte % (Auto) 2, Neutrophils (%) (Auto) 68, Lymphocytes (%) (Auto) 16, Monocytes (%) (Auto) 14H, Eosinophils (%) (Auto) 1, Basophils (%) (Auto) 0, Neutrophils # (Auto) 7.9H, Lymphocytes # (Auto) 1.8, Monocytes # (Auto) 1.7H, Eosinophils # (Auto) 0.1, Basophils # (Auto) 0.0, Immature Granulocyte # (Auto) 0.2H, Sodium Level 132L, Potassium Level 3.2L, Chloride Level 100, Carbon Dioxide Level 24, Anion Gap 8, Blood Urea Nitrogen 12, Creatinine 0.56L, Estimat Glomerular Filtration Rate 118, BUN/Creatinine Ratio 21, Glucose Level 109H, Calcium Level 7.0L Microbiology 06/14/21 MRSA Screen - Final, Complete 06/14/21 Blood Culture - Final, Complete No growth 06/14/21 Urine Culture - Final, Complete NO GROWTH Assessment/Plan Assessment/Plan Assess & Plan/Chief Complaint 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 still having intermittent crampy abd pain and paucity of bowel fxn. surgical hx included laparoscopic gastric sleeve resection and then converted to naman-en-y bypass. 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 also could be related to jejuno-jejunal anastomotic sticture or internal hernia. in this scenario I would normally refer patient back to her original bariatric surgeon however bed likely unavailable. if sx persist and she understands risks and benefits of surgery done at this institution, will then proceed with dx laparoscopy. s/p EGD on (06/22) with finding of gastro-jejunal stricture however retained food within naman limb s/p g-j balloon dilatation. patient continues to have sx and in [place] of EGD findings likely has jejuno- jejunal stricture or an internal small bowel hernia. with these findings as well as continued sx and previous hx of covid positivity, will proceed with current management for now and schedule diagnostic laparosocopy with possible bowel resection and possible internal hernia reduction and repair on (06/27), once completely covid cleared. s/p diagnostic laparoscopy and laparoscopic revision jejeno-jejunal stricture POD#3.. increase ambulation and ADL's dys3 diet. KHURRAM LEON MD Jun 30, 2021 10:35
[2021-06-30] MEDS ORDERED: HYDR-3820 PO (10:37)
--- NOTE | 2021-06-30 10:38 | Discharge Inst-Surgical ---
D/C Lap Instructions-CAROLYN New, Converted, or Re-Newed RX: RX on Chart Follow Up Appt in 1 week JULIETH drain care Activity as tolerated No driving for 24 hours No driving while on pain medications Incentive Spirometry use every 2 hours while awake Regular Diet Symptoms to Report: Fever over 101 degree F, Nausea/Vomiting Infection Signs and Symptoms to report: Increased redness, Foul odor of wound, Increased drainage Bathing instructions: May shower Operative Area Clean/Dry; Keep incision clean/dry If any problems/questions: Contact your physician or go to Emergency Room KHURRAM LEON MD Jun 30, 2021 10:38
--- NOTE | 2021-06-30 11:58 | Physical Therapy Daily Note ---
PT Daily Note-Current Subjective Patient presented sitting in the chair and agreed to ambulate with therapy. Mental Status Patient Orientation: Person, Place, Situation Attachments: IV Transfers SCALE: Activities may be completed with or without assistive devices. 2-Phhcpcgxyg-nhyqslo completes the activity by him/herself with no assistance from a helper. 5-Set-up or Clean-up Assistance-helper sets up or cleans up; patient completes activity. [place] assists only prior to or following the activity. 4-Supervision or Touching Assistance-helper provides verbal cues and/or touching/steadying and/or contact guard assistance as patient completes activity. Assistance may be provided throughout the activity or intermittently. 3-Partial/Moderate Assistance-helper does LESS THAN HALF the effort. [place] lifts, holds or supports trunk or limbs, but provides less than half the effort. 2-Substantial/Maximal Assistance-helper does MORE THAN HALF the effort. [place] lifts or holds trunk or limbs and provides more than half the effort. 7-Jynmpxqjz-uacxtf does ALL the effort. Patient does none of the effort to complete the activity. Or, the assistance of 2 or more helpers is required for the patient to complete the activity. If activity was not attempted, code reason: 7-Patient Refused. 9-Not Applicable-not attempted and the patient did not perform the activity before the current illness, exacerbation or injury. 10-Not Attempted due to Environmental Limitations-(lack of equipment, weather restraints, etc.). 88-Not Attempted due to Medical Conditions or Safety Concerns. Sit to Stand (QC): 6 Gait Training Does the Patient Walk?: Yes Distance: 300' Walk 10 feet (QC): 6 Walk 50 ft with 2 Turns(QC): 6 Walk 150 ft (QC): 6 Gait Assistive Device: FWW Patient ambulated for 300' with FWW independently. Assessment Current Status: Good Progress Patient is independent for ambulation with FWW. Patient is d/c from physical therapy services due to independence and goals met. Nursing notified to encourage patient to ambulate PRN in hallway. They voice understanding. PT Fpc Goals Fpc Goals PT Aircraft Engine Mechanic Supervisor Goals Time Frame: Jul 06, 2021 Roll Left & Right (QC): 6 Sit to Lying (QC): 6 Lying-Sitting on Side/Bed(QC): 6 Sit to Stand (QC): 6 Chair/Baj-og-Zlepz Xfer(QC): 6 Walk 10 feet (QC): 6 Walk 50ft with 2 Turns (QC): 6 Walk 150 ft (QC): 6 PT Plan Treatment/Plan Treatment Plan: Discontinue PT, goals met Treatment Plan: Bed Mobility, Education, Functional Activity Alisha, Functional Strength, Gait, Safety, Therapeutic Exercise, Transfers Treatment Duration: Jul 06, 2021 Frequency: 6 times per week Estimated Hrs Per Day: .25 hour per day Patient and/or Family Agrees t: Yes Time/GCodes Time In: 1110 Time Out: 1123 Total Billed Treatment Time: 13 Total Billed Treatment 1 Visit FA 13 min KEVAN KAUFMAN PT Jun 30, 2021 11:58
--- NOTE | 2021-06-30 13:52 | Progress Note ---
Subjective Subjective/Events-last exam patient continues to have pain. on CLD. Denies any N/V Review of Systems General: No Chills, No Fatigue; Malaise Pulmonary: No Dyspnea, No Cough Cardiovascular: No: Chest Pain, Palpitations, Edema Gastrointestinal: Abdominal Pain; No: Nausea, Vomiting Neurological: Weakness, Incoordination Objective Exam Last Set of Vital Signs Vital Signs Date Time Temp Pulse Resp B/P (MAP) Pulse Ox O2 Delivery O2 Flow Rate FiO2 06/30/21 11:37 36.9 90 18 100/65 96 Room Air 06/28/21 07:50 2.00 Capillary Refill : Less Than 3 SecondsLess Than 3 Seconds I&O Intake and Output 06/30/21 00:00 Intake Total 872 ml Output Total 1170 ml Balance -298 ml Intake Oral 872 ml Output Urine Total 850 ml Drainage Total 320 ml # Voids 1 General: Alert, Oriented X3, Mild Distress Lungs: Clear to Auscultation, Normal Air Movement Heart: Regular Rate, No Murmurs Abdomen: Soft, Other (moderate ttp) Extremities: No Edema, No Tenderness/Swelling Neuro: Normal Speech Results/Procedures Lab Laboratory Tests 06/30/21 06:10: White Blood Count 11.7H, Red Blood Count 2.22L, Hemoglobin 6.6*L, Hematocrit 21L , Mean Corpuscular Volume 92, Mean Corpuscular Hemoglobin 30, Mean Corpuscular Hemoglobin Concent 32, Red Cell Distribution Width 15.2H, Platelet Count 241, Mean Platelet Volume 11.8, Immature Granulocyte % (Auto) 2, Neutrophils (%) (Auto) 68, Lymphocytes (%) (Auto) 16, Monocytes (%) (Auto) 14H, Eosinophils (%) (Auto) 1, Basophils (%) (Auto) 0, Neutrophils # (Auto) 7.9H, Lymphocytes # (Auto) 1.8, Monocytes # (Auto) 1.7H, Eosinophils # (Auto) 0.1, Basophils # (Auto) 0.0, Immature Granulocyte # (Auto) 0.2H, Sodium Level 132L, Potassium Level 3.2L, Chloride Level 100, Carbon Dioxide Level 24, Anion Gap 8, Blood Urea Nitrogen 12, Creatinine 0.56L, Estimat Glomerular Filtration Rate 118, BUN/Creatinine Ratio 21, Glucose Level 109H, Calcium Level 7.0L Microbiology 06/14/21 MRSA Screen - Final, Complete 06/14/21 Blood Culture - Final, Complete No growth 06/14/21 Urine Culture - Final, Complete NO GROWTH Assessment/Plan Assessment/Plan Assessment & Plan Hypovolemic shock- resolved HAP Pneumonia- completed cefepime, not requiring any supplemental oxygen Post COVID, has to remain in isolation until 06/28 per infection control Metabolic Acidosis- resolved Hypokalemia- replace potassium and follow Leukocytosis- resolved Lactic Acidosis- resolved CHAY- resolved SBO- waiting on further bowel movements, complaining of worsening pain today, appreciate Surgery recommendations 06/21- KUB today with persistent dilated bowel loops, although exam is benign, appreciate Surgery recommendations. 06/22- plan for ex lap per Dr. Prado. 06/23- EGD done and findings suggested need for further procedure related to her prior naman en y, plan for Saturday S/P Naman-En-Y Gastric Bypass History of Anxiety and Depression Severe iron def- s/p IV iron (1) SBO (small bowel obstruction) Status: Acute Assessment & Plan: 06/26: Plan to go to OR tomorrow for Ex-lap with BRUNA Prado at midnight 06/27: Ex Lap today 06/28: POD #1, pain not well controlled, will add PO meds when able to take PO, encouraged patient to ambulate 06/29: POD #2, encouraged ambulation 06/30: POD #3, encouraged OOB and increased ambulation (2) Iron deficiency anemia Status: Chronic Assessment & Plan: 06/26: S/p 3 doses of venofer, Hgb stable 06/29: Hgb continues to trend down, will continue to monitor, may need to repeat iron replacement 06/30: Repeat CBC in AM, venofer added today x 3 doses Qualifiers: Qualified Codes: D50.9 - Iron deficiency anemia, unspecified (3) COVID-19 Status: Acute Assessment & Plan: 06/26: Over the acute phase, patient on RA and doing well from covid standpoint NADIYA JAMISON MD Jun 30, 2021 13:52
[2021-06-30] MEDS: ENOXAPARIN 40 MG/0.4 ML (LOVENOX) SYR SC SCH (17:13)
[2021-06-30] MEDS: DIVALPROEX EXT RELEASE 500 MG (DEPAKOTE ER) TAB PO SCH (19:57)
[2021-06-30] MEDS: DIVALPROEX EXT RELEASE 250 MG (DEPAKOTE ER) TAB PO SCH (19:57)
[2021-06-30] MEDS: ZOLPIDEM 5 MG (AMBIEN) TAB PO SCH (19:57)
[2021-06-30] MEDS: AMITRIPTYLINE 50 MG (ELAVIL) TAB PO SCH (19:57)
[2021-07-01 04:58] LABS: BASOPHILS % (AUTO) 0 % (0-10); EOSINOPHILS # (AUTO) 0.1 10^3/uL (0.0-0.3); EOSINOPHILS % (AUTO) 1 % (0-10); HEMATOCRIT 23 % (35-52); HEMOGLOBIN 7.6 g/dL (11.5-16.0); LYMPHOCYTES # (AUTO) 2.1 10^3/uL (1.0-4.0); LYMPHOCYTES % (AUTO) 18 % (12-44); MEAN CORPUSCULAR HEMOGLOBIN 30 pg (25-34); MEAN CORPUSCULAR HGB CONC 33 g/dL (32-36); MEAN CORPUSCULAR VOLUME 93 fL (80-99); MEAN PLATELET VOLUME 11.3 fL (9.0-12.2); MONOCYTES # (AUTO) 1.4 10^3/uL (0.0-1.0); MONOCYTES % (AUTO) 12 % (0-12); NEUTROPHILS # (AUTO) 7.9 10^3/uL (1.8-7.8); NEUTROPHILS % (AUTO) 68 % (42-75); PLATELET COUNT 333 10^3/uL (130-400); WHITE BLOOD COUNT 11.6 10^3/uL (4.3-11.0)
[2021-07-01] MEDS: LACTATED RINGERS 1,000 ML IV SCH ×3 (05:04→13:14)
[2021-07-01] MEDS: CLINDAMYCIN 600 MG/50 ML IVPB 50 ML IV SCH ×3 (05:04→21:36)
[2021-07-01] MEDS: oxyCODONE/APAP 7.5-325 MG (PERCOCET 7.5) TABLET PO PRN ×5 (05:04→21:35)
[2021-07-01 05:13] LABS: CALCIUM 7.3 MG/DL (8.5-10.1)
[2021-07-01 05:17] LABS: CREATININE SERUM 0.5 MG/DL (0.60-1.30)
[2021-07-01] MEDS: PREGABALIN 75 MG (LYRICA) CAP PO SCH (08:48)
[2021-07-01] MEDS: risperiDONE 2 MG (RisperDAL) TAB PO SCH (08:48)
[2021-07-01] MEDS: POTASSIUM BICARB 20 MEQ (EFFER-K) TABLET PO SCH ×3 (08:48→21:37)
[2021-07-01] MEDS: lamoTRIgine 25 MG (LaMICtal) TAB PO SCH (08:48)
[2021-07-01] MEDS: PANTOPRAZOLE 40 MG (PROTONIX) TAB PO SCH (08:49)
--- NOTE | 2021-07-01 09:02 | Progress Note - Surgery ---
[facility] 07/01/21 0902: Subjective Date Seen by a Provider: Jul 01, 2021 Time Seen by a Provider: 09:15 Subjective/Events-last exam POD4 diagnostic laparoscopy, segmental bowel resection x2. Patient remains afebrile, with no acute events overnight Reports having two BMs during the night/morning States that she is still sore Also does have an appetite, but recently had COVID and the taste of dysphagia d iet is not appealing Review of Systems General: No Chills; Appetite; No Other (fever) Pulmonary: No Dyspnea, No Cough Cardiovascular: No: Chest Pain, Palpitations Gastrointestinal: Abdominal Pain; No: Nausea, Vomiting Objective Exam Vital Signs Date Time Temp Pulse Resp B/P (MAP) Pulse Ox O2 Delivery O2 Flow Rate FiO2 07/01/21 07:58 37.6 108 20 102/66 94 Room Air 07/01/21 03:31 37.0 97 18 92/54 92 Nasal Cannula 1.00 07/01/21 00:00 37.2 88 16 98/62 92 Room Air 06/30/21 20:10 Room Air 06/30/21 20:00 37.6 83 18 90/54 96 Room Air 06/30/21 18:39 88/50 06/30/21 17:41 84/48 06/30/21 16:00 36.6 77 20 83/49 90 Room Air 06/30/21 11:37 36.9 90 18 100/65 96 Room Air I & O 07/01/21 06:59 Intake Total 720 ml Output Total 1670 ml Balance -950 ml Capillary Refill : Less Than 3 SecondsLess Than 3 Seconds General Appearance: No Apparent Distress, WD/WN HEENT: PERRL/EOMI, Pharynx Normal Neck: Full Range of Motion, Non Tender Respiratory: Chest Non Tender, Lungs Clear, Normal Breath Sounds Cardiovascular: Regular Rate, Rhythm, No Edema, No Murmur Peripheral Pulses: 2+ Radial Pulses (R), 2+ Radial Pulses (L) Gastrointestinal: normal bowel sounds, soft, tenderness (RLQ and LLQ, Tenderness to the incisions as well. ), other (Incision healing well with minimal drainage) Extremity: Normal Capillary Refill Neurologic/Psychiatric: Alert, Oriented x3 Skin: Normal Color, Warm/Dry Lymphatic: No Adenopathy (posterior cervical or supraclavicular) Results Lab Laboratory Tests 07/01/21 04:45: White Blood Count 11.6H, Red Blood Count 2.53L, Hemoglobin 7.6L, Hematocrit 23L, Mean Corpuscular Volume 93, Mean Corpuscular Hemoglobin 30, Mean Corpuscular Hemoglobin Concent 33, Red Cell Distribution Width 15.1H, Platelet Count 333, Mean Platelet Volume 11.3, Immature Granulocyte % (Auto) 1, Neutrophils (%) (Auto) 68, Lymphocytes (%) (Auto) 18, Monocytes (%) (Auto) 12, Eosinophils (%) (Auto) 1, Basophils (%) (Auto) 0, Neutrophils # (Auto) 7.9H, Lymphocytes # (Auto) 2.1, Monocytes # (Auto) 1.4H, Eosinophils # (Auto) 0.1, Basophils # (Auto) 0.0, Immature Granulocyte # (Auto) 0.1, Sodium Level 134L, Potassium Level 3.0L, Chloride Level 99, Carbon Dioxide Level 27, Anion Gap 8, Blood Urea Nitrogen 10, Creatinine 0.50L, Estimat Glomerular Filtration Rate 122, BUN/Creatinine Ratio 20, Glucose Level 82, Calcium Level 7.3L Microbiology 06/14/21 MRSA Screen - Final, Complete 06/14/21 Blood Culture - Final, Complete No growth 06/14/21 Urine Culture - Final, Complete NO GROWTH Assessment/Plan Assessment/Plan Assessment/Plan 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 She is tolerating dysphagia III diet and had a BM. States abd is still sore. Review of Systems General: No Chills Pulmonary: No Dyspnea, No Cough Cardiovascular: No: Chest Pain, Palpitations Gastrointestinal: Abdominal Pain; No: Nausea, Vomiting Objective Exam General Appearance: No Apparent Distress, WD/WN HEENT: PERRL/EOMI Respiratory: Chest Non Tender, Lungs Clear, Normal Breath Sounds, No Accessory Muscle Use, No Respiratory Distress Cardiovascular: Regular Rate, Rhythm, No Murmur Gastrointestinal: soft, tenderness (RLQ and LLQ, Tenderness to the incisions as well. 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 - S/P diagnostic laparoscopy and laparoscopic revision jejeno-jejunal stricture POD#4 Surgical history of Laparoscopic gastric sleeve and converted Sylvain-en-y Bypass Continue OOB activity as tolerated, Continue pain control, will increase to a regular diet, continue ABX, change dressing as needed and encourage IS Supervisory-Addendum Brief Verification & Attestation Participated in pt care: history, MDM, physical Personally performed: exam, history, MDM, supervision of care Care discussed with: Medical Student Procedures: n/a Verification and Attestation of Medical Student E/M Service A medical student performed and documented this service. I then reviewed and verified all information documented by the medical student and made modifications to such information, when appropriate. I personally performed a physical exam, medical decision making and then discussed any differences between the notes and made revisions as necessary to create one note. Erika Bedolla , 07/01/21 , 12:01 MARIO BRAR Jul 01, 2021 09:02 ERIKA BEDOLLA DO Jul 01, 2021 12:01
--- NOTE | 2021-07-01 09:55 | Progress Note - Hospitalist ---
Subjective HPI/CC On Admission Date Seen by Provider: Jul 01, 2021 Time Seen by Provider: 09:45 Chief complaint: Hypertension with SBO History of present illness: This is a 40-year-old white female with history of mental illness and Sylvain-en-Y bypass by Dr. Jordan at [place] who presented to the ER ER 6 days after admission and discharge for small bowel obstruction with acute kidney injury. Apparently her ports that she did not have a bowel movement since time she came home and has not been eating or drinking anything. She was started on aggressive IV fluid resuscitation along with pressor therapy. Currently she has an NG tube and constantly asking for something to drink. Subjective/Events-last exam Patient is complaining of being hungry and feels a lot better than she did yesterday. Is requesting [employer]. She notes that her bowels are moving and she has no other complaints. Objective Exam Vital Signs Vital Signs Date Time Temp Pulse Resp B/P (MAP) Pulse Ox O2 Delivery O2 Flow Rate FiO2 07/01/21 07:58 37.6 108 20 102/66 94 Room Air 07/01/21 03:31 1.00 Capillary Refill : Less Than 3 SecondsLess Than 3 Seconds General Appearance: No Apparent Distress, WD/WN, Thin HEENT: Normal ENT Inspection Neck: Normal Inspection, Non Tender, Supple Respiratory: Lungs Clear, Normal Breath Sounds, No Accessory Muscle Use, No Respiratory Distress Cardiovascular: Systolic Murmur (1/6) Gastrointestinal: Normal Bowel Sounds Extremity: No Calf Tenderness, Pedal Edema Neurologic/Psychiatric: Alert, Oriented x3, No Motor/Sensory Deficits, Normal Mood/Affect Skin: Pallor Results/Procedures Lab Laboratory Tests 07/01/21 04:45 Patient resulted labs reviewed. Assessment/Plan Assessment and Plan Assess & Plan/Chief Complaint No bowel obstruction status post exploratory lap postop day #4 improving, diet to be addressed by Dr. LEON Iron deficiency anemia-hemoglobin is 7.6 today Hypokalemia with a potassium of 3-we will increase to 3 times daily dosing History of recent Covid out of isolation Lactic acidosis resolved ALMA RUSH MD Jul 01, 2021 09:55
[2021-07-01] MEDS: ENOXAPARIN 40 MG/0.4 ML (LOVENOX) SYR SC SCH (17:22)
[2021-07-01] MEDS: DIVALPROEX EXT RELEASE 500 MG (DEPAKOTE ER) TAB PO SCH (21:35)
[2021-07-01] MEDS: AMITRIPTYLINE 50 MG (ELAVIL) TAB PO SCH (21:36)
[2021-07-01] MEDS: DIVALPROEX EXT RELEASE 250 MG (DEPAKOTE ER) TAB PO SCH (21:36)
[2021-07-01] MEDS: ZOLPIDEM 5 MG (AMBIEN) TAB PO SCH (21:36)
[2021-07-02] MEDS: POTASSIUM BICARB 20 MEQ (EFFER-K) TABLET PO SCH ×3 (05:33→21:53)
[2021-07-02] MEDS: CLINDAMYCIN 600 MG/50 ML IVPB 50 ML IV SCH ×2 (05:33→13:38)
[2021-07-02] MEDS: oxyCODONE/APAP 7.5-325 MG (PERCOCET 7.5) TABLET PO PRN ×5 (05:36→21:53)
[2021-07-02] MEDS: LACTATED RINGERS 1,000 ML IV SCH (05:36)
[2021-07-02 06:03] LABS: POTASSIUM 3.5 MMOL/L (3.6-5.0)
[2021-07-02 06:05] LABS: CALCIUM 7.2 MG/DL (8.5-10.1)
[2021-07-02 06:09] LABS: CREATININE SERUM 0.54 MG/DL (0.60-1.30)
[2021-07-02 07:20] LABS: BASOPHILS % (AUTO) 0 % (0-10); EOSINOPHILS # (AUTO) 0.2 10^3/uL (0.0-0.3); EOSINOPHILS % (AUTO) 2 % (0-10); HEMATOCRIT 23 % (35-52); HEMOGLOBIN 7.3 g/dL (11.5-16.0); LYMPHOCYTES # (AUTO) 2.3 10^3/uL (1.0-4.0); LYMPHOCYTES % (AUTO) 19 % (12-44); MEAN CORPUSCULAR HEMOGLOBIN 29 pg (25-34); MEAN CORPUSCULAR HGB CONC 32 g/dL (32-36); MEAN CORPUSCULAR VOLUME 93 fL (80-99); MEAN PLATELET VOLUME 11.5 fL (9.0-12.2); MONOCYTES # (AUTO) 1.6 10^3/uL (0.0-1.0); MONOCYTES % (AUTO) 13 % (0-12); NEUTROPHILS # (AUTO) 7.9 10^3/uL (1.8-7.8); NEUTROPHILS % (AUTO) 64 % (42-75); PLATELET COUNT 408 10^3/uL (130-400); WHITE BLOOD COUNT 12.4 10^3/uL (4.3-11.0)
[2021-07-02 07:55] LABS: EOSINOPHILS % (MANUAL) 1 %; LYMPHOCYTES % (MANUAL) 17 %; MONOCYTES % (MANUAL) 11 %; NEUTROPHILS % (MANUAL) 71 %; POLYCHROMASIA SLIGHT; STOMATOCYTES SLIGHT
[2021-07-02] MEDS: PREGABALIN 75 MG (LYRICA) CAP PO SCH (09:40)
[2021-07-02] MEDS: risperiDONE 2 MG (RisperDAL) TAB PO SCH (09:40)
[2021-07-02] MEDS: PANTOPRAZOLE 40 MG (PROTONIX) TAB PO SCH (09:40)
[2021-07-02] MEDS: lamoTRIgine 25 MG (LaMICtal) TAB PO SCH (09:40)
[2021-07-02] MEDS: IRON SUCROSE 200 MG/10 ML (VENOFER) VIAL IV SCH (09:41)
--- NOTE | 2021-07-02 10:18 | Progress Note - Surgery ---
BEE FONG 07/02/21 1017: Subjective Date Seen by a Provider: Jul 02, 2021 Time Seen by a Provider: 10:00 Subjective/Events-last exam S/P day 5 of segmental Bowel resection times 2. She is tolerating a regular diet, she reports her pain to be 9/10 same as yesterday, she denies N/V or iss ues voiding. She denies passing flatus, but had a two BM 2 days ago. Review of Systems General: No Chills; Other (no fever) HEENT: No Eye Pain, No Ear Pain Pulmonary: No Dyspnea, No Pleuritic Chest Pain Cardiovascular: No: Chest Pain, Palpitations Gastrointestinal: Abdominal Pain; No: Nausea, Vomiting Genitourinary: No Dysuria, No Hematuria Musculoskeletal: No: neck pain, back pain Neurological: No: Change in speech, Confusion Objective Exam Vital Signs Date Time Temp Pulse Resp B/P (MAP) Pulse Ox O2 Delivery O2 Flow Rate FiO2 07/02/21 08:02 37.5 94 16 94/60 96 Room Air 07/02/21 04:12 36.8 96 17 100/67 94 Room Air 07/02/21 00:24 37.1 101 17 94/62 93 Room Air 07/01/21 20:20 Room Air 07/01/21 19:46 36.6 93 20 103/71 99 Room Air 07/01/21 15:54 37.0 98 20 101/66 97 Room Air 07/01/21 11:28 37.2 98 20 96/62 96 Room Air I & O 07/02/21 07:00 Intake Total 1760 ml Output Total 545 ml Balance 1215 ml Capillary Refill : Less Than 3 SecondsLess Than 3 Seconds General Appearance: No Apparent Distress, WD/WN HEENT: PERRL/EOMI; No Photophobia Neck: Full Range of Motion, Non Tender Respiratory: Chest Non Tender, Lungs Clear, Normal Breath Sounds, No Accessory Muscle Use, No Respiratory Distress Cardiovascular: Regular Rate, Rhythm, No Murmur Peripheral Pulses: 2+ Radial Pulses (R), 2+ Radial Pulses (L) Gastrointestinal: soft, tenderness, other (incision is healing well, serous drainage ) Extremity: Non Tender, No Calf Tenderness Neurologic/Psychiatric: Alert, Oriented x3, Normal Mood/Affect Skin: Normal Color, Warm/Dry Results Lab Laboratory Tests 2/13/22 05:35: White Blood Count 12.4H, Red Blood Count 2.48L, Hemoglobin 7.3L, Hematocrit 23L, Mean Corpuscular Volume 93, Mean Corpuscular Hemoglobin 29, Mean Corpuscular Hemoglobin Concent 32, Red Cell Distribution Width 15.3H, Platelet Count 408H, Mean Platelet Volume 11.5, Immature Granulocyte % (Auto) 3, Neutrophils (%) (Auto) 64, Lymphocytes (%) (Auto) 19, Monocytes (%) (Auto) 13H, Eosinophils (%) (Auto) 2, Basophils (%) (Auto) 0, Neutrophils # (Auto) 7.9H, Lymphocytes # (Auto) 2.3, Monocytes # (Auto) 1.6H, Eosinophils # (Auto) 0.2, Basophils # (Auto) 0.0, Immature Granulocyte # (Auto) 0.3H, Neutrophils % (Manual) 71, Lymphocytes % (Manual) 17, Monocytes % (Manual) 11, Eosinophils % (Manual) 1, Polychromasia SLIGHT, Stomatocytes SLIGHT, Sodium Level 136, Potassium Level 3.5L, Chloride Level 100, Carbon Dioxide Level 26, Anion Gap 10, Blood Urea Nitrogen 7, Creatinine 0.54L, Estimat Glomerular Filtration Rate 119, BUN/Creatinine Ratio 13, Glucose Level 79, Calcium Level 7.2L Microbiology 06/14/21 MRSA Screen - Final, Complete 06/14/21 Blood Culture - Final, Complete No growth 06/14/21 Urine Culture - Final, Complete NO GROWTH Assessment/Plan Assessment/Plan Assessment/Plan 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 Pain she states will reach up to 9/10. States has been about the same. Not having any nausea or emesis. No flatus or bm. Started regular diet yesterday. Denies n/v fever sweats chills shortness of breath or chest pain. Using IS. 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 - S/P diagnostic laparoscopy and laparoscopic revision jejeno-jejunal stricture POD#5 Surgical history of Laparoscopic gastric sleeve and converted Sylvain-en-y Bypass Continue OOB activity as tolerated, Continue pain control, on regular diet, continue ABX, change dressing as needed and encourage IS Repeat labs tomorrow Supervisory-Addendum Brief Verification & Attestation Participated in pt care: history, MDM, physical Personally performed: exam, history, MDM, supervision of care Care discussed with: Medical Student Procedures: n/a Results interpretation: Verified all documentation Verification and Attestation of Medical Student E/M Service A medical student performed and documented this service in my presence. I reviewed and verified all information documented by the medical student and made modifications to such information, when appropriate. I personally performed the physical exam and medical decision making. Donnell Bonilla, Jul 02, 2021,13:36 BEE FONG Jul 02, 2021 10:17 DONNELL BONILLA DO Jul 02, 2021 13:36
--- NOTE | 2021-07-02 10:54 | Progress Note - Hospitalist ---
Subjective HPI/CC On Admission Date Seen by Provider: Jul 02, 2021 Time Seen by Provider: 09:10 Chief complaint: Hypertension with SBO History of present illness: This is a 40-year-old white female with history of mental illness and Sylvain-en-Y bypass by Dr. Jordan at [place] who presented to the ER ER 6 days after admission and discharge for small bowel obstruction with acute kidney injury. Apparently her ports that she did not have a bowel movement since time she came home and has not been eating or drinking anything. She was started on aggressive IV fluid resuscitation along with pressor therapy. Currently she has an NG tube and constantly asking for something to drink. Subjective/Events-last exam Patient complains of right-sided pain. She had not had any pain medications for 2 to 3 days yet now is asking for IV pain medication. Has been up walking and is tolerating a regular diet well. Review of Systems Gastrointestinal: Abdominal Pain Objective Exam Vital Signs Vital Signs Date Time Temp Pulse Resp B/P (MAP) Pulse Ox O2 Delivery O2 Flow Rate FiO2 07/02/21 08:02 37.5 94 16 94/60 96 Room Air 07/01/21 03:31 1.00 Capillary Refill : Less Than 3 SecondsLess Than 3 Seconds General Appearance: No Apparent Distress, WD/WN, Chronically ill Respiratory: Chest Non Tender, Lungs Clear, Normal Breath Sounds, No Accessory Muscle Use, No Respiratory Distress Cardiovascular: Regular Rate, Rhythm, No Edema, No Gallop, No Murmur Gastrointestinal: Normal Bowel Sounds, Soft, Tenderness (With guarding on right side overlying skin abnormalities where a trocar site is) Extremity: Normal Capillary Refill, No Pedal Edema Neurologic/Psychiatric: Alert, Oriented x3, Depressed Affect Skin: Warm/Dry, Pallor Results/Procedures Lab Laboratory Tests 07/02/21 05:35 Patient resulted labs reviewed. Assessment/Plan Assessment and Plan Assess & Plan/Chief Complaint Small bowel obstruction status post exploratory lap postop day #5 improving, t to be addressed by Dr. LEON-normal bowel movement yesterday Iron deficiency anemia-hemoglobin is 7.5 today-on iron injections Hypokalemia with a potassium of 3,5 today History of recent Covid out of isolation Lactic acidosis resolved Right sided abdominal pain of uncertain etiology monitor for now ALMA RUSH MD Jul 02, 2021 10:54
[2021-07-02] MEDS: ENOXAPARIN 40 MG/0.4 ML (LOVENOX) SYR SC SCH (17:27)
[2021-07-02] MEDS: ZOLPIDEM 5 MG (AMBIEN) TAB PO SCH (21:52)
[2021-07-02] MEDS: DIVALPROEX EXT RELEASE 250 MG (DEPAKOTE ER) TAB PO SCH (21:53)
[2021-07-02] MEDS: DIVALPROEX EXT RELEASE 500 MG (DEPAKOTE ER) TAB PO SCH (21:53)
[2021-07-02] MEDS: AMITRIPTYLINE 50 MG (ELAVIL) TAB PO SCH (21:53)
[2021-07-03] MEDS: POTASSIUM BICARB 20 MEQ (EFFER-K) TABLET PO SCH ×2 (05:29→15:00)
[2021-07-03] MEDS: oxyCODONE/APAP 7.5-325 MG (PERCOCET 7.5) TABLET PO PRN ×4 (05:37→17:49)
[2021-07-03 06:12] LABS: HEMATOCRIT 24 % (35-52); HEMOGLOBIN 7.5 g/dL (11.5-16.0); MEAN CORPUSCULAR HEMOGLOBIN 29 pg (25-34); MEAN CORPUSCULAR HGB CONC 32 g/dL (32-36); MEAN CORPUSCULAR VOLUME 92 fL (80-99); MEAN PLATELET VOLUME 10.3 fL (9.0-12.2); PLATELET COUNT 408 10^3/uL (130-400); WHITE BLOOD COUNT 11.7 10^3/uL (4.3-11.0)
[2021-07-03 06:38] LABS: POTASSIUM 3.5 MMOL/L (3.6-5.0)
[2021-07-03 06:39] LABS: CALCIUM 7.2 MG/DL (8.5-10.1)
[2021-07-03 06:43] LABS: CREATININE SERUM 0.53 MG/DL (0.60-1.30); PHOSPHORUS 2.8 MG/DL (2.3-4.7)
[2021-07-03 06:47] LABS: MAGNESIUM 1.6 MG/DL (1.6-2.4)
[2021-07-03] MEDS: PANTOPRAZOLE 40 MG (PROTONIX) TAB PO SCH (08:49)
[2021-07-03] MEDS: risperiDONE 2 MG (RisperDAL) TAB PO SCH (08:49)
[2021-07-03] MEDS: PREGABALIN 75 MG (LYRICA) CAP PO SCH (08:49)
[2021-07-03] MEDS: lamoTRIgine 25 MG (LaMICtal) TAB PO SCH (08:49)
--- NOTE | 2021-07-03 10:47 | Progress Note - Hospitalist ---
Subjective HPI/CC On Admission Date Seen by Provider: Jul 03, 2021 Time Seen by Provider: 10:00 Chief complaint: Hypertension with SBO History of present illness: This is a 40-year-old white female with history of mental illness and Sylvain-en-Y bypass by Dr. Jordan at [place] who presented to the ER ER 6 days after admission and discharge for small bowel obstruction with acute kidney injury. Apparently her ports that she did not have a bowel movement since time she came home and has not been eating or drinking anything. She was started on aggressive IV fluid resuscitation along with pressor therapy. Currently she has an NG tube and constantly asking for something to drink. Subjective/Events-last exam DC plan Pt is doing about the same Complains of pain all the time Iron infusion really helped her Overall appears to be very debilitated Review of Systems General: Fatigue, Malaise Objective Exam Vital Signs Vital Signs Date Time Temp Pulse Resp B/P (MAP) Pulse Ox O2 Delivery O2 Flow Rate FiO2 07/03/21 15:50 37.2 87 18 103/58 98 Room Air 07/01/21 03:31 1.00 Capillary Refill : Less Than 3 SecondsLess Than 3 Seconds General Appearance: No Apparent Distress, WD/WN, Chronically ill Respiratory: Lungs Clear, Normal Breath Sounds Cardiovascular: Regular Rate, Rhythm Neurologic/Psychiatric: Alert, Oriented x3 Results/Procedures Lab Laboratory Tests 07/03/21 06:00 Patient resulted labs reviewed. Assessment/Plan Assessment and Plan Assess & Plan/Chief Complaint Assessment: Hypovolemic shock HAP Pneumonia Post COVID Metabolic Acidosis Hypokalemia Leukocytosis Lactic Acidosis CHAY SBO S/P Sylvain-En-Y Gastric Bypass History of Anxiety and Depression Severe iron def Plan Has received 7+ liters of fluids Receiving Cefepime and Flagyl Thiamine for S/P gastric bypass Will check a cortisol level IV iron infusions Continue to monitor electrolytes Consult General Surgery Continue pressor support as needed Monitor I&Os Plan: Advanced diet Move to 4th 06/18/21: Monitor hgb Hemoccult stools Pain control 07/03/2021: Discharge plan if okay with Dr. LEON Diagnosis/Problems Diagnosis/Problems (1) Hypovolemic shock Status: Acute (2) Pneumonia Status: Acute (3) COVID-19 Status: Acute (4) SBO (small bowel obstruction) Status: Acute (5) CHAY (acute kidney injury) Status: Acute ESA VILLATORO DO Jul 03, 2021 10:47
--- NOTE | 2021-07-03 15:45 | Progress Note ---
Subjective Date Seen by a Provider: Jul 03, 2021 Time Seen by a Provider: 15:00 Subjective/Events-last exam doing ok, able to tolerate diet however continues to have crampy abd pain which is expected. having bowel fxn. also having chronic pain issues. Objective Exam Vital Signs Date Time Temp Pulse Resp B/P (MAP) Pulse Ox O2 Delivery O2 Flow Rate FiO2 07/03/21 12:31 36.6 99 18 110/61 94 Room Air 07/03/21 09:00 Room Air 07/03/21 08:05 37.3 98 20 106/61 94 Room Air 07/03/21 04:03 36.8 77 19 99/67 94 Room Air 07/03/21 00:23 37.8 101 19 102/69 94 Room Air 07/02/21 20:48 37.1 85 19 88/56 95 Room Air 07/02/21 20:10 Room Air 07/02/21 16:04 36.6 96 19 91/61 95 Room Air I & O 07/03/21 07:00 Intake Total 1810 ml Output Total 1300 ml Balance 510 ml Capillary Refill : Less Than 3 SecondsLess Than 3 Seconds General Appearance: No Apparent Distress HEENT: PERRL/EOMI Neck: Full Range of Motion Respiratory: Chest Non Tender, Lungs Clear, Normal Breath Sounds Cardiovascular: Regular Rate, Rhythm Gastrointestinal: normal bowel sounds, soft, tenderness Extremity: Normal Capillary Refill Neurologic/Psychiatric: Alert, Oriented x3 Skin: Normal Color Lymphatic: No Adenopathy Results Lab Laboratory Tests 07/03/21 06:00: White Blood Count 11.7H, Red Blood Count 2.57L, Hemoglobin 7.5L, Hematocrit 24L, Mean Corpuscular Volume 92, Mean Corpuscular Hemoglobin 29, Mean Corpuscular Hemoglobin Concent 32, Red Cell Distribution Width 15.5H, Platelet Count 408H, Mean Platelet Volume 10.3, Sodium Level 137, Potassium Level 3.5L, Chloride Level 101, Carbon Dioxide Level 27, Anion Gap 9, Blood Urea Nitrogen 7, Creatinine 0.53L, Estimat Glomerular Filtration Rate 120, BUN/Creatinine Ratio 13, Glucose Level 76, Calcium Level 7.2L, Phosphorus Level 2.8, Magnesium Level 1.6 Microbiology 06/14/21 MRSA Screen - Final, Complete 06/14/21 Blood Culture - Final, Complete No growth 06/14/21 Urine Culture - Final, Complete NO GROWTH Assessment/Plan Assessment/Plan Assess & Plan/Chief Complaint 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 still having intermittent crampy abd pain and paucity of bowel fxn. surgical hx included laparoscopic gastric sleeve resection and then converted to naman-en-y bypass. 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 also could be related to jejuno-jejunal anastomotic sticture or internal hernia. in this scenario I would normally refer patient back to her original bariatric surgeon however bed likely unavailable. if sx persist and she understands risks and benefits of surgery done at this institution, will then proceed with dx laparoscopy. s/p EGD on (06/22) with finding of gastro-jejunal stricture however retained food within naman limb s/p g-j balloon dilatation. patient continues to have sx and in [place] of EGD findings likely has jejuno-jejuna l stricture or an internal small bowel hernia. with these findings as well as continued sx and previous hx of covid positivity, will proceed with current management for now and schedule diagnostic laparosocopy with possible bowel resection and possible internal hernia reduction and repair on (06/27), once completely covid cleared. s/p diagnostic laparoscopy and laparoscopic revision jejeno-jejunal stricture POD#6.. increase ambulation and ADL's reg diet. chronic pain issues KHURRAM LEON MD Jul 03, 2021 15:45
[2021-07-03] MEDS: ENOXAPARIN 40 MG/0.4 ML (LOVENOX) SYR SC SCH (17:03)
--- NOTE | 2021-07-03 17:55 | Discharge Summary ---
Discharge Summary Hospital Course Was the Problem List Reviewed?: Yes Problems/Dx: (1) Hypovolemic shock Status: Acute (2) Pneumonia Status: Acute (3) COVID-19 Status: Acute (4) SBO (small bowel obstruction) Status: Acute (5) CAHY (acute kidney injury) Status: Acute Hospital Course Date of Admission: Jun 14, 2021 at 16:20 Admission Diagnosis : Family Physician/Provider: Rajiv Bryant Date of Discharge: 07/03/21 Discharge Diagnosis: Small bowel obstruction, hypovolemic shock, recent Covid, severe weight loss, gastric bypass history, chronic pain, POD4 diagnostic laparoscopy, segmental bowel resection x2. Hospital Course: Patient had a lengthy hospital course when she was admitted for hypovolemic shock and sent to the ICU and supported post Covid syndrome. General surgery was consulted. Patient ultimately required intervention with diagnostic laparoscopy for the bowel obstruction. She did receive iron infusions. Pain was well controlled. Overall she was deemed stable for discharge and close follow-up with PCP. Labs and Pending Lab Test: Laboratory Tests 07/03/21 06:00: White Blood Count 11.7H, Red Blood Count 2.57L, Hemoglobin 7.5L, Hematocrit 24L, Mean Corpuscular Volume 92, Mean Corpuscular Hemoglobin 29, Mean Corpuscular Hemoglobin Concent 32, Red Cell Distribution Width 15.5H, Platelet Count 408H, Mean Platelet Volume 10.3, Sodium Level 137, Potassium Level 3.5L, Chloride Level 101, Carbon Dioxide Level 27, Anion Gap 9, Blood Urea Nitrogen 7, Creatinine 0.53L, Estimat Glomerular Filtration Rate 120, BUN/Creatinine Ratio 13, Glucose Level 76, Calcium Level 7.2L, Phosphorus Level 2.8, Magnesium Level 1.6 Microbiology 06/14/21 MRSA Screen - Final, Complete 06/14/21 Blood Culture - Final, Complete No growth 06/14/21 Urine Culture - Final, Complete NO GROWTH Home Meds Active Hydrocodone-Acetamin 10-325 mg (Hydrocodone/Acetaminophen) 1 Each Tablet 1 Each PO Q4H Reported Potassium Chloride 10 Meq Tab.er.prt 10 Meq PO BID FILLED 06-12-2021 #10/5 DAY SUPPLY Pantoprazole Sodium 40 Mg Tablet.dr 40 Mg PO DAILY Metronidazole 500 Mg Tablet 500 Mg PO TID FILLED 06-12-2021 #15/5 DAY SUPPLY Cefdinir 300 Mg Capsule 300 Mg PO BID FILLED 06-12-2021 #10/5 DAY SUPPLY Tizanidine HCl 4 Mg Tablet 8 Mg PO QID TAKES 2 (4MG) TABS Divalproex Sodium ER (Divalproex Sodium) 250 Mg Tab.er.24h 250 Mg PO HS TAKES 500MG +250MG TOGETHER TO EQUAL 750MG Amitriptyline HCl 100 Mg Tablet 200 Mg PO HS TAKES 2 (100MG) TABS Risperidone 2 Mg Tablet 4 Mg PO DAILY TAKES 2 (2MG) TABS Lamotrigine 25 Mg Tablet 50 Mg PO DAILY TAKES 2 (25MG) TABS Ibuprofen 800 Mg Tablet 800 Mg PO Q8H Belsomra (Suvorexant) 20 Mg Tablet 20 Mg PO HS PRN Zolpidem Tartrate ER (Zolpidem Tartrate) 12.5 Mg Tab.mphase 12.5 Mg PO HS Dextroamp-Amphet ER 20 mg Cap (Dextroamphetamine/Amphetamine) 20 Mg Cap.er.24h 20 Mg PO DAILY Clonazepam 1 Mg Tablet 1 Mg PO BID PRN Pregabalin 75 Mg Capsule 150 Mg PO DAILY TAKES 2 (75MG) CAPS Divalproex Sodium ER (Divalproex Sodium) 500 Mg Tab.er.24h 500 Mg PO HS TAKES 500MG +250MG TOGETHER TO EQUAL 750MG Fentanyl Patch 50 MCG (Fentanyl) 1 Each Patch.td72 50 Mcg TD Q72H Ondansetron Odt (Ondansetron) 4 Mg Tab.rapdis 4 Mg PO Q8H PRN Assessment/Pt Instructions PCP in 2 weeks Discharge Planning: <30 minutes discharge planning Discharge Instructions Discharge Diet: Low Residue Activity as Tolerated: Yes Discharge Physical Examination Vital Signs Vital Signs Date Time Temp Pulse Resp B/P (MAP) Pulse Ox O2 Delivery O2 Flow Rate FiO2 07/03/21 15:50 37.2 87 18 103/58 98 Room Air 07/01/21 03:31 1.00 General Appearance: No Apparent Distress, WD/WN, Chronically ill Allergies: Coded Allergies: Penicillins (Verified Allergy, Unknown, 09/29/20) Discharge Summary Date of Admission Jun 14, 2021 at 16:20 Date of Discharge Discharge Date: Jul 03, 2021 Admission Diagnosis Assessment: Hypertension Small bowel obstruction Mental illness Acute kidney injury History of Sylvain-en-Y bypass Plan: General surgery consult Aggressive IV fluid resuscitation Colitis coverage with antibiotics Discharge Diagnosis Assessment: Hypovolemic shock HAP Pneumonia Post COVID Metabolic Acidosis Hypokalemia Leukocytosis Lactic Acidosis CHAY SBO S/P Sylvain-En-Y Gastric Bypass History of Anxiety and Depression Severe iron def Plan Has received 7+ liters of fluids Receiving Cefepime and Flagyl Thiamine for S/P gastric bypass Will check a cortisol level IV iron infusions Continue to monitor electrolytes Consult General Surgery Continue pressor support as needed Monitor I&Os Plan: Advanced diet Move to 06/18/21: Monitor hgb Hemoccult stools Pain control (1) Hypovolemic shock Status: Acute (2) Pneumonia Status: Acute (3) COVID-19 Status: Acute (4) SBO (small bowel obstruction) Status: Acute (5) CHAY (acute kidney injury) Status: Acute ESA VILLATORO DO Jul 03, 2021 17:55
[2021-07-03] MEDS ORDERED: FENTANYL PATCH REMOVAL TP SCH (18:14)
[2021-07-03] MEDS ORDERED: fentaNYL PATCH 50 MCG (DURAGESIC) TD SCH (18:15)
== END 2021-07-03 19:17 | disposition home or self-care (01) | DRG 853 ==
LOC: EDUNIT# 12:56 → ER 13:00 → ICU 16:20 → 4TH 06-17 13:13
PROVIDERS: ADMIT Internal Medicine; ATTEND Internal Medicine
PROC: 0DB48ZX Excision of Esophagogastric Junction, Via Natural or Artificial Opening Endoscopic, Diagnostic (ICD-10-PCS; 2021-06-22)
PROC: 0DB68ZX Excision of Stomach, Via Natural or Artificial Opening Endoscopic, Diagnostic (ICD-10-PCS; 2021-06-22)
PROC: 0WJP4ZZ Inspection of Gastrointestinal Tract, Percutaneous Endoscopic Approach (ICD-10-PCS; 2021-06-27)
PROC: 0DT80ZZ Resection of Small Intestine, Open Approach (ICD-10-PCS; principal; 2021-06-27 11:59)
DX: R57.1 Hypovolemic shock (principal); J18.9 Pneumonia, unspecified organism; G92.8 Other toxic encephalopathy; E87.2 Acidosis; N17.9 Acute kidney failure, unspecified; N39.0 Urinary tract infection, site not specified; K56.690 Other partial intestinal obstruction; E87.6 Hypokalemia; D72.829 Elevated white blood cell count, unspecified; F41.9 Anxiety disorder, unspecified; Z87.891 Personal history of nicotine dependence; I10 Essential (primary) hypertension; Z98.84 Bariatric surgery status; G89.29 Other chronic pain; M54.9 Dorsalgia, unspecified; F31.9 Bipolar disorder, unspecified; F60.9 Personality disorder, unspecified; U09.9 Post COVID-19 condition, unspecified; E61.1 Iron deficiency; Y95 Nosocomial condition; K21.00 Gastro-esophageal reflux disease with esophagitis, without bleeding; K29.70 Gastritis, unspecified, without bleeding
CPT/HCPCS: 36410; 36415; 71045; 74018; 74176; 76937; 80048; 80053; 80306; 80329; 81000; 82274; 82533; 82607; 82728; 82746; 82805; 82947; 83540; 83550; 83605; 83735; 84100; 84132; 84145; 85007; 85014; 85018; 85025; 85027; 85610; 86850; 86900; 86901; 86920; 87040; 87081; 87088; 88305; 88307; 94640; 94664; 96361; 96374; 96375; 99291